=== PATIENT | male | born 1940 | race Caucasian/White ===

== ENCOUNTER 2020-02-05 05:45 | Outpatient (RCR) | payer MEDICARE, SELFPAY ==
--- NOTE | 2020-01-16 11:35 | N.ONRAD NP_ITS ---
Radiation Oncology New Patient Visit Patient: Gama William MR#: [id number] : 1940> Age: 79> Sex: Male> Dictated by: Dr. 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 The 5.5 cm tumor with 1.5 cm depth of invasion and skeletal muscle involvement was resected with a free flap reconstruction on 11/25/[address] Paredes at the [facility]. Pathology revealed widely negative margins, no lymph node involvement, and no bone invasion. Radiotherapy to date: Summary > No prior radiation therapy. Chief Complaint / History of Present Illness: The patient is an 79-year-old male who noted a progressive lesion behind his right ear for a duration of 8 to 9 months. The patient was referred to a instrument sterilizer, but the patient was noncompliant. The patient was ultimately referred to Dr. Leland Aguirre and a physical exam on 11/07/2019 revealed a fungating postauricular mass emanating from the right posterior helical fold involving the posterior boris bowl and postauricular crease. On 11/25/2019 Dr. Paredes at the [facility] performed a trans-parotid approach to the right infratemporal fossa with radical resection of the right ear, soft tissue of face, superficial parotid, 9 x 8 cm cutaneous defect, along with a right neck dissection of levels 2 through 4, and a right myofasciocutaneous anterolateral thigh free flap 10 x 8 cm. Pathology revealed a 5.5 cm mass of moderately differentiated squamous cell carcinoma with focal skeletal muscle involvement invading 1.5 cm. Surgical margins were widely negative, and none of the 34 resected lymph nodes were positive for disease. There was no bony involvement or salivary gland involvement. Preoperative imaging is not currently available for my review. The patient is seen in consultation today and reports no pain within the operative site or wound healing complications. Physical exam is pertinent for a well-healed free flap in the operative site, mild/moderate right facial nerve paralysis, and no palpable neck adenopathy. Current Medications: Allergies: Morphine Sulfate. Medical History: - Chronic kidney disease, - chronic obstructive pulmonary disease, - heart disease, - history of bladder cancer, - hyperlipidemia, - hypertension, - type II diabetes. No history of collagen vascular disease. No previous radiation therapy. Surgical History: Appendectomy, bladder surgery, coronary artery bypass, esophageal surgery, hernia repair and right ear/temporal bone excision. Family History: Father is at age 82 having experienced Colon Cancer. Mother is at age 94. Brother is at age 34 having experienced Colon Cancer. Social History: Last screened on 12/18/2019 - Yes - but has quit. Last screened on 12/18/2019 - Never drank. Current Complaints / Review of Systems: Constitutional - Complains of moderate fatigue. Denies lack of appetite, fever, night sweats and change in weight. Eyes - Complains of blurred vision related to watery eyes. Denies double vision. ENMT - Complains of problems with hearing. Denies dysphagia, ear pain, mouth dryness, stomatitis and altered taste. Neck - Denies neck pain. Integumentary - Denies rash. Cardiovascular - Denies arrhythmias, chest pain and edema. Respiratory - Complains of cough which is productive in the morning. Complains of dyspnea associated with normal activity. Denies wheezing. Gastrointestinal - Complains of abdominal pain that is intermittent located in the upper abdomen. Complains of heartburn / dyspepsia. Denies constipation, diarrhea, melena / GI bleeding, nausea and vomiting. Genitourinary (M) - Complains of hematuria from recent surgery and nocturia gets up 2 to 3 times per night. Denies dysuria. Musculoskeletal - Complains of bone pain occasionally in the right knee. Denies joint pain. Neurologic - Complains of abnormal gait. Denies dizziness and headaches. Endocrine - Complains of Type 2 diabetes. Complains of thyroid disease. Hematologic/Lymphatic - Denies tender or enlarged lymph nodes.. Vital Signs: Performed on 01/15/2020 2:06 PM BMI - 27.608 kg/m2 (high), Height - 72.50 in, Weight - 206.4 lbs, Temperature - 97.4 f, Pulse - 84, Respiration - 20, O2 Sat - 96 %, Pain - 0 and BP - 165/ 75 mm(hg)(high/). Physical Exam: GENERAL:??? The patient is alert, and in no acute distress. HEENT:??? Head is normocephalic. External ocular movements are intact. Sclera and conjunctivae are non erythematous. NECK:??? Trachea is midline.??? Thyroid is not enlarged by palpation.??? LYMPH NODES:???There are no palpable cervical or supraclavicular lymph nodes bilaterally. LUNGS:??? Clear to auscultation bilaterally. Respiratory movement is unlabored. HEART:??? Regular rate and rhythm. EXTREMITIES:??? No deformities. NEUROLOGIC:??? The patient is well coordinated and strength is equal bilaterally. CHEF INSTRUCTOR:???Aside from mild/moderate right facial nerve paralysis, cranial nerves II-XII are grossly.??? Psych: Affect is normal. Skin: Cursory review of the skin reveals no obvious lesions concerning for malignancy. Performance Status: 1 - No physically strenuous activity, but ambulatory and able to carry out light or sedentary work (e.g. office work, light house work). 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 The 5.5 cm tumor with 1.5 cm depth of invasion and skeletal muscle involvement was resected with a free flap reconstruction on 11/25/[address] Paredes at the [facility]. Pathology revealed widely negative margins and no lymph node involvement. We discussed the fact that despite the excellent surgery the patient has received, he still has a high risk for disease recurrence and therefore radiation therapy for local control benefit is reasonable. We discussed treatment goals of radiotherapy, prognosis with and without radiation therapy, radiation treatment logistics, and potential acute and late side effects in detail. Both the patient and his son verbalized understanding of the risks/benefits of radiotherapy and they have agreed that the patient should proceed as recommended. Plan: -) Obtain preoperative imaging from the [facility]. -) Begin radiation therapy planning to provide a total dose of 60 Gy in 30 fractions to the operative bed and right neck draining lymphatics. We will begin radiotherapy planning early next week and fuse preoperative imaging to the CT simulation data set. Signed by: 01/16/2020 11:33:16 AM <<Signature on File>> Time spent with patient: CPT Code: CPT Code:
--- NOTE | 2020-01-20 | CT_ITS ---
Radiation Therapy Planning CT images; total exam DLP: 1366.81 mGy-cm MTDD
--- NOTE | 2020-01-29 18:15 | ONCRAD TMN_ITS ---
Radiation Oncology Weekly Treatment Management Patient: Nataliia Malloy MR#: [id number] : 1940 Age: 79 Sex: Male Dictated by: Dr. 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 The 5.5 cm tumor with 1.5 cm depth of invasion and skeletal muscle involvement was resected with a free flap reconstruction on 11/25/[address] Paredes at the [facility]. Pathology revealed widely negative margins, no lymph node involvement, and no bone invasion. Radiotherapy to date: Course: HN 2019, Treatment Site: HN RT 60Gy, Ref. ID: [id number], Energy: 6X, dose/Fx (cGy): 20, #Fx: 2 / 30, Dose Correction (cGy): 0, Total Dose (cGy): 400, Start Date: 01/27/2020, Elapsed Days: 1 Reason for visit: The patient is being seen today as part of their regularly scheduled weekly on treatment visits to assess for acute toxicities from radiotherapy. Interim History: Patient reports a mild cough productive for clear sputum, hiccups, and occasional odynophagia. Current Medications: Albuterol Sulfate HFA, aspirin 81, atorvastatin Calcium, clopidogrel Bisulfate, colchicine, famotidine, ferrous Sulfate, gemfibrozil, insulin Glargine (2 Unit Dial), levothyroxine Sodium, lisinopril, metoprolol Tartrate, multivitamin, nitroglycerin, pioglitazone HCl. Allergies: Morphine Sulfate. Current Complaints/Review of Systems: Constitutional - Complains of mild fatigue. Denies lack of appetite, fever and night sweats. ENMT - Complains of problems with hearing and mouth dryness. Denies dysphagia but has odynophagia occasionally, ear pain, stomatitis and altered taste. Neck - Denies neck pain. Respiratory - Complains of a mild cough which is productive and the sputum is clear in color. Complains of hiccoughs. Denies hemoptysis and wheezing. Vital Signs: Performed on 01/28/2020 3:51 PM BMI - 27.769 kg/m2 (high), Height - 72.50 in, Weight - 207.6 lbs, Temperature - 97.4 f, Pulse - 51, Respiration - 18, O2 Sat - 98 %, Pain - 0 and BP - 166/ 73 mm(hg)(high/). Physical Exam: Appears stable, no skin erythema or desquamation. Performance Status: 1 - No physically strenuous activity, but ambulatory and able to carry out light or sedentary work (e.g. office work, light house work). (ECOG) Lab: None pending in Radiation Oncology. Imaging: Radiation therapy imaging related to accurate target localization (i.e. KV, MV and CBCT) was reviewed. Appropriate changes, if any, were made to ensure treatment accuracy. Plan: The patient is tolerating therapy reasonably well. Radiotherapy will continue as planned. CPT: 33957 Signed by: Dr. Shreyas Villafuerte 01/29/2020 6:14:20 PM
--- NOTE | 2020-02-06 09:09 | ONCRAD TMN_ITS ---
Radiation Oncology Weekly Treatment Management Patient: Nataliia Malloy MR#: [id number] : 1940 Age: 79 Sex: Male Dictated by: Dr. 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 The 5.5 cm tumor with 1.5 cm depth of invasion and skeletal muscle involvement was resected with a free flap reconstruction on 11/25/[address] Paredes at the [facility]. Pathology revealed widely negative margins, no lymph node involvement, and no bone invasion. Radiotherapy to date: Course: HN 2019, Treatment Site: HN RT 60Gy, Ref. ID: [id number], Energy: 6X, Dose/Fx (cGy): 200, #Fx: , Dose Correction (cGy): 0, Total Dose (cGy): 1,400, Start Date: 01/27/2020, Elapsed Days: 8 Reason for visit: The patient is being seen today as part of their regularly scheduled weekly on treatment visits to assess for acute toxicities from radiotherapy. Interim History: Aside from mild fatigue, the patient has no complaints. Current Medications: Albuterol Sulfate HFA, aspirin 81, atorvastatin Calcium, clopidogrel Bisulfate, colchicine, famotidine, ferrous Sulfate, gemfibrozil, insulin Glargine (2 Unit Dial), levothyroxine Sodium, lisinopril, metoprolol Tartrate, multivitamin, nitroglycerin, pioglitazone HCl. Allergies: Morphine Sulfate. Current Complaints/Review of Systems: Constitutional - Complains of mild fatigue. Denies lack of appetite, fever, night sweats and change in weight. ENMT - Denies dysphagia, ear pain, mouth dryness, stomatitis and altered taste. Neck - Denies neck pain. Integumentary - Has slight pinkness to the neck. Vital Signs: Performed on 02/04/2020 3:39 PM BMI - 27.622 kg/m2 (high), Height - 72.50 in, Weight - 206.5 lbs, Temperature - 96.8 f, Pulse - 86, Respiration - 18, O2 Sat - 98 %, Pain - 0 and BP - 153/ 79 mm(hg)(high/). Physical Exam: Faint erythema within the treatment site is appreciated. There is no desquamation. Performance Status: 1 - No physically strenuous activity, but ambulatory and able to carry out light or sedentary work (e.g. office work, light house work). (ECOG) Lab: None pending in Radiation Oncology. Imaging: Radiation therapy imaging related to accurate target localization (i.e. KV, MV and CBCT) was reviewed. Appropriate changes, if any, were made to ensure treatment accuracy. Plan: The patient is tolerating therapy reasonably well. Radiotherapy will continue as planned. CPT: 05917 Signed by: Dr. Shreyas Villafuerte 02/06/2020 9:08:10 AM
== END 2020-02-05 23:59 | disposition home or self-care (01) ==
LOC: ONCMED 05:45
PROVIDERS: PCP Family Medicine; Visit Provider Radiology Radiation Oncology
DX: Z51.0 Encounter for antineoplastic radiation therapy (principal); C44.222 Squamous cell carcinoma of skin of right ear and external auricular canal; E78.5 Hyperlipidemia, unspecified; E11.22 Type 2 diabetes mellitus with diabetic chronic kidney disease; I13.10 Hypertensive heart and chronic kidney disease without heart failure, with stage 1 through stage 4 chronic kidney disease, or unspecified chronic kidney disease; N18.9 Chronic kidney disease, unspecified; Z87.891 Personal history of nicotine dependence
CPT/HCPCS: 77300; 77301; 77332; 77334; 77338; 77386; 99205

== ENCOUNTER 2020-03-06 05:41 | Outpatient (RCR) | payer MEDICARE, SELFPAY ==
--- NOTE | 2020-02-13 08:35 | ONCRAD TMN_ITS ---
Radiation Oncology Weekly Treatment Management Patient: Gama William MR#: [id number] : 1940 Age: 80 Sex: Male Dictated by: Dr. Shreyas Villafuerte Date of Service: 02/11/2020 Referring Physician(s) : Diagnosis: C44.222 ??? 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 The 5.5 cm tumor with 1.5 cm depth of invasion and skeletal muscle involvement was resected with a free flap reconstruction on 11/25/[address] Paredes at the [facility]. Pathology revealed widely negative margins, no lymph node involvement, and no bone invasion. Radiotherapy to date: Course: HN 2019, Treatment Site: HN RT 60Gy, Ref. ID: [id number], Energy: 6X, Dose/Fx (cGy): 200, #Fx: , Dose Correction (cGy): 0, Total Dose (cGy): 2,400, Start Date: 01/27/2020, Elapsed Days: 15 Reason for visit: The patient is being seen today as part of their regularly scheduled weekly on treatment visits to assess for acute toxicities from radiotherapy. Interim History: The patient reports mild fatigue, no oral cavity pain, or skin irritation. Current Medications: Albuterol Sulfate HFA, aspirin 81, atorvastatin Calcium, clopidogrel Bisulfate, colchicine, famotidine, ferrous Sulfate, gemfibrozil, insulin Glargine (2 Unit Dial), levothyroxine Sodium, lisinopril, metoprolol Tartrate, multivitamin, nitroglycerin, pioglitazone HCl. Allergies: Morphine Sulfate. Current Complaints/Review of Systems: Constitutional - Complains of mild fatigue. Complains of change in weight in which his weight is down 5.1 lbs. since last OTV. Denies lack of appetite and fever. ENMT - Complains of problems with hearing. Denies dysphagia, ear pain, mouth dryness, stomatitis and altered taste. Neck - Denies neck pain. Integumentary - Has no redness to the neck. Respiratory - Complains of hiccoughs. Vital Signs: Performed on 02/11/2020 3:29 PM BMI - 26.939 kg/m2 (high), Height - 72.50 in, Weight - 201.4 lbs, Temperature - 97.8 f, Pulse - 62, Respiration - 20, O2 Sat - 99 %, Pain - 0 and BP - 142/ 54 mm(hg)(high/low). Physical Exam: Appears stable, no skin erythema or desquamation. Performance Status: 1 - No physically strenuous activity, but ambulatory and able to carry out light or sedentary work (e.g. office work, light house work). (ECOG) Lab: None pending in Radiation Oncology. Imaging: Radiation therapy imaging related to accurate target localization (i.e. KV, MV and CBCT) was reviewed. Appropriate changes, if any, were made to ensure treatment accuracy. Plan: The patient is tolerating therapy reasonably well. Radiotherapy will continue as planned. CPT: 63990 Signed by: Dr. Shreyas Villafuerte 02/13/2020 8:33:31 AM
--- NOTE | 2020-02-18 16:27 | ONCRAD TMN_ITS ---
Radiation Oncology Weekly Treatment Management Patient: Nataliia Malloy MR#: [id number] : 1940 Age: 80 Sex: Male Dictated by: Dr. Shreyas Villafuerte Date of Service: 02/18/2020 Referring Physician(s) : Diagnosis: C44.222 ??? 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 The 5.5 cm tumor with 1.5 cm depth of invasion and skeletal muscle involvement was resected with a free flap reconstruction on 11/25/[address] Paredes at the [facility]. Pathology revealed widely negative margins, no lymph node involvement, and no bone invasion. Radiotherapy to date: Course: HN 2019, Treatment Site: HN RT 60Gy, Ref. ID: [id number], Energy: 6X, Dose/Fx (cGy): 200, #Fx: , Dose Correction (cGy): 0, Total Dose (cGy): 3,400, Start Date: 01/27/2020, Elapsed Days: 22 Reason for visit: The patient is being seen today as part of their regularly scheduled weekly on treatment visits to assess for acute toxicities from radiotherapy. Interim History: He reports decreased sense of smell, but this is improving. He first reported a decrease since of smell after his surgery. He reports mild skin irritation in Current Medications: Albuterol Sulfate HFA, aspirin 81, atorvastatin Calcium, clopidogrel Bisulfate, colchicine, famotidine, ferrous Sulfate, gemfibrozil, insulin Glargine (2 Unit Dial), levothyroxine Sodium, lisinopril, metoprolol Tartrate, multivitamin, nitroglycerin, pioglitazone HCl. Allergies: Morphine Sulfate. Current Complaints/Review of Systems: Constitutional - Complains of mild fatigue. Denies lack of appetite, fever and night sweats. ENMT - Denies ear pain, mouth dryness, stomatitis and altered taste. Has decreased sense of smell. Neck - Denies neck pain. Integumentary - Has slight redness to the right side of the neck. Vital Signs: Performed on 02/18/2020 3:31 PM BMI - 26.592 kg/m2 (high), Height - 72.50 in, Weight - 198.8 lbs, Temperature - 96.9 f, Pulse - 59, Respiration - 18, O2 Sat - 96 %, Pain - 0 and BP - 118/ 72 mm(hg). Physical Exam: Mild skin erythema within the treatment site is appreciated. There is no desquamation. Performance Status: 1 - No physically strenuous activity, but ambulatory and able to carry out light or sedentary work (e.g. office work, light house work). (ECOG) Lab: None pending in Radiation Oncology. Imaging: Radiation therapy imaging related to accurate target localization (i.e. KV, MV and CBCT) was reviewed. Appropriate changes, if any, were made to ensure treatment accuracy. Plan: The patient is tolerating therapy reasonably well. Radiotherapy will continue as planned. CPT: 32334 Signed by: Dr. Shreyas Villafuerte 02/18/2020 4:25:25 PM
--- NOTE | 2020-02-25 16:23 | ONCRAD TMN_ITS ---
Radiation Oncology Weekly Treatment Management Patient: Nataliia Malloy MR#: [id number] : 1940 Age: 80 Sex: Male Dictated by: Dr. 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 The 5.5 cm tumor with 1.5 cm depth of invasion and skeletal muscle involvement was resected with a free flap reconstruction on 11/25/[address] Paredes at the [facility]. Pathology revealed widely negative margins, no lymph node involvement, and no bone invasion. Radiotherapy to date: Course: HN 2019, Treatment Site: HN RT 60Gy, Ref. ID: [id number], Energy: 6X, Dose/Fx (cGy): 200, #Fx: , Dose Correction (cGy): 0, Total Dose (cGy): 4,400, Start Date: 01/27/2020, Elapsed Days: 29 Reason for visit: The patient is being seen today as part of their regularly scheduled weekly on treatment visits to assess for acute toxicities from radiotherapy. Interim History: The patient reports mild swelling of his skin graft. He reports no oral pain or skin irritation. Current Medications: Albuterol Sulfate HFA, aspirin 81, atorvastatin Calcium, clopidogrel Bisulfate, colchicine, famotidine, ferrous Sulfate, gemfibrozil, insulin Glargine (2 Unit Dial), levothyroxine Sodium, lisinopril, metoprolol Tartrate, multivitamin, nitroglycerin, pioglitazone HCl. Allergies: Morphine Sulfate. Vital Signs: Performed on 02/25/2020 3:45 PM BMI - 26.378 kg/m2 (high), Height - 72.50 in, Weight - 197.2 lbs, Temperature - 97.4 f, Pulse - 54, Respiration - 20, O2 Sat - 95 % (low), Pain - 0 and BP - 125/ 69 mm(hg). Physical Exam: Erythema within the treatment area, hyperpigmentation, and faint dry desquamation is appreciated. The patient was encouraged to use Aquaphor as previously instructed. Performance Status: 1 - No physically strenuous activity, but ambulatory and able to carry out light or sedentary work (e.g. office work, light house work). (ECOG) Lab: None pending in Radiation Oncology. Imaging: Radiation therapy imaging related to accurate target localization (i.e. KV, MV and CBCT) was reviewed. Appropriate changes, if any, were made to ensure treatment accuracy. Plan: The patient is tolerating therapy reasonably well. Radiotherapy will continue as planned. CPT: 06865 Signed by: Dr. Shreyas Villafuerte 02/25/2020 4:21:35 PM
--- NOTE | 2020-03-04 18:26 | ONCRAD TMN_ITS ---
Radiation Oncology Weekly Treatment Management Patient: Gama William MR#: [id number] : 1940 Age: 80 Sex: Male Dictated by: Dr. 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 ID: [id number], Energy: 6X, Dose/Fx (cGy): 200, #Fx: , Dose Correction (cGy): 0, Total Dose (cGy): 5,200, Start Date: 01/27/2020, Elapsed Days: 37 Reason for visit: The patient is being seen today as part of their regularly scheduled weekly on treatment visits to assess for acute toxicities from radiotherapy. Interim History: The patient reports right neck skin irritation and mild swallowing pain. Current Medications: Albuterol Sulfate HFA, aspirin 81, atorvastatin Calcium, clopidogrel Bisulfate, colchicine, famotidine, ferrous Sulfate, gemfibrozil, insulin Glargine (2 Unit Dial), levothyroxine Sodium, lisinopril, metoprolol Tartrate, multivitamin, nitroglycerin, pioglitazone HCl. Allergies: Morphine Sulfate. Current Complaints/Review of Systems: Constitutional - Complains of lack of appetite. Complains of mild fatigue. Complains of change in weight his weight is down 4.2 lbs. since last OTV. ENMT - Complains of problems with hearing in both ears. Complains of altered taste. Has swelling in around skin flap. Neck - Denies neck pain. Integumentary - Has dry desquamation to the neck. Vital Signs: Performed on 03/04/2020 3:46 PM BMI - 25.816 kg/m2 (high), Height - 72.50 in, Weight - 193.0 lbs, Temperature - 96.8 f, Pulse - 49, Respiration - 20, O2 Sat - 97 %, Pain - 0 and BP - 134/ 72 mm(hg). Physical Exam: Dry desquamation is appreciated in the patient's right neck, along with erythema and hyperpigmentation. Performance Status: 1 - No physically strenuous activity, but ambulatory and able to carry out light or sedentary work (e.g. office work, light house work). (ECOG) Lab: None pending in Radiation Oncology. Imaging: Radiation therapy imaging related to accurate target localization (i.e. KV, MV and CBCT) was reviewed. Appropriate changes, if any, were made to ensure treatment accuracy. Plan: The patient is tolerating therapy reasonably well. Radiotherapy will continue as planned. The patient was instructed to begin using Aquaphor, instructions for [place] soaks were given, and the patient was prescribed miracle mouthwash. CPT: 36439 Signed by: Dr. Shreyas Villafuerte 03/04/2020 6:24:51 PM
== END 2020-03-07 23:59 | disposition home or self-care (01) ==
LOC: ONCMED 05:41
PROVIDERS: PCP Family Medicine; Visit Provider Radiology Radiation Oncology
DX: Z51.0 Encounter for antineoplastic radiation therapy (principal); C44.222 Squamous cell carcinoma of skin of right ear and external auricular canal; L58.0 Acute radiodermatitis; L81.4 Other melanin hyperpigmentation; Y84.2 Radiological procedure and radiotherapy as the cause of abnormal reaction of the patient, or of later complication, without mention of misadventure at the time of the procedure
CPT/HCPCS: 77336; 77386

== ENCOUNTER 2020-03-10 05:28 | Outpatient (RCR) | payer MEDICARE, SELFPAY ==
--- NOTE | 2020-03-10 15:53 | ONCRAD TMN_ITS ---
Radiation Oncology Weekly Treatment Management Patient: Nataliia Malloy MR#: [id number] : 1940 Age: 80 Sex: Male Dictated by: Dr. 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 ID: [id number], Energy: 6X, Dose/Fx (cGy): 200, #Fx: 30 / 30, Dose Correction (cGy): 0, Total Dose (cGy): 6,000, Start Date: 01/27/2020, Elapsed Days: 43 Reason for visit: The patient is being seen today as part of their regularly scheduled weekly on treatment visits to assess for acute toxicities from radiotherapy. Interim History: Patient reports skin irritation. Current Medications: Albuterol Sulfate HFA, aspirin 81, atorvastatin Calcium, clopidogrel Bisulfate, colchicine, famotidine, ferrous Sulfate, gemfibrozil, insulin Glargine (2 Unit Dial), levothyroxine Sodium, lisinopril, metoprolol Tartrate, multivitamin, nitroglycerin, pioglitazone HCl. Allergies: Morphine Sulfate. Current Complaints/Review of Systems: Constitutional - Complains of mild fatigue. Denies lack of appetite, fever and night sweats. ENMT - Complains of problems with hearing. Denies dysphagia and ear pain. Neck - Denies neck pain. Integumentary - Has desqumation to the neck. Vital Signs: Performed on 03/10/2020 3:20 PM BMI - 25.709 kg/m2 (high), Height - 72.50 in, Weight - 192.2 lbs, Temperature - 97.2 f, Pulse - 56, Respiration - 18, O2 Sat - 97 %, Pain - 0 and BP - 127/ 52 mm(hg)(/low). Physical Exam: Moist desquamation is appreciated in the central right neck along with areas of dry desquamation and hyperpigmentation. Performance Status: 2 - Ambulatory/capable of all self-care, unable to perform any work activities. Up and about more than 50% of waking hours. (ECOG) Lab: None pending in Radiation Oncology. Imaging: Radiation therapy imaging related to accurate target localization (i.e. KV, MV and CBCT) was reviewed. Appropriate changes, if any, were made to ensure treatment accuracy. Plan: Today, the patient completes radiotherapy. He tolerated therapy reasonably well and as expected. The patient has moist desquamation this is being managed with Domeboro soaks therapy. Patient was recommended to follow-up with us in 1 month. CPT: 77882 Signed by: Dr. Shreyas Villafuerte 03/10/2020 3:51:33 PM
== END 2020-04-06 23:59 | disposition home or self-care (01) ==
LOC: ONCMED 05:28
PROVIDERS: PCP Family Medicine; Visit Provider Radiology Radiation Oncology
DX: Z51.0 Encounter for antineoplastic radiation therapy (principal); C44.222 Squamous cell carcinoma of skin of right ear and external auricular canal
CPT/HCPCS: 77336; 77386

== ENCOUNTER 2023-09-19 00:36 | Inpatient (IN) | payer MEDICARE, SELFPAY ==
[2023-09-19] VITALS (14 sets, daily range): BP systolic 98–131; BP diastolic 57–83; PULSE 70–98; RESP 16–29; TEMP 35.7–36.8; O2SAT 94–99; BMI 26.2
--- OUTSIDE RECORDS SUMMARY | 2023-09-19 00:41 | XMS_ITS ---
Author Name Wandy Skelton Address [address] [place] [address] Phone [phone] Organization [facility] e, NA DOCUMENT DISCLAIMER Multiple document versions may exist, please be sure you review the latest version. The information in the [facility] Progress Note Document represents a providers documented clinical note containing certain health and medical information. It may not contain the complete medical history for the patient and should be independently verified. The represented time in the document is Eastern Time PROVIDER ROUNDING NOTE COMPREHENSIVE Patient:?Gama?Nataliia,?1940,?83y,?M Dialysis?Location:[place] Attending?Electrical Systems Designer:?Glen Service?Date:?07/11/2023 Service?Provider:?Wandy?Costa,? I?met?face?to?face?with?the?patient?today. 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 He?has?decided?to?not?proceed?with?home?therapies. Medications?and?labs?reviewed. DIALYSIS?PRESCRIPTION ??IHD?3x?Week?Start?date:?06/29/23 ??Dialyzer:?180NRe?Optiflux ??BFR:?450 ??DFR:?Autoflow?2 ??Potassium:?3.0 ??Sodium:?138 ??EDW:?79 ??Duration:?3:00 ??Calcium:?2.5 ??Bicarb:?36 ??Rx?updated?on:?06/29/2023 TREATMENT?ASSESSMENT Comments:?Stable. Blood?pressure?controlled.?No?changes?indicated.? BP?Stand?Pre ??07/08/2023:?129/75 ??07/06/2023:?138/69 ??07/04/2023:?119/57 BP?Sit?Pre ??07/08/2023:?130/73 ??07/06/2023:?134/90 ??07/04/2023:?136/77 BP?Stand?Post ??07/08/2023:?134/71 ??07/06/2023:?129/66 ??07/04/2023:?123/96 BP?Sit?Post ??07/08/2023:?134/62 ??07/06/2023:?111/57 ??07/04/2023:?108/71 Tx?Duration ??07/08/2023:?3:01 ??07/06/2023:?3:04 ??07/04/2023:?3:04 Missed?Treatments 0?-?last?30?days 0?-?last?60?days FLUID?ASSESSMENT Fluid?status?acceptable.?Interdialytic?weight?gain?acceptable.?No ?changes?indicated.? EDW?(kg) ??07/08/2023:?79.0 ??07/06/2023:?79.0 ??07/04/2023:?79.0 Weight?Pre?(kg) ??07/08/2023:?80.5 ??07/06/2023:?79.9 ??07/04/2023:?80.3 Weight?Post?(kg) ??07/08/2023:?78.7 ??07/06/2023:?78.8 ??07/04/2023:?78.9 PWV?(kg) ??07/08/2023:?-0.3 ??07/06/2023:?-0.2 ??07/04/2023:?-0.1 UF?Rate?(mL/kg/hr) ??07/08/2023:?7.6 ??07/06/2023:?4.6 ??07/04/2023:?5.8 ADEQUACY?ASSESSMENT Adequacy?target?met.?Prescription?compliance?acceptable.? spKt/V,?URR ??07/04/2023:?1.25,?67.0 ??06/20/2023:?1.29,?68.0 ??06/15/2023:?1.27,?68.0 ?? Urine?Cr?Clearance ??05/02/2023:?9.1 ACCESS?ASSESSMENT ??Access?Type:?CVCatheter ??Access?SubType:?Tunneled ??Access?Status:?Active?(In?Use)?-?03/08/2023 ??Access?Location:?Chest ??Placed:?03/08/2023 Comments:?To?see?vascular?surgery?in?[place]?08/27/2023 ANEMIA?ASSESSMENT Comments:?On?IV?iron?and?FAUSTINA?protocol. HGB ??07/06/2023:?10.9 ??06/29/2023:?10.9 ??06/22/2023:?11.0 ?? Ferritin ??06/15/2023:?559.0 ??04/13/2023:?483.0 ??03/13/2023:?242.0 Mircera,?IVP?(mcg) ??07/06/2023:?60 ??06/22/2023:?60 ??06/08/2023:?75 Iron?Sucrose?(Venofer)?(mg) ??06/24/2023:?100 ??06/22/2023:?100 ??06/20/2023:?100 BMM?ASSESSMENT Comments:?At?goal. Phosphorus,?Calcium ??06/15/2023:?3.3,?8.4 ??05/11/2023:?3.0,?7.7 ??04/13/2023:?3.0,?8.6 ?? PTH,?Intact ??04/13/2023:?284.0 ??03/13/2023:?373.0 NUTRITION?ASSESSMENT Comments:?Ed?on?protein?in?diet.:?on?protein?supplements. Has?improved.?? Potassium?controlled.?Albumin?below?goal.?Referred?to?dietitian. Albumin,?Potassium ??06/15/2023:?3.4,?5.0 ??05/11/2023:?3.1,?3.9 ??04/13/2023:?3.4,?4.1 ?? eNPCR ??07/04/2023:?0.9 ??06/20/2023:?0.75 ??06/15/2023:?0.72 PHYSICAL?EXAM Exam?Performed.?Vital?Signs?Reviewed.?Lungs?-?Clear.?CV&#160 ;-?Blood?pressure?noted.?CV?-?RRR.?EXT?-?No?edema.?EXT?-?No?ulcers. DIAGNOSIS Chief?Complaint:?N18.6?End?stage?renal?disease Patient?is?stable. Patient?data?updated?07/11/2023?at?1:19?PM Signed?By:?Costa,?Wandy,???on?07/11/2023?1:27:47?PM END OF DOCUMENT
--- OUTSIDE RECORDS SUMMARY | 2023-09-19 00:41 | XMS_ITS ---
Author Name Wandy Skelton Address [address] [place] [address] Phone [phone] Organization [facility] e, NA DOCUMENT DISCLAIMER Multiple document versions may exist, please be sure you review the latest version. The information in the [facility] Progress Note Document represents a providers documented clinical note containing certain health and medical information. It may not contain the complete medical history for the patient and should be independently verified. The represented time in the document is Eastern Time PROVIDER ROUNDING NOTE COMPREHENSIVE Patient:?Gama?William,?1940,?83y,?M Dialysis?Location:?[place] Attending?Health Safety And Environment Manager:?Glen Service?Date:?06/20/2023 Service?Provider:?Wandy?Costa,? I?met?face?to?face?with?the?patient?today. 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 He?has?decided?to?not?proceed?with?home?therapies. DIALYSIS?PRESCRIPTION ??IHD?3x?Week?Start?date:?05/30/23 ??Dialyzer:?180NRe?Optiflux ??BFR:?450 ??DFR:?Autoflow?2 ??Potassium:?3.0 ??Sodium:?138 ??EDW:?80 ??Duration:?3:00 ??Calcium:?2.5 ??Bicarb:?36 ??Rx?updated?on:?05/30/2023 TREATMENT?ASSESSMENT Comments:?Stable. Blood?pressure?controlled.?No?changes?indicated.? BP?Stand?Pre ??06/17/2023:?144/70 ??06/15/2023:?143/70 ??06/13/2023:?125/67 BP?Sit?Pre ??06/17/2023:?132/105 ??06/15/2023:?151/74 ??06/13/2023:?142/79 BP?Stand?Post ??06/17/2023:?128/63 ??06/15/2023:?121/57 ??06/13/2023:?141/72 BP?Sit?Post ??06/17/2023:?109/67 ??06/15/2023:?117/70 ??06/13/2023:?112/79 Tx?Duration ??06/17/2023:?3:01 ??06/15/2023:?3:00 ??06/13/2023:?3:00 Missed?Treatments 0?-?last?30?days 0?-?last?60?days FLUID?ASSESSMENT Fluid?status?acceptable.?Interdialytic?weight?gain?acceptable.?No ?changes?indicated.? EDW?(kg) ??06/17/2023:?80.0 ??06/15/2023:?80.0 ??06/13/2023:?80.0 Weight?Pre?(kg) ??06/17/2023:?81.0 ??06/15/2023:?81.0 ??06/13/2023:?81.4 Weight?Post?(kg) ??06/17/2023:?80.3 ??06/15/2023:?79.3 ??06/13/2023:?79.8 PWV?(kg) ??06/17/2023:?0.3 ??06/15/2023:?-0.7 ??06/13/2023:?-0.2 UF?Rate?(mL/kg/hr) ??06/17/2023:?2.9 ??06/15/2023:?7.1 ??06/13/2023:?6.7 ADEQUACY?ASSESSMENT Adequacy?target?met.?Prescription?compliance?acceptable.? spKt/V,?URR ??06/15/2023:?1.27,?68.0 ??06/06/2023:?1.11,?64.0 ??05/30/2023:?1.06,?62.0 ?? Urine?Cr?Clearance ??05/02/2023:?9.1 ACCESS?ASSESSMENT ??Access?Type:?CVCatheter ??Access?SubType:?Tunneled ??Access?Status:?Active?(In?Use)?-?03/08/2023 ??Access?Location:?Chest ??Placed:?03/08/2023 Comments:?To?see?vascular?surgery?in?[place]. Vascular?access?reviewed.?Referral?made?for?access?revision/ intervention. ANEMIA?ASSESSMENT Comments:?On?IV?iron?and?FAUSTINA?protocol. HGB,?TSAT ??06/15/2023:?11.2,?24.0 ??06/08/2023:?11.0,?- ??06/01/2023:?10.4,?- ?? Ferritin ??06/15/2023:?559.0 ??04/13/2023:?483.0 ??03/13/2023:?242.0 Mircera,?IVP?(mcg) ??06/08/2023:?75 ??05/25/2023:?75 Iron?Sucrose?(Venofer)?(mg) ??06/08/2023:?100 ??06/06/2023:?100 ??06/03/2023:?100 BMM?ASSESSMENT PTH?controlled.?Calcium?controlled.?Phosphorus?controlled.?BMM?me ds?adherence?acceptable.?No?changes?indicated.? Phosphorus,?Calcium ??06/15/2023:?3.3,?8.4 ??05/11/2023:?3.0,?7.7 ??04/13/2023:?3.0,?8.6 ?? PTH,?Intact ??04/13/2023:?284.0 ??03/13/2023:?373.0 NUTRITION?ASSESSMENT Comments:?Ed?on?protein?in?diet.:?on?protein?supplements. Has?imrpoved. Albumin,?Potassium ??06/15/2023:?3.4,?5.0 ??05/11/2023:?3.1,?3.9 ??04/13/2023:?3.4,?4.1 ?? eNPCR ??06/15/2023:?0.72 ??06/06/2023:?0.5 ??05/30/2023:?0.45 PHYSICAL?EXAM Exam?Performed.?Vital?Signs?Reviewed.?Lungs?-?Clear.?CV&#160 ;-?Blood?pressure?noted.?CV?-?RRR.?EXT?-?No?edema.?EXT?-?No?ulcers. DIAGNOSIS Chief?Complaint:?N18.6?End?stage?renal?disease Patient?is?stable. Patient?data?updated?06/20/2023?at?2:40?PM Signed?By:?Costa,?Wandy???on?06/20/2023?2:42:20?PM END OF DOCUMENT
--- OUTSIDE RECORDS SUMMARY | 2023-09-19 00:41 | XMS_ITS ---
Author Name Wandy Skelton Address [address] [place] [address] Phone [phone] Organization [facility] e, NA DOCUMENT DISCLAIMER Multiple document versions may exist, please be sure you review the latest version. The information in the [facility] Progress Note Document represents a providers documented clinical note containing certain health and medical information. It may not contain the complete medical history for the patient and should be independently verified. The represented time in the document is Eastern Time PROVIDER ROUNDING NOTE COMPREHENSIVE Patient:?Gama?Nataliia,?1940,?83y,?M Dialysis?Location:?[place] Attending?Kier Hand:?Glen Service?Date:?09/12/2023 Service?Provider:?Wandy?Costa,? I?met?face?to?face?with?the?patient?today. 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 He?has?decided?to?not?proceed?with?home?therapies. Medications?and?labs?reviewed. DIALYSIS?PRESCRIPTION ??IHD?3x?Week?Start?date:?09/09/23 ??Dialyzer:?180NRe?Optiflux ??BFR:?450 ??DFR:?Autoflow?2 ??Potassium:?3.0 ??Sodium:?138 ??EDW:?82.5 ??Duration:?3:00 ??Calcium:?2.5 ??Bicarb:?36 ??Rx?updated?on:?09/09/2023 TREATMENT?ASSESSMENT Comments:?Stable. BP?Stand?Pre ??09/09/2023:?105/65 ??09/07/2023:?115/72 ??09/05/2023:?132/68 BP?Sit?Pre ??09/09/2023:?114/70 ??09/07/2023:?113/77 ??09/05/2023:?134/76 BP?Stand?Post ??09/09/2023:?110/56 ??09/07/2023:?137/86 ??09/05/2023:?112/66 BP?Sit?Post ??09/09/2023:?140/77 ??09/07/2023:?112/56 ??09/05/2023:?122/60 Tx?Duration ??09/09/2023:?3:01 ??09/07/2023:?3:00 ??09/05/2023:?3:01 Missed?Treatments 0?-?last?30?days 0?-?last?60?days FLUID?ASSESSMENT Comments:?Stable. EDW?(kg) ??09/09/2023:?83.0 ??09/07/2023:?83.0 ??09/05/2023:?83.0 Weight?Pre?(kg) ??09/09/2023:?84.3 ??09/07/2023:?83.9 ??09/05/2023:?84.2 Weight?Post?(kg) ??09/09/2023:?82.1 ??09/07/2023:?82.5 ??09/05/2023:?82.8 PWV?(kg) ??09/09/2023:?-0.9 ??09/07/2023:?-0.5 ??09/05/2023:?-0.2 UF?Rate?(mL/kg/hr) ??09/09/2023:?8.9 ??09/07/2023:?5.7 ??09/05/2023:?5.6 ADEQUACY?ASSESSMENT Comments:?Repeat?kt/v. spKt/V,?URR ??09/07/2023:?1.14,?63.0 ??08/10/2023:?1.73,?79.0 ??07/27/2023:?1.3,?68.0 ?? Urine?Cr?Clearance ??05/02/2023:?9.1 ACCESS?ASSESSMENT ??Access?Type:?CVCatheter ??Access?SubType:?Tunneled ??Access?Status:?Active?(In?Use)?-?07/20/2023 ??Access?Location:?Chest ??Placed:?07/19/2023 Comments:?To?see?vascular?surgery?in?[place]?08/27/2023:?th is?appt?was?for?July,?not?August.?He?went,?but?it is?being?rescheduled. ANEMIA?ASSESSMENT Comments:?On?IV?iron?and?FAUSTINA?protocol. HGB,?TSAT ??09/07/2023:?9.8,?22.0 ??08/31/2023:?9.6,?- ??08/24/2023:?10.0,?- ?? Ferritin ??07/13/2023:?502.0 ??06/15/2023:?559.0 ??04/13/2023:?483.0 Mircera,?IVP?(mcg) ??09/09/2023:?75 ??08/10/2023:?75 ??07/20/2023:?50 Iron?Sucrose?(Venofer)?(mg) ??06/24/2023:?100 ??06/22/2023:?100 ??06/20/2023:?100 BMM?ASSESSMENT PTH?controlled.?Calcium?controlled.?Phosphorus?controlled.?BMM?me ds?adherence?acceptable.?No?changes?indicated.? Phosphorus,?Calcium ??09/07/2023:?3.5,?8.8 ??08/10/2023:?3.4,?8.3 ??07/13/2023:?3.8,?8.3 ?? PTH,?Intact ??07/13/2023:?258.0 ??04/13/2023:?284.0 ??03/13/2023:?373.0 NUTRITION?ASSESSMENT Comments:?Ed?on?protein?in?diet.:?on?protein?supplements. Albumin?has?increased. Potassium?controlled.?Albumin?below?goal.?No?changes?indicated. Albumin,?Potassium ??09/07/2023:?3.6,?5.2 ??08/10/2023:?3.1,?4.4 ??07/13/2023:?3.4,?4.7 ?? eNPCR ??09/07/2023:?0.75 ??08/10/2023:?0.73 ??07/27/2023:?0.88 PHYSICAL?EXAM Exam?Performed.?Vital?Signs?Reviewed.?EXT?-?No?edema.?EXT?-?No?ulcers. DIAGNOSIS Chief?Complaint:?N18.6?End?stage?renal?disease Patient?is?stable. Patient?data?updated?09/12/2023?at?1:55?PM Signed?By:?Costa,?Wandy???on?09/12/2023?1:56:36?PM END OF DOCUMENT
--- OUTSIDE RECORDS SUMMARY | 2023-09-19 00:42 | XMS_ITS ---
Author Name Maureen Murillo Address [address] [place] [address] Phone [phone] Organization [facility] e, NA DOCUMENT DISCLAIMER Multiple document versions may exist, please be sure you review the latest version. The information in the [facility] Progress Note Document represents a providers documented clinical note containing certain health and medical information. It may not contain the complete medical history for the patient and should be independently verified. The represented time in the document is Eastern Time PROVIDER ROUNDING NOTE BASIC Patient:?Gama?William,?1940,?83y,?M Dialysis?Location:[place] Attending?Rn Interventional:?Glen Service?Date:?08/31/2023 Service?Provider:?Maureen?Lidia,?MOTORCOACH DRIVER I?met?face?to?face?with?the?patient?today. 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 He?has?decided?to?not?proceed?with?home?therapies. Medications?and?labs?reviewed. DIALYSIS?PRESCRIPTION ??IHD?3x?Week?Start?date:?08/08/23 ??Dialyzer:?180NRe?Optiflux ??BFR:?450 ??DFR:?Autoflow?2 ??Potassium:?3.0 ??Sodium:?138 ??EDW:?82 ??Duration:?3:00 ??Calcium:?2.5 ??Bicarb:?36 ??Rx?updated?on:?08/08/2023 TREATMENT?ASSESSMENT Comments:?Stable. BP?Stand?Pre ??08/29/2023:?141/73 ??08/26/2023:?119/59 ??08/24/2023:?121/71 BP?Sit?Pre ??08/29/2023:?128/76 ??08/26/2023:?131/72 ??08/24/2023:?149/80 BP?Stand?Post ??08/29/2023:?118/51 ??08/26/2023:?133/60 ??08/24/2023:?133/70 BP?Sit?Post ??08/29/2023:?123/81 ??08/26/2023:?139/66 ??08/24/2023:?122/59 Tx?Duration ??08/29/2023:?3:00 ??08/26/2023:?3:03 ??08/24/2023:?3:00 Missed?Treatments 0?-?last?30?days 0?-?last?60?days FLUID?ASSESSMENT Comments:?Stable. EDW?(kg) ??08/29/2023:?82.0 ??08/26/2023:?82.0 ??08/24/2023:?82.0 Weight?Pre?(kg) ??08/29/2023:?84.8 ??08/26/2023:?84.8 ??08/24/2023:?85.4 Weight?Post?(kg) ??08/29/2023:?82.0 ??08/26/2023:?82.0 ??08/24/2023:?82.6 PWV?(kg) ??08/29/2023:?0.0 ??08/26/2023:?0.0 ??08/24/2023:?0.6 UF?Rate?(mL/kg/hr) ??08/29/2023:?11.4 ??08/26/2023:?11.2 ??08/24/2023:?11.3 ADEQUACY?ASSESSMENT Adequacy?target?met.? spKt/V,?URR ??08/10/2023:?1.73,?79.0 ??07/27/2023:?1.3,?68.0 ??07/22/2023:?1.31,?69.0 ?? Urine?Cr?Clearance ??05/02/2023:?9.1 ACCESS?ASSESSMENT ??Access?Type:?CVCatheter ??Access?SubType:?Tunneled ??Access?Status:?Active?(In?Use)?-?07/20/2023 ??Access?Location:?Chest ??Placed:?07/19/2023 Comments:?To?see?vascular?surgery?in?[place]?08/27/2023:?th is?appt?was?for?July,?not?August.?He?went,?but?it is?being?rescheduled. ANEMIA?ASSESSMENT Comments:?On?IV?iron?and?FAUSTINA?protocol. HGB?at?goal.? HGB,?TSAT ??08/24/2023:?10.0,?- ??08/17/2023:?10.3,?- ??08/10/2023:?10.6,?39.0 ?? Ferritin ??07/13/2023:?502.0 ??06/15/2023:?559.0 ??04/13/2023:?483.0 Mircera,?IVP?(mcg) ??08/10/2023:?75 ??07/20/2023:?50 ??07/06/2023:?60 Iron?Sucrose?(Venofer)?(mg) ??06/24/2023:?100 ??06/22/2023:?100 ??06/20/2023:?100 BMM?ASSESSMENT Comments:?No?new?labs?to?review Phosphorus,?Calcium ??08/10/2023:?3.4,?8.3 ??07/13/2023:?3.8,?8.3 ??06/15/2023:?3.3,?8.4 ?? PTH,?Intact ??07/13/2023:?258.0 ??04/13/2023:?284.0 ??03/13/2023:?373.0 NUTRITION?ASSESSMENT Comments:?Ed?on?protein?in?diet.:?on?protein?supplements. No?new?labs?to?reveiw Albumin,?Potassium ??08/10/2023:?3.1,?4.4 ??07/13/2023:?3.4,?4.7 ??06/15/2023:?3.4,?5.0 ?? eNPCR ??08/10/2023:?0.73 ??07/27/2023:?0.88 ??07/22/2023:?0.94 PHYSICAL?EXAM Exam?Not?Performed. DIAGNOSIS Chief?Complaint:?N18.6?End?stage?renal?disease Patient?data?updated?08/31/2023?at?2:24?PM Signed?By:?Lidia,?Maureen,?MOTORCOACH DRIVER??on?08/31/2023?2:29:00 PM END OF DOCUMENT
--- OUTSIDE RECORDS SUMMARY | 2023-09-19 00:42 | XMS_ITS ---
Author Name Wandy Skelton Address [address] [place] [address] Phone [phone] Organization [facility] e, NA DOCUMENT DISCLAIMER Multiple document versions may exist, please be sure you review the latest version. The information in the [facility] Progress Note Document represents a providers documented clinical note containing certain health and medical information. It may not contain the complete medical history for the patient and should be independently verified. The represented time in the document is Eastern Time PROVIDER ROUNDING NOTE COMPREHENSIVE Patient:?Gama?Nataliia,?1940,?83y,?M Dialysis?Location:[place] Attending?Assistant Produce Manager:?Glen Service?Date:?08/15/2023 Service?Provider:?Wandy?Costa,? I?met?face?to?face?with?the?patient?today. 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 He?has?decided?to?not?proceed?with?home?therapies. Medications?and?labs?reviewed. DIALYSIS?PRESCRIPTION ??IHD?3x?Week?Start?date:?08/08/23 ??Dialyzer:?180NRe?Optiflux ??BFR:?450 ??DFR:?Autoflow?2 ??Potassium:?3.0 ??Sodium:?138 ??EDW:?82 ??Duration:?3:00 ??Calcium:?2.5 ??Bicarb:?36 ??Rx?updated?on:?08/08/2023 TREATMENT?ASSESSMENT Comments:?Stable. BP?Stand?Pre ??08/12/2023:?124/59 ??08/10/2023:?144/71 ??08/08/2023:?120/55 BP?Sit?Pre ??08/12/2023:?132/76 ??08/10/2023:?132/78 ??08/08/2023:?129/65 BP?Stand?Post ??08/12/2023:?143/74 ??08/10/2023:?149/77 ??08/08/2023:?132/53 BP?Sit?Post ??08/12/2023:?121/75 ??08/10/2023:?125/77 ??08/08/2023:?106/61 Tx?Duration ??08/12/2023:?3:00 ??08/10/2023:?3:00 ??08/08/2023:?3:00 Missed?Treatments 0?-?last?30?days 0?-?last?60?days FLUID?ASSESSMENT Comments:?Stable. EDW?(kg) ??08/12/2023:?82.0 ??08/10/2023:?82.0 ??08/08/2023:?80.3 Weight?Pre?(kg) ??08/12/2023:?83.6 ??08/10/2023:?82.8 ??08/08/2023:?82.5 Weight?Post?(kg) ??08/12/2023:?81.8 ??08/10/2023:?81.8 ??08/08/2023:?82.2 PWV?(kg) ??08/12/2023:?-0.2 ??08/10/2023:?-0.2 ??08/08/2023:?1.9 UF?Rate?(mL/kg/hr) ??08/12/2023:?7.3 ??08/10/2023:?4.1 ??08/08/2023:?1.2 ADEQUACY?ASSESSMENT Comments:?Stable?at?goal?range. spKt/V,?URR ??08/10/2023:?1.73,?79.0 ??07/27/2023:?1.3,?68.0 ??07/22/2023:?1.31,?69.0 ?? Urine?Cr?Clearance ??05/02/2023:?9.1 ACCESS?ASSESSMENT ??Access?Type:?CVCatheter ??Access?SubType:?Tunneled ??Access?Status:?Active?(In?Use)?-?07/20/2023 ??Access?Location:?Chest ??Placed:?07/19/2023 Comments:?To?see?vascular?surgery?in?[place]?08/27/2023 ANEMIA?ASSESSMENT Comments:?On?IV?iron?and?FAUSTINA?protocol. HGB,?TSAT ??08/10/2023:?10.6,?39.0 ??08/03/2023:?11.0,?- ??07/27/2023:?11.1,?- ?? Ferritin ??07/13/2023:?502.0 ??06/15/2023:?559.0 ??04/13/2023:?483.0 Mircera,?IVP?(mcg) ??08/10/2023:?75 ??07/20/2023:?50 ??07/06/2023:?60 Iron?Sucrose?(Venofer)?(mg) ??06/24/2023:?100 ??06/22/2023:?100 ??06/20/2023:?100 BMM?ASSESSMENT Comments:?At?goal. Phosphorus,?Calcium ??08/10/2023:?3.4,?8.3 ??07/13/2023:?3.8,?8.3 ??06/15/2023:?3.3,?8.4 ?? PTH,?Intact ??07/13/2023:?258.0 ??04/13/2023:?284.0 ??03/13/2023:?373.0 NUTRITION?ASSESSMENT Comments:?Ed?on?protein?in?diet.:?on?protein?supplements. Has?improved.?? Diet?reviewed?with?patient.?Referred?to?dietitian.? Albumin,?Potassium ??08/10/2023:?3.1,?4.4 ??07/13/2023:?3.4,?4.7 ??06/15/2023:?3.4,?5.0 ?? eNPCR ??08/10/2023:?0.73 ??07/27/2023:?0.88 ??07/22/2023:?0.94 PHYSICAL?EXAM Exam?Performed.?Vital?Signs?Reviewed.?Lungs?-?Clear.?CV&#160 ;-?Blood?pressure?noted.?CV?-?RRR.?EXT?-?No?edema.?EXT?-?No?ulcers. DIAGNOSIS Chief?Complaint:?N18.6?End?stage?renal?disease Patient?is?stable. Patient?data?updated?08/15/2023?at?2:22?PM Signed?By:?Costa,?Wandy,???on?08/15/2023?2:23:02?PM END OF DOCUMENT
--- OUTSIDE RECORDS SUMMARY | 2023-09-19 00:42 | XMS_ITS ---
Author Name Maureen Murillo Address [address] [place] [address] Phone [phone] Organization [facility] e, NA DOCUMENT DISCLAIMER Multiple document versions may exist, please be sure you review the latest version. The information in the [facility] Progress Note Document represents a providers documented clinical note containing certain health and medical information. It may not contain the complete medical history for the patient and should be independently verified. The represented time in the document is Eastern Time PROVIDER ROUNDING NOTE COMPREHENSIVE Patient:?Gama?Nataliia,?1940,?83y,?M Dialysis?Location:?[facility] Attending?Commercial Airline Pilot:?Glen Service?Date:?07/27/2023 Service?Provider:?Maureen?Lidia,?CONCRETE TECHNICIAN I?met?face?to?face?with?the?patient?today. 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 He?has?decided?to?not?proceed?with?home?therapies. Medications?and?labs?reviewed. DIALYSIS?PRESCRIPTION ??IHD?3x?Week?Start?date:?07/25/23 ??Dialyzer:?180NRe?Optiflux ??BFR:?450 ??DFR:?Autoflow?2 ??Potassium:?3.0 ??Sodium:?138 ??EDW:?80 ??Duration:?3:00 ??Calcium:?2.5 ??Bicarb:?36 ??Rx?updated?on:?07/25/2023 TREATMENT?ASSESSMENT Comments:?Stable. BP?Stand?Pre ??07/25/2023:?121/67 ??07/22/2023:?144/68 ??07/20/2023:?130/70 BP?Sit?Pre ??07/25/2023:?140/67 ??07/22/2023:?141/95 ??07/20/2023:?134/62 BP?Stand?Post ??07/25/2023:?116/53 ??07/22/2023:?121/57 ??07/20/2023:?140/72 BP?Sit?Post ??07/25/2023:?103/80 ??07/22/2023:?110/52 ??07/20/2023:?131/67 Tx?Duration ??07/25/2023:?3:02 ??07/22/2023:?3:00 ??07/20/2023:?3:18 Missed?Treatments 0?-?last?30?days 0?-?last?60?days FLUID?ASSESSMENT EDW?(kg) ??07/25/2023:?78.5 ??07/22/2023:?78.5 ??07/20/2023:?78.5 Weight?Pre?(kg) ??07/25/2023:?81.8 ??07/22/2023:?80.1 ??07/20/2023:?79.5 Weight?Post?(kg) ??07/25/2023:?80.0 ??07/22/2023:?78.5 ??07/20/2023:?78.5 PWV?(kg) ??07/25/2023:?1.5 ??07/22/2023:?0.0 ??07/20/2023:?0.0 UF?Rate?(mL/kg/hr) ??07/25/2023:?7.4 ??07/22/2023:?6.8 ??07/20/2023:?3.9 ADEQUACY?ASSESSMENT Comments:?No?new?labs?to?review spKt/V,?URR ??07/22/2023:?1.31,?69.0 ??07/04/2023:?1.25,?67.0 ??06/20/2023:?1.29,?68.0 ?? Urine?Cr?Clearance ??05/02/2023:?9.1 ACCESS?ASSESSMENT ??Access?Type:?CVCatheter ??Access?SubType:?Tunneled ??Access?Status:?Active?(In?Use)?-?07/20/2023 ??Access?Location:?Chest ??Placed:?07/19/2023 Comments:?To?see?vascular?surgery?in?[place]?08/27/2023 ANEMIA?ASSESSMENT Comments:?On?IV?iron?and?FAUSTINA?protocol. HGB,?TSAT ??07/20/2023:?11.2,?- ??07/13/2023:?10.6,?19.0 ??07/06/2023:?10.9,?- ?? Ferritin ??07/13/2023:?502.0 ??06/15/2023:?559.0 ??04/13/2023:?483.0 Mircera,?IVP?(mcg) ??07/20/2023:?50 ??07/06/2023:?60 ??06/22/2023:?60 Iron?Sucrose?(Venofer)?(mg) ??06/24/2023:?100 ??06/22/2023:?100 ??06/20/2023:?100 BMM?ASSESSMENT Comments:?At?goal. Phosphorus,?Calcium ??07/13/2023:?3.8,?8.3 ??06/15/2023:?3.3,?8.4 ??05/11/2023:?3.0,?7.7 ?? PTH,?Intact ??07/13/2023:?258.0 ??04/13/2023:?284.0 ??03/13/2023:?373.0 NUTRITION?ASSESSMENT Comments:?Ed?on?protein?in?diet.:?on?protein?supplements. Has?improved.?? Albumin,?Potassium ??07/13/2023:?3.4,?4.7 ??06/15/2023:?3.4,?5.0 ??05/11/2023:?3.1,?3.9 ?? eNPCR ??07/22/2023:?0.94 ??07/04/2023:?0.9 ??06/20/2023:?0.75 PHYSICAL?EXAM Exam?Not?Performed. DIAGNOSIS Chief?Complaint:?N18.6?End?stage?renal?disease Patient?data?updated?07/27/2023?at?1:04?PM Signed?By:?Lidia,?Maureen,?CONCRETE TECHNICIAN??on?07/27/2023?1:06:03 PM END OF DOCUMENT
--- OUTSIDE RECORDS SUMMARY | 2023-09-19 00:42 | XMS_ITS ---
Author Name Maureen Murillo Address [address] [place] [address] Phone [phone] Organization [facility] e, NA DOCUMENT DISCLAIMER Multiple document versions may exist, please be sure you review the latest version. The information in the [facility] Progress Note Document represents a providers documented clinical note containing certain health and medical information. It may not contain the complete medical history for the patient and should be independently verified. The represented time in the document is Eastern Time PROVIDER ROUNDING NOTE BASIC Patient:?Gama?William,?1940,?83y,?M Dialysis?Location:?[facility] Attending?Cut File Clerk:?Glen Service?Date:?04/25/2023 Service?Provider:?Maureen?Lidia,?HEALTH INSURANCE ASSESSOR I?met?face?to?face?with?the?patient?today. 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 DIALYSIS?PRESCRIPTION ??IHD?3x?Week?Start?date:?04/22/23 ??Dialyzer:?180NRe?Optiflux ??BFR:?350 ??DFR:?Autoflow?1.5 ??Potassium:?3.0 ??Sodium:?138 ??EDW:?79.3 ??Duration:?3:00 ??Calcium:?2.5 ??Bicarb:?36 ??Rx?updated?on:?04/20/2023 TREATMENT?ASSESSMENT BP?Stand?Pre ??04/22/2023:?151/77 ??04/20/2023:?143/74 ??04/18/2023:?145/74 BP?Sit?Pre ??04/22/2023:?159/77 ??04/20/2023:?141/80 ??04/18/2023:?140/69 BP?Stand?Post ??04/22/2023:?148/78 ??04/20/2023:?135/67 ??04/18/2023:?131/56 BP?Sit?Post ??04/22/2023:?105/70 ??04/20/2023:?113/78 ??04/18/2023:?141/64 Tx?Duration ??04/22/2023:?3:07 ??04/20/2023:?3:09 ??04/18/2023:?3:03 Missed?Treatments 0?-?last?30?days 0?-?last?60?days FLUID?ASSESSMENT EDW?(kg) ??04/22/2023:?79.3 ??04/20/2023:?80.0 ??04/18/2023:?80.0 Weight?Pre?(kg) ??04/22/2023:?79.6 ??04/20/2023:?80.8 ??04/18/2023:?80.4 Weight?Post?(kg) ??04/22/2023:?79.1 ??04/20/2023:?79.3 ??04/18/2023:?80.1 PWV?(kg) ??04/22/2023:?-0.2 ??04/20/2023:?-0.7 ??04/18/2023:?0.1 UF?Rate?(mL/kg/hr) ??04/22/2023:?2 ??04/20/2023:?6 ??04/18/2023:?1.2 ADEQUACY?ASSESSMENT Comments:?Recheck?clearance spKt/V,?URR ??04/18/2023:?1.27,?69.0 ??04/13/2023:?1.3,?69.0 ??04/04/2023:?1.22,?67.0 ACCESS?ASSESSMENT ??Access?Type:?CVCatheter ??Access?SubType:?Tunneled ??Access?Status:?Active?(In?Use)?-?03/08/2023 ??Access?Location:?Chest ??Placed:?03/08/2023 Comments:?TOPS?education ANEMIA?ASSESSMENT Comments:?Recent?increase?in?mircera?per?alg HGB,?TSAT ??04/20/2023:?8.9,?- ??04/13/2023:?9.2,?18.0 ??04/06/2023:?8.7,?- ?? Ferritin ??04/13/2023:?483.0 ??03/13/2023:?242.0 Mircera,?IVP?(mcg) ??04/13/2023:?75 ??03/29/2023:?50 ??03/23/2023:?50 Iron?Sucrose?(Venofer)?(mg) ??04/22/2023:?100 ??04/20/2023:?100 ??04/18/2023:?100 BMM?ASSESSMENT Comments:?No?new?labs?to?review Phosphorus,?Calcium ??04/13/2023:?3.0,?8.6 ??03/13/2023:?4.1,?8.3 ?? PTH,?Intact ??04/13/2023:?284.0 ??03/13/2023:?373.0 NUTRITION?ASSESSMENT Comments:?No?new?labs?to?review Albumin,?Potassium ??04/13/2023:?3.4,?4.1 ??03/13/2023:?3.3,?4.6 ?? eNPCR ??04/18/2023:?0.41 ??04/13/2023:?0.47 ??04/04/2023:?0.42 PHYSICAL?EXAM Exam?Not?Performed. DIAGNOSIS Chief?Complaint:?N18.6?End?stage?renal?disease Patient?data?updated?04/25/2023?at?1:37?PM Signed?By:?Lidia,?Maureen,?HEALTH INSURANCE ASSESSOR??on?04/25/2023?1:40:42 PM END OF DOCUMENT
--- OUTSIDE RECORDS SUMMARY | 2023-09-19 00:42 | XMS_ITS ---
Author Name Moriah Aguilar Address [address] [place] [address] Phone [phone] Organization [facility] e, NA DOCUMENT DISCLAIMER Multiple document versions may exist, please be sure you review the latest version. The information in the [facility] Progress Note Document represents a providers documented clinical note containing certain health and medical information. It may not contain the complete medical history for the patient and should be independently verified. The represented time in the document is Eastern Time PROVIDER ROUNDING NOTE COMPREHENSIVE Patient:?Gama?William,?1940,?83y,?M Dialysis?Location:?[facility] Attending?Population Health Manager:?Glen Service?Date:?03/27/2023 Service?Provider:?Moriah?Jeff,? I?met?face?to?face?with?the?patient?today. 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 Medications?and?labs?reviewed. HOME?MEDICATIONS Home?Medications:? ??Drisdol?(ergocalciferol?(vitamin?d2))?1,250?mcg?(50,000&#1 60;unit),?by?mouth,?Take?1?capsule?once?a?week ??Renal?Plex?D?1?tablet,?by?mouth,?Take?1?tablet?every?evening Allergies:? ??MORPHINE DIALYSIS?PRESCRIPTION ??IHD?3x?Week?Start?date:?03/21/23 ??Dialyzer:?180NRe?Optiflux ??BFR:?350 ??DFR:?Autoflow?1.5 ??Potassium:?3.0 ??Sodium:?138 ??EDW:?80.5 ??Duration:?3:00 ??Calcium:?2.5 ??Bicarb:?36 ??Rx?updated?on:?03/21/2023 TREATMENT?ASSESSMENT Blood?pressure?controlled.?No?changes?indicated.? BP?Stand?Pre ??03/25/2023:?125/61 ??03/23/2023:?128/59 ??03/21/2023:?143/58 BP?Sit?Pre ??03/25/2023:?147/69 ??03/23/2023:?124/55 ??03/21/2023:?118/59 BP?Stand?Post ??03/25/2023:?160/83 ??03/23/2023:?137/95 ??03/21/2023:?144/75 BP?Sit?Post ??03/25/2023:?159/80 ??03/23/2023:?125/62 ??03/21/2023:?123/63 Tx?Duration ??03/25/2023:?3:02 ??03/23/2023:?3:00 ??03/21/2023:?3:00 Missed?Treatments 0?-?last?30?days 0?-?last?60?days FLUID?ASSESSMENT Fluid?status?acceptable.?Interdialytic?weight?gain?acceptable.?No ?changes?indicated.? EDW?(kg) ??03/25/2023:?80.5 ??03/23/2023:?80.5 ??03/21/2023:?79.0 Weight?Pre?(kg) ??03/25/2023:?81.0 ??03/23/2023:?80.4 ??03/21/2023:?80.8 Weight?Post?(kg) ??03/25/2023:?81.0 ??03/23/2023:?80.9 ??03/21/2023:?80.4 PWV?(kg) ??03/25/2023:?0.5 ??03/23/2023:?0.4 ??03/21/2023:?1.4 UF?Rate?(mL/kg/hr) ??03/25/2023:?0 ??03/23/2023:?-2.1 ??03/21/2023:?1.7 ADEQUACY?ASSESSMENT Adequacy?target?met.?Prescription?compliance?acceptable.?No?changes?indicated.? spKt/V,?URR ??03/16/2023:?1.34,?70.0 ACCESS?ASSESSMENT ??Access?Type:?CVCatheter ??Access?SubType:?Tunneled ??Access?Status:?Active?(In?Use)?-?03/08/2023 ??Access?Location:?Chest ??Placed:?03/08/2023 Comments:?TOPS?education? Vascular?access?reviewed. ANEMIA?ASSESSMENT HGB?below?goal.?Medications?adjusted.?Treatment?protocol?ordered.? HGB,?TSAT ??03/23/2023:?8.6,?- ??03/16/2023:?8.5,?- ??03/13/2023:?8.5,?15.0 ?? Ferritin ??03/13/2023:?242.0 Mircera,?IVP?(mcg) ??03/23/2023:?50 ??03/21/2023:?50 Iron?Sucrose?(Venofer)?(mg) ??03/25/2023:?100 ??03/23/2023:?100 ??03/21/2023:?100 BMM?ASSESSMENT PTH?controlled.?Calcium?controlled.?Phosphorus?controlled.? Phosphorus,?Calcium ??03/13/2023:?4.1,?8.3 ?? PTH,?Intact ??03/13/2023:?373.0 NUTRITION?ASSESSMENT Potassium?controlled.?Albumin?below?goal.?Diet?reviewed?with&#160 ;patient.?Referred?to?dietitian.? Albumin,?Potassium ??03/13/2023:?3.3,?4.6 PHYSICAL?EXAM Exam?Performed.?Vital?Signs?Reviewed.?Lungs?-?Clear.?CV&#160 ;-?Blood?pressure?noted.?EXT?-?No?edema. DIAGNOSIS Chief?Complaint:?N18.6?End?stage?renal?disease Patient?is?stable.?Patient?discussed?with?nursing. Patient?data?updated?03/27/2023?at?1:51?PM Signed?By:?Jeff,?Moriah,???on?03/27/2023?1:55:16?PM END OF DOCUMENT
--- OUTSIDE RECORDS SUMMARY | 2023-09-19 00:42 | XMS_ITS ---
Author Name Maureen Murillo Address [address] [place] [address] Phone [phone] Organization [facility] [place] [facility] e, NA DOCUMENT DISCLAIMER Multiple [...] Eastern Time PROVIDER ROUNDING NOTE BASIC Patient:?Gama?William,?1940,?83y,?M Dialysis?Location:?[place] Attending?Inside Sales Trainer:?Glen Service?Date:?07/06/2023 Service?Provider:?Maureen?Lidia,?AUTO BODY REPAIRER I?met?face?to?face?with?the?patient?today. 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 He?has?decided?to?not?proceed?with?home?therapies. Medications?and?labs?reviewed. DIALYSIS?PRESCRIPTION ??IHD?3x?Week?Start?date:?06/29/23 ??Dialyzer:?180NRe?Optiflux ??BFR:?450 ??DFR:?Autoflow?2 ??Potassium:?3.0 ??Sodium:?138 ??EDW:?79 ??Duration:?3:00 ??Calcium:?2.5 ??Bicarb:?36 ??Rx?updated?on:?06/29/2023 TREATMENT?ASSESSMENT Comments:?Stable. BP?Stand?Pre ??07/04/2023:?119/57 ??07/01/2023:?130/57 ??06/29/2023:?127/64 BP?Sit?Pre ??07/04/2023:?136/77 ??07/01/2023:?110/90 ??06/29/2023:?134/63 BP?Stand?Post ??07/04/2023:?123/96 ??07/01/2023:?118/80 ??06/29/2023:?115/61 BP?Sit?Post ??07/04/2023:?108/71 ??07/01/2023:?115/69 ??06/29/2023:?132/68 Tx?Duration ??07/04/2023:?3:04 ??07/01/2023:?3:05 ??06/29/2023:?2:52 Missed?Treatments 0?-?last?30?days 0?-?last?60?days FLUID?ASSESSMENT EDW?(kg) ??07/04/2023:?79.0 ??07/01/2023:?79.0 ??06/29/2023:?79.5 Weight?Pre?(kg) ??07/04/2023:?80.3 ??07/01/2023:?80.2 ??06/29/2023:?80.5 Weight?Post?(kg) ??07/04/2023:?78.9 ??07/01/2023:?79.0 ??06/29/2023:?78.7 PWV?(kg) ??07/04/2023:?-0.1 ??07/01/2023:?0.0 ??06/29/2023:?-0.8 UF?Rate?(mL/kg/hr) ??07/04/2023:?5.8 ??07/01/2023:?4.9 ??06/29/2023:?8 ADEQUACY?ASSESSMENT Comments:?No?new?labs?to?review spKt/V,?URR ??07/04/2023:?1.25,?67.0 ??06/20/2023:?1.29,?68.0 ??06/15/2023:?1.27,?68.0 ?? Urine?Cr?Clearance ??05/02/2023:?9.1 ACCESS?ASSESSMENT ??Access?Type:?CVCatheter ??Access?SubType:?Tunneled ??Access?Status:?Active?(In?Use)?-?03/08/2023 ??Access?Location:?Chest ??Placed:?03/08/2023 Comments:?To?see?vascular?surgery?in?[place]. ANEMIA?ASSESSMENT Comments:?On?IV?iron?and?FAUSTINA?protocol. HGB,?TSAT ??06/29/2023:?10.9,?- ??06/22/2023:?11.0,?- ??06/15/2023:?11.2,?24.0 ?? Ferritin ??06/15/2023:?559.0 ??04/13/2023:?483.0 ??03/13/2023:?242.0 Mircera,?IVP?(mcg) ??06/22/2023:?60 ??06/08/2023:?75 ??05/25/2023:?75 Iron?Sucrose?(Venofer)?(mg) ??06/24/2023:?100 ??06/22/2023:?100 ??06/20/2023:?100 BMM?ASSESSMENT Comments:?No?new?lands?to?v?review Phosphorus,?Calcium ??06/15/2023:?3.3,?8.4 ??05/11/2023:?3.0,?7.7 ??04/13/2023:?3.0,?8.6 ?? PTH,?Intact ??04/13/2023:?284.0 ??03/13/2023:?373.0 NUTRITION?ASSESSMENT Comments:?Ed?on?protein?in?diet.:?on?protein?supplements.&#1 60;Has?imrpoved.??Reiterated?education?today Albumin,?Potassium ??06/15/2023:?3.4,?5.0 ??05/11/2023:?3.1,?3.9 ??04/13/2023:?3.4,?4.1 ?? eNPCR ??07/04/2023:?0.9 ??06/20/2023:?0.75 ??06/15/2023:?0.72 PHYSICAL?EXAM Exam?Not?Performed. DIAGNOSIS Chief?Complaint:?N18.6?End?stage?renal?disease Patient?data?updated?07/06/2023?at?12:17?PM Signed?By:?Lidia,?Maureen,?AUTO BODY REPAIRER??on?07/06/2023?12:18:48 PM END OF DOCUMENT
--- OUTSIDE RECORDS SUMMARY | 2023-09-19 00:42 | XMS_ITS ---
Author Name Wandy Skelton Address [address] [place] [address] Phone [phone] Organization [facility] e, NA DOCUMENT DISCLAIMER Multiple document versions may exist, please be sure you review the latest version. The information in the [facility] Progress Note Document represents a providers documented clinical note containing certain health and medical information. It may not contain the complete medical history for the patient and should be independently verified. The represented time in the document is Eastern Time PROVIDER ROUNDING NOTE COMPREHENSIVE Patient:?Gama?Nataliia,?1940,?83y,?M Dialysis?Location:[place] Attending?Aeronautical Test Engineer:?Glen Service?Date:?05/16/2023 Service?Provider:?Wandy?Costa,? I?met?face?to?face?with?the?patient?today. 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 DIALYSIS?PRESCRIPTION ??IHD?3x?Week?Start?date:?05/11/23 ??Dialyzer:?180NRe?Optiflux ??BFR:?350 ??DFR:?Autoflow?1.5 ??Potassium:?3.0 ??Sodium:?138 ??EDW:?79.5 ??Duration:?3:00 ??Calcium:?2.5 ??Bicarb:?36 ??Rx?updated?on:?05/11/2023 TREATMENT?ASSESSMENT Blood?pressure?controlled.?No?changes?indicated.? BP?Stand?Pre ??05/13/2023:?131/70 ??05/11/2023:?129/89 ??05/09/2023:?135/68 BP?Sit?Pre ??05/13/2023:?155/60 ??05/11/2023:?143/63 ??05/09/2023:?136/74 BP?Stand?Post ??05/13/2023:?128/80 ??05/11/2023:?115/78 ??05/09/2023:?131/75 BP?Sit?Post ??05/13/2023:?103/71 ??05/11/2023:?129/75 ??05/09/2023:?124/71 Tx?Duration ??05/13/2023:?3:02 ??05/11/2023:?3:05 ??05/09/2023:?3:03 Missed?Treatments 0?-?last?30?days 0?-?last?60?days FLUID?ASSESSMENT Comments:?leg?edema?today.?Will?challenge?UF. Fluid?status?acceptable.?Interdialytic?weight?gain?acceptable.?No ?changes?indicated.? EDW?(kg) ??05/13/2023:?79.5 ??05/11/2023:?80.0 ??05/09/2023:?80.0 Weight?Pre?(kg) ??05/13/2023:?81.0 ??05/11/2023:?80.2 ??05/09/2023:?80.2 Weight?Post?(kg) ??05/13/2023:?81.4 ??05/11/2023:?79.0 ??05/09/2023:?80.4 PWV?(kg) ??05/13/2023:?1.9 ??05/11/2023:?-1.0 ??05/09/2023:?0.4 UF?Rate?(mL/kg/hr) ??05/13/2023:?-1.6 ??05/11/2023:?4.9 ??05/09/2023:?-0.8 ADEQUACY?ASSESSMENT Adequacy?target?met.?Prescription?compliance?acceptable.?No?changes?indicated.? spKt/V,?URR ??04/27/2023:?1.37,?71.0 ??04/18/2023:?1.27,?69.0 ??04/13/2023:?1.3,?69.0 ?? Urine?Cr?Clearance ??05/02/2023:?9.1 ACCESS?ASSESSMENT ??Access?Type:?CVCatheter ??Access?SubType:?Tunneled ??Access?Status:?Active?(In?Use)?-?03/08/2023 ??Access?Location:?Chest ??Placed:?03/08/2023 Comments:?TOPS?education? He?and?his?daughter?are?interested?in?PD.? His?daughter?will?be?back?from[place]at?the?end?of the?month. Vascular?access?reviewed. ANEMIA?ASSESSMENT Comments:?On?IV?iron?and?FAUSTINA?protocol. HGB?at?goal.?Iron?parameters?acceptable.? HGB,?TSAT ??05/11/2023:?10.2,?27.0 ??05/04/2023:?10.6,?- ??04/27/2023:?10.0,?- ?? Ferritin ??04/13/2023:?483.0 ??03/13/2023:?242.0 Mircera,?IVP ??04/27/2023:?100 ??04/13/2023:?75 Iron?Sucrose?(Venofer) ??05/09/2023:?100 ??05/06/2023:?100 BMM?ASSESSMENT Comments:?Corrected?Ca?8.4 PTH?controlled.?Calcium?controlled.?Phosphorus?controlled.?BMM?me ds?adherence?acceptable.?No?changes?indicated.? Phosphorus,?Calcium ??05/11/2023:?3.0,?7.7 ??04/13/2023:?3.0,?8.6 ??03/13/2023:?4.1,?8.3 ?? PTH,?Intact ??04/13/2023:?284.0 ??03/13/2023:?373.0 NUTRITION?ASSESSMENT Comments:?Ed?on?protein?in?diet. Potassium?controlled.?Albumin?below?goal.?Diet?reviewed?with&#160 ;patient.?Referred?to?dietitian.? Albumin,?Potassium ??05/11/2023:?3.1,?3.9 ??04/13/2023:?3.4,?4.1 ??03/13/2023:?3.3,?4.6 ?? eNPCR ??04/27/2023:?0.5 ??04/18/2023:?0.41 ??04/13/2023:?0.47 PHYSICAL?EXAM Exam?Performed.?Vital?Signs?Reviewed.?Lungs?-?Clear.?CV&#160 ;-?Blood?pressure?noted.?CV?-?RRR.?EXT?-?2+?edema. ?EXT?-?No?ulcers.?AVF/AVG?Positive?thrill/bruit. DIAGNOSIS Chief?Complaint:?N18.6?End?stage?renal?disease Patient?is?stable. Patient?data?updated?05/16/2023?at?2:35?PM Signed?By:?Costa,?Wandy,???on?05/16/2023?2:39:11?PM END OF DOCUMENT
--- OUTSIDE RECORDS SUMMARY | 2023-09-19 00:42 | XMS_ITS ---
Author Name Maureen Murillo Address [address] [place] [address] Phone [phone] Organization [facility], NA DOCUMENT DISCLAIMER Multiple document versions may exist, please be sure you review the latest version. The information in the [facility] Progress Note Document represents a providers documented clinical note containing certain health and medical information. It may not contain the complete medical history for the patient and should be independently verified. The represented time in the document is Eastern Time PROVIDER ROUNDING NOTE BASIC Patient:?Gama?Nataliia,?1940,?83y,?M Dialysis?Location:?[facility] Attending?Supervisor [employer]:?[facility]?Date:?06/01/2023 Service?Provider:?Maureen?Lidia,?FIELD COORDINATOR I?met?face?to?face?with?the?patient?today. 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 Per?RN,?crackles?in?lungs:?challenging?for?fluid?removal&#16 0;during?treatment?today DTR?back?home:?I?discussed?HT?with?patient?today:?his&# 160;firm?he?is?not?interested,?he?wants?to?remain?IHD. ?? Medications?and?labs?reviewed. DIALYSIS?PRESCRIPTION ??IHD?3x?Week?Start?date:?05/30/23 ??Dialyzer:?180NRe?Optiflux ??BFR:?450 ??DFR:?Autoflow?2 ??Potassium:?3.0 ??Sodium:?138 ??EDW:?80 ??Duration:?3:00 ??Calcium:?2.5 ??Bicarb:?36 ??Rx?updated?on:?05/30/2023 TREATMENT?ASSESSMENT BP?Stand?Pre ??05/30/2023:?138/73 ??05/27/2023:?131/84 ??05/25/2023:?140/80 BP?Sit?Pre ??05/30/2023:?144/86 ??05/27/2023:?127/80 ??05/25/2023:?142/75 BP?Stand?Post ??05/30/2023:?159/57 ??05/27/2023:?118/65 ??05/25/2023:?126/55 BP?Sit?Post ??05/30/2023:?129/56 ??05/27/2023:?110/65 ??05/25/2023:?129/64 Tx?Duration ??05/30/2023:?3:00 ??05/27/2023:?3:04 ??05/25/2023:?3:04 Missed?Treatments 0?-?last?30?days 0?-?last?60?days FLUID?ASSESSMENT Comments:?leg?edema?today.?Will?challenge?UF. EDW?(kg) ??05/30/2023:?80.0 ??05/27/2023:?80.0 ??05/25/2023:?80.0 Weight?Pre?(kg) ??05/30/2023:?80.7 ??05/27/2023:?82.1 ??05/25/2023:?81.1 Weight?Post?(kg) ??05/30/2023:?79.8 ??05/27/2023:?80.1 ??05/25/2023:?80.0 PWV?(kg) ??05/30/2023:?-0.2 ??05/27/2023:?0.1 ??05/25/2023:?0.0 UF?Rate?(mL/kg/hr) ??05/30/2023:?3.8 ??05/27/2023:?8.1 ??05/25/2023:?4.5 ADEQUACY?ASSESSMENT Comments:?BFR?increased?to?450 spKt/V,?URR ??05/30/2023:?1.06,?62.0 ??05/23/2023:?1.14,?65.0 ??05/18/2023:?1.1,?61.0 ?? Urine?Cr?Clearance ??05/02/2023:?9.1 ACCESS?ASSESSMENT ??Access?Type:?CVCatheter ??Access?SubType:?Tunneled ??Access?Status:?Active?(In?Use)?-?03/08/2023 ??Access?Location:?Chest ??Placed:?03/08/2023 Comments:?[employer]?education? He?and?his?daughter?are?interested?in?PD.? His?daughter?will?be?back?from[place]?at?the?end?of the?month. ANEMIA?ASSESSMENT Comments:?On?IV?iron?and?FAUSTINA?protocol. HGB,?TSAT ??05/25/2023:?10.3,?- ??05/18/2023:?10.7,?- ??05/11/2023:?10.2,?27.0 ?? Ferritin ??04/13/2023:?483.0 ??03/13/2023:?242.0 Mircera,?IVP?(mcg) ??05/25/2023:?75 ??04/27/2023:?100 Iron?Sucrose?(Venofer)?(mg) ??05/30/2023:?100 ??05/27/2023:?100 ??05/25/2023:?100 BMM?ASSESSMENT Comments:?Corrected?Ca?8.4 Phosphorus,?Calcium ??05/11/2023:?3.0,?7.7 ??04/13/2023:?3.0,?8.6 ??03/13/2023:?4.1,?8.3 ?? PTH,?Intact ??04/13/2023:?284.0 ??03/13/2023:?373.0 NUTRITION?ASSESSMENT Comments:?Ed?on?protein?in?diet.:?on?protein?supplements Albumin,?Potassium ??05/11/2023:?3.1,?3.9 ??04/13/2023:?3.4,?4.1 ??03/13/2023:?3.3,?4.6 ?? eNPCR ??05/30/2023:?0.45 ??05/23/2023:?0.48 ??05/18/2023:?0.46 PHYSICAL?EXAM Exam?Not?Performed. DIAGNOSIS Chief?Complaint:?N18.6?End?stage?renal?disease Patient?data?updated?06/01/2023?at?12:20?PM Signed?By:?Lidia,?Maureen,?FIELD COORDINATOR??on?06/01/2023?12:25:41 PM END OF DOCUMENT
--- OUTSIDE RECORDS SUMMARY | 2023-09-19 00:42 | XMS_ITS ---
Author Name Wandy Skelton Address [address] [place] [address] Phone [phone] Organization [facility] e, NA DOCUMENT DISCLAIMER Multiple document versions may exist, please be sure you review the latest version. The information in the [facility] Progress Note Document represents a providers documented clinical note containing certain health and medical information. It may not contain the complete medical history for the patient and should be independently verified. The represented time in the document is Eastern Time PROVIDER ROUNDING NOTE COMPREHENSIVE Patient:?Gama?William,?1940,?83y,?M Dialysis?Location:?[place] Attending?Pump Rebuilder:?[facility] Service?Date:?04/18/2023 Service?Provider:?Wandy?Costa,? I?met?face?to?face?with?the?patient?today. 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 BP?Stand?Pre ??04/15/2023:?129/81 ??04/13/2023:?118/94 ??04/11/2023:?137/71 BP?Sit?Pre ??04/15/2023:?146/70 ??04/13/2023:?128/99 ??04/11/2023:?163/100 BP?Stand?Post ??04/15/2023:?123/52 ??04/13/2023:?119/52 ??04/11/2023:?167/83 BP?Sit?Post ??04/15/2023:?126/57 ??04/13/2023:?118/48 ??04/11/2023:?124/63 Tx?Duration ??04/15/2023:?3:00 ??04/13/2023:?3:15 ??04/11/2023:?3:02 Missed?Treatments 0?-?last?30?days 0?-?last?60?days FLUID?ASSESSMENT Fluid?status?acceptable.?Interdialytic?weight?gain?acceptable.?No ?changes?indicated.? EDW?(kg) ??04/15/2023:?80.0 ??04/13/2023:?80.5 ??04/11/2023:?81.0 Weight?Pre?(kg) ??04/15/2023:?80.6 ??04/13/2023:?80.2 ??04/11/2023:?81.1 Weight?Post?(kg) ??04/15/2023:?79.2 ??04/13/2023:?79.4 ??04/11/2023:?79.3 PWV?(kg) ??04/15/2023:?-0.8 ??04/13/2023:?-1.1 ??04/11/2023:?-1.7 UF?Rate?(mL/kg/hr) ??04/15/2023:?5.9 ??04/13/2023:?3.1 ??04/11/2023:?7.5 ADEQUACY?ASSESSMENT Adequacy?target?met.?Prescription?compliance?acceptable.?No?changes?indicated.? spKt/V,?URR ??04/13/2023:?1.3,?69.0 ??04/04/2023:?1.22,?67.0 ??03/29/2023:?1.14,?63.0 ACCESS?ASSESSMENT ??Access?Type:?CVCatheter ??Access?SubType:?Tunneled ??Access?Status:?Active?(In?Use)?-?03/08/2023 ??Access?Location:?Chest ??Placed:?03/08/2023 Comments:?TOPS?education? Vascular?access?reviewed.?Current?access?is?temporary?and?re ferral?has?been?made?for?fistula/graft?placement. ANEMIA?ASSESSMENT Comments:?On?IV?iron?and?FAUSTINA?protocol. HGB,?TSAT ??04/13/2023:?9.2,?18.0 ??04/06/2023:?8.7,?- ??03/29/2023:?8.4,?- ?? Ferritin ??04/13/2023:?483.0 ??03/13/2023:?242.0 Mircera,?IVP?(mcg) ??04/13/2023:?75 ??03/29/2023:?50 ??03/23/2023:?50 Iron?Sucrose?(Venofer)?(mg) ??04/13/2023:?100 ??04/08/2023:?0 ??04/06/2023:?100 BMM?ASSESSMENT PTH?controlled.?Calcium?controlled.?Phosphorus?controlled.?BMM?me ds?adherence?acceptable.?No?changes?indicated.? Phosphorus,?Calcium ??04/13/2023:?3.0,?8.6 ??03/13/2023:?4.1,?8.3 ?? PTH,?Intact ??04/13/2023:?284.0 ??03/13/2023:?373.0 NUTRITION?ASSESSMENT Comments:?Albumin?better. Potassium?controlled.?Albumin?controlled.?No?changes?indicated.? Albumin,?Potassium ??04/13/2023:?3.4,?4.1 ??03/13/2023:?3.3,?4.6 ?? eNPCR ??04/13/2023:?0.47 ??04/04/2023:?0.42 ??03/29/2023:?0.35 PHYSICAL?EXAM Exam?Performed.?Vital?Signs?Reviewed.?Lungs?-?Clear.?CV&#160 ;-?RRR.?EXT?-?1+?edema.?EXT?-?No?ulcers. DIAGNOSIS Chief?Complaint:?N18.6?End?stage?renal?disease Patient?is?stable. Patient?data?updated?04/18/2023?at?2:02?PM Signed?By:?Costa,?Wandy???on?04/18/2023?2:03:33?PM END OF DOCUMENT
--- OUTSIDE RECORDS SUMMARY | 2023-09-19 00:42 | XMS_ITS | Continuity of Care Document ---
Author Name Unknown Organization [facility] [place] Address [address] [place] [address] Phone Care Team Providers Care Virtual Customer Assistant Name Role Phone [facility] [place] Unavailable Un available Allergies, Adverse Reactions, Alerts Substance Reaction Status Criticality morphine Hallucinations Active No Informatio n Medications Medication Instructions Dosage Effective Dates (start - stop) Status Comments Prolensa 0.07 % eye drops instill 1 drop by ophthalmic route every day to the operated eye start day prior to surgery, continue day of surgery and for next 2 weeks. 1.00 drop - Active Lotemax SM 0.38 % eye gel drops instill 1 drop by ophthalmic route 3 times every day into affected eye(s) beginning the day after surgery and continuing for 2 weeks post-op 1.00 drop - Active Centrum Silver 0.4 mg-300 mcg-250 mcg tablet - Active aspirin 325 mg tablet take 1 tablet by oral route every day 325 MG - Active metoprolol tartrate 25 mg tablet take 1 tablet by oral route 2 times every day 25 MG - Active clopidogrel 75 mg tablet take 1 tablet by oral route every day 75 MG - Active Dexilant 60 mg capsule, delayed release take 1 capsule by oral route every day for 8 weeks 60 MG - Active atorvastatin 80 mg tablet take 1 tablet by oral route every day 80 MG - Active ferrous sulfate 325 mg (65 mg iron) tablet take 1 tablet by oral route every day 325 MG - Active gemfibrozil 600 mg tablet take 1 tablet by oral route 2 times every day 30 minutes before morning and evening meal 600 MG - Active levothyroxine 50 mcg capsule take 1 capsule by oral route every day 50 MCG - Active Procedures Procedure Date Prepayment For Surgery Extracap Cataract Remov W/iol- Office Laverne Cheatham Pt, Expanded Au Extracap Cataract Remov W/iol- 21 Offic/outpt E&m New Mod-hi 45 Ophthalmic Biometry Change Control Quantity/Unit Change Advance Directives Directive Yes / No Effective Date File Name No Information Encounters Encounter Description Practice Location Reason(s) For Visit Diagnoses Date Provider Providers Copied on Encounter [facility] [place], [address] [facility], [place], [place], [id number], [place] tel:[phone] [facility] No Information [facility] [place]. [address] [facility] [place], [place], [id number], [place]. tel:[phone] Referring Provider: Mrak Burton, [address] [place] [address], [id number]. tel:[phone] [facility], Business [address] [place] [address], [id number], [place] tel:[phone] [facility] No Information [facility] [address] [place] [address], [id number], [place]. tel:[phone] Referring Provider: Mark Burton, [address] [place] [address], [id number]. tel:[phone] [facility], [address] [place] [address], [id number], [place] tel:[phone] [facility] OB No Information Micheal Flores. [address] [place] [address], [id number], [place]. tel:[phone] Referring Provider: Franco Barksdale [place] [facility] [address] [place] [address], [place], [address]. tel:[phone] Office Eval, Established Pt, Expanded [facility], [facility], [address] [place] [address], [id number], [place] tel:[phone] [facility] decreased vision (chief complaint)d ecreased vision (chief complaint) Combined forms of age-related cataract, right eyeCataract extraction status, left eye Micheal Flores. [address] [place] [address], [id number], [place]. tel:[phone] Referring Provider: Leland Mitchell, [place] [facility] [address] [place] [address] [address], [place], [place], [id number]. tel:[phone] [facility] [place], [address] [place] [address], [place], [place], [id number], [place] tel:[phone] [facility] No Information [facility] [place]. [address] [place] [address], [place], [id number], [place]. tel:[phone] Referring Provider: Mrak Burton, [address] [place] [address], [id number]. tel:[phone] [facility], [facility], [address] [place] [address], [id number], [place] tel:[phone] [facility] OB No Information Micheal Flores. [address] [place] [address], [id number], [place]. tel:[phone] Referring Provider: Octavia Feuntes, [place] [facility] [address] [place] [address], [place], [address]. tel:[phone] Offic/outpt E&m New Mod-hi 45 [facility], [facility], [address] [place] [address], [id number], [place] tel:[phone] [facility] OB blurry vision (chief complaint)b lurry vision (chief complaint) Combined forms of age-related cataract, left eyeCombined forms of age-related cataract, right eye Micheal Flores. [address] [facility], [place], [place], [id number], [place]. tel:[phone] Referring Provider: Charley [facility] [address] [facility] [address], [place], [place], [id number]. tel:[phone] Family History Family Member Type Diagnosis Age At Onset Father Problem (finding) Cancer, unknown Mother Problem (finding) Cardiovascular disease Mother Problem (finding) Thyroid disorder Mother Problem (finding) Cataracts Brother Problem (finding) Cancer, unknown Mother Problem (finding) Hypertension Sister Problem (finding) Diabetes mellitus Mother Problem (finding) Arthritis Father Problem (finding) Arthritis Brother Problem (finding) Diabetes mellitus Father Problem (finding) Diabetes mellitus Payers Payer name Insurance type Covered green party ID Authorlinoa yuliana(s) [place] [id number] [place] [id number] Social History Type Description Quantity Date Captured Comments Alcohol Use Details No Caffeine Use Details Unknown Tobacco Use Status No Information Smoking Status Former smoker Sex Female Vital Signs Date / Time: Height Weight BMI Pulse Rate Blood Pressure Temperature Respiratory Rate Body Surface Area Head Circumference BMI percentile Pulse Ox Inhaled Ox 7:45 AM 72.00 in 178.00 lbs 24.1 4 kg/m eter (2) 54 /min 130/67 mm[Hg] 18 /min 95 9:30 AM 44 /min 159/62 mm[Hg] 12 /min 97 9:35 AM 59 /min 165/67 mm[Hg] 12 /min 96 9:40 AM 57 /min 168/66 mm[Hg] 12 /min 97 9:44 AM 51 /min 168/68 mm[Hg] 12 /min 98 9:46 AM 58 /min 155/58 mm[Hg] 97 Chief Complaint And Reason For Visit No Information Plan Of Treatment Date Type Action Status Goal Tobacco cessation counseling completed History Of Present Illness Encounter Date Complaint History Of Prese nt Illness decreased vision The 80 Year old female presents for evaluation of decreased vision in the right eye. year(s) ago. The onset was progressive. It affects both near and far vision. The symptom is constant. It occurs with no pattern. The condition is worsening. The condition is described as blurring. In addition, the condition is associated with daily activity and chores. The patient denies eye pain, flashes, floaters and halos. blurry vision The 80 Year old female presents for evaluation of blurry vision in the right eye and left eye. It affects both near and far vision. The symptom is constant. It occurs all the time. The condition is worsening. The condition is described as seeing floaters. In addition, the condition is associated with daily activity and chores. The patient denies eye pain, flashes and halos. Instructions Date Instruction Additional Infor margaretion Impression/Plan Related to Combi carlita forms of age-related cataract, right eye Impression/Plan Related to Catar act extraction status, left eye Impression/Plan Related to Combi carlita forms of age-related cataract, left eye Impression/Plan Related to Combi carlita forms of age-related cataract, right eye Assessments Type Assessment Date No Information
--- NOTE | 2023-09-19 01:29 | PC.NURSE ---
pt arrived via ambulance from [facility] ER @0030 got patient settle in room, family enter and helped with admission questions due to patient being hard of hearing pt did state that he wants us to call hi son Christiano William at [phone] instead of Adelita William Daughter due to her being on vacation
--- NOTE | 2023-09-19 01:45 | USCV_ITS ---
Gama William Age: 83 Gender: M : 1940 Exam Date: 09/19/2023 03:55 Ordering Phys: Sergio Garcia MD Technologist: IVA Exam Location: [facility] Indication: sob, patient is poor historian, lethargic, unresponsive. There is a thoracotomy scar. BP: 111 / 83 HR: 84 Rhythm: Atrial Fibrillation Technical Quality: Adequate MEASUREMENTS (Male / Female) Normal Values 2D ECHO LV Diastolic Diameter PLAX 4.6 cm 4.2 - 5.9 / 3.9 - 5.3 cm IVS Diastolic Thickness 1.1 cm 0.6 - 1.0 / 0.6 - 0.9 cm IVS Systolic Thickness 1.7 cm LVPW Diastolic Thickness 0.8 cm 0.6 - 1.0 / 0.6 - 0.9 cm LVPW Systolic Thickness 1.1 cm LVOT Diameter 1.9 cm LV Ejection Fraction 2D Teich 9.7 % LV Ejection Fraction MOD 2C 31.8 % LV Ejection Fraction 2C AL 31.5 % LA Diameter 4.7 cm LA Sys Volume AL 133.7 cm cubed LA Sys Volume Index AL 61.7 cm cubed/m squared Aorta at Sinotubular Diameter 3.2 cm IVC Diameter 1.9 cm M-MODE LA Ao Ratio MM 1.0 AV Cusp Separation MM 1.2 cm DOPPLER AV Peak Velocity 161.0 cm/s LVOT Peak Velocity 63.0 cm/s AV Area Cont Eq vti 1.0 cm squared AV Area Cont Eq pk 1.1 cm squared MV Peak Velocity 126.0 cm/s MV Area PHT 4.0 cm squared Mitral E to A Ratio 145.6 TV Peak Velocity 305.0 cm/s TR Peak Velocity 316.0 cm/s TR Peak Gradient 39.9 mmHg TV Peak E Velocity 43.0 cm/s Right Atrial Pressure 10.0 mmHg Pulmonary Artery Systolic Pressu 49.9 mmHg PV Peak Velocity 60.0 cm/s FINDINGS Left Ventricle Left ventricle is normal size. LV systolic function is severely reduced with EF of 15-20%. Severe global hypokinesis. Right Ventricle Severely hypokinetic Right Atrium Dilated Left Atrium Severely dilated Mitral Valve Structurally normal mitral valve. Moderate to severe mitral regurgitation. Aortic Valve Aortic valve is thickened and calcified. Tricuspid Valve Severe tricuspid regurgitation. RVSP is 50 to 55 mmHg. Moderate pulmonary hypertension. Pulmonic Valve Not well visualized Pericardium Normal Aorta Normal in size IVC Dilated CONCLUSIONS LV systolic function is severely reduced with EF of 15 to 20%. Severely hypokinetic right ventricle Severely dilated left atrium Moderate to severe mitral regurgitation Severe tricuspid regurgitation Modreate pulmonary hypertension IVC is dilated Not well visualized. Chris Ordonez MD (Electronically Signed) Final Date: 19 Sep 2023 18:19 S
--- NOTE | 2023-09-19 01:45 | ECG_ITS ---
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 Measurements Intervals [place] Rate: 86 P: 0 NH: 0 QRS: -3 QRSD: 134 T: 183 QT: 384 QTc: 459 Interpretive Statements ATRIAL FIBRILLATION LEFT BUNDLE BRANCH BLOCK [120+ ms QRS DURATION, 80+ ms Q/S IN V1/V2, 85+ ms R IN I/aVL/V5/V6] No previous ECG available for comparison Electronically Signed On 09-19-2023 17:52:01 CDT by Chris Ordonez M.D. [email or web address] [email or web address] Checkcle[id number]
--- NOTE | 2023-09-19 01:53 | XRR_ITS ---
PROCEDURE INFORMATION: Exam: XR Chest Exam date and time: 09/19/2023 2:10 AM Age: 83 years old Clinical indication: Shortness of breath; Prior surgery; Surgery date: 6+ months; Surgery type: Port, cabg; Additional info: SOB TECHNIQUE: Imaging protocol: Radiologic exam of the chest. Views: 1 view. COMPARISON: CT neck w con* [id number] 10/28/2019 10:18 AM FINDINGS: Tubes, catheters and devices: There is a left-sided internal jugular central venous tunneled dialysis catheter noted with the catheter tip projected over the cavoatrial junction. Lungs: There is opacity noted in the periphery of the left lung mainly in the lower half. Right basilar opacity likely representing effusion and/or parenchymal disease. Pleural spaces: No pneumothorax. Heart/Mediastinum: Unremarkable. No cardiomegaly. Bones/joints: Patient is post sternotomy. Surgical clips overlie the right neck. The bones are osteopenic. XR/XR chest 1V portable [id number] IMPRESSION: Findings compatible with CHF and/or pneumonia.
--- NOTE | 2023-09-19 01:55 | P.HP_ITS ---
Providers/Chief Complaint Admitting Physician: Sergio Garcia MD Primary Care Provider: Miguelito Persaud MD Chief Complaint: CHS A Vib History of Present Illness Gama William is a 83 year old male With a past medical history of type 2 diabetes mellitus, hypertension, COPD, CAD, history of atrial fibrillation, history of CHF, hypothyroidism who presents to [facility] due to complaints for shortness of breath, lower extreme edema. Patient was transferred from [facility], physician at [facility] tells me that patient was not adequately dialyzed on Monday, due to concerns for soft blood pressures, patient then developed worsening shortness of breath lower extremity edema, ER physician there was concerned about new onset atrial fibrillation, CHF exacerbation, he was given Lasix, noted to have a potassium of 5.4, sodium 130, troponin was noted to be within normal limits, BNP was over 30,000 he was transferred to [facility] on 2 L, blood pressure 117/70, MAP 86, heart rate 78, during my examination of patient he is very hard of hearing, he has documented history of hearing loss, I am able to get simple answers from him, he is also drowsy, but follows commands, able to smile for me, squeeze my fingers bilaterally wiggle his toes, but he is very hard of hearing so history taking was difficult no family members at bedside, he reports that he has been short of breath, denies any chest pain does report lower extremity edema, denies any headache, blurry vision, no abdominal pain although reports swelling of his arms, and of his abdomen, he does report history of CAD, but cannot provide any more details, Review of Systems Const: Denies: fever(s) or chills Card: Denies: chest pain Resp: Reports: dyspnea GI: Denies: abdominal pain : Denies: flank pain Neuro: Denies: headache(s) Medications/Allergies Home Medications Medication Instructions Recorded Confirmed Last Taken Type albuterol sulfate 90 mcg/actuation 90 puff inhalation DIRECTED PRN 09/19/23 09/19/23 Unknown History aerosol inhaler (Ventolin HFA) Shortness Of Breath Or Wheezing aspirin 81 mg tablet 81 mg PO DAILY 09/19/23 09/19/23 1 Day Ago History ~09/18/23 atorvastatin 80 mg tablet 80 mg PO BEDTIME 09/19/23 09/19/23 2 Days Ago History ~09/17/23 dexlansoprazole 60 mg 60 mg PO DAILY 09/19/23 09/19/23 1 Day Ago History capsule,biphase delayed release ~09/18/23 levothyroxine 50 mcg tablet 50 mcg PO QAM 09/19/23 09/19/23 1 Day Ago History ~09/18/23 lisinopril 5 mg tablet 5 mg PO BEDTIME 09/19/23 09/19/23 2 Days Ago History ~09/17/23 metoprolol succinate 50 mg 50 mg PO BEDTIME 09/19/23 09/19/23 2 Days Ago History tablet,extended release 24 hr ~09/17/23 ulhlczfr-ugxx-nlzxf acid 400 200 tab PO DAILY 09/19/23 09/19/23 1 Day Ago History mcg-lycopene 600 mcg-ginkgo 120 mg ~09/18/23 tablet nitroglycerin 0.4 mg sublingual 0.4 mg sublingual Q5M PRN Chest 09/19/23 09/19/23 Unknown History tablet Pain vit B,C-folic ac 800 mcg-zinc 12.5 800 tab PO DIRECTED 09/19/23 09/19/23 Unknown History mg-selen-D3 2,000 unit-vit E tablet (RenaPlex-D) Allergies Allergy/AdvReac Type Severity Reaction Status Date / Time morphine Allergy Unknown Verified 09/19/23 00:59 PFSH Acute PFSH: Medical History (Updated 09/19/23 @ 02:06 by Sergio Garcia MD) SCC (squamous cell carcinoma), ear Hypothyroid HTN (hypertension) CAD (coronary artery disease) COPD (chronic obstructive pulmonary disease) Hyperlipemia Diabetes mellitus Transitional cell bladder cancer GERD (gastroesophageal reflux disease) Chronic low back pain Iron deficiency anemia Adenocarcinoma of prostate Hearing loss End stage kidney disease A-fib CHF (congestive heart failure) Surgical History (Updated 09/19/23 @ 01:58 by Sergio Garcia MD) Hx of CABG X2 History of angioplasty History of appendectomy Hx laparoscopic cholecystectomy Family History Father Colon cancer Brother Colon cancer Social History (Updated 09/19/23 @ 02:03 by Sergio Garcia MD) Smoking and tobacco/nicotine status: former use of tobacco/nicotine Vitals/I&O/Wt Last Vital Signs O2 Del Method Nasal Cannula 09/19/23 00:42 09/18/23 09/18/23 09/19/23 14:59 22:59 06:59 Intake Total 60 / 60 Balance 60 / 60 Weight last 48 hrs Weight 90.378 kg Physical Exam Const: COMMON NORMALS: no acute distress ORIENTATION/CONSCIOUSNESS: Yes awake and Yes oriented to person; not oriented to place and not oriented to time HENMT: COMMON NORMALS: normocephalic HEAD & SCALP: normocephalic Eye: COMMON NORMALS: Equal, round and reactive pupils present and EOMs intact bilaterally Resp: COMMON NORMALS: normal respiratory effort, No retractions, No use of accessory muscles and clear to auscultation bilaterally AUSCULTATION: crackles and wheezes Cardio: COMMON NORMALS: no JVD, regular rate, regular rhythm, S1 normal heart sound present and S2 normal heart sound present RATE: regular rate RHYTHM: regular rhythm HEART SOUNDS: S1 normal heart sound present and S2 normal heart sound present GI: COMMON NORMALS: Normal to inspection, nondistended, normoactive bowel sounds present, Soft to palpation and non-tender OTHER: Anasarca Extremity: COMMON NORMALS: no calf tenderness NARRATIVE EXTREMITY EXAM: 2+ pitting edema bilateral extremities Neuro: COMMON NORMALS: moves all extremities and no focal motor deficits Psych: COMMON NORMALS: mental status grossly normal A&P Assessment and plan (1) CHF exacerbation: (2) LBBB (left bundle branch block): (3) A-fib: (4) End stage kidney disease: (5) AMS (altered mental status): (6) Acute hypoxic respiratory failure: Plan Acute hypoxic respiratory failure ? Secondary to CHF exacerbation, fluid overload, end-stage renal disease BNP over 30,000 ? Plan ? Consult nephrology, for dialysis in the morning ? According to patient he does urinate, he was given 40 mg IV Lasix at [facility], will recheck a BMP and redose Lasix 40 mg for 6 AM -Serial EKGs, serial troponins, telemetry monitoring, cardiac echo -Monitor respiratory status closely ? Fluid restrictions at 1000 cc ? Monitor creatinine 3.5 monitor potassium 5.4, monitor magnesium ? Full code ? Heparin for DVT prophylaxis Atrial fibrillation ? ER provider at [facility] was worried about new onset atrial fibrillation however it is documented in his past medical history, and here it is documented in our system with past medical history nonetheless his rate is well-controlled ? Metoprolol 25 twice daily ? Will decide on long-term anticoagulation based on clinical progress Left bundle branch block ? I was not told by ER provider at [facility] that patient has left bundle branch block on his EKG -Unsure if this is new versus chronic, patient does not have an EKG in our system ? He denies any chest pain ? Troponin at [facility] was within normal limits ? Will do serial troponins, serial EKGs, telemetry monitoring ? Continue aspirin, statin, beta-alexandra ? Cardiac echo ? Based on clinical progress will speak with cardiology End-stage renal disease on dialysis ? Dialysis days are Tuesdays, , Saturdays ? According to ER provider last Monday due to hypotension patient did not have enough fluid taken off of him Acute encephalopathy ? Patient can follow commands but is quite drowsy, very hard of hearing -Neurochecks, aspiration precautions ? CT of the head ? UA ? Repeat blood work ? ABG Type 2 diabetes mellitus, low-dose sliding scale COPD not in exacerbation Full code Heparin for DVT prophylaxis Attestations Medical Necessity Statement*: Patient requires hospitalization inpatient, greater than 2 midnights, for CHF exacerbation, fluid overload, acute respiratory failure, left bundle branch block, encephalopathy Diagnoses CHF exacerbation I50.9 LBBB (left bundle branch block) I44.7 A-fib I48.91 End stage kidney disease N18.6 AMS (altered mental status) R41.82 Acute hypoxic respiratory failure J96.01
--- NOTE | 2023-09-19 02:10 | CTR_ITS ---
PROCEDURE INFORMATION: Exam: CT Head Without Contrast Exam date and time: 09/19/2023 2:28 AM Age: 83 years old Clinical indication: Altered mental status/memory loss; Additional info: AMS TECHNIQUE: Imaging protocol: Computed tomography of the head without contrast. Radiation optimization: All CT scans at this facility use at least one of these dose optimization techniques: automated exposure control; mA and/or kV adjustment per patient size (includes targeted exams where dose is matched to clinical indication); or iterative reconstruction. COMPARISON: CT neck w con* [id number] 10/28/2019 10:18 AM RADIATION DOSE METRICS: Total DLP (mGy-cm): 1083.3 FINDINGS: Brain: There is no mass effect, midline shift, acute hemorrhage, extra-axial fluid collection or acute lobar infarct. Mild patchy hemispheric white matter hypodensity likely represents chronic microvascular ischemic change. Cerebral ventricles: No ventriculomegaly. Paranasal sinuses: Visualized sinuses are unremarkable. No fluid levels. Mastoid air cells: See below. Orbital cavities: Patient is post bilateral cataract surgery. Bones: Patient is post partial right mastoidectomy including resection of the posterior wall of the right temporomandibular joint Soft tissues: Unremarkable. CT/CT head wo con* [id number] IMPRESSION: No acute intracranial process.
[2023-09-19 02:23] LABS: ABG PH Result 7.43 (7.35-7.45); Arterial Blood Gas Hematocrit 31.2 % (42-52); Base Excess ABG 3.8 mmol/L (-2.0-2.0); Blood Gas Sample Site Brachial, left; Blood Gas Sample Type Arterial; HCO3 ABG 28.5 mmol/L (22-26); Oxygen Device NC
[2023-09-19] MEDS: pantoprazole 40 mg SDV IVP (02:46)
[2023-09-19] MEDS: heparin 5,000 unit/mL INJ 1 mL 5000 UNIT SUBCUT (02:46)
[2023-09-19 03:13] LABS: Basophils % 0.6 %; Eosinophils # 0.1 10^3/uL (0.0-0.8); Eosinophils % 1.5 %; Hematocrit 33.5 % (37-53); Lymphocytes # 0.2 10^3/uL (0.8-4.8); Lymphocytes % 3.9 %; Mean Corpuscular HGB Conc 31.3 g/dL (30-55); Mean Corpuscular Hemoglobin 31.4 pg (27-33); Mean Corpuscular Volume 100.3 fl (82-101); Mean Platelet Volume 10.6 fL (7.4-10.4); Monocytes # 0.4 10^3/uL (0.2-0.9); Monocytes % 6.4 %; Neutrophils # 4.75 10^3/uL (1.8-7.7); Nucleated Red Blood Cells % 0 %; Platelet Count 102 10^3/cmm (157-399); Red Blood Count 3.34 10^6/uL (3.85-5.65); Red Cell Distribution Width 18.8 % (12.1-15.1); White Blood Count 5.45 10^3/uL (3.29-11.43)
[2023-09-19 03:28] LABS: Estmated Average Glucose 111; Hemoglobin A1C 5.5 % (4.0-6.0)
[2023-09-19 03:29] LABS: INR 1.14 (0.8-1.2)
[2023-09-19 03:33] LABS: Ammonia 21 umol/L (16-60)
[2023-09-19 03:35] LABS: Lactic Sepsis W/Reflex 1.1 mmol/L (0.5-2.2)
[2023-09-19 03:42] LABS: Alanine Aminotransferase 18 U/L (0-41); Albumin Level 3.4 g/dL (3.5-5.2); Alkaline Phosphatase 126 U/L (40-130); Anion Gap 15.2 (5-19); Aspartate Amino Transferase 20 U/L (0-40); Blood Urea Nitrogen 36 mg/dL (8-23); Calcium 8.4 mg/dL (8.5-10.5); Carbon Dioxide 28 mmol/L (22-29); Chloride 91 mmol/L (98-107); Cholesterol 97 mg/dL (0-200); Creatinine Clr Calc Pharmacy 17.8434; Globulin 2.8 g/dL (1.3-4.6); Glucose 122 mg/dL (65-115); HDL Cholesterol 57 mg/dL (60-100); LDL Cholesterol Calculated 26 mg/dL (50-129); LDL HDL Ratio 0.46 RATIO (0.00-3.22); Osmolality Calculated 278 mOsm/kg (285-295); Potassium 5.2 mmol/L (3.5-5.1); Sodium 129 mmol/L (136-145); Total Bilirubin 0.5 mg/dL (0.15-1.2); Total Protein 6.2 g/dL (6.6-8.7); Triglycerides 69 mg/dL (0-150)
[2023-09-19 03:43] LABS: Troponin(5th) Baseline 156 ng/L (0-15)
--- NOTE | 2023-09-19 03:49 | ECG_ITS ---
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 Measurements Intervals [place] Rate: 90 P: 0 OR: 0 QRS: -7 QRSD: 141 T: 179 QT: 388 QTc: 477 Interpretive Statements ATRIAL FIBRILLATION LEFT BUNDLE BRANCH BLOCK [120+ ms QRS DURATION, 80+ ms Q/S IN V1/V2, 85+ ms R IN I/aVL/V5/V6] Compared to ECG 09/19/2023 02:08:55 No significant changes Electronically Signed On 09-19-2023 17:51:56 CDT by Chris Ordonez M.D. [id number]
[2023-09-19 04:08] LABS: NT Pro B Type Natriuretic Pept > 70000 pg/mL (0-450)
[2023-09-19] MEDS: heparin drip 25,000 UNIT/500 ML PREMIX 25 UNIT IV (04:35)
--- NOTE | 2023-09-19 04:44 | PC.NURSE ---
per skip loading dose of heparin drip protocol due to pt receiving a subcutaneous dose of a 5000 units at 0245 this morning
[2023-09-19] MEDS: FUROsemide 10 mg/mL SDV 4mL 40 MG IVP (05:52)
[2023-09-19] MEDS: levothyroxine 50 mcg Tablet PO (05:54)
[2023-09-19 06:24] LABS: Troponin 5 2HR 146.2 ng/L (0-15); Troponin 5 2HR Delta -9.8 ABS# (0-10)
[2023-09-19 06:25] LABS: Glucose Point of Care 118 mg/dL (70-110)
--- NOTE | 2023-09-19 07:43 | ECG_ITS ---
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 Measurements Intervals [place] Rate: 94 P: 0 ND: 0 QRS: -26 QRSD: 141 T: 174 QT: 387 QTc: 486 Interpretive Statements ATRIAL FIBRILLATION INTRAVENTRICULAR CONDUCTION DELAY [130+ ms QRS DURATION] Compared to ECG 09/19/2023 03:49:14 Intraventricular conduction delay now present Left bundle-branch block no longer present Electronically Signed On 09-19-2023 17:51:41 CDT by Chris Ordonez M.D. [id number]
[2023-09-19] MEDS: aspirin 81 mg EC Tablet PO (09:43)
[2023-09-19] MEDS: metoprolol tartrate 25 mg Tablet PO ×2 (09:43→20:53)
[2023-09-19 10:10] LABS: Hepatitis B Surface AB < 3.5 (11.5-1000)
[2023-09-19 10:23] LABS: Troponin 5 6HR 154.7 ng/L (0-15); Troponin 5 6HR Delta -1.3 ng/L (0-12)
[2023-09-19 10:52] LABS: Hepatitis B Surface Antigen Non-Reactive (Nonreactive)
--- NOTE | 2023-09-19 11:03 | P.CONIM_ITS ---
Providers/Reason For Consult 2 Consulting Physician/Specialty*: kommana/Nephrology Reason for Consult*: ESRD Attending Physician: Rola Cristobal MD Primary Care Provider: Miguelito Persaud MD History of Present Illness History of Present Illness Gama William is a 83 year old male with past medical history of diabetes hypertension COPD coronary artery disease history of A-fib CHF hypothyroidism presented to the hospital due to shortness of breath and lower extremity edema. Patient is on TTS schedule usually. Patient was also thought to be in CHF exacerbation and new onset A-fib. Has elevated BNP. Vital signs stable currently. Review of Systems 2 Narrative: negative Medications/Allergies Home Medications Medication Instructions Recorded Confirmed Last Taken Type albuterol sulfate 90 mcg/actuation 90 puff inhalation DIRECTED PRN 09/19/23 09/19/23 Unknown History aerosol inhaler (Ventolin HFA) Shortness Of Breath Or Wheezing aspirin 81 mg tablet 81 mg PO DAILY 09/19/23 09/19/23 1 Day Ago History ~09/18/23 atorvastatin 80 mg tablet 80 mg PO BEDTIME 09/19/23 09/19/23 2 Days Ago History ~09/17/23 dexlansoprazole 60 mg 60 mg PO DAILY 09/19/23 09/19/23 1 Day Ago History capsule,biphase delayed release ~09/18/23 levothyroxine 50 mcg tablet 50 mcg PO QAM 09/19/23 09/19/23 1 Day Ago History ~09/18/23 lisinopril 5 mg tablet 5 mg PO BEDTIME 09/19/23 09/19/23 2 Days Ago History ~09/17/23 metoprolol succinate 50 mg 50 mg PO BEDTIME 09/19/23 09/19/23 2 Days Ago History tablet,extended release 24 hr ~09/17/23 wzwyeigc-mqxt-krcaw acid 400 200 tab PO DAILY 09/19/23 09/19/23 1 Day Ago History mcg-lycopene 600 mcg-ginkgo 120 mg ~09/18/23 tablet nitroglycerin 0.4 mg sublingual 0.4 mg sublingual Q5M PRN Chest 09/19/23 09/19/23 Unknown History tablet Pain vit B,C-folic ac 800 mcg-zinc 12.5 800 tab PO DIRECTED 09/19/23 09/19/23 Unknown History mg-selen-D3 2,000 unit-vit E tablet (RenaPlex-D) Allergies Allergy/AdvReac Type Severity Reaction Status Date / Time morphine Allergy ADR-Halluci Verified 09/19/23 10:54 nating Current Medications Generic Name Dose Route Start Last Admin Trade Name Treasure PRN Reason Stop Dose Admin Aspirin 81 mg 09/19/23 09:00 09/19/23 09:43 Aspirin 81 Mg Ec Tablet PO 81 mg DAILY KALYN Administration Heparin Sodium/Sodium Chloride 25,000 unit in 500 mls @ 0 mls/hr 09/19/23 04:15 09/19/23 04:35 Heparin Drip IV 13.83 unit/kg/hr .Q0M KALYN 25 mls/hr Administration Protocol Per Protocol Insulin Human Lispro 0 unit 09/19/23 08:00 09/19/23 06:49 Insulin Lispro 100 Unit/1 Ml SUBCUT Not Given TIDWM KALYN Protocol Levothyroxine Sodium 50 mcg 09/19/23 06:00 09/19/23 05:54 Levothyroxine 50 Mcg Tablet PO 50 mcg QAM KALYN Administration Metoprolol Tartrate 25 mg 09/19/23 09:00 09/19/23 09:43 Metoprolol Tartrate 25 Mg Tablet PO 25 mg BID@0900,2100 KALYN Administration Pantoprazole Sodium 40 mg 09/19/23 01:45 09/19/23 02:46 Pantoprazole 40 Mg Sdv IVP 40 mg Q24H KALYN Administration PFSH Acute 2 PFSH: Medical History (Updated 09/19/23 @ 02:06 by Sergio Garcia MD) SCC (squamous cell carcinoma), ear Hypothyroid HTN (hypertension) CAD (coronary artery disease) COPD (chronic obstructive pulmonary disease) Hyperlipemia Diabetes mellitus Transitional cell bladder cancer GERD (gastroesophageal reflux disease) Chronic low back pain Iron deficiency anemia Adenocarcinoma of prostate Hearing loss End stage kidney disease A-fib CHF (congestive heart failure) Surgical History (Updated 09/19/23 @ 01:58 by Sergio Garcia MD) Hx of CABG X2 History of angioplasty History of appendectomy Hx laparoscopic cholecystectomy Family History Father Colon cancer Brother Colon cancer Social History (Updated 09/19/23 @ 02:03 by Sergio Garcia MD) Smoking and tobacco/nicotine status: former use of tobacco/nicotine Vitals/I&O/Wt Last Vital Signs Temp 98.0 F 09/19/23 07:48 Pulse 93 09/19/23 07:50 Resp 16 09/19/23 07:50 BP 110/65 09/19/23 07:48 Pulse Ox 99 09/19/23 07:50 O2 Del Method Nasal Cannula 09/19/23 07:50 O2 Flow Rate 1 09/19/23 07:50 09/18/23 09/19/23 09/19/23 22:59 06:59 14:59 Intake Total 60 / 60 360 / 360 Balance 60 / 60 360 / 360 Weight last 48 hrs Weight 90.435 kg Weight 90.378 kg Physical Exam 2 Narrative: awake ,a lert no distress Data 09/19/23 02:54 09/19/23 02:54 A&P Assessment and plan (1) End stage kidney disease: Plan 1. ESRD: On TTS schedule as outpatient, HD today and ultrafiltration as tolerated 2. Acute on chronic respiratory failure, multifactorial, HD as above 3. New onset A-fib 4. Hyperkalemia: Low K diet and HD as above, 5. Hyponatremia: Mild, likely hypervolemic, and should improve after HD Patient evaluated using audiovisual cart. Time spent 40 minutes Consult Attestations 2 Medical Necessity Statement: per medicne Coding Level of Care Code Acute Code for Chg Fwd Diagnoses End stage kidney disease N18.6
[2023-09-19 12:07] LABS: Glucose Point of Care 150 mg/dL (70-110)
[2023-09-19] MEDS: insulin lispro 100 unit/1 mL SUBCUT (12:38)
[2023-09-19 12:42] LABS: Partial Thromboplastin Time > 250.0 SECONDS (23.9-36.7)
--- NOTE | 2023-09-19 12:48 | PM.MISC ---
Miscellaneous Note Note: continue mgmt at per a/p on hnp pt seen no acute events since admitted.
--- NOTE | 2023-09-19 13:16 | PC.NURSE ---
to dialysis via bed at 1250
[2023-09-19 13:55] LABS: Partial Thromboplastin Time > 250.0 SECONDS (23.9-36.7)
--- NOTE | 2023-09-19 14:07 | PC.HD ---
Heparin 1000 units loading dose administered prior to HD initiation at 1256 via HD catheter per auto seat cover installer's orders.
[2023-09-19 17:02] LABS: Glucose Point of Care 93 mg/dL (70-110)
--- NOTE | 2023-09-19 19:14 | PC.NURSE ---
Addendum entered by Sandra Rodriguez RN 09/19/23 19:16: drip resumed at 21 mls/hr at 1700. Original Note: pt's ptt was very elevated today.dr joe rudolph.stated to restart heparin at 4 mls less than original dose (which was 25 mls/hr).so heparin drip resumed at 21 mls/hr at 210
[2023-09-19 20:50] LABS: Glucose Point of Care 139 mg/dL (70-110)
[2023-09-19] MEDS: atorvastatin 40 mg Tablet 80 MG PO (20:53)
[2023-09-20] VITALS (8 sets, daily range): BP systolic 102–114; BP diastolic 70–87; PULSE 75–92; RESP 16–28; TEMP 36.2–36.7; O2SAT 94–99
[2023-09-20 00:25] LABS: Partial Thromboplastin Time > 250.0 SECONDS (23.9-36.7)
[2023-09-20] MEDS: pantoprazole 40 mg SDV IVP (01:12)
--- NOTE | 2023-09-20 02:42 | PC.NURSE ---
At 0225 this am the patient had a 16 beat run of vtach, contacted the MD no new orders at this time, patient was slept through episode, after waking the patient up he stated that he did not feel anything when it happened and still is non symptomatic cardiac strip of event is posted in paper chart
[2023-09-20 04:43] LABS: Basophils % 0.9 %; Eosinophils # 0.1 10^3/uL (0.0-0.8); Eosinophils % 2.9 %; Hematocrit 31.9 % (37-53); Lymphocytes # 0.3 10^3/uL (0.8-4.8); Lymphocytes % 7.1 %; Mean Corpuscular HGB Conc 31.3 g/dL (30-55); Mean Corpuscular Hemoglobin 31.7 pg (27-33); Mean Corpuscular Volume 101.3 fl (82-101); Mean Platelet Volume 10.5 fL (7.4-10.4); Monocytes # 0.3 10^3/uL (0.2-0.9); Monocytes % 7.5 %; Neutrophils # 3.68 10^3/uL (1.8-7.7); Neutrophils % 81.2 %; Nucleated Red Blood Cells % 0 %; Platelet Count 95 10^3/cmm (157-399); Red Blood Count 3.15 10^6/uL (3.85-5.65); Red Cell Distribution Width 18.8 % (12.1-15.1); White Blood Count 4.53 10^3/uL (3.29-11.43)
[2023-09-20 04:56] LABS: Partial Thromboplastin Time 49.5 SECONDS (23.9-36.7)
[2023-09-20 05:05] LABS: Anion Gap 13.6 (5-19); Blood Urea Nitrogen 29 mg/dL (8-23); Calcium 8.5 mg/dL (8.5-10.5); Carbon Dioxide 28 mmol/L (22-29); Chloride 96 mmol/L (98-107); Glucose 87 mg/dL (65-115); Osmolality Calculated 281 mOsm/kg (285-295); Potassium 4.6 mmol/L (3.5-5.1); Sodium 133 mmol/L (136-145)
[2023-09-20] MEDS: levothyroxine 50 mcg Tablet PO (05:38)
--- NOTE | 2023-09-20 05:46 | PC.NURSE ---
ptt came back at 49.5 after heparin was paused for 4hours and rechecked per , gave orders to start heparin back at prior rate of 21 ml/hr on heparin and recheck ptt in hours
[2023-09-20 06:29] LABS: Glucose Point of Care 107 mg/dL (70-110)
[2023-09-20] MEDS: metoprolol tartrate 25 mg Tablet PO ×2 (08:44→20:04)
[2023-09-20] MEDS: aspirin 81 mg EC Tablet PO (08:44)
--- NOTE | 2023-09-20 08:44 | P.PN_ITS ---
Subjective 2 Subjective: no new c/o Medications: Reviewed: Yes Vitals/I&O/Wt Last Vital Signs Temp 97.9 F 09/20/23 07:52 Pulse 92 09/20/23 07:52 Resp 25 H 09/20/23 07:52 BP 108/77 09/20/23 07:52 Pulse Ox 94 09/20/23 07:52 O2 Del Method Nasal Cannula 09/20/23 07:52 O2 Flow Rate 1 09/20/23 07:31 09/19/23 09/20/23 09/20/23 22:59 06:59 14:59 Intake Total 540 / 1344.583 272.25 / 1616.833 Output Total 2800 / 2800 Balance -2260 / -1455.417 272.25 / -1183.167 Weight last 48 hrs Weight 88.054 kg Weight 88 kg Weight 90.435 kg Weight 90.378 kg Physical Exam 2 Narrative: awake ,a lert no distress Data 09/20/23 04:36 09/20/23 04:36 A&P Assessment and plan (1) End stage kidney disease: Plan 1. ESRD: On TTS schedule as outpatient, HD tomorrow and ultrafiltration as tolerated 2. Acute on chronic respiratory failure, multifactorial, HD as above 3. New onset A-fib 4. Hyperkalemia: Low K diet , improved 5. Hyponatremia: Mild, Patient evaluated using audiovisual cart. Time spent 40 minutes Attestations 2 Medical Necessity Statement*: per fred Coding Level of Care Code Acute Code for Chg Fwd Diagnoses End stage kidney disease N18.6
[2023-09-20 09:53] LABS: Partial Thromboplastin Time 178.3 SECONDS (23.9-36.7)
[2023-09-20 12:03] LABS: Glucose Point of Care 166 mg/dL (70-110)
[2023-09-20] MEDS: insulin lispro 100 unit/1 mL SUBCUT (12:22)
--- NOTE | 2023-09-20 12:48 | P.PN_ITS ---
Subjective 2 Subjective: Seen this morning. Patient notes he is in the hospital because my kidney is not working and I am short of breath . He knows his name he knows his date of . Regarding president he says he does not keep up with that stuff. However knows he is in the [facility]. Patient states that he would like to have CPR and mechanical ventilation if needed. I discussed with him that his EF is 10 to 15% and if he is at risk of arrhythmias and may even . Discussed CODE STATUS. Patient would like to remain a full code. Patient states he knows he has heart failure but does not know what his last EF was. Unable to tell me the name of his vocational evaluator. Unable to tell me many other details. Family at bedside. Family tells me that patient has a history of bladder cancer however do not know the status of it. Has a history of CHF, CO 5 years ago, CABG, diabetes mellitus. Was on insulin in the past however now has been taken off of it. Dr. Hung Farley is his primary care doctor. He follows in [place]. I did try to call his PCP Dr. Hung Rosado however he was unreachable via phone. Echo shows EF 10 to 15%. Does have a left bundle branch on EKG. Has a known history of A-fib. We do not have other EKGs in our records. Vitals/I&O/Wt Last Vital Signs Temp 97.7 F 09/20/23 12:00 Pulse 88 09/20/23 12:00 Resp 20 H 09/20/23 12:00 BP 108/74 09/20/23 12:00 Pulse Ox 96 09/20/23 12:00 O2 Del Method Nasal Cannula 09/20/23 12:00 O2 Flow Rate 1 09/20/23 07:31 09/19/23 09/20/23 09/20/23 22:59 06:59 14:59 Intake Total 540 / 1344.583 272.25 / 1616.833 451.7 / 451.7 Output Total 2800 / 2800 Balance -2260 / -1455.417 272.25 / -1183.167 451.7 / 451.7 Weight last 48 hrs Weight 88.054 kg Weight 88 kg Weight 90.435 kg Weight 90.378 kg Physical Exam 2 Narrative: General: Alert oriented x3, patient seen laying in bed appearing comfortable at this time however is mildly short of breath. No apparent conversational dyspnea. No acute distress. HEENT: Normocephalic, atraumatic, EOMI, breathing 2 L nasal cannula at this time. Cardio: Regular rate, normal S1-S2, Respiratory: Mild crackles bilateral lung bases GI: Abdomen soft, nontender, nondistended, bowel sounds + Extremities: 2+ edema, b/l Data 09/20/23 04:36 09/20/23 04:36 A&P Assessment and plan (1) CHF exacerbation: (2) LBBB (left bundle branch block): (3) A-fib: (4) End stage kidney disease: (5) AMS (altered mental status): (6) Acute hypoxic respiratory failure: Plan Acute hypoxic respiratory failure Acute on chronic congestive heart failure, EF 10 to 15% Atrial fibrillation Left bundle branch block, unclear old or new Altered mental status/resolved End-stage renal disease Monday CAD, history of CABG History of CO 5 years ago Diabetes mellitus, [id number] ? Patient presented to us from [facility] with new onset atrial fibrillation however it has been documented in his past history. Patient confirms that he has this from before. He was also found to have a left bundle branch block however we do not have any previous EKGs. We are not sure if this is new versus old. We do not have records for the patient. Have requested records from [place]. Patient's vocational evaluator is over there. During this hospitalization he has been found to have an EF of 10 to 15% on echo. Unsure if this is new or old. Patient is quite fluid overloaded, short of breath, hypoxic requiring oxygen. Nephrology has been consulted for dialysis. Patient was also placed on a heparin drip by admitting physician secondary to his left bundle branch block and treating for possible NSTEMI?. aPTT's have been high currently heparin is on hold. Cardiology has been consulted. Upon discussion with the patient-family would like to pursue further management. Patient would like CPR and would like to be intubated if needed. He is somewhat of a poor historian and unable to provide more information that was listed above. ? Continue on aspirin, Lipitor, -I would stop metoprolol tartrate secondary to active heart failure and EF of 10%. ? If needed may use amiodarone for A-fib with RVR ? He did receive Lasix 40 IV x 1 at [facility]. He got another dose in our hospital however then it was stopped. ? BNP 30,000 on admission. Do not have previous values, may be exacerbated high secondary to renal disease ? Continue levothyroxine 50 daily ? Nephrology consulted. Continue to dialyze as per the recommendations. ? Fluid restriction 1200 cc daily. -Serial EKGs, serial troponins, telemetry monitoring, cardiac echo. Cardiac echo has resulted with EF of 10 to 15%. -Continue heparin drip for now secondary to history of A-fib. Will need to decide on long-term anticoagulation based on clinical progress. ? Consult cardiology Acute encephalopathy?on admission?resolved ? Patient can follow commands but is quite drowsy, very hard of hearing -Neurochecks, aspiration precautions ? CT of the head?negative ? UA?negative Type 2 diabetes mellitus, low-dose sliding scale COPD not in exacerbation Full code Heparin for DVT prophylaxis Discussed with patient and family that patient is at high risk for arrhythmias possibly leading to . Patient would like to remain full code at this time. Attestations 2 Medical Necessity Statement*: Patient requires hospitalization inpatient, greater than 2 midnights, for CHF exacerbation, fluid overload, acute respiratory failure, left bundle branch block, encephalopathy Diagnoses CHF exacerbation I50.9 LBBB (left bundle branch block) I44.7 A-fib I48.91 End stage kidney disease N18.6 AMS (altered mental status) R41.82 Acute hypoxic respiratory failure J96.01
--- NOTE | 2023-09-20 13:29 | P.CONIM_ITS ---
Providers/Reason For Consult 2 Consulting Physician/Specialty*: JESI Tavares MD/cardiology Reason for Consult*: Patient with elevated troponin T/history of atherosclerotic heart disease/severe LV dysfunction by echocardiogram/congestive heart failure Requesting Physician: Dr. Cristobal Attending Physician: Rola Cristobal MD Primary Care Provider: Miguelito Persaud MD History of Present Illness History of Present Illness Gama William is a 83 year old male with a history of atherosclerotic heart disease, open heart surgery, end-stage renal disease, on hemodialysis, is admitted to hospital with progressive shortness of breath and leg swelling. He is on hemodialysis. Apparently the last dialysis was suboptimal. Could not take out as much fluid as recommended. Patient was found to have severe LV systolic dysfunction with ejection fraction 15 to 20%.. Cardiology consult was requested for further cardiac evaluation recommendations. This patient is a very poor historian. Information's are from the family, medical records and medical staff. This patient had open heart surgery 6 or 7 years ago at the [facility] in [place]. 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 Has a history of congestive heart failure and also LV ejection fraction around 30% by echocardiogram, based on the family member. Patient is admitted to hospital with complaints of increasing shortness of breath and leg swelling. Apparently the dialysis clinic could not take out as much recommended. He was found to have features of congestive heart failure and elevated troponin T. However there is no significant delta to the troponin. Patient denies any chest pain or palpitations. He does not recall of having any stress test or angiogram in the recent past. No fever or chills. No cough. Patient has been on hemodialysis since March of last year. The exact reasons are not known. He gets dialysis 3 times a week. Review of Systems 2 Narrative: CONSTITUTIONAL: No fever or chills. Shortness of breath and bilateral lower extremity swelling EYES: No blurring of vision or other visual disturbances lately. ENT: No hoarseness of voice, auditory disturbances or sore throat. CARDIOVASCULAR: As mentioned above. RESPIRATORY: No significant cough. GASTROINTESTINAL: No hematemesis or melena. GENITOURINARY: No dysuria or hematuria. INTEGUMENTARY: No skin rashes or history of skin cancer. NEURO: No transient ischemic attacks or amaurosis. PSYCHIATRIC: No history of psychosis or major depression. HEMATOLOGIC: Patient had a cancer on the right side of the face and underwent radical surgery. ENDOCRINE: No history of polyuria or polydipsia. MUSCULOSKELETAL: No recent joint pain or swelling. ALLERGY/IMMUNOLOGY: As mentioned above. Medications/Allergies Home Medications Medication Instructions Recorded Confirmed Last Taken Type albuterol sulfate 90 mcg/actuation 90 puff inhalation DIRECTED PRN 09/19/23 09/19/23 Unknown History aerosol inhaler (Ventolin HFA) Shortness Of Breath Or Wheezing aspirin 81 mg tablet 81 mg PO DAILY 09/19/23 09/19/23 1 Day Ago History ~09/18/23 atorvastatin 80 mg tablet 80 mg PO BEDTIME 09/19/23 09/19/23 2 Days Ago History ~09/17/23 dexlansoprazole 60 mg 60 mg PO DAILY 09/19/23 09/19/23 1 Day Ago History capsule,biphase delayed release ~09/18/23 levothyroxine 50 mcg tablet 50 mcg PO QAM 09/19/23 09/19/23 1 Day Ago History ~09/18/23 lisinopril 5 mg tablet 5 mg PO BEDTIME 09/19/23 09/19/23 2 Days Ago History ~09/17/23 metoprolol succinate 50 mg 50 mg PO BEDTIME 09/19/23 09/19/23 2 Days Ago History tablet,extended release 24 hr ~09/17/23 fhadjugw-tncj-tqpza acid 400 200 tab PO DAILY 09/19/23 09/19/23 1 Day Ago History mcg-lycopene 600 mcg-ginkgo 120 mg ~09/18/23 tablet nitroglycerin 0.4 mg sublingual 0.4 mg sublingual Q5M PRN Chest 09/19/23 09/19/23 Unknown History tablet Pain vit B,C-folic ac 800 mcg-zinc 12.5 800 tab PO DIRECTED 09/19/23 09/19/23 Unknown History mg-selen-D3 2,000 unit-vit E tablet (RenaPlex-D) Allergies Allergy/AdvReac Type Severity Reaction Status Date / Time morphine Allergy ADR-Halluci Verified 09/19/23 10:54 nating Current Medications Generic Name Dose Route Start Last Admin Trade Name Freq PRN Reason Stop Dose Admin Aspirin 81 mg 09/19/23 09:00 09/20/23 08:44 Aspirin 81 Mg Ec Tablet PO 81 mg DAILY KALYN Administration Atorvastatin Calcium 80 mg 09/19/23 21:00 09/19/23 20:53 Atorvastatin 40 Mg Tablet PO 80 mg BEDTIME KALYN Administration Heparin Sodium/Sodium Chloride 25,000 unit in 500 mls @ 0 mls/hr 09/19/23 04:15 09/20/23 10:05 Heparin Drip IV 0 unit/kg/hr .Q0M KALYN 0 mls/hr Titration Protocol Per Protocol Insulin Human Lispro 0 unit 09/19/23 08:00 09/20/23 12:22 Insulin Lispro 100 Unit/1 Ml SUBCUT 2 unit TIDWM KALYN Administration Protocol Levothyroxine Sodium 50 mcg 09/19/23 06:00 09/20/23 05:38 Levothyroxine 50 Mcg Tablet PO 50 mcg QAM KALYN Administration Metoprolol Tartrate 25 mg 09/19/23 09:00 09/20/23 08:44 Metoprolol Tartrate 25 Mg Tablet PO 25 mg BID@0900,2100 KALYN Administration Pantoprazole Sodium 40 mg 09/19/23 01:45 09/20/23 01:12 Pantoprazole 40 Mg Sdv IVP 40 mg Q24H KALYN Administration PFSH Acute 2 PFSH: Medical History SCC (squamous cell carcinoma), ear Hypothyroid HTN (hypertension) CAD (coronary artery disease) COPD (chronic obstructive pulmonary disease) Hyperlipemia Diabetes mellitus Transitional cell bladder cancer GERD (gastroesophageal reflux disease) Chronic low back pain Iron deficiency anemia Adenocarcinoma of prostate Hearing loss End stage kidney disease A-fib CHF (congestive heart failure) Surgical History Hx of CABG X2 History of angioplasty History of appendectomy Hx laparoscopic cholecystectomy Family History Father Colon cancer Brother Colon cancer Social History Smoking and tobacco/nicotine status: former use of tobacco/nicotine Vitals/I&O/Wt Last Vital Signs Temp 97.7 F 09/20/23 12:00 Pulse 88 09/20/23 12:00 Resp 20 H 09/20/23 12:00 BP 108/74 09/20/23 12:00 Pulse Ox 96 09/20/23 12:00 O2 Del Method Nasal Cannula 09/20/23 12:00 O2 Flow Rate 1 09/20/23 07:31 09/19/23 09/20/23 09/20/23 22:59 06:59 14:59 Intake Total 540 / 1344.583 272.25 / 1616.833 811.7 / 811.7 Output Total 2800 / 2800 Balance -2260 / -1455.417 272.25 / -1183.167 811.7 / 811.7 Weight last 48 hrs Weight 194 lb 2 oz Weight 194 lb 0.108 oz Weight 199 lb 6 oz Weight 199 lb 4 oz Physical Exam 2 Narrative: GENERAL: The patient is alert and oriented times three. Not in any acute distress. Chronically ill looking. HEENT: Moderate pallor. No icterus or lymphadenopathy.Oral cavity: There are no mucous membrane lesions. NECK: Trachea appears to be central. No masses noted. No JVD or thyromegaly appreciated. RESPIRATORY: Chest is symmetrical. No intercostals muscle retraction or any accessory muscle activation. There is no chest wall tenderness. Breath sounds are heard bilaterally. No rales or rhonchi heard. No evidence of any consolidation. BREASTS: Deferred. HEART: The heart sounds are normal. No S3 or S4. Short systolic murmur at the lower sternal border. No diastolic murmurs. ABDOMEN: No vessel pulsations or distention. No tenderness. No organomegaly appreciated. Bowel sounds are normally heard. : Deferred. RECTAL: Deferred. LYMPHATIC: 2-3+ edema both lower extremities. No cyanosis. EXTREMITIES: No edema or cyanosis. No clubbing. MUSCULOSKELETAL: No acute joint deformities or swelling SKIN: There are no significant rashes or ecchymosis NEUROPSYCHIATRIC: The patient is alert and oriented x3. Appears to be in a good mood. No tremors or rigidity noted. Data 09/20/23 04:36 09/20/23 04:36 Other Labs: Laboratory Last Values WBC 4.53 10^3/uL (3.29-11.43) 09/20/23 04:36 RBC 3.15 10^6/uL (3.85-5.65) L 09/20/23 04:36 Hgb 10.00 g/dL (11.27-16.99) L 09/20/23 04:36 Hct 31.9 % (37-53) L 09/20/23 04:36 MCV 101.3 fl (82-101) H 09/20/23 04:36 MCH 31.7 pg (27-33) 09/20/23 04:36 MCHC 31.3 g/dL (30-55) 09/20/23 04:36 RDW 18.8 % (12.1-15.1) H 09/20/23 04:36 Plt Count 95 10^3/cmm (157-399) L 09/20/23 04:36 MPV 10.5 fL (7.4-10.4) H 09/20/23 04:36 Neut % (Auto) 81.2 % 09/20/23 04:36 Lymph % (Auto) 7.1 % 09/20/23 04:36 Crisp % (Auto) 7.5 % 09/20/23 04:36 Eos % (Auto) 2.9 % 09/20/23 04:36 Baso % (Auto) 0.9 % 09/20/23 04:36 Neut # (Auto) 3.68 10^3/uL (1.8-7.7) 09/20/23 04:36 Lymph # (Auto) 0.3 10^3/uL (0.8-4.8) L 09/20/23 04:36 Crisp # (Auto) 0.3 10^3/uL (0.2-0.9) 09/20/23 04:36 Eos # (Auto) 0.1 10^3/uL (0.0-0.8) 09/20/23 04:36 Baso # (Auto) 0.0 10^3/uL (0.0-0.1) 09/20/23 04:36 Nucleated RBC % (auto) 0 % 09/20/23 04:36 Nucleated RBCs # 0.0 /100WBC 09/20/23 04:36 PT 15.00 SECONDS (12.1-14.9) H 09/19/23 02:54 INR 1.14 (0.8-1.2) 09/19/23 02:54 APTT 178.3 SECONDS (23.9-36.7) H* D 05/15/24 08:51 Specimen Type Arterial 09/19/23 02:12 Sample Site Brachial, left 09/19/23 02:12 ABG pH 7.43 (7.35-7.45) 09/19/23 02:12 ABG pCO2 43.0 mmHg (35-45) 09/19/23 02:12 ABG pO2 103.0 mmHg (80.0-100.0) H 09/19/23 02:12 ABG HCO3 28.5 mmol/L (22-26) H 09/19/23 02:12 ABG Base Excess 3.8 mmol/L (-2.0-2.0) H 09/19/23 02:12 Cl Test N/a 09/19/23 02:12 Hematocrit 31.2 % (42-52) L 09/19/23 02:12 O2 Delivery Device Nc 09/19/23 02:12 O2 Liters/Min 2.0 % 09/19/23 02:12 Ball Ender ID [id number] 09/19/23 02:12 Sodium 133 mmol/L (136-145) L 09/20/23 04:36 Potassium 4.6 mmol/L (3.5-5.1) 09/20/23 04:36 Chloride 96 mmol/L (98-107) L 09/20/23 04:36 Carbon Dioxide 28 mmol/L (22-29) 09/20/23 04:36 Anion Gap 13.6 (5-19) 09/20/23 04:36 BUN 29 mg/dL (8-23) H 09/20/23 04:36 Creatinine 2.8 mg/dL (0.7-1.2) H 09/20/23 04:36 GFR Calculation Not Reportable 09/20/23 04:36 Glucose 87 mg/dL (65-115) 09/20/23 04:36 POC Glucose 166 mg/dL (70-110) H 09/20/23 11:59 Estimat Average Glucose 111 09/19/23 02:54 Hemoglobin A1c 5.5 % (4.0-6.0) 09/19/23 02:54 Calculated Osmolality 281 mOsm/kg (285-295) L 09/20/23 04:36 Lactic Acid 1.1 mmol/L (0.5-2.2) 09/19/23 02:54 Calcium 8.5 mg/dL (8.5-10.5) 09/20/23 04:36 Phosphorus 5.0 mg/dL (2.5-4.5) H 09/19/23 02:54 Magnesium 2.0 mg/dL (1.7-2.3) 09/20/23 04:36 Total Bilirubin 0.5 mg/dL (0.15-1.2) 09/19/23 02:54 AST 20 U/L (0-40) 09/19/23 02:54 ALT 18 U/L (0-41) 09/19/23 02:54 Alkaline Phosphatase 126 U/L (40-130) 09/19/23 02:54 Ammonia 21 umol/L (16-60) 09/19/23 02:54 Troponin T Baseline 156 ng/L (0-15) H* 09/19/23 02:54 Troponin T 120 Minute 146.2 ng/L (0-15) H 09/19/23 05:15 Delta Troponin T -9.8 ABS# (0-10) L 09/19/23 05:15 Troponin T Hi Sens 6Hr 154.7 ng/L (0-15) H 09/19/23 09:06 Troponin T Hi Sens 6Hr Delta -1.3 ng/L (0-12) L 09/19/23 09:06 C-Reactive Protein 26.0 mg/L (0.0-4.9) H 09/19/23 02:54 NT-Pro-B Natriuret Pep > 23914 pg/mL (0-450) H 09/19/23 02:54 Total Protein 6.2 g/dL (6.6-8.7) L 09/19/23 02:54 Albumin 3.4 g/dL (3.5-5.2) L 09/19/23 02:54 Globulin 2.8 g/dL (1.3-4.6) 09/19/23 02:54 Triglycerides 69 mg/dL (0-150) 09/19/23 02:54 Cholesterol 97 mg/dL (0-200) 09/19/23 02:54 LDL Cholesterol, Calc 26 mg/dL (50-129) L 09/19/23 02:54 HDL Cholesterol 57 mg/dL (60-100) L 09/19/23 02:54 LDL/HDL Ratio 0.46 RATIO (0.00-3.22) 09/19/23 02:54 Cholesterol/HDL Ratio 1.70 mg/dL (1.0-5.00) 09/19/23 02:54 TSH 3.80 uIU/mL (0.27-4.20) 09/19/23 02:54 Hep Bs Antigen Non-reactive (Nonreactive) 09/19/23 09:06 Hep Bs Antibody < 3.5 (11.5-1000) L 09/19/23 09:06 A&P Assessment and plan (1) Acute on chronic systolic heart failure: Patient has significant improvement of symptoms, since the hospital admission. We may continue on the IV diuresis/hemodialysis. Patient is scheduled for a another hemodialysis in the morning. Try to get the medical records from the [facility]. (2) Atherosclerosis of coronary artery of red devil heart without angina pectoris: Since the patient has no specific symptoms of coronary insufficiency, is advised to continue on the current medications. We will continue on the risk modifying measures. Advised to contact our office, if the patient develop any significant chest pain or other ischemic symptoms Qualifiers: Coronary Disease-Associated Artery/Lesion type: red devil artery Qualified Code(s): I25.10 - Atherosclerotic heart disease of red devil coronary artery without angina pectoris (3) Chronic atrial fibrillation: This patient currently has no specific symptoms of atrial fibrillation/flutter. Advised to continue on the current treatment. In the event of developing any unusual palpitation, dizziness or syncopal episodes-advised to contact our office. (4) LBBB (left bundle branch block): Patient has no evidence of any high degree AV block. At this point, he may continue on the current management. (5) Elevated troponin: This could be a type II ND. Cannot exclude the possibility of type I. (6) End stage renal disease on dialysis: Continue on the current treatment measures. Plan After the tomorrow dialysis, if the patient is able to lie flat in the bed, we may go ahead and schedule for a Lexiscan/sestamibi/sestamibi stress test. Apparently this patient is wanting to have everything done, even though the family has some reservations on this. After the tomorrow dialysis, if he is able to lie flat in the bed, we may schedule him for a Lexiscan/sestamibi/sestamibi stress test. If there is no significant reversible perfusion defect based on the stress test, patient may require any further cardiac workup. Will make the final decision after tomorrow's dialysis. In the meanwhile, he may continue on the current management Coding Level of Care Code 91479 Diagnoses Acute on chronic systolic heart failure I50.23 Atherosclerosis of red devil coronary artery of red devil heart without angina pectoris I25.10 Coronary Disease-Associated Artery/Lesion type: red devil artery Chronic atrial fibrillation I48.20 LBBB (left bundle branch block) I44.7 Elevated troponin R79.89 End stage renal disease on dialysis N18.6; Z99.2
[2023-09-20 14:18] LABS: Partial Thromboplastin Time 43.4 SECONDS (23.9-36.7)
[2023-09-20] MEDS: heparin drip 25,000 UNIT/500 ML PREMIX 25 UNIT IV (15:14)
[2023-09-20 17:32] LABS: Glucose Point of Care 111 mg/dL (70-110)
[2023-09-20] MEDS: atorvastatin 40 mg Tablet 80 MG PO (20:04)
[2023-09-20 20:10] LABS: Glucose Point of Care 278 mg/dL (70-110)
[2023-09-20 23:02] LABS: Partial Thromboplastin Time > 250.0 SECONDS (23.9-36.7)
[2023-09-21] VITALS (103 sets, daily range): BP systolic 98–130; BP diastolic 63–80; PULSE 69–107; RESP 12–40; TEMP 36–36.9; O2SAT 71–100
[2023-09-21] MEDS: pantoprazole 40 mg SDV IVP (01:23)
[2023-09-21 02:52] LABS: Basophils % 0.6 %; Eosinophils # 0.1 10^3/uL (0.0-0.8); Eosinophils % 2.8 %; Hematocrit 30.6 % (37-53); Lymphocytes # 0.4 10^3/uL (0.8-4.8); Mean Corpuscular HGB Conc 31.4 g/dL (30-55); Mean Corpuscular Hemoglobin 31.7 pg (27-33); Mean Platelet Volume 10.3 fL (7.4-10.4); Monocytes # 0.4 10^3/uL (0.2-0.9); Monocytes % 8.2 %; Neutrophils # 4.06 10^3/uL (1.8-7.7); Nucleated Red Blood Cells % 0 %; Platelet Count 88 10^3/cmm (157-399); Red Blood Count 3.03 10^6/uL (3.85-5.65); Red Cell Distribution Width 18.2 % (12.1-15.1); White Blood Count 5.01 10^3/uL (3.29-11.43)
[2023-09-21 03:11] LABS: Alanine Aminotransferase 16 U/L (0-41); Albumin Level 3.2 g/dL (3.5-5.2); Alkaline Phosphatase 120 U/L (40-130); Anion Gap 12.5 (5-19); Aspartate Amino Transferase 18 U/L (0-40); Blood Urea Nitrogen 33 mg/dL (8-23); Calcium 8.4 mg/dL (8.5-10.5); Carbon Dioxide 28 mmol/L (22-29); Chloride 94 mmol/L (98-107); Globulin 2.7 g/dL (1.3-4.6); Glucose 136 mg/dL (65-115); Magnesium 1.9 mg/dL (1.7-2.3); Osmolality Calculated 279 mOsm/kg (285-295); Potassium 4.5 mmol/L (3.5-5.1); Sodium 130 mmol/L (136-145); Total Bilirubin 0.5 mg/dL (0.15-1.2); Total Protein 5.9 g/dL (6.6-8.7)
[2023-09-21 03:13] LABS: Partial Thromboplastin Time 61.2 SECONDS (23.9-36.7)
[2023-09-21 03:26] LABS: Creatinine Clr Calc Pharmacy 19.2504
--- NOTE | 2023-09-21 03:39 | PC.NURSE ---
ptt came back at 61.2 after heparin drip was off for 4 hours due to previous ptt being critical. Per MD's orders turn the drip back on at prior rate.
[2023-09-21] MEDS: levothyroxine 50 mcg Tablet PO (05:03)
[2023-09-21 06:22] LABS: Glucose Point of Care 203 mg/dL (70-110)
--- NOTE | 2023-09-21 08:01 | PM.PN ---
Subjective Subjective: Patient continues to feel better. Still has dyspnea on exertion. Peripheral edema is improving. Vitals are stable. Afebrile. No chest pain or chest tightness. Has a feeling of generalized weakness. Medications: Medication Review Details: Current Medications Acetaminophen (Acetaminophen 325 Mg Tablet) 650 mg PO Q6H PRN PRN Reason: Mild/Mod Pain Or Temp >/= 101 Albuterol Sulfate (Albuterol 2.5 Mg/3 Ml Neb) 2.5 mg INHALATION Q6H.RESP PRN PRN Reason: SHORTNESS OF BREATH Aspirin (Aspirin 81 Mg Ec Tablet) 81 mg PO DAILY [facility] Last Admin: 09/20/23 08:44 Dose: 81 mg Atorvastatin Calcium (Atorvastatin 40 Mg Tablet) 80 mg PO BEDTIME KALYN Last Admin: 09/20/23 20:04 Dose: 80 mg Heparin Sodium (Porcine) (Heparin 5,000 Unit/Ml Inj 1 Ml) 0 unit IV PRN PRN; Protocol PRN Reason: Heparin weight-base protocol Dextrose (D5w) 500 mls @ 0 mls/hr IV ONCE PRN; Protocol PRN Reason: Adult Acute Hypoglycemia Prot Dextrose (D10w) 125 mls @ 750 mls/hr IV PRN PRN; Protocol PRN Reason: Adult Acute Hypoglycemia Nursing Protocol Dextrose (D10w) 250 mls @ 1,000 mls/hr IV PRN PRN; Protocol PRN Reason: Adult Acute Hypoglycemia Nursing Protocol Heparin Sodium/Sodium Chloride (Heparin Drip) 25,000 unit in 500 mls @ 0 mls/hr IV .Q0M KALYN; Protocol Last Titration: 09/21/23 03:35 Dose: 13.83 unit/kg/hr, 25 mls/hr Sodium Chloride (Sodium Chloride 0.9%) 1,000 mls @ 0 mls/hr IV .Q0M PRN PRN Reason: hypotension or symptomatic Albumin Human (Albumin) 12.5 gm in 50 mls @ 60 mls/hr IV PRN PRN PRN Reason: Hypotension and/or symptomatic Sodium Chloride (Sodium Chloride 0.9%) 1,000 mls @ 0 mls/hr IV .Q0M PRN PRN Reason: hypotension or symptomatic Albumin Human (Albumin) 12.5 gm in 50 mls @ 60 mls/hr IV PRN PRN PRN Reason: Hypotension and/or symptomatic Insulin Human Lispro (Insulin Lispro 100 Unit/1 Ml) 0 unit SUBCUT TIDWM [facility]; Protocol Last Admin: 09/20/23 17:48 Dose: Not Given Levothyroxine Sodium (Levothyroxine 50 Mcg Tablet) 50 mcg PO QAM [facility] Last Admin: 09/21/23 05:03 Dose: 50 mcg Metoprolol Tartrate (Metoprolol Tartrate 25 Mg Tablet) 25 mg PO BID@0900,2100 [facility] Last Admin: 09/20/23 20:04 Dose: 25 mg Naloxone HCl (Naloxone 0.4 Mg/Ml Sdv) 0.1 mg IVP Q2M PRN PRN Reason: OPIATERV Ondansetron HCl (Ondansetron 2 Mg/Ml Sdv 2 Ml) 4 mg IVP Q8H PRN PRN Reason: vomiting, or N/V if npo Pantoprazole Sodium (Pantoprazole 40 Mg Sdv) 40 mg IVP Q24H [facility] Last Admin: 09/21/23 01:23 Dose: 40 mg Vitals/I&O/Wt Last Vital Signs Temp 98.1 F 09/20/23 19:44 Pulse 86 09/21/23 04:46 Resp 18 09/21/23 03:50 BP 108/80 09/21/23 03:50 Pulse Ox 96 09/21/23 03:50 O2 Del Method Nasal Cannula 09/21/23 03:50 O2 Flow Rate 1 09/21/23 03:50 09/20/23 09/21/23 09/21/23 22:59 06:59 14:59 Intake Total 3.75 / 815.45 196.667 / 1012.117 Balance 3.75 / 815.45 196.667 / 1012.117 Weight last 48 hrs Weight 194 lb 7 oz Weight 194 lb 2 oz Weight 194 lb 0.108 oz Physical Exam Narrative: GENERAL: The patient is alert and oriented times three. Not in any acute distress. Chronically ill looking. HEENT: Moderate pallor. No icterus or lymphadenopathy.Oral cavity: There are no mucous membrane lesions. NECK: Trachea appears to be central. No masses noted. No JVD or thyromegaly appreciated. RESPIRATORY: Chest is symmetrical. No intercostals muscle retraction or any accessory muscle activation. There is no chest wall tenderness. Breath sounds are heard bilaterally. No rales or rhonchi heard. No evidence of any consolidation. BREASTS: Deferred. HEART: The heart sounds are normal. No S3 or S4. Short systolic murmur at the lower sternal border. No diastolic murmurs. ABDOMEN: No vessel pulsations or distention. No tenderness. No organomegaly appreciated. Bowel sounds are normally heard. : Deferred. RECTAL: Deferred. LYMPHATIC: 2-3+ edema both lower extremities. No cyanosis. EXTREMITIES: No edema or cyanosis. No clubbing. MUSCULOSKELETAL: No acute joint deformities or swelling SKIN: There are no significant rashes or ecchymosis NEUROPSYCHIATRIC: The patient is alert and oriented x3. Appears to be in a good mood. No tremors or rigidity noted. Data 09/21/23 02:43 09/21/23 02:43 Other Labs: Laboratory Last Values WBC 5.01 10^3/uL (3.29-11.43) 09/21/23 02:43 RBC 3.03 10^6/uL (3.85-5.65) L 09/21/23 02:43 Hgb 9.60 g/dL (11.27-16.99) L 09/21/23 02:43 Hct 30.6 % (37-53) L 09/21/23 02:43 MCV 101.0 fl (82-101) 09/21/23 02:43 MCH 31.7 pg (27-33) 09/21/23 02:43 MCHC 31.4 g/dL (30-55) 09/21/23 02:43 RDW 18.2 % (12.1-15.1) H 09/21/23 02:43 Plt Count 88 10^3/cmm (157-399) L 09/21/23 02:43 MPV 10.3 fL (7.4-10.4) 09/21/23 02:43 Neut % (Auto) 81.0 % 09/21/23 02:43 Lymph % (Auto) 7.0 % 09/21/23 02:43 Harrison % (Auto) 8.2 % 09/21/23 02:43 Eos % (Auto) 2.8 % 09/21/23 02:43 Baso % (Auto) 0.6 % 09/21/23 02:43 Neut # (Auto) 4.06 10^3/uL (1.8-7.7) 09/21/23 02:43 Lymph # (Auto) 0.4 10^3/uL (0.8-4.8) L 09/21/23 02:43 Harrison # (Auto) 0.4 10^3/uL (0.2-0.9) 09/21/23 02:43 Eos # (Auto) 0.1 10^3/uL (0.0-0.8) 09/21/23 02:43 Baso # (Auto) 0.0 10^3/uL (0.0-0.1) 09/21/23 02:43 Nucleated RBC % (auto) 0 % 09/21/23 02:43 Nucleated RBCs # 0.0 /100WBC 09/21/23 02:43 PT 15.00 SECONDS (12.1-14.9) H 09/19/23 02:54 INR 1.14 (0.8-1.2) 09/19/23 02:54 APTT 61.2 SECONDS (23.9-36.7) H D 09/21/23 02:43 Specimen Type Arterial 09/19/23 02:12 Sample Site Brachial, left 09/19/23 02:12 ABG pH 7.43 (7.35-7.45) 09/19/23 02:12 ABG pCO2 43.0 mmHg (35-45) 09/19/23 02:12 ABG pO2 103.0 mmHg (80.0-100.0) H 09/19/23 02:12 ABG HCO3 28.5 mmol/L (22-26) H 09/19/23 02:12 ABG Base Excess 3.8 mmol/L (-2.0-2.0) H 09/19/23 02:12 Cl Test N/a 09/19/23 02:12 Hematocrit 31.2 % (42-52) L 09/19/23 02:12 O2 Delivery Device Nc 09/19/23 02:12 O2 Liters/Min 2.0 % 09/19/23 02:12 Level Vial Inspector ID [email or web address] 09/19/23 02:12 Sodium 130 mmol/L (136-145) L 09/21/23 02:43 Potassium 4.5 mmol/L (3.5-5.1) 09/21/23 02:43 Chloride 94 mmol/L (98-107) L 09/21/23 02:43 Carbon Dioxide 28 mmol/L (22-29) 09/21/23 02:43 Anion Gap 12.5 (5-19) 09/21/23 02:43 BUN 33 mg/dL (8-23) H 09/21/23 02:43 Creatinine 3.3 mg/dL (0.7-1.2) H 09/21/23 02:43 GFR Calculation Not Reportable 09/21/23 02:43 Glucose 136 mg/dL (65-115) H 09/21/23 02:43 POC Glucose 203 mg/dL (70-110) H 09/21/23 06:13 Estimat Average Glucose 111 09/19/23 02:54 Hemoglobin A1c 5.5 % (4.0-6.0) 09/19/23 02:54 Calculated Osmolality 279 mOsm/kg (285-295) L 09/21/23 02:43 Lactic Acid 1.1 mmol/L (0.5-2.2) 09/19/23 02:54 Calcium 8.4 mg/dL (8.5-10.5) L 09/21/23 02:43 Phosphorus 5.0 mg/dL (2.5-4.5) H 09/19/23 02:54 Magnesium 1.9 mg/dL (1.7-2.3) 09/21/23 02:43 Total Bilirubin 0.5 mg/dL (0.15-1.2) 09/21/23 02:43 AST 18 U/L (0-40) 09/21/23 02:43 ALT 16 U/L (0-41) 09/21/23 02:43 Alkaline Phosphatase 120 U/L (40-130) 09/21/23 02:43 Ammonia 21 umol/L (16-60) 09/19/23 02:54 Troponin T Baseline 156 ng/L (0-15) H* 09/19/23 02:54 Troponin T 120 Minute 146.2 ng/L (0-15) H 09/19/23 05:15 Delta Troponin T -9.8 ABS# (0-10) L 09/19/23 05:15 Troponin T Hi Sens 6Hr 154.7 ng/L (0-15) H 09/19/23 09:06 Troponin T Hi Sens 6Hr Delta -1.3 ng/L (0-12) L 09/19/23 09:06 C-Reactive Protein 26.0 mg/L (0.0-4.9) H 09/19/23 02:54 NT-Pro-B Natriuret Pep > 51740 pg/mL (0-450) H 09/19/23 02:54 Total Protein 5.9 g/dL (6.6-8.7) L 09/21/23 02:43 Albumin 3.2 g/dL (3.5-5.2) L 09/21/23 02:43 Globulin 2.7 g/dL (1.3-4.6) 09/21/23 02:43 Triglycerides 69 mg/dL (0-150) 09/19/23 02:54 Cholesterol 97 mg/dL (0-200) 09/19/23 02:54 LDL Cholesterol, Calc 26 mg/dL (50-129) L 09/19/23 02:54 HDL Cholesterol 57 mg/dL (60-100) L 09/19/23 02:54 LDL/HDL Ratio 0.46 RATIO (0.00-3.22) 09/19/23 02:54 Cholesterol/HDL Ratio 1.70 mg/dL (1.0-5.00) 09/19/23 02:54 TSH 3.80 uIU/mL (0.27-4.20) 09/19/23 02:54 Hep Bs Antigen Non-reactive (Nonreactive) 09/19/23 09:06 Hep Bs Antibody < 3.5 (11.5-1000) L 09/19/23 09:06 A&P Assessment and plan (1) Acute on chronic systolic heart failure: The heart failure seems to be fairly compensated at this time. I had a long discussion with the patient and the family. Discussed about further cardiac workup. Patient would like to undergo invasive procedures, if it is going to help him. We may go ahead and schedule for a Lexiscan/sestamibi/sestamibi stress test to evaluate for any underlying coronary ischemia. Based on the results, further management decisions will be made. (2) Atherosclerosis of coronary artery of kashia heart without angina pectoris: As mentioned above. Patient Perfusion scan findings, the need for a cardiac catheterization will be decided Qualifiers: Coronary Disease-Associated Artery/Lesion type: kashia artery Qualified Code(s): I25.10 - Atherosclerotic heart disease of kashia coronary artery without angina pectoris (3) Chronic atrial fibrillation: I may discontinue the heparin and start him on Plavix 300 mg p.o. now followed by 75 mg p.o. daily. Because of the anemia , chronic renal failure and advanced age, patient carries a high bleeding risk. So I may hold off on any oral anticoagulation at this time (4) LBBB (left bundle branch block): Patient has no evidence of any high degree AV block. At this point, he may continue on the current management. (5) Elevated troponin: This could be a type II DC. Cannot exclude the possibility of type I. (6) End stage renal disease on dialysis: Continue on the current treatment measures. Plan We may go ahead and do schedule the patient for a Lexiscan/sestamibi/sestamibi stress test tomorrow. Based on the results, further recommendations will be made Attestations Medical Necessity Statement*: Patient requires continued hospital stay for close monitoring and further management Coding Level of Care Code 95356 Diagnoses Acute on chronic systolic heart failure I50.23 Atherosclerosis of kashia coronary artery of kashia heart without angina pectoris I25.10 Coronary Disease-Associated Artery/Lesion type: kashia artery Chronic atrial fibrillation I48.20 LBBB (left bundle branch block) I44.7 Elevated troponin R79.89 End stage renal disease on dialysis N18.6; Z99.2
[2023-09-21 08:08] LABS: Partial Thromboplastin Time > 250.0 SECONDS (23.9-36.7)
--- NOTE | 2023-09-21 08:45 | P.PN_ITS ---
Subjective 2 Subjective: no new co Medications: Reviewed: Yes Vitals/I&O/Wt Last Vital Signs Temp 98.0 F 09/21/23 08:00 Pulse 82 09/21/23 08:22 Resp 18 09/21/23 08:22 BP 111/77 09/21/23 08:00 Pulse Ox 95 09/21/23 08:22 O2 Del Method Nasal Cannula 09/21/23 08:22 O2 Flow Rate 1 09/21/23 08:22 09/20/23 09/21/23 09/21/23 22:59 06:59 14:59 Intake Total 3.75 / 815.45 196.667 / 1012.117 319.167 / 319.167 Balance 3.75 / 815.45 196.667 / 1012.117 319.167 / 319.167 Weight last 48 hrs Weight 88.195 kg Weight 88.054 kg Weight 88 kg Physical Exam 2 Narrative: awake ,a lert no distress Data 09/21/23 02:43 09/21/23 02:43 A&P Assessment and plan (1) End stage kidney disease: Plan 1. ESRD: On TTS schedule as outpatient, HD today and ultrafiltration as tolerated 2. Acute on chronic respiratory failure, multifactorial, HD as above 3. New onset A-fib 4. Hyperkalemia: Low K diet , improved 5. Hyponatremia: Mild, Patient evaluated using audiovisual cart. Time spent 20 minutes Attestations 2 Medical Necessity Statement*: per fred Coding Level of Care Code Acute Code for Chg Fwd Diagnoses End stage kidney disease N18.6
[2023-09-21] MEDS: aspirin 81 mg EC Tablet PO (09:19)
[2023-09-21] MEDS: insulin lispro 100 unit/1 mL SUBCUT (09:20)
--- NOTE | 2023-09-21 12:22 | PM.PN ---
Subjective Subjective: Seen this morning. no acute events overnight Vitals/I&O/Wt Last Vital Signs Temp 98.0 F 09/21/23 08:00 Pulse 82 09/21/23 08:22 Resp 18 09/21/23 08:22 BP 111/77 09/21/23 08:00 Pulse Ox 95 09/21/23 08:22 O2 Del Method Nasal Cannula 09/21/23 08:22 O2 Flow Rate 1 09/21/23 08:22 09/20/23 09/21/23 09/21/23 22:59 06:59 14:59 Intake Total 3.75 / 815.45 196.667 / 1012.117 319.167 / 319.167 Balance 3.75 / 815.45 196.667 / 1012.117 319.167 / 319.167 Weight last 48 hrs Weight 88.195 kg Weight 88.054 kg Weight 88 kg Physical Exam Narrative: General: Alert oriented x3, patient seen laying in bed appearing comfortable at this time No apparent conversational dyspnea. No acute distress. HEENT: Normocephalic, atraumatic, EOMI, breathing 1 L nasal cannula at this time. Cardio: Regular rate, normal S1-S2, Respiratory: clear to ausculation b/l GI: Abdomen soft, nontender, nondistended, bowel sounds + Extremities: 1-2+ edema, b/l Data 09/21/23 02:43 09/21/23 02:43 A&P Assessment and plan (1) CHF exacerbation: (2) LBBB (left bundle branch block): (3) A-fib: (4) End stage kidney disease: (5) AMS (altered mental status): (6) Acute hypoxic respiratory failure: Plan Acute hypoxic respiratory failure Acute on chronic congestive heart failure, EF 15-20% Atrial fibrillation Left bundle branch block, unclear old or new Altered mental status/resolved End-stage renal disease Monday CAD, history of CABG History of MA 5 years ago Diabetes mellitus, [id number] ? Patient presented to us from [facility] with new onset atrial fibrillation however it has been documented in his past history. Patient confirms that he has this from before. He was also found to have a left bundle branch block however we do not have any previous EKGs. We are not sure if this is new versus old. We do not have records for the patient. Have requested records from [facility]. Patient's screw machine hand is over there. During this hospitalization he has been found to have an EF of 15-20% on echo. Unsure if this is new or old. Patient is quite fluid overloaded, short of breath, hypoxic requiring oxygen. Nephrology has been consulted for dialysis. Patient was also placed on a heparin drip by admitting physician secondary to his left bundle branch block and treating for possible NSTEMI?. aPTT's have been high currently heparin is on hold. Cardiology has been consulted. Upon discussion with the patient-family would like to pursue further management. Patient would like CPR and would like to be intubated if needed. He is somewhat of a poor historian and unable to provide more information that was listed above. ? Continue on aspirin, Lipitor, -I would stop metoprolol tartrate secondary to active heart failure and EF of 10%. ? If needed may use amiodarone for A-fib with RVR ? He did receive Lasix 40 IV x 1 at [facility]. He got another dose in our hospital however then it was stopped. ? BNP 30,000 on admission. Do not have previous values, may be exacerbated high secondary to renal disease ? Continue levothyroxine 50 daily ? Nephrology consulted. Continue to dialyze as per the recommendations. ? Fluid restriction 1200 cc daily. -Serial EKGs, serial troponins, telemetry monitoring, cardiac echo. Cardiac echo has resulted with EF of 10 to 15%. -Continue heparin drip for now secondary to history of A-fib. Will need to decide on long-term anticoagulation based on clinical progress. ? Consult cardiology Acute encephalopathy?on admission?resolved ? Patient can follow commands but is quite drowsy, very hard of hearing -Neurochecks, aspiration precautions ? CT of the head?negative ? UA?negative Type 2 diabetes mellitus, low-dose sliding scale COPD not in exacerbation Full code Heparin for DVT prophylaxis Discussed with patient and family that patient is at high risk for arrhythmias possibly leading to . Patient would like to remain full code at this time. Todays plan: 09/21/2023 - records arrived from [facility]. Only an echo was sent. EF 55-60%. See report in chart. Dr. Tavares updated. - Stop heparin drip at this time - load with plavix [address] on plavix 75 daily - continue aspirin plavix atorvastatin - plan for stress test in Am. - Continue to dialyze as per nephro recs - pt updated. Attestations Medical Necessity Statement*: Patient requires hospitalization inpatient, greater than 2 midnights, for CHF exacerbation, fluid overload, acute respiratory failure, left bundle branch block, encephalopathy Diagnoses CHF exacerbation I50.9 LBBB (left bundle branch block) I44.7 A-fib I48.91 End stage kidney disease N18.6 AMS (altered mental status) R41.82 Acute hypoxic respiratory failure J96.01
[2023-09-21 13:11] LABS: Glucose Point of Care 61 mg/dL (70-110)
[2023-09-21] MEDS: clopidogrel 300 mg Tablet PO (13:27)
[2023-09-21] MEDS: metoprolol tartrate 25 mg Tablet PO ×2 (13:27→20:54)
[2023-09-21] MEDS: heparin, porcine 1,000 unit/mL INJ 10 mL 10000 UNIT INTRACATH (13:59)
[2023-09-21] MEDS: heparin 5,000 unit/mL INJ 1 mL 1000 UNIT IVP (14:00)
[2023-09-21 17:54] LABS: Glucose Point of Care 136 mg/dL (70-110)
--- NOTE | 2023-09-21 18:29 | ECG_ITS ---
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 Interpretive Statements NAME OF STUDY: LEXISCAN SESTAMIBI STRESS TEST INDICATION: CHF; CARDIOMYOPATHYRESULTS TO Waqar ROY PROCEDURE: At the baseline, the EKG revealed atrial fibrillation with a ventricular rate of 88 bpm. Nonspecific IVCD.. The baseline heart was 88 bpm with a blood pressue of 91/66 mm of Hg Lexiscan was infused over a period of 20 seconds. A total of 0.4 milligrams of Lexiscan was infused. The stress phase was continued for a total of 5 minutes. Heart rate at the end of the stress phase was 93 bpm with a blood pressure 98/60 mm of Hg. The EKG at the peak infusion revealed no significant changes. Sestamibi was injected 20 seconds after the Lexiscan infusion. Heart rate at the end of the recovery phase was 99 bpm with a blood pressure of 101/61 mm of Hg. CONCLUSION: 1. No significant EKG changes with the LexiScan infusion 2. No LexiScan induced chest pain or cardiac arrhythmia 3. Normal blood pressure and heart rate response 4. Sestamibi/sestamibi perfusion scan pending; see separate report. Electronically Signed On 09-23-2023 13:33:40 CDT by Kendra Tavares M.D. [email or web address]
[2023-09-21 20:11] LABS: Glucose Point of Care 231 mg/dL (70-110)
[2023-09-21] MEDS: atorvastatin 40 mg Tablet 80 MG PO (20:54)
[2023-09-21] MEDS: enoxaparin 30 mg/0.3 mL Syringe SUBCUT (22:38)
[2023-09-22] VITALS (12 sets, daily range): BP systolic 103–126; BP diastolic 50–74; PULSE 72–96; RESP 17–33; TEMP 36.3–36.9; O2SAT 91–100
[2023-09-22] MEDS: pantoprazole 40 mg SDV IVP (01:23)
[2023-09-22 05:19] LABS: Basophils % 0.6 %; Eosinophils # 0.1 10^3/uL (0.0-0.8); Eosinophils % 2.7 %; Hematocrit 32.5 % (37-53); Lymphocytes # 0.3 10^3/uL (0.8-4.8); Lymphocytes % 6.3 %; Mean Corpuscular HGB Conc 30.8 g/dL (30-55); Mean Corpuscular Hemoglobin 31.2 pg (27-33); Mean Corpuscular Volume 101.2 fl (82-101); Mean Platelet Volume 11.1 fL (7.4-10.4); Monocytes # 0.4 10^3/uL (0.2-0.9); Monocytes % 8.6 %; Neutrophils # 3.85 10^3/uL (1.8-7.7); Neutrophils % 81.2 %; Nucleated Red Blood Cells % 0 %; Platelet Count 91 10^3/cmm (157-399); Red Blood Count 3.21 10^6/uL (3.85-5.65); Red Cell Distribution Width 18.4 % (12.1-15.1); White Blood Count 4.75 10^3/uL (3.29-11.43)
[2023-09-22] MEDS: levothyroxine 50 mcg Tablet PO (05:27)
[2023-09-22 05:45] LABS: Blood Urea Nitrogen 24 mg/dL (8-23); Calcium 8.8 mg/dL (8.5-10.5); Carbon Dioxide 29 mmol/L (22-29); Chloride 95 mmol/L (98-107); Glucose 115 mg/dL (65-115); Magnesium 1.9 mg/dL (1.7-2.3); Osmolality Calculated 285 mOsm/kg (285-295); Phosphorus 4.4 mg/dL (2.5-4.5); Sodium 135 mmol/L (136-145)
[2023-09-22 05:48] LABS: Anion Gap 15.5 (5-19); Creatinine Clr Calc Pharmacy 21.6845; Potassium 4.5 mmol/L (3.5-5.1)
[2023-09-22 06:37] LABS: Glucose Point of Care 137 mg/dL (70-110)
[2023-09-22] MEDS: regadenoson 0.4 Mg/5 ml Syringe 0.400000000000000022 MG IVP (07:43)
--- NOTE | 2023-09-22 08:00 | NMCV_ITS ---
NM bennett perf SPECT r/s* [id number] Gama William Age: 83 Gender: M : 1940 Exam Date: 09/22/2023 08:00 Ordering Phys: Kendra Tavares MD ([email or web address]) Technologist: KATIE Francois Exam Location: [facility] Indications: CHEST PAIN STRESS TEST [facility] IMAGE PROTOCOL Rest/Stress 1 Lexiscan Day Radiopharmaceutical Dose (mCi) Administration Site Administered by Rest: Tc-99m 10.7 IV KATIE Espitia Sestamibi Stress:Tc-99m 32.6 IV KATIE Espitia Sestamibi Rest: 22-Sep-2023 60 Discovery 630 Stress: 22-Sep-2023 30 Discovery 630 0.4mg Lexiscan. Supine position only as patient was unable to lay prone. SPECT RESULTS Technical Quality: Excellent Raw Data Analysis: Normal Image Corrections: No attenuation or motion correction applied Summed Stress Score: 16 Summed Rest Score: 13 Summed Difference Score: 4 PERFUSION FINDINGS Moderate to large area of moderate to severely decreased tracer uptake, involving the inferior, inferolateral basal mid and apical inferior, basal and mid inferolateral, apical lateral, basal anterolateral, mid inferoseptal and LV apex. Some reversibility was noted in the basal anterolateral, basal inferolateral and mid inferoseptal regions. FUNCTIONAL RESULTS (calculated via Gated SPECT) Stress Image LV EF (%): 38 Stress EDV (mL):219 TID: 1.03 Stress ESV (mL):135 FUNCTIONAL FINDINGS: Segmental wall motion analysis revealing diffuse hypokinesis of the left ventricle. IMPRESSIONS 1. Myocardial perfusion imaging revealing moderate to large area of moderate to severely decreased tracer uptake involving the inferior and inferolateral regions. Small area of slightly decreased tracer uptake in the basal anterolateral, mid inferoseptal and apical lateral regions with some reversibility in the basal anterolateral, basal inferolateral and mid inferoseptal regions suggesting extensive myocardial scarring in the distribution of the right coronary artery and the circumflex artery with small areas of ischemia 2. Diminished LV ejection fraction of 38%. 3. LV wall motion analysis revealing diffuse hypokinesia of the left ventricle 4. Moderately dilated LV cavity with end-systolic volume of 135 mL No similar previous studies are available for comparison Dr Kendra Tavares MD FAC (Electronically Signed) Final Date: 22 Sep 2023 11:49 S
[2023-09-22] MEDS: aspirin 81 mg EC Tablet PO (09:17)
[2023-09-22] MEDS: metoprolol tartrate 25 mg Tablet PO ×2 (09:17→21:12)
[2023-09-22] MEDS: clopidogrel 75 mg Tablet PO (09:17)
--- NOTE | 2023-09-22 10:40 | USCV_ITS ---
Gama William Age: 83 Gender: M : 1940 Exam Date: 09/22/2023 15:39 Ordering Phys: Rola Cristobal MD Technologist: CT Exam Location: [facility] [place] Indication: LVEF BP: / HR: Rhythm: Sinus Technical Quality: Adequate MEASUREMENTS (Male / Female) Normal Values 2D ECHO LVOT Diameter 2.0 cm LV Ejection Fraction MOD 2C 26.5 % LV Ejection Fraction 2C AL 24.3 % LA Diameter 5.1 cm RA Systolic Volume 4C AL 95.8 ml RA Systolic Volume 4C MOD 93.7 ml LA Sys Volume AL 87.6 cm cubed Aorta at Sinotubular Diameter 2.8 cm FINDINGS Left Ventricle Dilated left ventricle. Severely reduced left ventricle systolic function. Global hypokinesis. Estimated LVEF 25%. Right Ventricle Dilated right ventricle with reduced RV systolic function. Right Atrium Dilated right atrium Left Atrium Dilated left atrium Mitral Valve Not assessed Aortic Valve Not assessed Tricuspid Valve Not assessed Pulmonic Valve Not assessed Pericardium No pericardial effusion. Aorta Normal size aortic root and proximal ascending aorta. IVC Mildly dilated IVC. CONCLUSIONS Limited echo to assess LV systolic function. Severely reduced LV systolic function, LVEF 25%. Biatrial enlargement Dilated RV with reduced RV systolic function. Valvular functional status not assessed. Severino Smith MD (Electronically Signed) Final Date: 22 Sep 2023 18:07 S
--- NOTE | 2023-09-22 10:41 | PC.SOCIAL ---
IMM Update Pg. 2 of IMM Updated and reviewed with patient, who verbalized understanding. Copy provided.
[2023-09-22 10:48] LABS: Glucose Point of Care 162 mg/dL (70-110)
--- NOTE | 2023-09-22 10:54 | PM.PN ---
Subjective Subjective: seen today no acute events overnight pt says he feels better went for stress test today Vitals/I&O/Wt Last Vital Signs Temp 97.5 F L 09/22/23 08:00 Pulse 72 09/22/23 09:26 Resp 18 09/22/23 09:26 BP 105/67 09/22/23 08:14 Pulse Ox 100 09/22/23 09:26 O2 Del Method Nasal Cannula 09/22/23 09:26 O2 Flow Rate 3 09/22/23 09:26 09/21/23 09/22/23 09/22/23 22:59 06:59 14:59 Intake Total 200 / 1219.167 480 / 1699.167 240 / 240 Output Total 2600 / 5596 Balance -2400 / -4376.833 480 / -3896.833 240 / 240 Weight last 48 hrs Weight 85.956 kg Weight 87.6 kg Weight 88.195 kg Physical Exam Narrative: General: Alert oriented x3, patient seen laying in bed appearing comfortable at this time No apparent conversational dyspnea. No acute distress. HEENT: Normocephalic, atraumatic, EOMI, breathing 1 L nasal cannula at this time. Cardio: Regular rate, normal S1-S2, Respiratory: clear to ausculation b/l GI: Abdomen soft, nontender, nondistended, bowel sounds + Extremities: 1+ edema, b/l Data 09/22/23 04:28 09/22/23 04:28 A&P Assessment and plan (1) CHF exacerbation: (2) LBBB (left bundle branch block): (3) A-fib: (4) End stage kidney disease: (5) AMS (altered mental status): (6) Acute hypoxic respiratory failure: Plan Acute hypoxic respiratory failure Acute on chronic congestive heart failure, EF 15-20% Atrial fibrillation Left bundle branch block, unclear old or new Altered mental status/resolved End-stage renal disease Monday CAD, history of CABG History of [place] 5 years ago Diabetes mellitus, [id number] ? Patient presented to us from [facility] with new onset atrial fibrillation however it has been documented in his past history. Patient confirms that he has this from before. He was also found to have a left bundle branch block however we do not have any previous EKGs. We are not sure if this is new versus old. We do not have records for the patient. Have requested records from [facility]. Patient's investment advisor is over there. During this hospitalization he has been found to have an EF of 15-20% on echo. Unsure if this is new or old. Patient is quite fluid overloaded, short of breath, hypoxic requiring oxygen. Nephrology has been consulted for dialysis. Patient was also placed on a heparin drip by admitting physician secondary to his left bundle branch block and treating for possible NSTEMI?. aPTT's have been high currently heparin is on hold. Cardiology has been consulted. Upon discussion with the patient-family would like to pursue further management. Patient would like CPR and would like to be intubated if needed. He is somewhat of a poor historian and unable to provide more information that was listed above. ? Continue on aspirin, Lipitor, -I would stop metoprolol tartrate secondary to active heart failure and EF of 10%. ? If needed may use amiodarone for A-fib with RVR ? He did receive Lasix 40 IV x 1 at [facility]. He got another dose in our hospital however then it was stopped. ? BNP 30,000 on admission. Do not have previous values, may be exacerbated high secondary to renal disease ? Continue levothyroxine 50 daily ? Nephrology consulted. Continue to dialyze as per the recommendations. ? Fluid restriction 1200 cc daily. -Serial EKGs, serial troponins, telemetry monitoring, cardiac echo. Cardiac echo has resulted with EF of 10 to 15%. -Continue heparin drip for now secondary to history of A-fib. Will need to decide on long-term anticoagulation based on clinical progress. ? Consult cardiology Acute encephalopathy?on admission?resolved ? Patient can follow commands but is quite drowsy, very hard of hearing -Neurochecks, aspiration precautions ? CT of the head?negative ? UA?negative Type 2 diabetes mellitus, low-dose sliding scale COPD not in exacerbation Full code Heparin for DVT prophylaxis Discussed with patient and family that patient is at high risk for arrhythmias possibly leading to . Patient would like to remain full code at this time. Todays plan: 09/21/2023 - records arrived from [facility]. Only an echo was sent. EF 55-60%. See report in chart. Dr. Tavares updated. - continue aspirin plavix atorvastatin - stress test today - Continue to dialyze as per nephro recs - pt updated. - check limited echo today - further mgmt to be decided after echo is read. Attestations Medical Necessity Statement*: Patient requires hospitalization inpatient, greater than 2 midnights, for CHF exacerbation, fluid overload, acute respiratory failure, left bundle branch block, encephalopathy Diagnoses CHF exacerbation I50.9 LBBB (left bundle branch block) I44.7 A-fib I48.91 End stage kidney disease N18.6 AMS (altered mental status) R41.82 Acute hypoxic respiratory failure J96.01
--- NOTE | 2023-09-22 11:22 | P.PN_ITS ---
Subjective 2 Subjective: Patient had the Myocardial perfusion imaging today. He was found to have moderate to large area of moderate to severely decreased aseptic involving the inferior, inferolateral and anterolateral regions. Small areas of slight reversibility was noted noted. Patient is remaining pain chest pain-free. No new symptoms. Medications: Medication Review Details: Current Medications Acetaminophen (Acetaminophen 325 Mg Tablet) 650 mg PO Q6H PRN PRN Reason: Mild/Mod Pain Or Temp >/= 101 Albuterol Sulfate (Albuterol 2.5 Mg/3 Ml Neb) 2.5 mg INHALATION Q6H.RESP PRN PRN Reason: SHORTNESS OF BREATH Aminophylline (Aminophylline 25 Mg/Ml Sdv 10 Ml) 25 mg IVP Q2M PRN PRN Reason: see dose instructions Stop: 09/23/23 06:35 Aspirin (Aspirin 81 Mg Ec Tablet) 81 mg PO DAILY KALYN Last Admin: 09/22/23 09:17 Dose: 81 mg Atorvastatin Calcium (Atorvastatin 40 Mg Tablet) 80 mg PO BEDTIME KALYN Last Admin: 09/21/23 20:54 Dose: 80 mg Clopidogrel Bisulfate (Clopidogrel 75 Mg Tablet) 75 mg PO DAILY KALYN Last Admin: 09/22/23 09:17 Dose: 75 mg Enoxaparin Sodium (Enoxaparin 30 Mg/0.3 Ml Syringe) 30 mg SUBCUT Q24H KALYN Last Admin: 09/21/23 22:38 Dose: 30 mg Dextrose (D5w) 500 mls @ 0 mls/hr IV ONCE PRN; Protocol PRN Reason: Adult Acute Hypoglycemia Prot Dextrose (D10w) 125 mls @ 750 mls/hr IV PRN PRN; Protocol PRN Reason: Adult Acute Hypoglycemia Nursing Protocol Dextrose (D10w) 250 mls @ 1,000 mls/hr IV PRN PRN; Protocol PRN Reason: Adult Acute Hypoglycemia Nursing Protocol Sodium Chloride (Sodium Chloride 0.9%) 1,000 mls @ 0 mls/hr IV .Q0M PRN PRN Reason: hypotension or symptomatic Albumin Human (Albumin) 12.5 gm in 50 mls @ 60 mls/hr IV PRN PRN PRN Reason: Hypotension and/or symptomatic Insulin Human Lispro (Insulin Lispro 100 Unit/1 Ml) 0 unit SUBCUT TIDWM KALYN; Protocol Last Admin: 09/22/23 07:26 Dose: Not Given Levothyroxine Sodium (Levothyroxine 50 Mcg Tablet) 50 mcg PO QAM [facility] Last Admin: 09/22/23 05:27 Dose: 50 mcg Metoprolol Tartrate (Metoprolol Tartrate 25 Mg Tablet) 25 mg PO BID@0900,2100 [facility] Last Admin: 09/22/23 09:17 Dose: 25 mg Naloxone HCl (Naloxone 0.4 Mg/Ml Sdv) 0.1 mg IVP Q2M PRN PRN Reason: OPIATERV Nitroglycerin (Nitroglycerin 0.4 Mg Sublingual Tablet) 0.4 mg SUBLINGUAL Q5M PRN PRN Reason: CHEST PAIN Stop: 09/23/23 06:35 Ondansetron HCl (Ondansetron 2 Mg/Ml Sdv 2 Ml) 4 mg IVP Q8H PRN PRN Reason: vomiting, or N/V if npo Pantoprazole Sodium (Pantoprazole 40 Mg Sdv) 40 mg IVP Q24H [facility] Last Admin: 09/22/23 01:23 Dose: 40 mg Vitals/I&O/Wt Last Vital Signs Temp 97.5 F L 09/22/23 08:00 Pulse 72 09/22/23 09:26 Resp 18 09/22/23 09:26 BP 105/67 09/22/23 08:14 Pulse Ox 100 09/22/23 09:26 O2 Del Method Nasal Cannula 09/22/23 09:26 O2 Flow Rate 3 09/22/23 09:26 09/21/23 09/22/23 09/22/23 22:59 06:59 14:59 Intake Total 200 / 1219.167 480 / 1699.167 240 / 240 Output Total 2600 / 5596 Balance -2400 / -4376.833 480 / -3896.833 240 / 240 Weight last 48 hrs Weight 189 lb 8 oz Weight 193 lb 1.999 oz Weight 194 lb 7 oz Physical Exam 2 Narrative: GENERAL: The patient is alert and oriented times three. Not in any acute distress. Chronically ill looking. HEENT: Moderate pallor. No icterus or lymphadenopathy.Oral cavity: There are no mucous membrane lesions. NECK: Trachea appears to be central. No masses noted. No JVD or thyromegaly appreciated. RESPIRATORY: Chest is symmetrical. No intercostals muscle retraction or any accessory muscle activation. There is no chest wall tenderness. Breath sounds are heard bilaterally. No rales or rhonchi heard. No evidence of any consolidation. BREASTS: Deferred. HEART: The heart sounds are normal. No S3 or S4. Short systolic murmur at the lower sternal border. No diastolic murmurs. ABDOMEN: No vessel pulsations or distention. No tenderness. No organomegaly appreciated. Bowel sounds are normally heard. : Deferred. RECTAL: Deferred. LYMPHATIC: 1-2+ edema both lower extremities. No cyanosis. EXTREMITIES: No edema or cyanosis. No clubbing. MUSCULOSKELETAL: No acute joint deformities or swelling SKIN: There are no significant rashes or ecchymosis NEUROPSYCHIATRIC: The patient is alert and oriented x3. Appears to be in a good mood. No tremors or rigidity noted. Data 09/22/23 04:28 09/22/23 04:28 Other Labs: Laboratory Last Values WBC 4.75 10^3/uL (3.29-11.43) 09/22/23 04:28 RBC 3.21 10^6/uL (3.85-5.65) L 09/22/23 04:28 Hgb 10.00 g/dL (11.27-16.99) L 09/22/23 04:28 Hct 32.5 % (37-53) L 09/22/23 04:28 MCV 101.2 fl (82-101) H 09/22/23 04:28 MCH 31.2 pg (27-33) 09/22/23 04:28 MCHC 30.8 g/dL (30-55) 09/22/23 04:28 RDW 18.4 % (12.1-15.1) H 09/22/23 04:28 Plt Count 91 10^3/cmm (157-399) L 09/22/23 04:28 MPV 11.1 fL (7.4-10.4) H 09/22/23 04:28 Neut % (Auto) 81.2 % 09/22/23 04:28 Lymph % (Auto) 6.3 % 09/22/23 04:28 Turner % (Auto) 8.6 % 09/22/23 04:28 Eos % (Auto) 2.7 % 09/22/23 04:28 Baso % (Auto) 0.6 % 09/22/23 04:28 Neut # (Auto) 3.85 10^3/uL (1.8-7.7) 09/22/23 04:28 Lymph # (Auto) 0.3 10^3/uL (0.8-4.8) L 09/22/23 04:28 Turner # (Auto) 0.4 10^3/uL (0.2-0.9) 09/22/23 04:28 Eos # (Auto) 0.1 10^3/uL (0.0-0.8) 09/22/23 04:28 Baso # (Auto) 0.0 10^3/uL (0.0-0.1) 09/22/23 04:28 Nucleated RBC % (auto) 0 % 09/22/23 04: Nucleated RBCs # 0.0 /100WBC 09/22/23 04:28 PT 15.00 SECONDS (12.1-14.9) H 09/19/23 02:54 INR 1.14 (0.8-1.2) 09/19/23 02:54 APTT > 250.0 SECONDS (23.9-36.7) H* D 09/21/23 07:09 Specimen Type Arterial 09/19/23 02:12 Sample Site Brachial, left 09/19/23 02:12 ABG pH 7.43 (7.35-7.45) 09/19/23 02:12 ABG pCO2 43.0 mmHg (35-45) 09/19/23 02:12 ABG pO2 103.0 mmHg (80.0-100.0) H 09/19/23 02:12 ABG HCO3 28.5 mmol/L (22-26) H 09/19/23 02:12 ABG Base Excess 3.8 mmol/L (-2.0-2.0) H 09/19/23 02:12 Cl Test N/a 09/19/23 02:12 Hematocrit 31.2 % (42-52) L 09/19/23 02:12 O2 Delivery Device Nc 09/19/23 02:12 O2 Liters/Min 2.0 % 09/19/23 02:12 Rn Transplant ID [id number] 09/19/23 02:12 Sodium 135 mmol/L (136-145) L 09/22/23 04:28 Potassium 4.5 mmol/L (3.5-5.1) 09/22/23 04:28 Chloride 95 mmol/L (98-107) L 09/22/23 04:28 Carbon Dioxide 29 mmol/L (22-29) 09/22/23 04:28 Anion Gap 15.5 (5-19) 09/22/23 04:28 BUN 24 mg/dL (8-23) H 09/22/23 04:28 Creatinine 2.9 mg/dL (0.7-1.2) H 09/22/23 04:28 GFR Calculation Not Reportable 09/22/23 04:28 Glucose 115 mg/dL (65-115) 09/22/23 04:28 POC Glucose 162 mg/dL (70-110) H 09/22/23 10:44 Estimat Average Glucose 111 09/19/23 02:54 Hemoglobin A1c 5.5 % (4.0-6.0) 09/19/23 02:54 Calculated Osmolality 285 mOsm/kg (285-295) 09/22/23 04:28 Lactic Acid 1.1 mmol/L (0.5-2.2) 09/19/23 02:54 Calcium 8.8 mg/dL (8.5-10.5) 09/22/23 04:28 Phosphorus 4.4 mg/dL (2.5-4.5) 09/22/23 04:28 Magnesium 1.9 mg/dL (1.7-2.3) 09/22/23 04:28 Total Bilirubin 0.5 mg/dL (0.15-1.2) 09/21/23 02:43 AST 18 U/L (0-40) 09/21/23 02:43 ALT 16 U/L (0-41) 09/21/23 02:43 Alkaline Phosphatase 120 U/L (40-130) 09/21/23 02:43 Ammonia 21 umol/L (16-60) 09/19/23 02:54 Troponin T Baseline 156 ng/L (0-15) H* 09/19/23 02:54 Troponin T 120 Minute 146.2 ng/L (0-15) H 09/19/23 05:15 Delta Troponin T -9.8 ABS# (0-10) L 09/19/23 05:15 Troponin T Hi Sens 6Hr 154.7 ng/L (0-15) H 09/19/23 09:06 Troponin T Hi Sens 6Hr Delta -1.3 ng/L (0-12) L 09/19/23 09:06 C-Reactive Protein 26.0 mg/L (0.0-4.9) H 09/19/23 02:54 NT-Pro-B Natriuret Pep > 78372 pg/mL (0-450) H 09/19/23 02:54 Total Protein 5.9 g/dL (6.6-8.7) L 09/21/23 02:43 Albumin 3.2 g/dL (3.5-5.2) L 09/21/23 02:43 Globulin 2.7 g/dL (1.3-4.6) 09/21/23 02:43 Triglycerides 69 mg/dL (0-150) 09/19/23 02:54 Cholesterol 97 mg/dL (0-200) 09/19/23 02:54 LDL Cholesterol, Calc 26 mg/dL (50-129) L 09/19/23 02:54 HDL Cholesterol 57 mg/dL (60-100) L 09/19/23 02:54 LDL/HDL Ratio 0.46 RATIO (0.00-3.22) 09/19/23 02:54 Cholesterol/HDL Ratio 1.70 mg/dL (1.0-5.00) 09/19/23 02:54 TSH 3.80 uIU/mL (0.27-4.20) 09/19/23 02:54 Hep Bs Antigen Non-reactive (Nonreactive) 09/19/23 09:06 Hep Bs Antibody < 3.5 (11.5-1000) L 09/19/23 09:06 A&P Assessment and plan (1) Acute on chronic systolic heart failure: I discussed with the patient and his family-son and [id number] regarding the Myocardial perfusion imaging findings and further treatment options. Since the area of ischemia is small and also since the patient has no specific symptoms pertaining to coronary ischemia, it would be appropriate to continue on the medical treatment. May consider cardiac catheterization, if you develop chest pain or recurrent heart failure suggesting ischemic. (2) Atherosclerosis of coronary artery of [place] heart without angina pectoris: As mentioned above. Qualifiers: Coronary Disease-Associated Artery/Lesion type: [place] artery Qualified Code(s): I25.10 - Atherosclerotic heart disease of [place] coronary artery without angina pectoris (3) Ischemic cardiomyopathy: Patient is LV ejection fraction was around 38% by the nuclear scan. By echocardiogram it was 15 to 20%. A repeat limited 2D echocardiogram may be performed. Consider LifeVest afterwards (4) Chronic atrial fibrillation: Continue the Plavix and aspirin. Patient HAS BLED score is 4 (5) LBBB (left bundle branch block): Patient has no evidence of any high degree AV block. At this point, he may continue on the current management. (6) End stage renal disease on dialysis: Continue on the current treatment measures. Plan Continue on the current medications. Attestations 2 Medical Necessity Statement*: Disposition as per the primary Coding Level of Care Code 75856 Diagnoses Acute on chronic systolic heart failure I50.23 Atherosclerosis of [place] coronary artery of [place] heart without angina pectoris I25.10 Coronary Disease-Associated Artery/Lesion type: [place] artery Ischemic cardiomyopathy I25.5 Chronic atrial fibrillation I48.20 LBBB (left bundle branch block) I44.7 End stage renal disease on dialysis N18.6; Z99.2
[2023-09-22 16:38] LABS: Glucose Point of Care 160 mg/dL (70-110)
[2023-09-22] MEDS: insulin lispro 100 unit/1 mL SUBCUT (18:05)
[2023-09-22 20:27] LABS: Glucose Point of Care 288 mg/dL (70-110)
[2023-09-22] MEDS: enoxaparin 30 mg/0.3 mL Syringe SUBCUT (21:12)
[2023-09-22] MEDS: atorvastatin 40 mg Tablet 80 MG PO (21:12)
--- NOTE | 2023-09-22 22:15 | P.PN_ITS ---
Subjective 2 Subjective: no new c/o Medications: Reviewed: Yes Vitals/I&O/Wt Last Vital Signs Temp 98.2 F 09/22/23 20:00 Pulse 89 09/22/23 20:00 Resp 33 H 09/22/23 20:00 BP 104/71 09/22/23 20:00 Pulse Ox 94 09/22/23 20:00 O2 Del Method Room Air 09/22/23 20:00 O2 Flow Rate 3 09/22/23 09:26 09/22/23 09/22/23 09/22/23 06:59 14:59 22:59 Intake Total 480 / 1699.167 480 / 480 Balance 480 / -3896.833 480 / 480 Weight last 48 hrs Weight 85.956 kg Weight 87.6 kg Weight 88.195 kg Physical Exam 2 Narrative: awake ,a lert no distress Data 09/23/23 05:53 09/23/23 05:53 A&P Assessment and plan (1) End stage kidney disease: Plan 1. ESRD: On TTS schedule as outpatient, HD tomorrow and ultrafiltration as tolerated 2. Acute on chronic respiratory failure, multifactorial, HD as above 3. New onset A-fib 4. Hyperkalemia: Low K diet , improved 5. Hyponatremia: Mild, Patient evaluated using audiovisual cart. Time spent 20 minutes Attestations 2 Medical Necessity Statement*: per fred Coding Level of Care Code Acute Code for Chg Fwd Diagnoses End stage kidney disease N18.6
[2023-09-23] VITALS (14 sets, daily range): BP systolic 95–172; BP diastolic 55–76; PULSE 77–119; RESP 18–28; TEMP 36–37.2; O2SAT 87–97
[2023-09-23] MEDS: pantoprazole 40 mg SDV IVP (01:25)
[2023-09-23] MEDS: levothyroxine 50 mcg Tablet PO (05:32)
[2023-09-23 06:16] LABS: Basophils % 0.7 %; Eosinophils # 0.2 10^3/uL (0.0-0.8); Eosinophils % 3.8 %; Hematocrit 31.6 % (37-53); Lymphocytes # 0.3 10^3/uL (0.8-4.8); Lymphocytes % 7.8 %; Mean Corpuscular Hemoglobin 31.7 pg (27-33); Mean Corpuscular Volume 102.3 fl (82-101); Mean Platelet Volume 11.2 fL (7.4-10.4); Monocytes # 0.3 10^3/uL (0.2-0.9); Monocytes % 7.8 %; Neutrophils # 3.38 10^3/uL (1.8-7.7); Neutrophils % 79.4 %; Nucleated Red Blood Cells % 0 %; Platelet Count 90 10^3/cmm (157-399); Red Blood Count 3.09 10^6/uL (3.85-5.65); Red Cell Distribution Width 18.5 % (12.1-15.1); White Blood Count 4.25 10^3/uL (3.29-11.43)
[2023-09-23 06:39] LABS: Anion Gap 15.2 (5-19); Blood Urea Nitrogen 29 mg/dL (8-23); Calcium 8.2 mg/dL (8.5-10.5); Carbon Dioxide 25 mmol/L (22-29); Chloride 97 mmol/L (98-107); Glucose 103 mg/dL (65-115); Magnesium 1.9 mg/dL (1.7-2.3); Osmolality Calculated 282 mOsm/kg (285-295); Potassium 4.2 mmol/L (3.5-5.1); Sodium 133 mmol/L (136-145)
[2023-09-23 06:47] LABS: Creatinine Clr Calc Pharmacy 19.2871
[2023-09-23] MEDS: clopidogrel 75 mg Tablet PO (08:53)
[2023-09-23] MEDS: aspirin 81 mg EC Tablet PO (08:54)
[2023-09-23] MEDS: metoprolol tartrate 25 mg Tablet PO ×2 (08:54→20:26)
--- NOTE | 2023-09-23 10:54 | P.PN_ITS ---
Subjective 2 Subjective: I saw Mr. William this morning, reviewed his meds, vitals and lab data. Overnight he is doing quite well. Mild shortness of air. No chest pain. He is going to have a dialysis session today. Still having mild lower extremity edema. No other active complaints. Noted his echo showed severe cardiomyopathy with EF of 25%. The nuclear stress test revealed fixed and mild possible ischemia. Currently no active anginal symptoms. Medications: Medication Review Details: Detail medications reviewed. Vitals/I&O/Wt Last Vital Signs Temp 98.9 F 09/23/23 05:00 Pulse 91 09/23/23 08:00 Resp 21 H 09/23/23 05:00 BP 111/66 09/23/23 08:00 Pulse Ox 96 09/23/23 07:37 O2 Del Method Nasal Cannula 09/23/23 07:37 O2 Flow Rate 3 09/22/23 09:26 09/22/23 09/23/23 09/23/23 22:59 06:59 14:59 Intake Total 500 / 980 240 / 240 Balance 500 / 980 240 / 240 Weight last 48 hrs Weight 195 lb Weight 189 lb 8 oz Weight 193 lb 1.999 oz Physical Exam 2 Narrative: Patient is comfortable laying in his bed. No respiratory distress. Vitals shows blood pressure 108/66, pulse 78/min atrial fibrillation. 1+ bilateral lower extremity pitting jo ma. HEENT examination unremarkable There is no JVD. Cardiac emanation revealed normal first and second heart sound. There is a mild systolic murmur. Chest auscultation revealed minimum rales at the bases bilaterally. Abdomen soft nontender. Bowel sounds audible. Extremities 1+ edema of the lower extremities at ankles. Neuro exam grossly intact. Skin warm and dry. Data 09/23/23 05:53 09/23/23 05:53 A&P Assessment and plan (1) Ischemic cardiomyopathy: (2) End stage renal disease on dialysis: Elderly 83-year-old gentleman with a history of ischemic cardiomyopathy now with a moderate exacerbation of congestive heart failure and atrial fibrillation. He is on chronic hemodialysis. Clinically no active cardiac anginal symptoms. The CHF/volume status is being managed with hemodialysis/ultrafiltration. He is going to have a session of hemodialysis today. Atrial fibrillation remains rate controlled. Considering his high has bled score is not a good candidate for long-term anticoagulation. Currently he is on dual antiplatelets. Continue his current medication without any change today. (3) Chronic atrial fibrillation: Attestations 2 Medical Necessity Statement*: 1. Management of heart failure 2. management of new onset of atrial fib rillation 3. Assessment of possible cardiac ische aida 4. Ongoing hemodialysis Coding Level of Care Code 97454 Diagnoses Ischemic cardiomyopathy I25.5 End stage renal disease on dialysis N18.6; Z99.2 Chronic atrial fibrillation I48.20 Time Spent (min) 30
[2023-09-23 11:37] LABS: Glucose Point of Care 214 mg/dL (70-110)
[2023-09-23] MEDS: insulin lispro 100 unit/1 mL SUBCUT (12:40)
--- NOTE | 2023-09-23 16:24 | P.PN_ITS ---
Subjective 2 Subjective: Rested comfortably dialysis planned for today Vitals/I&O/Wt Last Vital Signs Temp 97.7 F 09/23/23 12:00 Pulse 80 09/23/23 14:00 Resp 18 09/23/23 12:00 BP 97/55 09/23/23 12:00 Pulse Ox 97 09/23/23 11:31 O2 Del Method Nasal Cannula 09/23/23 11:31 O2 Flow Rate 2 09/23/23 10:00 09/23/23 09/23/23 09/23/23 06:59 14:59 22:59 Intake Total 240 / 240 Balance 240 / 240 Weight last 48 hrs Weight 195 lb Weight 189 lb 8 oz Physical Exam 2 Narrative: General: Alert oriented x3, patient seen laying in bed appearing comfortable at this time No apparent conversational dyspnea. No acute distress. HEENT: Normocephalic, atraumatic, EOMI, breathing 1 L nasal cannula at this time. Cardio: Regular rate, normal S1-S2, Respiratory: clear to ausculation b/l GI: Abdomen soft, nontender, nondistended, bowel sounds + Extremities: 1+ edema, b/l Data 09/23/23 05:53 09/23/23 05:53 A&P Assessment and plan (1) CHF exacerbation: (2) LBBB (left bundle branch block): (3) A-fib: (4) End stage kidney disease: (5) AMS (altered mental status): (6) Acute hypoxic respiratory failure: Plan Acute hypoxic respiratory failure Acute on chronic congestive heart failure, EF 15-20% Atrial fibrillation Left bundle branch block, unclear old or new Altered mental status/resolved End-stage renal disease Monday CAD, history of CABG History of [place] 5 years ago -Plan for dialysis today - continue aspirin plavix atorvastatin, metoprolol - stress test ordered - Continue to dialyze as per nephro recs - fsbs ssi DVT Lovenox Attestations 2 Medical Necessity Statement*: HD, medication management Coding Level of Care Code Acute Code for Chg Fwd Diagnoses CHF exacerbation I50.9 LBBB (left bundle branch block) I44.7 A-fib I48.91 End stage kidney disease N18.6 AMS (altered mental status) R41.82 Acute hypoxic respiratory failure J96.01
[2023-09-23 18:38] LABS: Glucose Point of Care 90 mg/dL (70-110)
[2023-09-23] MEDS: atorvastatin 40 mg Tablet 80 MG PO (20:25)
[2023-09-23] MEDS: enoxaparin 30 mg/0.3 mL Syringe SUBCUT (20:25)
[2023-09-23 20:30] LABS: Glucose Point of Care 157 mg/dL (70-110)
--- NOTE | 2023-09-23 22:12 | P.PN_ITS ---
Subjective 2 Subjective: getting HD Medications: Reviewed: Yes Vitals/I&O/Wt Last Vital Signs Temp 97.0 F L 09/23/23 21:50 Pulse 89 09/23/23 21:50 Resp 20 H 09/23/23 21:50 BP 113/76 09/23/23 21:50 Pulse Ox 94 09/23/23 20:00 O2 Del Method Room Air 09/23/23 20:00 O2 Flow Rate 2 09/23/23 10:00 09/23/23 09/23/23 09/23/23 06:59 14:59 22:59 Intake Total 240 / 240 900 / 1140 Output Total 3017 / 3017 Balance 240 / 240 -2117 / -1877 Weight last 48 hrs Weight 85.548 kg Weight 88.451 kg Weight 85.956 kg Physical Exam 2 Narrative: awake ,a lert no distress Data 09/23/23 05:53 09/23/23 05:53 A&P Assessment and plan (1) End stage kidney disease: Plan 1. ESRD: On TTS schedule as outpatient, HD today and ultrafiltration as tolerated 2. Acute on chronic respiratory failure, multifactorial, HD as above 3. New onset A-fib 4. Hyperkalemia: Low K diet , improved 5. Hyponatremia: Mild, Patient evaluated using audiovisual cart. Time spent 20 minutes Attestations 2 Medical Necessity Statement*: per medicine Coding Level of Care Code Acute Code for Chg Fwd Diagnoses End stage kidney disease N18.6
[2023-09-24] VITALS (10 sets, daily range): BP systolic 90–118; BP diastolic 58–74; PULSE 80–95; RESP 16–32; TEMP 36.3–36.9; O2SAT 83–99
[2023-09-24] MEDS: pantoprazole 40 mg SDV IVP (01:10)
[2023-09-24] MEDS: levothyroxine 50 mcg Tablet PO (04:59)
[2023-09-24 06:35] LABS: Glucose Point of Care 199 mg/dL (70-110)
[2023-09-24] MEDS: metoprolol tartrate 25 mg Tablet PO ×2 (09:03→20:51)
[2023-09-24] MEDS: clopidogrel 75 mg Tablet PO (09:03)
[2023-09-24] MEDS: aspirin 81 mg EC Tablet PO (09:03)
[2023-09-24] MEDS: insulin lispro 100 unit/1 mL SUBCUT ×3 (09:03→17:27)
[2023-09-24 11:45] LABS: Glucose Point of Care 151 mg/dL (70-110)
--- NOTE | 2023-09-24 15:04 | P.PN_ITS ---
Subjective 2 Subjective: no acute events overnight breathing ok Vitals/I&O/Wt Last Vital Signs Temp 98.4 F 09/24/23 12:52 Pulse 83 09/24/23 12:52 Resp 27 H 09/24/23 12:52 BP 103/66 09/24/23 12:52 Pulse Ox 83 L 09/24/23 12:52 O2 Del Method Nasal Cannula 09/24/23 09:16 O2 Flow Rate 1 09/24/23 09:16 09/24/23 09/24/23 09/24/23 06:59 14:59 22:59 Intake Total 400 / 1540 240 / 240 Balance 400 / -1477 240 / 240 Weight last 48 hrs Weight 184 lb Weight 188 lb 9.6 oz Weight 195 lb Physical Exam 2 Narrative: General: Alert oriented x3, patient seen laying in bed appearing comfortable at this time No apparent conversational dyspnea. No acute distress. HEENT: Normocephalic, atraumatic, EOMI, breathing 1 L nasal cannula at this time. Cardio: Regular rate, normal S1-S2, Respiratory: clear to ausculation b/l GI: Abdomen soft, nontender, nondistended, bowel sounds + Extremities: 1+ edema, b/l Data 09/23/23 05:53 09/23/23 05:53 A&P Assessment and plan (1) CHF exacerbation: (2) LBBB (left bundle branch block): (3) A-fib: (4) End stage kidney disease: (5) AMS (altered mental status): (6) Acute hypoxic respiratory failure: Plan Acute hypoxic respiratory failure Acute on chronic congestive heart failure, EF 15-20% Atrial fibrillation Left bundle branch block, unclear old or new Altered mental status/resolved End-stage renal disease Monday CAD, history of CABG History of [place] 5 years ago - continue aspirin plavix atorvastatin, metoprolol - stress test ordered - Continue to dialyze as per nephro recs T R S - fsbs ssi - life vest ordered DVT Lovenox Attestations 2 Medical Necessity Statement*: Gama William requires ongoing inpatient care for Coding Level of Care Code 78632 Diagnoses CHF exacerbation I50.9 LBBB (left bundle branch block) I44.7 A-fib I48.91 End stage kidney disease N18.6 AMS (altered mental status) R41.82 Acute hypoxic respiratory failure J96.01
[2023-09-24 17:28] LABS: Glucose Point of Care 151 mg/dL (70-110)
[2023-09-24 20:36] LABS: Glucose Point of Care 118 mg/dL (70-110)
--- NOTE | 2023-09-24 20:48 | P.PN_ITS ---
Subjective 2 Subjective: no new c/o Medications: Reviewed: Yes Vitals/I&O/Wt Last Vital Signs Temp 97.8 F 09/24/23 20:00 Pulse 90 09/24/23 20:00 Resp 23 H 09/24/23 20:00 BP 112/74 09/24/23 20:00 Pulse Ox 99 09/24/23 20:00 O2 Del Method Nasal Cannula 09/24/23 20:00 O2 Flow Rate 1 09/24/23 09:16 09/24/23 09/24/23 09/24/23 06:59 14:59 22:59 Intake Total 400 / 1540 460 / 460 Balance 400 / -1477 460 / 460 Weight last 48 hrs Weight 83.461 kg Weight 85.548 kg Weight 88.451 kg Physical Exam 2 Narrative: awake ,a lert no distress Data 09/23/23 05:53 09/23/23 05:53 A&P Assessment and plan (1) End stage kidney disease: Plan 1. ESRD: On TTS schedule, Next HD tomorrow 2. Acute on chronic respiratory failure, multifactorial, HD as above 3. New onset A-fib 4. Hyperkalemia: Low K diet , improved 5. Hyponatremia: Mild, Patient evaluated using audiovisual cart. Time spent 20 minutes Attestations 2 Medical Necessity Statement*: per fred Coding Level of Care Code Acute Code for Chg Fwd Diagnoses End stage kidney disease N18.6
[2023-09-24] MEDS: atorvastatin 40 mg Tablet 80 MG PO (20:51)
[2023-09-24] MEDS: enoxaparin 30 mg/0.3 mL Syringe SUBCUT (20:51)
[2023-09-25] VITALS (8 sets, daily range): BP systolic 105–121; BP diastolic 73; PULSE 81–95; RESP 16–21; TEMP 36.5–36.6; O2SAT 88–100
[2023-09-25] MEDS: levothyroxine 50 mcg Tablet PO (05:40)
[2023-09-25] MEDS: pantoprazole 40 mg SDV IVP (05:40)
[2023-09-25 06:29] LABS: Glucose Point of Care 119 mg/dL (70-110)
[2023-09-25] MEDS: clopidogrel 75 mg Tablet PO (08:21)
[2023-09-25] MEDS: metoprolol tartrate 25 mg Tablet PO (08:21)
[2023-09-25] MEDS: aspirin 81 mg EC Tablet PO (08:21)
[2023-09-25 11:44] LABS: Glucose Point of Care 164 mg/dL (70-110)
[2023-09-25] MEDS: insulin lispro 100 unit/1 mL SUBCUT (12:46)
--- NOTE | 2023-09-25 13:37 | PC.SOCIAL ---
IMM Updated Updated pt on IMM. No questions voiced. Provided pt a copy. Initialed, dated, & timed copy in chart.
--- NOTE | 2023-09-25 15:13 | PM.DCS ---
Discharge Providers Date of Admission: 09/19/23 00:36 Date of Discharge: September 25, 2023 Attending Provider at Admission: Sergio Garcia MD Attending Provider at Discharge: Dalia Wray MD Primary Care Provider: Miguelito Persaud MD Diagnoses at Discharge Discharge Diagnosis (1) End stage kidney disease: Status: Acute Reason for Visit Reason for Visit: [facility] Hospital Course Hospital Course H&P Gama William is a 83 year old male With a past medical history of type 2 diabetes mellitus, hypertension, COPD, CAD, history of atrial fibrillation, history of CHF, hypothyroidism who presents to [facility] due to complaints for shortness of breath, lower extreme edema. Patient was transferred from [facility], physician at [facility] tells me that patient was not adequately dialyzed on Monday, due to concerns for soft blood pressures, patient then developed worsening shortness of breath lower extremity edema, ER physician there was concerned about new onset atrial fibrillation, CHF exacerbation, he was given Lasix, noted to have a potassium of 5.4, sodium 130, troponin was noted to be within normal limits, BNP was over 30,000 he was transferred to [facility] on 2 L, blood pressure 117/70, MAP 86, heart rate 78, during my examination of patient he is very hard of hearing, he has documented history of hearing loss, I am able to get simple answers from him, he is also drowsy, but follows commands, able to smile for me, squeeze my fingers bilaterally wiggle his toes, but he is very hard of hearing so history taking was difficult no family members at bedside, he reports that he has been short of breath, denies any chest pain does report lower extremity edema, denies any headache, blurry vision, no abdominal pain although reports swelling of his arms, and of his abdomen, he does report history of CAD, but cannot provide any more details, course: Consultations with nephrology and cardiology were done. Patient noted to be in acute heart failure exacerbation. Dialysis was also initiated. Stress test was done. The patient was diagnosed with ischemic cardiomyopathy. Volume status was managed with diuresis as well as ultrafiltration. Patient was noted to be in A-fib. Was on dual antiplatelets. At time of discharge patient was fitted with a LifeVest. Home oxygen was also prescribed. He was discharged in stable condition. Physical Exam Narrative: General: Alert oriented x3, patient seen laying in bed appearing comfortable at this time No apparent conversational dyspnea. No acute distress. HEENT: Normocephalic, atraumatic, EOMI, breathing 1 L nasal cannula at this time. Cardio: Regular rate, normal S1-S2, Respiratory: clear to ausculation b/l GI: Abdomen soft, nontender, nondistended, bowel sounds + Extremities: 1+ edema, b/l Discharge Data Studies Completed and Pending Completed Studies During Hospitalization Category Date Time Status CT head wo con* [id number] Routine Cat Scan 09/19/23 02:10 Completed Sestamibi Stress Test Request Routine Exams 09/21/23 18:29 Completed XR chest 1V portable [id number] Routine Exams 09/19/23 01:53 Completed NM bennett perf SPECT r/s* [id number] Routine Nuc Med 09/22/23 08:00 Completed CV. echo complete* [id number] Routine Ultrasound 09/19/23 01:45 Completed CV. echo limited [id number] Routine Ultrasound 09/22/23 10:40 Completed Pending at discharge Category Date Time Status Cardiac Stress Test MIBI [Sestamibi Stress Test Request Exams 09/21/23 21:17 Ordered ] Routine Urinalysis Routine Lab 09/19/23 02:10 Uncollected Radiology Impressions Chest X-Ray 09/19/23 01:53 IMPRESSION: Findings compatible with CHF and/or pneumonia. Head CT 09/19/23 02:10 IMPRESSION: No acute intracranial process. Laboratory Results WBC 4.25 10^3/uL (3.29-11.43) 09/23/23 05:53 RBC 3.09 10^6/uL (3.85-5.65) L 09/23/23 05:53 Hgb 9.80 g/dL (11.27-16.99) L 09/23/23 05:53 Hct 31.6 % (37-53) L 09/23/23 05:53 MCV 102.3 fl (82-101) H 09/23/23 05:53 MCH 31.7 pg (27-33) 09/23/23 05:53 MCHC 31.0 g/dL (30-55) 09/23/23 05:53 RDW 18.5 % (12.1-15.1) H 09/23/23 05:53 Plt Count 90 10^3/cmm (157-399) L 09/23/23 05:53 MPV 11.2 fL (7.4-10.4) H 09/23/23 05:53 Neut % (Auto) 79.4 % 09/23/23 05:53 Lymph % (Auto) 7.8 % 09/23/23 05:53 [place] % (Auto) 7.8 % 09/23/23 05:53 Eos % (Auto) 3.8 % 09/23/23 05:53 Baso % (Auto) 0.7 % 09/23/23 05:53 Neut # (Auto) 3.38 10^3/uL (1.8-7.7) 09/23/23 05:53 Lymph # (Auto) 0.3 10^3/uL (0.8-4.8) L 09/23/23 05:53 [place] # (Auto) 0.3 10^3/uL (0.2-0.9) 09/23/23 05:53 Eos # (Auto) 0.2 10^3/uL (0.0-0.8) 09/23/23 05:53 Baso # (Auto) 0.0 10^3/uL (0.0-0.1) 09/23/23 05:53 Nucleated RBC % (auto) 0 % 09/23/23 05:53 Nucleated RBCs # 0.0 /100WBC 09/23/23 05:53 PT 15.00 SECONDS (12.1-14.9) H 09/19/23 02:54 INR 1.14 (0.8-1.2) 09/19/23 02:54 APTT > 250.0 SECONDS (23.9-36.7) H* D 09/21/23 07:09 Specimen Type Arterial 09/19/23 02:12 Sample Site Brachial, left 09/19/23 02:12 ABG pH 7.43 (7.35-7.45) 09/19/23 02:12 ABG pCO2 43.0 mmHg (35-45) 09/19/23 02:12 ABG pO2 103.0 mmHg (80.0-100.0) H 09/19/23 02:12 ABG HCO3 28.5 mmol/L (22-26) H 09/19/23 02:12 ABG Base Excess 3.8 mmol/L (-2.0-2.0) H 09/19/23 02:12 Cl Test N/a 09/19/23 02:12 Hematocrit 31.2 % (42-52) L 09/19/23 02:12 O2 Delivery Device Nc 09/19/23 02:12 O2 Liters/Min 2.0 % 09/19/23 02:12 Electric Installer ID [email or web address] 09/19/23 02:12 Sodium 133 mmol/L (136-145) L 09/23/23 05:53 Potassium 4.2 mmol/L (3.5-5.1) 09/23/23 05:53 Chloride 97 mmol/L (98-107) L 09/23/23 05:53 Carbon Dioxide 25 mmol/L (22-29) 09/23/23 05:53 Anion Gap 15.2 (5-19) 09/23/23 05:53 BUN 29 mg/dL (8-23) H 09/23/23 05:53 Creatinine 3.3 mg/dL (0.7-1.2) H 09/23/23 05:53 GFR Calculation Not Reportable 09/23/23 05:53 Glucose 103 mg/dL (65-115) 09/23/23 05:53 POC Glucose 164 mg/dL (70-110) H 09/25/23 10:59 Estimat Average Glucose 111 09/19/23 02:54 Hemoglobin A1c 5.5 % (4.0-6.0) 09/19/23 02:54 Calculated Osmolality 282 mOsm/kg (285-295) L 09/23/23 05:53 Lactic Acid 1.1 mmol/L (0.5-2.2) 09/19/23 02:54 Calcium 8.2 mg/dL (8.5-10.5) L 09/23/23 05:53 Phosphorus 4.4 mg/dL (2.5-4.5) 09/22/23 04:28 Magnesium 1.9 mg/dL (1.7-2.3) 09/23/23 05:53 Total Bilirubin 0.5 mg/dL (0.15-1.2) 09/21/23 02:43 AST 18 U/L (0-40) 09/21/23 02:43 ALT 16 U/L (0-41) 09/21/23 02:43 Alkaline Phosphatase 120 U/L (40-130) 09/21/23 02:43 Ammonia 21 umol/L (16-60) 09/19/23 02:54 Troponin T Baseline 156 ng/L (0-15) H* 09/19/23 02:54 Troponin T 120 Minute 146.2 ng/L (0-15) H 09/19/23 05:15 Delta Troponin T -9.8 ABS# (0-10) L 09/19/23 05:15 Troponin T Hi Sens 6Hr 154.7 ng/L (0-15) H 09/19/23 09:06 Troponin T Hi Sens 6Hr Delta -1.3 ng/L (0-12) L 09/19/23 09:06 C-Reactive Protein 26.0 mg/L (0.0-4.9) H 09/19/23 02:54 NT-Pro-B Natriuret Pep > 15465 pg/mL (0-450) H 09/19/23 02:54 Total Protein 5.9 g/dL (6.6-8.7) L 09/21/23 02:43 Albumin 3.2 g/dL (3.5-5.2) L 09/21/23 02:43 Globulin 2.7 g/dL (1.3-4.6) 09/21/23 02:43 Triglycerides 69 mg/dL (0-150) 09/19/23 02:54 Cholesterol 97 mg/dL (0-200) 09/19/23 02:54 LDL Cholesterol, Calc 26 mg/dL (50-129) L 09/19/23 02:54 HDL Cholesterol 57 mg/dL (60-100) L 09/19/23 02:54 LDL/HDL Ratio 0.46 RATIO (0.00-3.22) 09/19/23 02:54 Cholesterol/HDL Ratio 1.70 mg/dL (1.0-5.00) 09/19/23 02:54 TSH 3.80 uIU/mL (0.27-4.20) 09/19/23 02:54 Hep Bs Antigen Non-reactive (Nonreactive) 09/19/23 09:06 Hep Bs Antibody < 3.5 (11.5-1000) L 09/19/23 09:06 Vitals Last Vital Signs Temp 97.7 F 09/25/23 07:37 Pulse 81 09/25/23 11:00 Resp 21 H 09/25/23 11:00 BP 105/73 09/25/23 11:00 Pulse Ox 98 09/25/23 14:02 O2 Del Method Nasal Cannula 09/25/23 11:00 O2 Flow Rate 2 09/25/23 14:02 Discharge Plan Discharge Patient Disposition: Home Condition: Stable Prescriptions: New clopidogrel 75 mg Tablet 75 mg PO DAILY Qty: 30 0RF Continued atorvastatin 80 mg tablet 80 mg PO BEDTIME metoprolol succinate 50 mg tablet extended release 24 hr 50 mg PO BEDTIME levothyroxine 50 mcg tablet 50 mcg PO QAM nitroglycerin 0.4 mg Tablet, Sublingual 0.4 mg SUBLINGUAL Q5M PRN (Reason: Chest Pain) Rx Instructions: do not exceed 3 doses per episode aspirin 81 mg Tablet 81 mg PO DAILY lisinopril 5 mg tablet 5 mg PO BEDTIME Ventolin HFA 90 mcg/actuation HFA aerosol inhaler 90 puff INHALATION DIRECTED PRN (Reason: Shortness Of Breath Or Wheezing) dexlansoprazole 60 mg capsule,biphase delayed releas 60 mg PO DAILY lj-qgyt-cqtyq-lycopene-ginkgo 400-600-120 mcg-mcg-mg Tablet 200 tab PO DAILY RenaPlex-D 800 mcg-12.5 mg -2,000 unit Tablet 800 tab PO DIRECTED Discharge Orders: Discharge Order (Routine); Ordered 09/25/23 Ordered By: Dalia Wray Referrals: Miguelito Persaud MD [Primary Care Provider] - 10/04/23 10:30 am (Dr. Persaud's new phone # is: [phone] Please bring all d/c meds to appointment. Thank you. ) Discharge Diet: Cardiac Discharge Activity: Resume usual activity Patient Instructions: Clopidogrel (By mouth) (Plavix), Heart Failure (DC), A-fib (Atrial Fibrillation) (DC), End Stage Kidney Disease (DC), CHF Stoplight, Opioid Safety Discharge Attestations Time Spent in Discharge Care*: less than 30 min Quality Metrics Clinical Quality Measures [ No reported AMI, CVA or VTE this stay] Coding Level of Care Code Acute Code for Chg Fwd Diagnoses End stage kidney disease N18.6
--- NOTE | 2023-09-25 17:25 | PC.NURSE ---
Patient is discharged to home with son and gaaknbkx-fe-uhp via a wheelchair and private car. Patient is sent home on room air and [facility] will meet at home and set up the home O2. Patient and family did not want to wait any longer for portable O2. His O2 stats at rest when time of discharge on room air was 95%. This was discussed at length with several family members.
== END 2023-09-25 17:33 | disposition home or self-care (01) | DRG 291 ==
PROVIDERS: Hospitalist; Internal Medicine; Admitting Provider Family Medicine; PCP Family Medicine; Visit Provider Internal Medicine
DX: I13.2 Hypertensive heart and chronic kidney disease with heart failure and with stage 5 chronic kidney disease, or end stage renal disease (principal); I50.23 Acute on chronic systolic (congestive) heart failure; N18.6 End stage renal disease; J96.21 Acute and chronic respiratory failure with hypoxia; G93.40 Encephalopathy, unspecified; E87.1 Hypo-osmolality and hyponatremia; I48.20 Chronic atrial fibrillation, unspecified; E11.22 Type 2 diabetes mellitus with diabetic chronic kidney disease; Z99.2 Dependence on renal dialysis; E87.5 Hyperkalemia; Z87.891 Personal history of nicotine dependence; M54.50 Low back pain, unspecified; G89.29 Other chronic pain; K21.9 Gastro-esophageal reflux disease without esophagitis; E78.5 Hyperlipidemia, unspecified; H91.90 Unspecified hearing loss, unspecified ear; E03.9 Hypothyroidism, unspecified; J44.9 Chronic obstructive pulmonary disease, unspecified; I25.10 Atherosclerotic heart disease of native coronary artery without angina pectoris; Z95.1 Presence of aortocoronary bypass graft; I44.7 Left bundle-branch block, unspecified
CPT/HCPCS: 36415; 36416; 36600; 70450; 71045; 78452; 80048; 80053; 80061; 82140; 82803; 82962; 83036; 83605; 83735; 83880; 84100; 84443; 84484; 85025; 85610; 85730; 86140; 86706; 87340; 90935; 93005; 93017; 93306; 93308; 94664; 94760; 96372; 96375; 96376; A9500; C9113; J1644; J1650; J1815; J1940; J2785; Q3014

== ENCOUNTER 2023-10-28 11:07 | Emergency (ER) | payer MEDICARE, SELFPAY ==
[2023-10-28] VITALS (10 sets, daily range): BP systolic 96–117; BP diastolic 64–82; PULSE 86–99; RESP 18–34; TEMP 36.6; O2SAT 94–100
--- NOTE | 2023-10-28 11:19 | ECG_ITS ---
[facility] Test Date: 2023-10-28 Pat Name: Gama William Department: Room: Gender: Male Senior Service Technician: : 1940 Requested By: Nahum Ledezma Order Number: [id number] Gordy MD: Tamir Lees M.D. Measurements Intervals [place] Rate: 92 P: 0 FL: 0 QRS: -12 QRSD: 132 T: 165 QT: 385 QTc: 477 Interpretive Statements ATRIAL FIBRILLATION INTRAVENTRICULAR CONDUCTION DELAY [130+ ms QRS DURATION] Compared to ECG 09/19/2023 07:43:47 No significant changes Electronically Signed On 10-29-2023 9:51:59 CDT by Tamir Lees M.D. [email or web address]
--- NOTE | 2023-10-28 11:21 | XRR_ITS ---
PROCEDURE INFORMATION: Exam: XR Left Ribs with PA Chest Exam date and time: 10/28/2023 11:27 AM Age: 83 years old Clinical indication: Injury or trauma; Fall; Rib area, left side; Blunt trauma; Additional info: Fall, pain in L chest wall. SOB TECHNIQUE: Imaging protocol: Radiologic exam of the left ribs with PA chest. Views: 3 views COMPARISON: CR (CHEST, ) 09/19/2023 2:10 AM FINDINGS: Tubes, catheters and devices: Left jugular dialysis catheter seen, unchanged. Lungs: Airspace opacities in bilateral lower lungs, left more than right. Atelectatic changes in lung bases. Pleural spaces: Pleural-based density in left lateral chest, loculated pleural effusion suspected. This measures proximally 4 cm in thickness. There is progression compared to previous study. Small right pleural effusion suspected, unchanged. No pneumothorax. Heart/Mediastinum: Stable. Bones/joints: No acute left rib fracture identified. XR/XR ribs LT mn 3V w CXR1V [id number] IMPRESSION: 1. Loculated fluid along the left lateral pleura suspected. CT scan will be helpful. 2. Atelectasis/airspace opacities in lower lungs. Small right pleural effusion.
--- NOTE | 2023-10-28 11:28 | ED_ITS ---
HPI - SOB/Dyspnea 2 General: Chief Complaint: Shortness of Breath/Dyspnea Stated Complaint: sob, left side pain Time Seen by Provider: 10/28/23 11:16 Source: patient and family Mode of arrival: wheelchair Limitations: no limitations History of Present Illness: HPI Narrative: Patient arrives to ED with complaint of shortness of breath as well as left- sided chest pain. He reportedly fell Monday morning and has not complained of any pain until today. Thinks he may have slept on it wrong last night. Family echoes that he has been complaining of any side pain. It is currently a Monday. So 4 and half to 5 days of time since the fall. He is currently resting in bed appears somewhat comfortable. Is mildly tachypneic. Heart rate is 92 and A-fib. Review of Systems 2 General: Reports: 10 or more systems reviewed and unremarkable except in HPI and below PFSH ED 2 PFSH: Medical History SCC (squamous cell carcinoma), ear Hypothyroid HTN (hypertension) CAD (coronary artery disease) COPD (chronic obstructive pulmonary disease) Hyperlipemia Diabetes mellitus Transitional cell bladder cancer GERD (gastroesophageal reflux disease) Chronic low back pain Iron deficiency anemia Adenocarcinoma of prostate Hearing loss End stage kidney disease A-fib CHF (congestive heart failure) Surgical History Hx of CABG X2 History of angioplasty History of appendectomy Hx laparoscopic cholecystectomy Family History Father Colon cancer Brother Colon cancer Social History Smoking and tobacco/nicotine status: former use of tobacco/nicotine Physical Exam 2 Const: COMMON NORMALS: no acute distress, average body habitus, patient oriented x3, healthy appearing, alert and well nourished GENERAL APPEARANCE: well kempt and well developed HENMT: COMMON NORMALS: atraumatic, external ears normal (Left external ear normal, right external ear absent, previous head trauma) and moist oral mucous membranes HEAD & SCALP: atraumatic EXTERNAL EAR: Yes external ears normal (Left external ear normal, right external ear absent, previous head trauma) and Yes other (Hearing aid present left ear) Eye: COMMON NORMALS: Equal, round and reactive pupils present, EOMs intact bilaterally and conjunctivae normal CONJUNCTIVA: Yes conjunctivae normal P UPIL: Yes Equal, round and reactive pupils present Neck/C-Spine: COMMON NORMALS: full ROM, no lymphadenopathy and supple Chest: CHEST: Yes Symmetrical chest wall rise and No Surgical scars present (Chest) Chest images (male): 1. Tender over the left chest wall, even with pressure to the sternum. Resp: COMMON NORMALS: No use of accessory muscles and clear to auscultation bilaterally EFFORT & INSPECTION: Yes other (Tachypnea with increased effort mild attractions) AUSCULTATION: clear to auscultation bilaterally Cardio: COMMON NORMALS: regular rate, regular rhythm, S1 normal heart sound present, S2 normal heart sound present, No gallops present (Cardio), No clicks present (Cardio), No murmurs present (Cardio) and No rub (Cardio) RATE: r egular rate RHYTHM: regular rhythm HEART SOUNDS: S1 normal heart sound present, S2 normal heart sound present and no murmurs PERIPHERAL PULSES: o ther (Radial pulses 2+ and symmetric) GI: COMMON NORMALS: Soft to palpation, non-tender and no masses INSPECTION: No abdominal distension PALPATION: Yes Soft to palpation, No Guarding due to palpation present (GI) and No Rebound tenderness present : COMMON NORMALS: Yes no CVA tenderness BLADDER/KIDNEY EXAM: Yes no CVA tenderness Back/Pelvis: COMMON NORMALS: no CVA tenderness Extremity: COMMON NORMALS: normal to inspection, full ROM, capillary refill normal and no clubbing, cyanosis or edema Neuro: COMMON NORMALS: patient oriented x3 SENSORIUM/ORIENTATION: Yes alert Psych: APPEARANCE: Yes well kempt Skin: COMMON NORMALS: no rashes or lesions noted, no wounds, turgor normal and no jaundice GENERAL SKIN EXAM: no rashes or lesions noted and turgor normal Course 2 Consultations: Consultation #1: Nephrology paged for dialysis. Time: 15:30 Vital Signs: Vital signs: Vital Signs Temperature 97.8 F 10/28/23 11:15 Pulse Rate 91 10/28/23 15:00 Respiratory Rate 26 H 10/28/23 15:00 Blood Pressure 112/79 10/28/23 15:00 Pulse Oximetry 98 10/28/23 15:00 Oxygen Delivery Me thod Nasal Cannula 10/28/23 15:00 Oxygen Flow Rate 3 10/28/23 15:00 MDM - SOB/Dyspnea Medical Decision Making Patient has thankfully no broken ribs when I reviewed the x-ray. Radiology reviews it and agrees. Does have a likely loculated left pleural effusion. He also has a pulmonary edema and could use dialysis. Patient was dialyzed upstairs as by the time his x-ray was reviewed he cannot get to his dialysis center about 2 PM. Patient will be discharged home to follow-up with his primary care and continue his normal dialysis. On evaluation once he got back from dialysis he is resting, his breathing is normal not tachypneic. Patient's ready for discharge. Medical Records I reviewed the patient's medical records. Lab Data I reviewed the patient's lab results. 10/28/23 11:34 10/28/23 11:34 Labs/Radiology: Radiology Impressions Ribs X-Ray 10/28/23 11:21 IMPRESSION: 1. Loculated fluid along the left lateral pleura suspected. CT scan will be helpful. 2. Atelectasis/airspace opacities in lower lungs. Small right pleural effusion. Laboratory Results WBC 4.95 10^3/uL (3.29-11.43) 10/28/23 11:34 RBC 2.97 10^6/uL (3.85-5.65) L 10/28/23 11:34 Hgb 9.80 g/dL (11.27-16.99) L 10/28/23 11:34 Hct 31.8 % (37-53) L 10/28/23 11:34 MCV 107.1 fl (82-101) H 10/28/23 11:34 MCH 33.0 pg (27-33) 10/28/23 11:34 MCHC 30.8 g/dL (30-55) 10/28/23 11:34 RDW 18.6 % (12.1-15.1) H 10/28/23 11:34 Plt Count 86 10^3/cmm (157-399) L 10/28/23 11:34 MPV 10.4 fL (7.4-10.4) 10/28/23 11:34 Neut % (Auto) 82.4 % 10/28/23 11:34 Lymph % (Auto) 6.3 % 10/28/23 11:34 [place] % (Auto) 7.5 % 10/28/23 11:34 Eos % (Auto) 2.2 % 10/28/23 11:34 Baso % (Auto) 0.8 % 10/28/23 11:34 Neut # (Auto) 4.08 10^3/uL (1.8-7.7) 10/28/23 11:34 Lymph # (Auto) 0.3 10^3/uL (0.8-4.8) L 10/28/23 11:34 [place] # (Auto) 0.4 10^3/uL (0.2-0.9) 10/28/23 11:34 Eos # (Auto) 0.1 10^3/uL (0.0-0.8) 10/28/23 11:34 Baso # (Auto) 0.0 10^3/uL (0.0-0.1) 10/28/23 11:34 Nucleated RBC % (auto) 0 % 10/28/23 11:34 Nucleated RBCs # 0.0 /100WBC 10/28/23 11:34 Sodium 135 mmol/L (136-145) L 10/28/23 11:34 Potassium 4.0 mmol/L (3.5-5.1) 10/28/23 11:34 Chloride 92 mmol/L (98-107) L 10/28/23 11:34 Carbon Dioxide 32 mmol/L (22-29) H 10/28/23 11:34 Anion Gap 15.0 (5-19) 10/28/23 11:34 BUN 38 mg/dL (8-23) H 10/28/23 11:34 Creatinine 3.6 mg/dL (0.7-1.2) H 10/28/23 11:34 GFR Calculation Not Reportable 10/28/23 11:34 Glucose 166 mg/dL (65-115) H 10/28/23 11:34 Calculated Osmolality 293 mOsm/kg (285-295) 10/28/23 11:34 Calcium 8.7 mg/dL (8.5-10.5) 10/28/23 11:34 NT-Pro-B Natriuret Pep > 58275 pg/mL (0-450) H 10/28/23 11:34 Hep Bs Antigen Non-reactive (Nonreactive) 10/28/23 14:24 Hep Bs Antibody < 3.5 (11.5-1000) L 10/28/23 14:24 All radiology interpretation(s) finalized by discharge Discharge Plan Discharge Patient Disposition: Home Clinical Impression: Acute dyspnea, ESRD (end stage renal disease) on dialysis, Contusion of rib on left side Condition: Stable Prescriptions: No Action atorvastatin 80 mg tablet 80 mg PO BEDTIME metoprolol succinate 50 mg tablet extended release 24 hr 50 mg PO BEDTIME levothyroxine 50 mcg tablet 50 mcg PO QAM nitroglycerin 0.4 mg Tablet, Sublingual 0.4 mg SUBLINGUAL Q5M PRN (Reason: Chest Pain) Rx Instructions: do not exceed 3 doses per episode aspirin 81 mg Tablet 81 mg PO DAILY lisinopril 5 mg tablet 5 mg PO BEDTIME Ventolin HFA 90 mcg/actuation HFA aerosol inhaler 90 puff INHALATION DIRECTED PRN (Reason: Shortness Of Breath Or Wheezing) dexlansoprazole 60 mg capsule,biphase delayed releas 60 mg PO DAILY bz-ujyj-xbiyv-lycopene-ginkgo 400-600-120 mcg-mcg-mg Tablet 200 tab PO DAILY RenaPlex-D 800 mcg-12.5 mg -2,000 unit Tablet 800 tab PO DIRECTED clopidogrel 75 mg Tablet 75 mg PO DAILY Qty: 30 0RF Discharge Orders: Discharge ED (Routine); Ordered 10/28/23 Ordered By: Nahum Ledezma Referrals: Miguelito Persaud MD [Primary Care Provider] - Discharge Diet: Usual diet Discharge Activity: Resume usual activity Patient Instructions: Rib Contusion (ED) Activity Restrictions/Additional Instructions: Appears to have some bruised ribs on the left. Can be helpful to hold a pillow against that side similar to how he used the pillow when he had the surgery on his chest. Coding Level of Care Code ED Digital Press Operator for Kika Swift
[2023-10-28 11:38] LABS: Basophils % 0.8 %; Eosinophils # 0.1 10^3/uL (0.0-0.8); Eosinophils % 2.2 %; Hematocrit 31.8 % (37-53); Lymphocytes # 0.3 10^3/uL (0.8-4.8); Lymphocytes % 6.3 %; Mean Corpuscular HGB Conc 30.8 g/dL (30-55); Mean Corpuscular Volume 107.1 fl (82-101); Mean Platelet Volume 10.4 fL (7.4-10.4); Monocytes # 0.4 10^3/uL (0.2-0.9); Monocytes % 7.5 %; Neutrophils # 4.08 10^3/uL (1.8-7.7); Neutrophils % 82.4 %; Nucleated Red Blood Cells % 0 %; Platelet Count 86 10^3/cmm (157-399); Red Blood Count 2.97 10^6/uL (3.85-5.65); Red Cell Distribution Width 18.6 % (12.1-15.1); White Blood Count 4.95 10^3/uL (3.29-11.43)
[2023-10-28 12:07] LABS: Blood Urea Nitrogen 38 mg/dL (8-23); Calcium 8.7 mg/dL (8.5-10.5); Carbon Dioxide 32 mmol/L (22-29); Chloride 92 mmol/L (98-107); Glucose 166 mg/dL (65-115); Osmolality Calculated 293 mOsm/kg (285-295); Sodium 135 mmol/L (136-145)
[2023-10-28 12:11] LABS: Creatinine Clr Calc Pharmacy 17.6799
[2023-10-28 13:21] LABS: NT Pro B Type Natriuretic Pept > 70000 pg/mL (0-450)
--- NOTE | 2023-10-28 14:16 | PM.CONSULT ---
Providers/Reason For Consult Primary Care Provider: Miguelito Persaud MD History of Present Illness History of Present Illness Gama William is a 83 year old male Medications/Allergies Home Medications Medication Instructions Recorded Confirmed Last Taken Type albuterol sulfate 90 mcg/actuation 90 puff inhalation DIRECTED PRN 09/19/23 09/19/23 Unknown History aerosol inhaler (Ventolin HFA) Shortness Of Breath Or Wheezing aspirin 81 mg tablet 81 mg PO DAILY 09/19/23 09/19/23 1 Day Ago History ~09/18/23 atorvastatin 80 mg tablet 80 mg PO BEDTIME 09/19/23 09/19/23 2 Days Ago History ~09/17/23 dexlansoprazole 60 mg 60 mg PO DAILY 09/19/23 09/19/23 1 Day Ago History capsule,biphase delayed release ~09/18/23 levothyroxine 50 mcg tablet 50 mcg PO QAM 09/19/23 09/19/23 1 Day Ago History ~09/18/23 lisinopril 5 mg tablet 5 mg PO BEDTIME 09/19/23 09/19/23 2 Days Ago History ~09/17/23 metoprolol succinate 50 mg 50 mg PO BEDTIME 09/19/23 09/19/23 2 Days Ago History tablet,extended release 24 hr ~09/17/23 daoqrjcw-xcei-xyfuy acid 400 200 tab PO DAILY 09/19/23 09/19/23 1 Day Ago History mcg-lycopene 600 mcg-ginkgo 120 mg ~09/18/23 tablet nitroglycerin 0.4 mg sublingual 0.4 mg sublingual Q5M PRN Chest 09/19/23 09/19/23 Unknown History tablet Pain vit B,C-folic ac 800 mcg-zinc 12.5 800 tab PO DIRECTED 09/19/23 09/19/23 Unknown History mg-selen-D3 2,000 unit-vit E tablet (RenaPlex-D) clopidogrel 75 mg tablet 75 mg PO DAILY #30 tabs 09/25/23 Unknown Rx Allergies Allergy/AdvReac Type Severity Reaction Status Date / Time morphine Allergy A[facility]uci Verified [facility]28/23 11:[facility] Acute PFSH: Medical History SCC (squamous cell carcinoma), ear Hypothyroid HTN (hypertension) CAD (coronary artery disease) COPD (chronic obstructive pulmonary disease) Hyperlipemia Diabetes mellitus Transitional cell bladder cancer GERD (gastroesophageal reflux disease) Chronic low back pain Iron deficiency anemia Adenocarcinoma of prostate Hearing loss End stage kidney disease A-fib CHF (congestive heart failure) Surgical History Hx of CABG X2 History of angioplasty History of appendectomy Hx laparoscopic cholecystectomy Family History Father Colon cancer Brother Colon cancer Social History Smoking and tobacco/nicotine status: former use of tobacco/nicotine Vitals/I&O/Wt Last Vital Signs Temp 97.8 F 10/28/23 11:15 Pulse 90 10/28/23 14:00 Resp 28 H 10/28/23 14:00 BP 100/67 10/28/23 14:00 Pulse Ox 100 10/28/23 14:00 O2 Del Method Nasal Cannula 10/28/23 14:00 O2 Flow Rate 3 10/28/23 14:00 Weight last 48 hrs Weight 88.451 kg Data 10/28/23 11:34 10/28/23 11:34 Coding Level of Care Code Acute Code for Chg Fwd
[2023-10-28 15:00] LABS: Hepatitis B Surface AB < 3.5 (11.5-1000); Hepatitis B Surface Antigen Non-Reactive (Nonreactive)
== END 2023-10-28 19:20 | disposition home or self-care (01) ==
PROVIDERS: Hospitalist; Emergency Provider Emergency Medicine; PCP Family Medicine
DX: R06.00 Dyspnea, unspecified (principal); S20.212A Contusion of left front wall of thorax, initial encounter; I13.2 Hypertensive heart and chronic kidney disease with heart failure and with stage 5 chronic kidney disease, or end stage renal disease; E11.22 Type 2 diabetes mellitus with diabetic chronic kidney disease; N18.6 End stage renal disease; I50.9 Heart failure, unspecified; Z99.2 Dependence on renal dialysis; I25.10 Atherosclerotic heart disease of native coronary artery without angina pectoris; J44.9 Chronic obstructive pulmonary disease, unspecified; E78.5 Hyperlipidemia, unspecified; Z85.51 Personal history of malignant neoplasm of bladder; Z85.46 Personal history of malignant neoplasm of prostate; Z95.1 Presence of aortocoronary bypass graft; Z87.891 Personal history of nicotine dependence; Z79.02 Long term (current) use of antithrombotics/antiplatelets; Z79.82 Long term (current) use of aspirin
CPT/HCPCS: 36415; 71101; 80048; 83880; 85025; 86706; 87340; 93005; 99285; 99291

== ENCOUNTER 2023-11-18 22:03 | Inpatient (IN) | payer MEDICARE, SELFPAY ==
[2023-11-18] VITALS (10 sets, daily range): BP systolic 86–102; BP diastolic 50–62; PULSE 80–86; RESP 19–32; TEMP 36.4; O2SAT 95–98
--- OUTSIDE RECORDS SUMMARY | 2023-11-18 22:07 | XMS_ITS ---
Author Name Wandy Skelton Address [address] [place] [address] Phone [phone] Organization [facility] e, NA DOCUMENT DISCLAIMER Multiple document versions may exist, please be sure you review the latest version. The information in the [facility] Progress Note Document represents a providers documented clinical note containing certain health and medical information. It may not contain the complete medical history for the patient and should be independently verified. The represented time in the document is Eastern Time PROVIDER ROUNDING NOTE COMPREHENSIVE Patient:?Gama?William,?1940,?83y,?M Dialysis?Location:?[facility] Attending?Lithographer Apprentice:?Glen Service?Date:?10/17/2023 Service?Provider:?Wandy?Costa,? I?met?face?to?face?with?the?patient?today. 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 He?has?an?evaluation?tomorrow?for?AVF. Medications?and?labs?reviewed. 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 still?urinates?quite?a?bit DIALYSIS?PRESCRIPTION ??IHD?3x?Week?Start?date:?10/17/23 ??Dialyzer:?180NRe?Optiflux ??BFR:?350 ??DFR:?Manual?800 ??Potassium:?3.0 ??Sodium:?138 ??EDW:?83.5 ??Duration:?3:15 ??Calcium:?2.5 ??Bicarb:?36 ??Rx?updated?on:?10/15/2023 TREATMENT?ASSESSMENT Comments:?BP?soft?throughout?treatment:?into?the?90?systolic ?range?mid?dialysis.??D/C?lisinopril.? BP?Stand?Pre ??10/14/2023:?91/57 ??10/12/2023:?93/55 ??10/10/2023:?100/65 BP?Sit?Pre ??10/14/2023:?92/65 ??10/12/2023:?110/95 ??10/10/2023:?114/74 BP?Stand?Post ??10/14/2023:?102/59 ??10/12/2023:?143/98 ??10/10/2023:?134/93 BP?Sit?Post ??10/14/2023:?111/68 ??10/12/2023:?120/88 ??10/10/2023:?104/68 Tx?Duration ??10/14/2023:?3:06 ??10/12/2023:?3:03 ??10/10/2023:?3:00 Missed?Treatments 0?-?last?30?days 0?-?last?60?days FLUID?ASSESSMENT Comments:?Stable. EDW?(kg) ??10/14/2023:?82.5 ??10/12/2023:?82.5 ??10/10/2023:?82.5 Weight?Pre?(kg) ??10/14/2023:?84.7 ??10/12/2023:?84.7 ??10/10/2023:?86.4 Weight?Post?(kg) ??10/14/2023:?83.4 ??10/12/2023:?83.3 ??10/10/2023:?83.6 PWV?(kg) ??10/14/2023:?0.9 ??10/12/2023:?0.8 ??10/10/2023:?1.1 UF?Rate?(mL/kg/hr) ??10/14/2023:?5 ??10/12/2023:?5.5 ??10/10/2023:?11.2 ADEQUACY?ASSESSMENT Comments:?Repeat?kt/v. spKt/V,?URR ??10/12/2023:?1.17,?65.0 ??10/03/2023:?1.14,?63.0 ??09/07/2023:?1.14,?63.0 ?? Urine?Cr?Clearance ??05/02/2023:?9.1 ACCESS?ASSESSMENT ??Access?Type:?CVCatheter ??Access?SubType:?Tunneled ??Access?Status:?Active?(In?Use)?-?07/20/2023 ??Access?Location:?Chest ??Placed:?07/19/2023 Comments:?To?see?vascular?in?[place]?tomorrow.? Vascular?access?reviewed.?Current?access?is?permanent?and?functioning?well. ANEMIA?ASSESSMENT Comments:?On?IV?iron?and?FAUSTINA?protocol. HGB,?TSAT ??10/12/2023:?9.9,?27.0 ??10/05/2023:?9.5,?- ??09/28/2023:?9.5,?- ?? Ferritin ??10/12/2023:?565.0 ??07/13/2023:?502.0 ??06/15/2023:?559.0 Mircera,?IVP?(mcg) ??09/26/2023:?50 ??09/09/2023:?75 ??08/10/2023:?75 Iron?Sucrose?(Venofer)?(mg) ??10/12/2023:?50 ??10/05/2023:?50 BMM?ASSESSMENT Comments:?Add? PTH,?Intact ??10/12/2023:?455.0 ??07/13/2023:?258.0 ??04/13/2023:?284.0 ?? Calcium,?Phosphorus ??10/12/2023:?8.6,?4.5 ??09/07/2023:?8.8,?3.5 ??08/10/2023:?8.3,?3.4 Active?Orders:?Vitamin?D?(Calcitriol)?Oral?0.25?mcg?Every Treatment. NUTRITION?ASSESSMENT Comments:?Ed?on?protein?in?diet.:?on?protein?supplements. Potassium,?Albumin ??10/12/2023:?4.3,?3.5 ??09/07/2023:?5.2,?3.6 ??08/10/2023:?4.4,?3.1 ?? eNPCR ??10/12/2023:?0.64 ??10/03/2023:?0.6 ??09/07/2023:?0.75 PHYSICAL?EXAM Comments:?CHronic?leg?edema. Exam?Performed.?Vital?Signs?Reviewed.?EXT?-?2+?edema.?EXT?-?No?ulcers. DIAGNOSIS Chief?Complaint:?N18.6?End?stage?renal?disease Patient?is?stable. Patient?data?updated?10/17/2023?at?1:26?PM Signed?By:?Costa,?Wandy???on?10/17/2023?1:29:20?PM END OF DOCUMENT
--- OUTSIDE RECORDS SUMMARY | 2023-11-18 22:07 | XMS_ITS ---
Author Name Maureen Murillo Address [address] [place] [address] Phone [phone] Organization [facility] e, NA DOCUMENT DISCLAIMER Multiple document versions may exist, please be sure you review the latest version. The information in the [facility] Progress Note Document represents a providers documented clinical note containing certain health and medical information. It may not contain the complete medical history for the patient and should be independently verified. The represented time in the document is Eastern Time PROVIDER ROUNDING NOTE BASIC Revised?By:?Maureen?Lidia,?CRISIS WORKER Revised?Date:?09/26/2023?7:54:41?PM Revised?Reason:?Additional?orders Patient:?Gama?Nataliia,?1940,?83y,?M Dialysis?[facility] Attending?Disc Ruler Operator:?Wandy?Costa Service?Date:?09/26/2023 Service?Provider:?Maureen?Lidia,?CRISIS WORKER I?met?face?to?face?with?the?patient?today. 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 He?has?decided?to?not?proceed?with?home?therapies. Medications?and?labs?reviewed. 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 still?urinates?quite?a?bit DIALYSIS?PRESCRIPTION ??IHD?3x?Week?Start?date:?09/28/23 ??Dialyzer:?180NRe?Optiflux ??BFR:?350 ??DFR:?Autoflow?2 ??Potassium:?3.0 ??Sodium:?138 ??EDW:?82.5 ??Duration:?3:00 ??Calcium:?2.5 ??Bicarb:?36 ??Rx?updated?on:?09/26/2023 TREATMENT?ASSESSMENT Comments:?BP?soft?throughout?treatment:?into?the?90?systolic ?range?mid?dialysis.??D/C?lisinopril.? BP?Stand?Pre ??09/26/2023:?232/192 ??09/16/2023:?98/58 BP?Sit?Pre ??09/26/2023:?116/65 ??09/16/2023:?91/63 ??09/14/2023:?145/106 BP?Stand?Post ??09/26/2023:?114/75 ??09/16/2023:?123/67 ??09/14/2023:?105/55 BP?Sit?Post ??09/26/2023:?122/62 ??09/16/2023:?104/70 ??09/14/2023:?113/101 Tx?Duration ??09/26/2023:?3:06 ??09/16/2023:?3:00 ??09/14/2023:?3:00 Missed?Treatments 0?-?last?30?days 0?-?last?60?days FLUID?ASSESSMENT Comments:?Stable. EDW?(kg) ??09/26/2023:?82.5 ??09/16/2023:?82.5 ??09/14/2023:?82.5 Weight?Pre?(kg) ??09/26/2023:?90.0 ??09/16/2023:?86.4 ??09/14/2023:?86.1 Weight?Post?(kg) ??09/26/2023:?87.9 ??09/16/2023:?86.3 ??09/14/2023:?83.9 PWV?(kg) ??09/26/2023:?5.4 ??09/16/2023:?3.8 ??09/14/2023:?1.4 UF?Rate?(mL/kg/hr) ??09/26/2023:?7.7 ??09/16/2023:?0.4 ??09/14/2023:?8.7 ADEQUACY?ASSESSMENT Comments:?Repeat?kt/v. spKt/V,?URR ??09/07/2023:?1.14,?63.0 ??08/10/2023:?1.73,?79.0 ??07/27/2023:?1.3,?68.0 ?? Urine?Cr?Clearance ??05/02/2023:?9.1 ACCESS?ASSESSMENT ??Access?Type:?CVCatheter ??Access?SubType:?Tunneled ??Access?Status:?Active?(In?Use)?-?07/20/2023 ??Access?Location:?Chest ??Placed:?07/19/2023 Comments:?To?see?vascular?surgery?in?[place]?08/27/2023:?th is?appt?was?for?July,?not?August.?He?went,?but?it is?being?rescheduled. ANEMIA?ASSESSMENT Comments:?On?IV?iron?and?FAUSTINA?protocol. HGB,?TSAT ??09/14/2023:?9.8,?- ??09/07/2023:?9.8,?22.0 ??08/31/2023:?9.6,?- ?? Ferritin ??07/13/2023:?502.0 ??06/15/2023:?559.0 ??04/13/2023:?483.0 Mircera,?IVP?(mcg) ??09/26/2023:?50 ??09/09/2023:?75 ??08/10/2023:?75 BMM?ASSESSMENT Comments:?No?new?labs?to?review PTH,?Intact ??07/13/2023:?258.0 ??04/13/2023:?284.0 ??03/13/2023:?373.0 ?? Calcium,?Phosphorus ??09/07/2023:?8.8,?3.5 ??08/10/2023:?8.3,?3.4 ??07/13/2023:?8.3,?3.8 NUTRITION?ASSESSMENT Comments:?Ed?on?protein?in?diet.:?on?protein?supplements. Albumin?has?increased. No?new?labs?to?review Potassium,?Albumin ??09/07/2023:?5.2,?3.6 ??08/10/2023:?4.4,?3.1 ??07/13/2023:?4.7,?3.4 ?? eNPCR ??09/07/2023:?0.75 ??08/10/2023:?0.73 ??07/27/2023:?0.88 PHYSICAL?EXAM Exam?Not?Performed. DIAGNOSIS Chief?Complaint:?N18.6?End?stage?renal?disease Patient?data?updated?09/26/2023?at?7:51?PM Signed?By:?Lidia,?Maureen,?CRISIS WORKER??on?09/26/2023?7:54:41 PM END OF DOCUMENT
--- OUTSIDE RECORDS SUMMARY | 2023-11-18 22:07 | XMS_ITS ---
Author Name Maureen Murillo Address [address] [place] [address] Phone [phone] Organization [facility] e, NA DOCUMENT DISCLAIMER Multiple document versions may exist, please be sure you review the latest version. The information in the [facility] Progress Note Document represents a providers documented clinical note containing certain health and medical information. It may not contain the complete medical history for the patient and should be independently verified. The represented time in the document is Eastern Time PROVIDER ROUNDING NOTE COMPREHENSIVE Patient:?Gama?Nataliia,?1940,?83y,?M Dialysis?Location:?[place] Attending?Cutter Finisher:?Wandy?Costa Service?Date:?11/14/2023 Service?Provider:?Maureen?Lidia,?VAULT CASHIER I?met?face?to?face?with?the?patient?today. 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 Medications?and?labs?reviewed. 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 still?urinates?quite?a?bit DIALYSIS?PRESCRIPTION ??IHD?3x?Week?Start?date:?11/02/23 ??Dialyzer:?180NRe?Optiflux ??BFR:?350 ??DFR:?Manual?800 ??Potassium:?3.0 ??Sodium:?138 ??EDW:?82.5 ??Duration:?3:45 ??Calcium:?2.5 ??Bicarb:?36 ??Rx?updated?on:?11/02/2023 TREATMENT?ASSESSMENT BP?Stand?Pre ??11/11/2023:?155/120 ??11/09/2023:?93/63 ??11/07/2023:?117/95 BP?Sit?Pre ??11/11/2023:?96/67 ??11/09/2023:?94/56 ??11/07/2023:?105/66 BP?Stand?Post ??11/11/2023:?89/58 ??11/09/2023:?106/71 ??11/07/2023:?162/62 BP?Sit?Post ??11/11/2023:?90/61 ??11/09/2023:?123/96 ??11/07/2023:?139/81 Tx?Duration ??11/11/2023:?3:49 ??11/09/2023:?3:49 ??11/07/2023:?3:47 Missed?Treatments 0?-?last?30?days 0?-?last?60?days FLUID?ASSESSMENT Comments:?Stable. EDW?(kg) ??11/11/2023:?82.5 ??11/09/2023:?82.5 ??11/07/2023:?82.5 Weight?Pre?(kg) ??11/11/2023:?84.6 ??11/09/2023:?86.1 ??11/07/2023:?85.8 Weight?Post?(kg) ??11/11/2023:?83.5 ??11/09/2023:?82.6 ??11/07/2023:?83.6 PWV?(kg) ??11/11/2023:?1.0 ??11/09/2023:?0.1 ??11/07/2023:?1.1 UF?Rate?(mL/kg/hr) ??11/11/2023:?3.5 ??11/09/2023:?11.1 ??11/07/2023:?7 ADEQUACY?ASSESSMENT Adequacy?target?met.?Prescription?compliance?acceptable.?No?changes?indicated.? spKt/V,?URR ??11/09/2023:?1.48,?71.0 ??10/17/2023:?1.22,?66.0 ??10/12/2023:?1.17,?65.0 ACCESS?ASSESSMENT ??Access?Type:?CVCatheter ??Access?SubType:?Tunneled ??Access?Status:?Active?(In?Use)?-?07/20/2023 ??Access?Location:?Chest ??Placed:?07/19/2023 Vascular?access?reviewed.?Current?access?is?permanent?and?functioning?well. ANEMIA?ASSESSMENT Comments:?On?IV?iron?and?FAUSTINA?protocol. Mircera?increased HGB,?TSAT ??11/09/2023:?9.9,?33.0 ??11/02/2023:?9.9,?- ??10/26/2023:?10.1,?- ?? Ferritin ??10/12/2023:?565.0 ??07/13/2023:?502.0 ??06/15/2023:?559.0 Mircera,?IVP?(mcg) ??10/31/2023:?60 ??10/17/2023:?60 ??09/26/2023:?50 Iron?Sucrose?(Venofer)?(mg) ??11/09/2023:?50 ??11/07/2023:?100 ??11/04/2023:?100 BMM?ASSESSMENT PTH?controlled.?Calcium?controlled.?Phosphorus?controlled.?No?celsa nges?indicated.? PTH,?Intact ??11/09/2023:?287.0 ??10/12/2023:?455.0 ??07/13/2023:?258.0 ?? Calcium,?Phosphorus ??11/09/2023:?8.6,?4.7 ??10/12/2023:?8.6,?4.5 ??09/07/2023:?8.8,?3.5 Vitamin?D?(Calcitriol)?Oral?(mcg) ??11/11/2023:?0.25 ??11/09/2023:?0.25 ??11/07/2023:?0.25 NUTRITION?ASSESSMENT Potassium?controlled.?Albumin?controlled.?No?changes?indicated.? Potassium,?Albumin ??11/09/2023:?4.9,?3.4 ??10/12/2023:?4.3,?3.5 ??09/07/2023:?5.2,?3.6 ?? eNPCR ??11/09/2023:?0.69 ??10/17/2023:?0.59 ??10/12/2023:?0.64 PHYSICAL?EXAM Comments:?CHronic?leg?edema. Exam?Not?Performed. DIAGNOSIS Chief?Complaint:?N18.6?End?stage?renal?disease Patient?data?updated?11/14/2023?at?12:59?PM Signed?By:?Lidia,?Maureen,?VAULT CASHIER??on?11/14/2023?1:02:17 PM END OF DOCUMENT
--- OUTSIDE RECORDS SUMMARY | 2023-11-18 22:07 | XMS_ITS ---
Author Name Maureen Murillo Address [address] [place] [address] Phone [phone] Organization [facility] e, NA DOCUMENT DISCLAIMER Multiple document versions may exist, please be sure you review the latest version. The information in the [facility] Progress Note Document represents a providers documented clinical note containing certain health and medical information. It may not contain the complete medical history for the patient and should be independently verified. The represented time in the document is Eastern Time PROVIDER ROUNDING NOTE BASIC Patient:?Gama?William,?1940,?83y,?M Dialysis?Location:?[place] Attending?Industrial [employer] Production Operator:?Glen Service?Date:?10/31/2023 Service?Provider:?Maureen?Lidia,?RAIL CAR REPAIRMAN I?met?face?to?face?with?the?patient?today. 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 Medications?and?labs?reviewed. 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 still?urinates?quite?a?bit DIALYSIS?PRESCRIPTION ??IHD?3x?Week?Start?date:?10/26/23 ??Dialyzer:?180NRe?Optiflux ??BFR:?350 ??DFR:?Manual?800 ??Potassium:?3.0 ??Sodium:?138 ??EDW:?83.5 ??Duration:?3:45 ??Calcium:?2.5 ??Bicarb:?36 ??Rx?updated?on:?10/24/2023 TREATMENT?ASSESSMENT BP?Stand?Pre ??10/31/2023:?98/55 ??10/26/2023:?112/60 ??10/24/2023:?80/35 BP?Sit?Pre ??10/31/2023:?109/82 ??10/26/2023:?105/74 ??10/24/2023:?109/70 BP?Stand?Post ??10/31/2023:?109/67 ??10/26/2023:?102/59 ??10/24/2023:?101/68 BP?Sit?Post ??10/31/2023:?121/65 ??10/26/2023:?136/67 ??10/24/2023:?110/78 Tx?Duration ??10/31/2023:?3:51 ??10/26/2023:?3:48 ??10/24/2023:?3:16 Missed?Treatments 0?-?last?30?days 0?-?last?60?days FLUID?ASSESSMENT Comments:?Stable. EDW?(kg) ??10/31/2023:?83.5 ??10/26/2023:?83.5 ??10/24/2023:?83.5 Weight?Pre?(kg) ??10/31/2023:?85.7 ??10/26/2023:?86.5 ??10/24/2023:?86.7 Weight?Post?(kg) ??10/31/2023:?84.0 ??10/26/2023:?86.0 ??10/24/2023:?84.7 PWV?(kg) ??10/31/2023:?0.5 ??10/26/2023:?2.5 ??10/24/2023:?1.2 UF?Rate?(mL/kg/hr) ??10/31/2023:?5.3 ??10/26/2023:?1.5 ??10/24/2023:?7.2 ADEQUACY?ASSESSMENT Comments:??treatment?time?has?been?increased?but?no?red rawn?clearance?has?been?completed?as?of?yet.??Redrawn assess?for?adequacy spKt/V,?URR ??10/17/2023:?1.22,?66.0 ??10/12/2023:?1.17,?65.0 ??10/03/2023:?1.14,?63.0 ?? Urine?Cr?Clearance ??05/02/2023:?9.1 ACCESS?ASSESSMENT ??Access?Type:?CVCatheter ??Access?SubType:?Tunneled ??Access?Status:?Active?(In?Use)?-?07/20/2023 ??Access?Location:?Chest ??Placed:?07/19/2023 ANEMIA?ASSESSMENT Comments:?On?IV?iron?and?FAUSTINA?protocol. HGB?at?goal.? HGB,?TSAT ??10/26/2023:?10.1,?- ??10/19/2023:?9.7,?- ??10/12/2023:?9.9,?27.0 ?? Ferritin ??10/12/2023:?565.0 ??07/13/2023:?502.0 ??06/15/2023:?559.0 Mircera,?IVP?(mcg) ??10/31/2023:?60 ??10/17/2023:?60 ??09/26/2023:?50 Iron?Sucrose?(Venofer)?(mg) ??10/31/2023:?100 ??10/26/2023:?100 ??10/24/2023:?100 BMM?ASSESSMENT Comments:??no?new?labs?to?review PTH,?Intact ??10/12/2023:?455.0 ??07/13/2023:?258.0 ??04/13/2023:?284.0 ?? Calcium,?Phosphorus ??10/12/2023:?8.6,?4.5 ??09/07/2023:?8.8,?3.5 ??08/10/2023:?8.3,?3.4 Vitamin?D?(Calcitriol)?Oral?(mcg) ??10/31/2023:?0.25 ??10/26/2023:?0.25 ??10/24/2023:?0.25 NUTRITION?ASSESSMENT Comments:??no?new?labs?to?review Potassium,?Albumin ??10/12/2023:?4.3,?3.5 ??09/07/2023:?5.2,?3.6 ??08/10/2023:?4.4,?3.1 ?? eNPCR ??10/17/2023:?0.59 ??10/12/2023:?0.64 ??10/03/2023:?0.6 PHYSICAL?EXAM Comments:?CHronic?leg?edema. DIAGNOSIS Chief?Complaint:?N18.6?End?stage?renal?disease Patient?data?updated?10/31/2023?at?7:14?PM Signed?By:?Lidia,?Maureen,?RAIL CAR REPAIRMAN??on?10/31/2023?7:16:08 PM END OF DOCUMENT
--- OUTSIDE RECORDS SUMMARY | 2023-11-18 22:07 | XMS_ITS | Patient Health Record ---
Author Name Unknown Organization [facility] Address [address] [place] [address] Care Team Providers Care Senior Data Analyst Name Role Phone Miguelito Persaud Primary Care Provider Casey Lebron Unavailable Unavailable Joe Guerrero Unavailable [phone] Libby Domingo Unavailable [phone] Allergies Allergen (clinical drug ingredient) Drug/Non Drug Allergy documented on EMR Reaction Allergy Type Onset Date Status morphine Morphine Sulfate Unknown Drug Allergy Active Results Component Value Reference Range Notes Hemoglobin A1c 68595 Reviewed date:11/13/2023 06:16:58 AM Interpretation: Performing Lab: Notes/Report: 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 >7.0 % diabetics. EAG 134 Estimated [place] ge Glucose(EAG). Thyroid Stimulating Hormone (TSH) 79088 Reviewed date:11/13/2023 06:16:58 AM Interpretation: Performing Lab: Notes/Report: Diagnosis Description: Hypothyroidism, unspecified Diagnosis Description: Other alf (current) drug therapy TSH 3.385 .358-3.740 MlU/ML CBC w\ Auto Diff [id number] Reviewed date:11/13/2023 06:16:58 AM Interpretation: Performing Lab: Notes/Report: Diagnosis Description: Essential (primary) hypertension Diagnosis Description: Iron deficiency anemia, unspecified Diagnosis Description: Other megaloblastic anemias, not elsewhere classified Diagnosis Description: Other rat exterminator (current) drug therapy WBC 5.4 4.5-11.0 X10'3 RBC 2.97 4.50-5.90 X10'6 Hgb 10.0 13.5-17.5 G/DL Hct 33.0 41.0-53.0 % MCV 111.1 80.0-100.0 FL MCH 33.7 27.0-31.0 PG MCHC 30.3 31.0-37.0 G/DL Platelet 105 150-400 X10'3 RDW-SD 81.6 35.0-49.0 FL RDW-CV 20.0 12.2-15.6 % MPV 11.4 9.2-12.0 FL Neutro Auto% 82.0 40.0-70.0 % Lymph Auto% 7.6 22.0-44.0 % Whiteside Auto% 7.5 3.0-7.0 % Eos Auto% 1.5 2.0-4.0 % Baso Auto% 0.7 0.0-1.0 % Imm Gran% .7 .0-.4 % Neutro Abs 4.39 .80-7.70 Absolute Neutrophil Count 4390 Lymph Abs .41 .10-4.10 Whiteside Abs .40 .20-1.00 Eos Abs .08 .00-.40 Baso Abs .04 .00-.20 Imm Gran Abs .04 .00-.10 NRBC# .00 .00-.20 NRBC% .00 .00-.20 /100 int act WBC's Iron Level [id number] Reviewed date:11/13/2023 06:16:58 AM Interpretation: Performing Lab: Notes/Report: Diagnosis Description: Iron deficiency anemia, unspecified Diagnosis Description: Other megaloblastic anemias, not elsewhere classified Diagnosis Description: Other rat exterminator (current) drug therapy Iron 54 65-175 MCG/DL Per Iron assay instruction for Use(IFU), patients treated with metal-binding drugs (e.g.deferoxamine) may have depressed iron values as chelated iron may not properly react in the iron assay. Testing was performed with this assay method. Comprehensive Metabolic Pane l [id number] Reviewed date:11/13/2023 06:16:58 AM Interpretation: Performing Lab: Notes/Report: Diagnosis Description: Essential (primary) hypertension Diagnosis Description: Iron deficiency anemia, unspecified Diagnosis Description: Other megaloblastic anemias, not elsewhere classified Diagnosis Description: Other rat exterminator (current) drug therapy Glucose Serum 129 71-110 MG/DL Testing perfor med at [facility], [address] [place] [address] [place] [address]. CLIA ID#: [id number] BUN 26 7-21 MG/DL Creat 3.18 .57-1.17 MG/DL C-zdnphr-t-benzoquinone imine (NAPQI) is a metabolite of acetaminophen, NAPQI concentrations of apparoximately 10 mg/L correlation to toxic levels of acetaminophen demonstrates a greater than or equil to 10% change in results. NAPQI concentrations greater than this may lead to falsely depressed results for patient samples. Use of this assay is not recommended for patients undergoing treatment with phenindione, due to the potential for falsely depressed results. GFR 18.3 Calculation per formed from GFR calculator provided by the [employer]. Glomerular Filtration rate(GRF) is the best overall index of kidney function. Normal GFR varies according to age,sex, body size, and declines with age. The National Kidney Foundation recommends using the CKD-EPI Creatinine Equation(2020) to estimate GFR. BUN/Creat Ratio 8.2 12.0-20.0 % Total Protein 6.1 5.8-8.0 G/DL Albumin 3.7 3.2-4.8 G/DL Globulin 2.4 2.3-3.5 G/DL Alb/Glob 1.5 0.8-2.2 Calcium 9.0 8.7-10.4 MG/DL Sodium 142 136-145 MMOL/L Potassium 4.3 3.5-5.1 MMOL/L Chloride 99 98-107 MMOL/L CO2 34.9 20.0-31.0 MMOL/L Anion Gap 12 5-15 Alk Phos 146 46-116 Bili Total .7 .3-1.2 MG/DL Use of this ass ay is not recommended for patients undergoing treatment with eltrombopag due to the potential for falsely elevated results. 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 >7.0 % diabetics. EAG 105 Estimated [place] ge Glucose(EAG). CBC w\ Auto Diff [id number] Reviewed date:04/06/2023 06:22:28 AM Interpretation: Performing Lab: Notes/Report: Diagnosis Description: Essential (primary) hypertension Diagnosis Description: Mixed hyperlipidemia Diagnosis Description: Iron deficiency anemia, unspecified Diagnosis Description: Other rat exterminator (current) drug therapy WBC 4.4 4.5-11.0 X10'3 RBC 2.78 4.50-5.90 X10'6 Hgb 8.8 13.5-17.5 G/DL Hct 29.4 41.0-53.0 % MCV 105.8 80.0-100.0 FL MCH 31.7 27.0-31.0 PG MCHC 29.9 31.0-37.0 G/DL Platelet 164 150-400 X10'3 RDW-SD 67.5 35.0-49.0 FL RDW-CV 17.5 12.2-15.6 % MPV 10.8 9.2-12.0 FL Neutro Auto% 73.9 42.0-75.0 % Lymph Auto% 13.3 21.0-51.0 % Whiteside Auto% 7.0 1.7-9.3 % Eos Auto% 3.8 .0-6.0 Baso Auto% 1.1 0.0-1.0 Imm Gran% .9 .0-.4 % Neutro Abs 3.27 .80-7.70 Absolute Neutrophil Count 3270 Lymph Abs .59 .10-4.10 Whiteside Abs .31 .20-1.00 Eos Abs .17 .00-.40 Baso Abs .05 .00-.10 Imm Gran Abs .04 .00-.10 NRBC# .00 .00-.20 NRBC% .00 .00-.20 /100 int act WBC's Iron Level 69012 Reviewed date:04/06/2023 06:22:28 AM Interpretation: Performing Lab: Notes/Report: Diagnosis Description: Essential (primary) hypertension Diagnosis Description: Mixed hyperlipidemia Diagnosis Description: Iron deficiency anemia, unspecified Diagnosis Description: Other alf (current) drug therapy Iron 45 65-175 MCG/DL Per Iron assay instruction for Use(IFU), patients treated with metal-binding drugs (e.g.deferoxamine) may have depressed iron values as chelated iron may not properly react in the iron assay. Testing was performed with this assay method. Comprehensive Metabolic [place] l [id number] Reviewed date:04/06/2023 06:22:28 AM Interpretation: Performing Lab: Notes/Report: Diagnosis Description: Essential (primary) hypertension Diagnosis Description: Mixed hyperlipidemia Diagnosis Description: Iron deficiency anemia, unspecified Diagnosis Description: Other rat exterminator (current) drug therapy Glucose Serum 131 71-110 MG/DL Testing perfor med at [facility], [address] [place] [address] [place] [address]. CLIA ID#: [id number] BUN 19 7-21 MG/DL Creat 2.67 .57-1.17 MG/DL B-jmzask-b-benzoquinone imine (NAPQI) is a metabolite of acetaminophen, NAPQI concentrations of apparoximately 10 mg/L correlation to toxic levels of acetaminophen demonstrates a greater than or equil to 10% change in results. NAPQI concentrations greater than this may lead to falsely depressed results for patient samples. Use of this assay is not recommended for patients undergoing treatment with phenindione, due to the potential for falsely depressed results. GFR 22.7 Calculation per formed from GFR calculator provided by the National Kid[employer]. Glomerular Filtration rate(GRF) is the best overall index of kidney function. Normal GFR varies according to age,sex, body size, and declines with age. The National Kidney Foundation recommends using the CKD-EPI Creatinine Equation(2009) to estimate GFR. BUN/Creat Ratio 7.1 12.0-20.0 % Total Protein 6.0 5.8-8.0 G/DL Albumin 3.7 3.2-4.8 G/DL Globulin 2.3 2.3-3.5 G/DL Alb/Glob 1.6 0.8-2.2 Calcium 8.9 8.7-10.4 MG/DL Sodium 139 136-145 MMOL/L Potassium 4.2 3.5-5.1 MMOL/L Chloride 101 98-107 MMOL/L CO2 30.6 20.0-31.0 MMOL/L Anion Gap 12 5-15 Alk Phos 94 46-116 Bili Total .5 .3-1.2 MG/DL Use of this ass ay is not recommended for patients undergoing treatment with eltrombopag due to the potential for falsely elevated results. 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 >7.0 % diabetics. EAG 126 Estimated [place] Glucose(EAG). Microalbumin (U) Random 8204 3 Reviewed date:01/05/2023 06:24:31 AM Interpretation: Performing Lab: Notes/Report: Diagnosis Description: Encounter for general adult medical examination without abnormal findings Ur Microalbumin >380.0 .0-30.0 MG/L Ur Creat 43.5 40.0-278.0 MG/DL Mal/Crea/Ratio >873.6 .0-30.0 mg Alb/g Cr Urinalysis--31643 Reviewed date:01/05/2023 06:24:31 AM Interpretation: Performing Lab: Notes/Report: Diagnosis Description: Encounter for general adult medical examination without abnormal findings Color UA Yellow Clarity UA Clear Specific gravity UA 1.009 1.005-1.030 Urine pH 6.0 5.0-8.0 Urine Glucose Negative Urine Bilirubin Negative Urine Ketone Negative Urine Blood Negative Urine Protein 2+ Negative Urobilinogen 0.2 0.1-1.0 Urine Nitrite Negative Urine Leukocyte Negative Normal UA Yes Lipid Panel Reflex DLDL 8006 1, 72130 Reviewed date:01/05/2023 06:24:31 AM Interpretation: Performing Lab: Notes/Report: Diagnosis Description: Mixed hyperlipidemia Diagnosis Description: Hypertensive chronic kidney disease with stage 1 through stage 4 chronic kidney disease, or unspecified chronic kidney disease Diagnosis Description: Encounter for general adult medical examination without abnormal findings Diagnosis Description: Other rat exterminator (current) drug therapy Trig 135 Classification Guidelines:Triglycerides Adults: >20yrs Desirable <150 Borderline High 150-199 High 200-499 Very high >=500 Children: Male 0-4 yr 22-99 5-9 yr 30-101 10-14 yr 32-125 15-19 yr 37-148 Children: Female 0-4 yr 34-112 5-9 yr 32-105 10-14 yr 37-131 15-19 yr 39-132 Chol 170 <=200 MG/DL HDL 44 30-72 MG/DL Reference Ranges:HDL Male: 5-9y 38-75 10-14y 37-74 15-19y 30-63 >=20y 40-59 Female: 5-9y 36-73 10-14y 37-70 15-19y 35-74 >=20y 40-59 CH/HDL 3.8 0.0-4.9 RATIO LDL 98 0-130 MG/DL LDL result is i naccurate , if Trig is >400 mg/dl. See DLDL result. CBC w\ Auto Diff [id number] Reviewed date:01/05/2023 06:24:31 AM Interpretation: Performing Lab: Notes/Report: Diagnosis Description: Mixed hyperlipidemia Diagnosis Description: Hypertensive chronic kidney disease with stage 1 through stage 4 chronic kidney disease, or unspecified chronic kidney disease Diagnosis Description: Encounter for general adult medical examination without abnormal findings Diagnosis Description: Other alf (current) drug therapy WBC 4.3 4.5-11.0 X10'3 RBC 3.01 4.50-5.90 X10'6 Hgb 9.8 13.5-17.5 G/DL Hct 32.1 41.0-53.0 % MCV 106.6 80.0-100.0 FL MCH 32.6 27.0-31.0 PG MCHC 30.5 31.0-37.0 G/DL Platelet 166 150-400 X10'3 RDW-SD 53.9 35.0-49.0 FL RDW-CV 13.7 12.2-15.6 % MPV 11.2 9.2-12.0 FL Neutro Auto% 73.1 42.0-75.0 % Lymph Auto% 12.9 21.0-51.0 % Whiteside Auto% 7.5 1.7-9.3 % Eos Auto% 4.9 .0-6.0 Baso Auto% 0.9 0.0-1.0 Imm Gran% .7 .0-.4 % Neutro Abs 3.13 .80-7.70 Absolute Neutrophil Count 3130 Lymph Abs .55 .10-4.10 Whiteside Abs .32 .20-1.00 Eos Abs .21 .00-.40 Baso Abs .04 .00-.10 Imm Gran Abs .03 .00-.10 NRBC# .00 .00-.20 NRBC% .00 .00-.20 /100 int act WBC's Iron Level [id number] Reviewed date:01/05/2023 06:24:31 AM Interpretation: Performing Lab: Notes/Report: Diagnosis Description: Iron deficiency anemia, unspecified Diagnosis Description: Encounter for general adult medical examination without abnormal findings Diagnosis Description: Other rat exterminator (current) drug therapy Iron 49 65-175 MCG/DL Per Iron assay instruction for Use(IFU), patients treated with metal-binding drugs (e.g.deferoxamine) may have depressed iron values as chelated iron may not properly react in the iron assay. Testing was performed with this assay method. Comprehensive Metabolic Pane l 55561 Reviewed date:01/05/2023 06:24:31 AM Interpretation: Performing Lab: Notes/Report: Diagnosis Description: Mixed hyperlipidemia Diagnosis Description: Hypertensive chronic kidney disease with stage 1 through stage 4 chronic kidney disease, or unspecified chronic kidney disease Diagnosis Description: Encounter for general adult medical examination without abnormal findings Diagnosis Description: Other alf (current) drug therapy Glucose Serum 115 71-110 MG/DL Testing perfor med at [address] [address]. CLIA ID#: [id number] BUN 39 7-21 MG/DL Creat 2.84 .57-1.17 MG/DL G-omjtzs-t-benzoquinone imine (NAPQI) is a metabolite of acetaminophen, NAPQI concentrations of apparoximately 10 mg/L correlation to toxic levels of acetaminophen demonstrates a greater than or equil to 10% change in results. NAPQI concentrations greater than this may lead to falsely depressed results for patient samples. Use of this assay is not recommended for patients undergoing treatment with phenindione, due to the potential for falsely depressed results. GFR 21.1 Calculation per formed from GFR calculator provided by the National Kidney Foundation. Glomerular Filtration rate(GRF) is the best overall index of kidney function. Normal GFR varies according to age,sex, body size, and declines with age. The National Kidney Foundation recommends using the CKD-EPI Creatinine Equation(2009) to estimate GFR. BUN/Creat Ratio 13.7 12.0-20.0 % Total Protein 6.5 5.8-8.0 G/DL Albumin 4.2 3.2-4.8 G/DL Globulin 2.3 2.3-3.5 G/DL Alb/Glob 1.8 0.8-2.2 Calcium 9.2 8.7-10.4 MG/DL Sodium 140 136-145 MMOL/L Potassium 5.1 3.5-5.1 MMOL/L Chloride 110 98-107 MMOL/L CO2 22.0 20.0-31.0 MMOL/L Anion Gap 13 5-15 Alk Phos 82 46-116 Bili Total .4 .3-1.2 MG/DL Use of this ass ay is not recommended for patients undergoing treatment with eltrombopag due to the potential for falsely elevated results. AST/SGOT 18 15-37 UNIT/L ALT/SGPT 13 12-78 UNIT/L Osmo Serum,Calculated 300 280-300 MOSM/KG PSA Medicare Screening--G010 3 Reviewed date:01/05/2023 06:24:37 AM Interpretation: Performing Lab: Notes/Report: Diagnosis Description: Personal history of malignant neoplasm of prostate Diagnosis Description: Encounter for general adult medical examination without abnormal findings Diagnosis Description: Other rat exterminator (current) drug therapy PSA 8.57 .00-4.00 NG/ML PSA concentra tions, regardless of the value, should not be interpreted as definitive evidence for the presence or absence of prostate cancer. Comprehensive Metabolic Pane l 95765 Reviewed date:08/10/2023 06:18:59 AM Interpretation: Performing Lab: Notes/Report: Diagnosis Description: Essential (primary) hypertension Diagnosis Description: Iron deficiency anemia, unspecified Diagnosis Description: Other rat exterminator (current) drug therapy Glucose Serum 107 71-110 MG/DL Testing perfor med at [address] [place], [place] [address]. CLIA ID#: [id number] BUN 20 7-21 MG/DL Creat 2.50 .57-1.17 MG/DL Z-mgigfw-j-benzoquinone imine (NAPQI) is a metabolite of acetaminophen, NAPQI concentrations of apparoximately 10 mg/L correlation to toxic levels of acetaminophen demonstrates a greater than or equil to 10% change in results. NAPQI concentrations greater than this may lead to falsely depressed results for patient samples. Use of this assay is not recommended for patients undergoing treatment with phenindione, due to the potential for falsely depressed results. GFR 24.5 Calculation per formed from GFR calculator provided by the National Kidney Foundation. Glomerular Filtration rate(GRF) is the best overall index of kidney function. Normal GFR varies according to age,sex, body size, and declines with age. The National Kidney Foundation recommends using the CKD-EPI Creatinine Equation(2020) to estimate GFR. BUN/Creat Ratio 8.0 12.0-20.0 % Total Protein 6.2 5.8-8.0 G/DL Albumin 3.9 3.2-4.8 G/DL Globulin 2.2 2.3-3.5 G/DL Alb/Glob 1.8 0.8-2.2 Calcium 9.2 8.7-10.4 MG/DL Sodium 135 136-145 MMOL/L Potassium 4.6 3.5-5.1 MMOL/L Chloride 101 98-107 MMOL/L CO2 31.8 20.0-31.0 MMOL/L Anion Gap 7 5-15 Alk Phos 108 46-116 Bili Total .6 .3-1.2 MG/DL Use of this ass ay is not recommended for patients undergoing treatment with eltrombopag due to the potential for falsely elevated results. AST/SGOT 21 15-37 UNIT/L ALT/SGPT 17 12-78 UNIT/L Osmo Serum,Calculated 283 280-300 MOSM/KG Iron Level [id number] Reviewed date:08/10/2023 06:18:59 AM Interpretation: Performing Lab: Notes/Report: Diagnosis Description: Essential (primary) hypertension Diagnosis Description: Iron deficiency anemia, unspecified Diagnosis Description: Other alf (current) drug therapy Iron 39 65-175 MCG/DL Per Iron assay instruction for Use(IFU), patients treated with metal-binding drugs (e.g.deferoxamine) may have depressed iron values as chelated iron may not properly react in the iron assay. Testing was performed with this assay method. CBC w\ Auto Diff [id number] Reviewed date:08/10/2023 06:18:59 AM Interpretation: Performing Lab: Notes/Report: Diagnosis Description: Essential (primary) hypertension Diagnosis Description: Iron deficiency anemia, unspecified Diagnosis Description: Other rat exterminator (current) drug therapy WBC 5.1 4.5-11.0 X10'3 RBC 3.59 4.50-5.90 X10'6 Hgb 11.1 13.5-17.5 G/DL Hct 36.1 41.0-53.0 % MCV 100.6 80.0-100.0 FL MCH 30.9 27.0-31.0 PG MCHC 30.7 31.0-37.0 G/DL Platelet 126 150-400 X10'3 RDW-SD 64.1 35.0-49.0 FL RDW-CV 17.0 12.2-15.6 % MPV 11.8 9.2-12.0 FL Neutro Auto% 81.8 42.0-75.0 % Lymph Auto% 7.1 21.0-51.0 % Whiteside Auto% 7.3 1.7-9.3 % Eos Auto% 2.4 .0-6.0 Baso Auto% 1.0 0.0-1.0 Imm Gran% .4 .0-.4 % Neutro Abs 4.14 .80-7.70 Absolute Neutrophil Count 4140 Lymph Abs .36 .10-4.10 Whiteside Abs .37 .20-1.00 Eos Abs .12 .00-.40 Baso Abs .05 .00-.10 Imm Gran Abs .02 .00-.10 NRBC# .00 .00-.20 NRBC% .00 .00-.20 /100 int act WBC's Hemoglobin A1c 23360 Reviewed date:08/10/2023 06:18:59 AM Interpretation: Performing Lab: Notes/Report: 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 >7.0 % diabetics. EAG 111 Estimated [place] ge Glucose(EAG). 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) Referral Organization [facility] [place] Referring Provider First Name Miguelito Referring Provider Last Name Hung Referring Provider Speciality [facility] rah Referred Provider [facility] Admissions Scheduling, [place] Referred Provider Specialty Multispecial ty Clinic or Group Practice Clinical Notes Sonja Beatty 11/05 09:54:48 AM >faxed ref Referral Priority Routine Medications Medication SIG (Take, Route, Frequency, Duration) Notes Start Date End Date Status Multivitamin - 1 tablet Orally Once a day Active Metoprolol Succinate ER 50 MG 1 tablet Orally Once a day for 90 days Active RenaPlex-D - as directed Orally for 30 days Active Nitroglycerin 0.4 MG 1 tablet Sublingual as directed for 30 days Active Clopidogrel Bisulfate 75 mg 1 tablet Orally Once a day for 90 days Active Bumetanide 1 MG 0.5 tablet Orally Once a day Active Levothyroxine Sodium 75 MCG 1 tablet in the morning on an empty stomach Orally Once a day for 90 days 11/15/2023 Active Dexlansoprazole 60 mg 1 capsule Orally Once a day for 90 days Active Ventolin HFA 108 (90 Base) MCG/ACT 1 puff as needed Inhalation every 4 hrs Active Atorvastatin Calcium 80 MG 1 tablet Orally Once a day for 30 days Active Aspirin 81 MG 1 tablet Orally Once a day Active Vitamin D2 1.25 mg one cap wkly for 8 wks Active Immunizations Vaccine Route Administration Date Status Comme nts COVID-19 Vaccine (Moderna) Booster IM Intramuscular 10/07/2021 Administered COVID-19 Vaccine (Moderna) Dose #1 Unknown 09/10/2020 Administered COVID-19 Vaccine (Moderna) Dose #2 Unknown 10/08/2020 Administered COVID-19 Vaccine (Moderna) Dose #3 IM Intramuscular 04/07/2021 Administered Flucelvax Quadrivalent Pres Free IM Intramuscular 03/12/2020 Administered Flucelvax Quadrivalent Pres Free IM Intramuscular 04/07/2021 Administered Flucelvax Quadrivalent Pres Free IM Intramuscular 04/06/2022 Administered Flucelvax Quadrivalent Pres Free IM Intramuscular 04/12/2023 Administered Influenza (whole), CPT 54420 Inactive Unknown 02/16/2018 Administered Pneumococcal conjugate PCV 13 Unknown 06/29/2015 Administered Pneumococcal polysaccharide PPV23 Unknown 12/16/2002 Administered Pneumococcal polysaccharide PPV23 Unknown 06/26/2012 Administered Prevnar 20 Unknown 02/28/2023 Administered Social History Tobacco Use: Social History Observation Description Date Details (start date - stop date) Former Smoker NA - NA Alcohol Screen (Audit-C) Question Answer Notes Did you have a drink contain ing alcohol in the past year? Yes How often did you have a dri nk containing alcohol in the past year? Monthly or less (1 point) How many drinks did you have on a typical day when you were drinking in the past year? 1 or 2 drinks (0 point) How often did you have 6 or more drinks on one occasion in the past year? Never (0 point) Points 1 Interpretation Negative PHQ-9 Question Answer Notes Little interest or pleasure in doing things Not at all Feeling down, depressed, or hopeless Not at all Trouble falling or staying asleep, or sleeping t oo much Several days Feeling tired or having little energy More than half the days Poor appetite or overeating Several days Feeling bad about yourself, or that you are a failure, or have let yourself or your family down Not at all Trouble concentrating on thi ngs, such as reading the newspaper or watching television Not at all Moving or speaking so slowly that other people could have noticed. Or the opposite ? being so fidgety or restless that you have been moving around a lot more than usual Not at all Thoughts that you would be b rajesh off , or of hurting yourself in some way Not at all Total Score 4 Interpretation Minimal Depression Tobacco Control (Standard) Question Answer Notes Tobacco use: Former smoker How long has it been since you last smoked? Grea ter than 10 years Problems Problem Type SNOMED Code ICD Code Onset Dates Problem Status W/U Status Risk Notes Problem 64804216 Type 2 diabetes mellitus with diabetic chronic kidney disease (E11.22) Active confirmed Problem 81294444 Type 2 diabetes mellitus with diabetic polyneuropathy (E11.42) Active confirmed Problem 404645258 Type 2 diabetes mellitus with other skin ulcer (E11.622) Active confirmed Problem 08091849 Hyperkalemia (E87.5) Active confirmed Problem 41690003 Other chronic pain (G89.29) Active confirmed Problem Right carotid artery stenosis ([id number]) Occlusion and stenosis of right carotid artery (I65.21) Active confirmed without evidence of TIA or stroke. 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) Active confirmed Problem 869897253 Difficulty in walking, not elsewhere classified (R26.2) Active confirmed Problem 936636694617 Dependence on supplemental oxygen (Z99.81) Active confirmed Problem 250581137 Mixed hyperlipidemia (E78.2) Active confirmed Problem 52563325 Essential (primary) hypertension (I10) Active confirmed Problem 66568987 Chronic obstructive pulmonary disease, unspecified COPD type (J44.9) Active confirmed Problem 69480172 Iron deficiency anemia, unspecified iron deficiency anemia type (D50.9) Active confirmed Problem 91163618 Hypothyroidism, unspecified type (E03.9) Active confirmed Problem 13953163 Hearing loss, unspecified hearing loss type, unspecified laterality (H91.90) Active confirmed Problem 71667920 Macrocytic anemia (D53.9) Active confirmed Problem Pulmonary fibrosis (88933920) Pulmonary fibrosis (J84.10) Active confirmed Problem 022142871 Adenocarcinoma of prostate (C61) Active confirmed Problem 859418076 Malignant neoplasm of urinary bladder, unspecified site (C67.9) Active confirmed Problem 856552024 Frequent falls (R29.6) Active confirmed Problem Congestive heart failure (51177809) CHF (congestive heart failure) (I50.9) Active confirmed Problem 500259108 Chronic kidney disease, unspecified CKD stage (N18.9) Active confirmed Problem Atrial fibrillation (40577317) Atrial fibrillation, unspecified type (I48.91) Active confirmed Problem 18015460 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) Active confirmed Problem End stage kidney disease (43916148) End stage kidney disease (N18.6) Active confirmed Problem 252794207 Frailty syndrome in geriatric patient (R54) Active confirmed Problem 062487583 Low back pain, unspecified (M54.50) Active confirmed Problem Cardiorenal syndrome with renal failure, 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, 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) Active confirmed Vital Signs Heart Rate 76 /min 11/15/2023 Temperature 97.6 degrees Fahrenheit 11/15/2023 Respiratory Rate 22 /min 11/15/2023 Height-cm 185.42 cm 11/15/2023 Oximetry 95 % 11/15/2023 Blood pressure diastolic 62 mm Hg 11/15/2023 Weight-kg 83.46 kg 11/15/2023 Height 73 in 11/15/2023 Blood pressure systolic 106 mm Hg 11/15/2023 Weight 184 lbs 11/15/2023 BMI 24.27 kg/m2 11/15/2023 Encounters Encounter Location Date Provider Diagnosis [facility] [place] [address] [place] [address] 11/15/2023 Miguelito Persaud Type 2 diabetes mellitus with diabetic chronic kidney disease E11.22 ; Hypertension with renal disease I12.9 ; End stage kidney disease N18.6 ; Hypothyroidism, unspecified type E03.9 ; Iron deficiency anemia, unspecified iron deficiency anemia type D50.9 ; Macrocytic anemia D53.9 ; Hyperkalemia E87.5 ; Type 2 diabetes mellitus with other skin ulcer E11.622 ; Non-pressure chronic ulcer of unspecified part of right lower leg with unspecified severity L97.919 ; Frequent falls R29.6 ; Difficulty in walking, not elsewhere classified R26.2 and Frailty syndrome in geriatric patient R54 [place] [address] [place] [address] 01/04/2023 Miguelito Persaud Type 2 diabetes mellitus with diabetic chronic kidney disease E11.22 ; Mixed hyperlipidemia E78.2 ; Hypothyroidism, unspecified type E03.9 ; Hypertension with renal disease I12.9 ; Iron deficiency anemia, unspecified iron deficiency anemia type D50.9 ; Personal history of prostate cancer Z85.46 ; Encounter for general adult medical examination without abnormal findings Z00.00 and Other alf (current) drug therapy Z79.[address] [address] 01/11/2023 Miguelito Persaud Encounter for genera l adult medical examination with abnormal findings Z00.01 ; Type 2 diabetes mellitus with diabetic chronic kidney disease E11.22 ; half-way (current) use of insulin Z79.4 ; Type 2 diabetes mellitus with diabetic polyneuropathy E11.42 ; Hypertension with renal disease I12.9 ; Mixed hyperlipidemia E78.2 ; Hypothyroidism, unspecified type E03.9 ; Chronic kidney disease, unspecified CKD stage N18.9 ; Hyperkalemia E87.5 ; Iron deficiency anemia, unspecified iron deficiency anemia type D50.9 ; 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 ; Atherosclerosis of [place] coronary artery of [place] heart without angina pectoris I25.10 ; Occlusion and stenosis of right carotid artery I65.21 ; Pulmonary fibrosis J84.10 ; Chronic obstructive pulmonary disease, unspecified COPD type J44.9 ; Gastro-esophageal reflux disease without esophagitis K21.9 ; Low back pain, unspecified M54.50 ; Traumatic arthropathy, 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 ; Traumatic arthropathy, 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 ; Other chronic pain G89.29 ; Adenocarcinoma of prostate C61 ; Malignant neoplasm of urinary bladder, unspecified site C67.9 ; Corns and callosities L84 ; Hearing loss, unspecified hearing loss type, unspecified laterality H91.90 ; Advanced care planning/counseling discussion Z71.89 ; Encounter for tobacco use screening Z01.89 and Essential (primary) hypertension I10 [address] [address] 03/07/2023 Libby Domingo Cardiorenal syndrome with renal failure, 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, with heart failure I13.2 ; Anemia of chronic disease D63.8 ; Type 2 diabetes mellitus with diabetic chronic kidney disease E11.22 ; Chronic kidney disease, unspecified N18.9 ; Hypothyroidism, unspecified type E03.9 ; Encounter for follow-up examination after completed treatment for conditions other than malignant neoplasm Z09 and Essential (primary) hypertension I10 [address] [address] 03/16/2023 Miguelito Persaud Encounter for follow-up examination after completed treatment for conditions other than malignant neoplasm Z09 ; Cardiorenal syndrome with renal failure, 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, with heart failure I13.2 ; End stage kidney disease N18.6 and CHF (congestive heart failure) I50.9 [facility] [address] [address] 03/28/2023 Joe Guerrero Cardiorenal syndrome with renal failure, 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, with heart failure I13.2 ; Systolic and diastolic CHF, acute on chronic I50.43 ; ESRD (end stage renal disease) N18.6 ; Atherosclerosis of [place] coronary artery of [place] heart without angina pectoris I25.10 ; Type 2 diabetes mellitus with diabetic polyneuropathy E11.42 ; Occlusion and stenosis of right carotid artery I65.21 ; half-way (current) use of oral hypoglycemic drugs Z79.84 and Long-term use of high-risk medication Z79.[address] [address] 04/05/2023 Miguelito Persaud Type 2 diabetes mellitus with diabetic chronic kidney disease E11.22 ; Essential (primary) hypertension I10 ; Mixed hyperlipidemia E78.2 ; Iron deficiency anemia, unspecified iron deficiency anemia type D50.9 and Long-term use of high-risk medication Z79.[address] [address] 04/12/2023 Miguelito Persaud Type 2 diabetes mellitus with diabetic chronic kidney disease E11.22 ; Cardiorenal syndrome with renal failure, 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, with heart failure I13.2 ; End stage kidney disease N18.6 ; CHF (congestive heart failure) I50.9 ; Hyperkalemia E87.5 ; Iron deficiency anemia, unspecified iron deficiency anemia type D50.9 ; Encounter for immunization Z23 ; Essential (primary) hypertension I10 and Depression screening Z13.[address] [address] 08/09/2023 Miguelito Persaud Type 2 diabetes mellitus with diabetic chronic kidney disease E11.22 ; Essential (primary) hypertension I10 ; Iron deficiency anemia, unspecified iron deficiency anemia type D50.9 and Long-term use of high-risk medication Z79.[address] [place] [address] 08/16/2023 Miguelito Persaud Type 2 diabetes mellitus with diabetic chronic kidney disease E11.22 ; long term acute care registered nurse (current) use of insulin Z79.4 ; Essential (primary) hypertension I10 ; End stage kidney disease N18.6 ; Hyperkalemia E87.5 ; Hypothyroidism, unspecified type E03.9 ; Encounter for tobacco use screening Z01.89 ; Iron deficiency anemia, unspecified iron deficiency anemia type D50.9 and Hypertension with renal disease I12.[address] [address] 10/04/2023 Miguelito Persaud Encounter for follow-up examination after completed treatment for conditions other than malignant neoplasm Z09 ; Acute systolic congestive heart failure I50.21 ; Atrial fibrillation, unspecified type I48.91 ; Cardiorenal syndrome with renal failure, 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, with heart failure I13.2 and Dependence on supplemental oxygen Z99.[address] [address] 11/03/2023 Joe Guerrero Encounter for follow-up examination after completed treatment for conditions other than malignant neoplasm Z09 ; Acute systolic congestive heart failure I50.21 ; Atrial fibrillation, unspecified type I48.91 ; Cardiorenal syndrome with renal failure, 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, with heart failure I13.2 and Dependence on supplemental oxygen Z99.81 [facility] [address] [address] 11/10/2023 Miguelito Persaud Type 2 diabetes mellitus with diabetic chronic kidney disease E11.22 ; Essential (primary) hypertension I10 ; Iron deficiency anemia, unspecified iron deficiency anemia type D50.9 ; Hypothyroidism, unspecified type E03.9 ; 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 and Long-term use of high-risk medication Z79.[address] [address] 03/02/2023 Libby Domingo [facility] [address] [place] [address] 03/03/2023 Miguelito Persaud [address] [address] 03/06/2023 Joe Guerrero [facility] [place] [address] [place] [address] 03/10/2023 Miguelito Persaud [facility] [place] [address] [place] [address] 06/29/2023 Miguelito Persaud [facility] [place] [address] [place] [address] 07/12/2023 Miguelito Persaud [facility] [place] [address] [place] [address] 09/19/2023 Miguelito Persaud [facility] [place] [address] [place] [address] 09/25/2023 Miguelito Persaud [facility] [address] [place] [address] 09/27/2023 Joe [facility] [place] [address] [place] [address] 10/31/2023 Miguelito Persaud Assessments Encounter Date Diagnosis (ICD Code) Assessment Notes Treatment Notes Treatment Clinical Notes 01/11/2023 Type 2 diabetes mellitus with diabetic chronic kidney disease (ICD-10 - E11.22) 01/11/2023 Encounter for general adult medical examination with abnormal findings (ICD-10 - Z00.01) 01/04/2023 Type 2 diabetes mellitus with diabetic chronic kidney disease (ICD-10 - E11.22) 01/04/2023 Mixed hyperlipidemia (ICD-10 - E78.2) 04/12/2023 Type 2 diabetes mellitus with diabetic chronic kidney disease (ICD-10 - E11.22) 04/12/2023 Cardiorenal syndrome with renal failure, 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 Follow up with grocery team member Dr. Guerrero as discussed. 03/28/2023 Systolic and diastolic CHF, acute on chronic (ICD-10 - I50.43) Metoprolol tartrate has no benefit for CHF; switch patient to metoprolol succinate 50 mg/day. 03/28/2023 Cardiorenal syndrome with renal failure, 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, with heart failure (ICD-10 - I13.2) 03/16/2023 Encounter for follow-up examination after completed treatment for conditions other than malignant neoplasm (ICD-10 - Z09) 03/16/2023 Cardiorenal syndrome with renal failure, 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, with heart failure (ICD-10 - I13.2) 08/16/2023 Type 2 diabetes mellitus with diabetic chronic kidney disease (ICD-10 - E11.22) 08/16/2023 long term acute care registered nurse (current) use of insulin (ICD-10 - Z79.4) 08/09/2023 Type 2 diabetes mellitus with diabetic chronic kidney disease (ICD-10 - E11.22) 08/09/2023 Essential (primary) hypertension (ICD-10 - I10) 11/15/2023 Type 2 diabetes mellitus with diabetic chronic kidney disease (ICD-10 - E11.22) 11/10/2023 Type 2 diabetes mellitus with diabetic chronic kidney disease (ICD-10 - E11.22) 11/10/2023 Essential (primary) hypertension (ICD-10 - I10) 11/15/2023 Hypertension with renal disease (ICD-10 - I12.9) 10/04/2023 Encounter for follow-up examination after completed treatment for conditions other than malignant neoplasm (ICD-10 - Z09) 10/04/2023 Acute systolic congestive heart failure (ICD-10 - I50.21) 11/03/2023 Encounter for follow-up examination after completed treatment for conditions other than malignant neoplasm (ICD-10 - Z09) 11/03/2023 Acute systolic congestive heart failure (ICD-10 - I50.21) 10/04/2023 Atrial fibrillation, unspecified type (ICD-10 - I48.91) 11/15/2023 End stage kidney disease (ICD-10 - N18.6) 11/10/2023 Iron deficiency anemia, unspecified iron deficiency anemia type (ICD-10 - D50.9) 08/09/2023 Iron deficiency anemia, unspecified iron deficiency anemia type (ICD-10 - D50.9) 08/16/2023 Essential (primary) hypertension (ICD-10 - I10) 03/28/2023 ESRD (end stage renal disease) (ICD-10 - N18.6) 03/16/2023 End stage kidney disease (ICD-10 - N18.6) 04/12/2023 End stage kidney disease (ICD-10 - N18.6) 03/07/2023 Type 2 diabetes mellitus with diabetic chronic kidney disease (ICD-10 - E11.22) 04/05/2023 Mixed hyperlipidemia (ICD-10 - E78.2) 01/04/2023 Hypothyroidism, unspecified type (ICD-10 - E03.9) 01/11/2023 half-way (current) use of insulin (ICD-10 - Z79.4) 01/11/2023 Type 2 diabetes mellitus with diabetic polyneuropathy (ICD-10 - E11.42) 04/05/2023 Iron deficiency anemia, unspecified iron deficiency anemia type (ICD-10 - D50.9) 01/04/2023 Hypertension with renal disease (ICD-10 - I12.9) 04/12/2023 CHF (congestive heart failure) (ICD-10 - I50.9) 03/07/2023 Chronic kidney disease, unspecified (ICD-10 - N18.9) 03/28/2023 Atherosclerosis of [place] coronary artery of [place] heart without angina pectoris (ICD-10 - I25.10) Discontinue gemfibrozil. Continue current dose of atorvastatin. 03/16/2023 CHF (congestive heart failure) (ICD-10 - I50.9) 08/09/2023 Long-term use of high-risk medication (ICD-10 - Z79.899) 11/10/2023 Hypothyroidism, unspecified type (ICD-10 - E03.9) 08/16/2023 End stage kidney disease (ICD-10 - N18.6) 11/15/2023 Hypothyroidism, unspecified type (ICD-10 - E03.9) 10/04/2023 Cardiorenal syndrome with renal failure, 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, with heart failure (ICD-10 - I13.2) 11/03/2023 Atrial fibrillation, unspecified type (ICD-10 - I48.91) 11/03/2023 Cardiorenal syndrome with renal failure, 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, with heart failure (ICD-10 - I13.2) 11/10/2023 Megaloblastic anemia (ICD-10 - D53.1) 10/04/2023 Dependence on supplemental oxygen (ICD-10 - Z99.81) 11/15/2023 Iron deficiency anemia, unspecified iron deficiency anemia type (ICD-10 - D50.9) 08/16/2023 Hyperkalemia (ICD-10 - E87.5) 03/07/2023 Hypothyroidism, unspecified type (ICD-10 - E03.9) 03/28/2023 Type 2 diabetes mellitus with diabetic polyneuropathy (ICD-10 - E11.42) 04/05/2023 Long-term use of high-risk medication (ICD-10 - Z79.899) 01/04/2023 Iron deficiency anemia, unspecified iron deficiency anemia type (ICD-10 - D50.9) 04/12/2023 Hyperkalemia (ICD-10 - E87.5) 01/11/2023 Hypertension with renal disease (ICD-10 - I12.9) 01/11/2023 Mixed hyperlipidemia (ICD-10 - E78.2) 01/04/2023 Personal history of prostate cancer (ICD-10 - Z85.46) 04/12/2023 Iron deficiency anemia, unspecified iron deficiency anemia type (ICD-10 - D50.9) 03/28/2023 Occlusion and stenosis of right carotid artery (ICD-10 - I65.21) 03/07/2023 Encounter for follow-up examination after completed treatment for conditions other than malignant neoplasm (ICD-10 - Z09) 08/16/2023 Hypothyroidism, unspecified type (ICD-10 - E03.9) 11/15/2023 Macrocytic anemia (ICD-10 - D53.9) 11/10/2023 Long-term use of high-risk medication (ICD-10 - Z79.899) 11/03/2023 Dependence on supplemental oxygen (ICD-10 - Z99.81) 08/16/2023 Encounter for tobacco use screening (ICD-10 - Z01.89) Tobacco screening performed with negative results. Tobacco use prevention provided to the pateint verbally. 11/15/2023 Hyperkalemia (ICD-10 - E87.5) 03/07/2023 Essential (primary) hypertension (ICD-10 - I10) 03/28/2023 half-way (current) use of oral hypoglycemic drugs (ICD-10 - Z79.84) 04/12/2023 Encounter for immunization (ICD-10 - Z23) 01/11/2023 Hypothyroidism, unspecified type (ICD-10 - E03.9) 01/04/2023 Encounter for general adult medical examination without abnormal findings (ICD-10 - Z00.00) 01/04/2023 Other rat exterminator (current) drug therapy (ICD-10 - Z79.899) 01/11/2023 Chronic kidney disease, unspecified CKD stage (ICD-10 - N18.9) 04/12/2023 Essential (primary) hypertension (ICD-10 - I10) 03/28/2023 Long-term use of high-risk medication (ICD-10 - Z79.899) 11/15/2023 Type 2 diabetes mellitus with other skin ulcer (ICD-10 - E11.622) 08/16/2023 Iron deficiency anemia, unspecified iron deficiency anemia type (ICD-10 - D50.9) 08/16/2023 Hypertension with renal disease (ICD-10 - I12.9) 11/15/2023 Non-pressure chronic ulcer of unspecified part of right lower leg with unspecified severity (ICD-10 - L97.919) 04/12/2023 Depression screening (ICD-10 - Z13.31) 01/11/2023 Hyperkalemia (ICD-10 - E87.5) 01/11/2023 Iron deficiency anemia, unspecified iron deficiency anemia type (ICD-10 - D50.9) 11/15/2023 Frequent falls (ICD-10 - R29.6) 11/15/2023 Difficulty in walking, not elsewhere classified (ICD-10 - R26.2) 01/11/2023 Megaloblastic anemia (ICD-10 - D53.1) 01/11/2023 Atherosclerosis of [place] coronary artery of [place] heart without angina pectoris (ICD-10 - I25.10) 11/15/2023 Frailty syndrome in geriatric patient (ICD-10 - R54) 01/11/2023 Occlusion and stenosis of right carotid artery (ICD-10 - I65.21) without evidence of TIA or stroke. 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 He declines to make any changes. Document copied to patient x3. 01/11/2023 Encounter for tobacco use screening (ICD-10 - Z01.89) Tobacco screening performed with negative results. Tobacco use prevention provided to the pateint verbally. 01/11/2023 Essential (primary) hypertension (ICD-10 - I10) 11/15/2023 Other Laboratory results reviewed and discussed with patient. Risks and benefits of prescribed regimen, including medications, was reviewed today. Benefits of current regimen, including changes or lack thereof, outweigh risks and treatment plan will be implemented accordingly. Continuing and long-term focal point services are provided for the patient for all healthcare in the form of evaluation and management. Increase levothyroxine to 75mcg to target TSH below 2.000. Discussed HH referral for PT/OT/wound mgmt. They prefer an appointemnt at the wound clinic in [place]. Rx for an electric floor chair lift. 01/11/2023 Other Laboratory results reviewed and discussed with patient. Risks and benefits of prescribed regimen, including medications, was reviewed today. Benefits of current regimen, including changes or lack thereof, outweigh risks and treatment plan will be implemented accordingly. Obtain dilated eye exam from Dr. Leland Barba in [place], [place]. Patient declines screening colonoscopy, not a candidate for ColoGuard due to chronic GI bleed. 03/07/2023 Other Patient's admitting and discharge diagnoses, and hospital tests/procedures are reviewed, as well as pre- and post-admission medications. Patient's current medications are updated and reconciled in the eHR. Patient provided with education regarding medication changes, including risks/benefits. Problem list reconciled by servicing provider. 03/16/2023 Other Patient's admitting and discharge diagnoses, and hospital tests/procedures are reviewed, as well as pre- and post-admission medications. Patient's current medications are updated and reconciled in the eHR. Patient provided with education regarding medication changes, including risks/benefits. Problem list reconciled by servicing provider. Complexity of data to be reviewed: High Complexity (extensive number of possible diagnoses and/or management options addressed; extensive amount and/or complexity of data reviewed presents high risk of significant complications, morbidity, and/or mortality (must be within 7 days of discharge) Continue dialysis. Follow up with grocery team member Dr. Guerrero as discussed. Recommended flu vaccine, patient wants to wait until follow up as he is in a hurry to get to dialysis this am. 03/28/2023 Other Follow up in 4 months. Patient is on dialysis, so we do not need to worry too much about the potential renal effects of medications. Thus, I am putting the patient on lisinopril 5 mg/day. Charmaine Venegas, am scribing for Joe Guerrero MD.Joe Venegas MD, personally performed the services prescribed in this documentation, as scribed by Charmaine Schreiber, and it is both accurate and complete. 04/12/2023 Other Patient's admitting and discharge diagnoses, and hospital tests/procedures are reviewed, as well as pre- and post-admission medications. Patient's current medications are updated and reconciled in the eHR. Patient provided with education regarding medication changes, including risks/benefits. Problem list reconciled by servicing provider. Complexity of data to be reviewed: High Complexity (extensive number of possible diagnoses and/or management options addressed; extensive amount and/or complexity of data reviewed presents high risk of significant complications, morbidity, and/or mortality (must be within 7 days of discharge) No changes. Recommended flu vaccine, amenable. Give Flu vaccine as directed per provider. Instructed patient that soreness, redness and swelling where the shot is given, fever, muscle aches, and headache can happen after influenza vaccination. An allergic reaction could occur after the vaccinated person leaves the clinic. If you see signs of a severe allergic reaction (hives, swelling of the face and throat, difficulty breathing, a fast heartbeat, dizziness, or weakness), call 9-1-1 and get to the nearest hospital. 08/16/2023 Other Laboratory results reviewed and discussed with patient. Risks and benefits of prescribed regimen, including medications, was reviewed today. Benefits of current regimen, including changes or lack thereof, outweigh risks and treatment plan will be implemented accordingly. Copy labs to patient for kit planner review. No changes, refill needed meds. 10/04/2023 Other WPatient's admitting and discharge diagnoses, and hospital tests/procedures are reviewed, as well as pre- and post-admission medications. Patient's current medications are updated and reconciled in the eHR. Patient provided with education regarding medication changes, including risks/benefits. Problem list reconciled by servicing provider. Complexity of data to be reviewed: Moderate Complexity (minimal or limited diagnoses and/or management options addressed; minimal to moderate amount and/or complexity of data reviewed presents moderate risk of significant complications, morbidity, and/or mortality [typically within 14 days of discharge]) Will send prescripion for home portable oxygen with concentrator at 2LPM NM to [facility]. No changes. Follow up with Dr. Guerrero as scheduled. Plan Of Treatment Pending Test Test Name Order Date PETCT 11/13/2019 CBC w\ Auto Diff [id number] 06/30/2021 Comprehensive Metabolic Panel 37001 06/09 Hemoglobin A1c 41459 06/30/2021 Iron Level 05201 06/30/2021 Electrocardiogram (EKG) 11/13/2019 Electrocardiogram (EKG) - 02443 06/02/19 22 CBC (59771) 02/02/2018 Occult Blood, Stool, Guaiac (68342) 12/07 Venipuncture 02/02/2018 Venipuncture 09/27/2017 Venipuncture 12/28/2017 CT CHEST W/O (18234) 07/12/2018 Chest X-ray PA and lateral (22489) 07/12 Chest X-ray PA and lateral (24507) 04/05 Chest X-ray PA and lateral (06765) 07/05 Future Test Test Name Order Date MANNY Occult Screening--[id number] 12/09/2019 MANNY Occult Screening--36581 12/24/2020 MANNY Occult Screening--[id number] 12/16/2021 Next Appt Details Provider Name:Miguelito Persaud, 1 08:15:00 AM, [address] [place] [address], [phone], Provider Name:Miguelito Persaud, 1 10:45:00 AM, [address] [place] [address], [phone], Provider Name:Joe Guerrero , 04/24/2024 11:15:00 AM, [address] [place] [address], [phone], Insurance Providers Payer Name Payer Address Payer Phone Subscriber Number Group Number Insured Name Patient Relationship to Insured Coverage Start Date Coverage End Date [place] Medicare [address] [place] [phone] [id number] Gama William Self - patient is the insured 0 Medical (General) History Medical History History ICD Code Type 2 DM Hypertension Hyperlipidemia Hypothyroidism End-Stage Renal Disease (TThSat Dialysis at [place]) Coronary Artery Disease COPD Chronic Low Back Pain OA Knees 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 Lomas Hospitalization History Reason Date(Month/Year)
--- NOTE | 2023-11-18 23:17 | ECG_ITS ---
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 Measurements Intervals [place] Rate: 82 P: 0 NC: 0 QRS: -2 QRSD: 134 T: 171 QT: 413 QTc: 484 Interpretive Statements ATRIAL FIBRILLATION WITH ABERRANT CONDUCTION OR VENTRICULAR PREMATURE COMPLEXES LEFT BUNDLE BRANCH BLOCK [120+ ms QRS DURATION, 80+ ms Q/S IN V1/V2, 85+ ms R IN I/aVL/V5/V6] Compared to ECG 10/28/2023 11:19:41 Ventricular premature complex(es) now present Aberrant conduction of supraventricular beat(s) now present Left bundle-branch block now present Electronically Signed On 11-19-2023 13:25:08 CDT by Severino Smith M.D. [id number]
--- NOTE | 2023-11-18 23:28 | PM.HP ---
Providers/Chief Complaint Admitting Physician: Rola Cristobal MD Primary Care Provider: Miguelito Persaud MD Chief Complaint: heart failure History of Present Illness Gama William is a 83 year old male history of A-fib not a good candidate for anticoagulation secondary to high blood score,end-stage renal disease Monday, cardiomyopathy EF 25%, was discharged on LifeVest, presented from [facility] for evaluation and management of hypotension. Patient was at dialysis today when he became hypotensive despite midodrine his blood pressure remained low and he was transferred to [facility] ER. Patient did not endorse chest pain however endorsing shortness of orthopnea and PND, 2600 mL was removed during dialysis today, patient not complaining active chest pain during my evaluation no active fever, blood pressure 96/62 on admission at the time of evaluation 107/62 mmHg, patient is very hard of hearing, has lower extremity edema. He takes Bumex, metoprolol and lisinopril. Lives with his son and [id number] Records reviewed, patient EKG is consistent with chronic left bundle branch block has A-fib with rate controlled Review of Systems Const: Denies: fever(s) Eyes: Denies: change in vision ENMT: Denies: throat pain Card: Reports: swelling of feet/ankles; Denies: chest pain Resp: Reports: dyspnea Medications/Allergies Home Medications Medication Instructions Recorded Confirmed Last Taken Type albuterol sulfate 90 mcg/actuation 90 puff inhalation DIRECTED PRN 09/19/23 09/19/23 Unknown History aerosol inhaler (Ventolin HFA) Shortness Of Breath Or Wheezing aspirin 81 mg tablet 81 mg PO DAILY 09/19/23 09/19/23 1 Day Ago History ~09/18/23 atorvastatin 80 mg tablet 80 mg PO BEDTIME 09/19/23 09/19/23 2 Days Ago History ~09/17/23 dexlansoprazole 60 mg 60 mg PO DAILY 09/19/23 09/19/23 1 Day Ago History capsule,biphase delayed release ~09/18/23 levothyroxine 50 mcg tablet 50 mcg PO QAM 09/19/23 09/19/23 1 Day Ago History ~09/18/23 lisinopril 5 mg tablet 5 mg PO BEDTIME 09/19/23 09/19/23 2 Days Ago History ~09/17/23 metoprolol succinate 50 mg 50 mg PO BEDTIME 09/19/23 09/19/23 2 Days Ago History tablet,extended release 24 hr ~09/17/23 tyngfemm-rasq-dohjs acid 400 200 tab PO DAILY 09/19/23 09/19/23 1 Day Ago History mcg-lycopene 600 mcg-ginkgo 120 mg ~09/18/23 tablet nitroglycerin 0.4 mg sublingual 0.4 mg sublingual Q5M PRN Chest 09/19/23 09/19/23 Unknown History tablet Pain vit B,C-folic ac 800 mcg-zinc 12.5 800 tab PO DIRECTED 09/19/23 09/19/23 Unknown History mg-selen-D3 2,000 unit-vit E tablet (RenaPlex-D) clopidogrel 75 mg tablet 75 mg PO DAILY #30 tabs 09/25/23 Unknown Rx Allergies Allergy/AdvReac Type Severity Reaction Status Date / Time morphine Allergy ADR-Halluci Verified 10/28/23 11:24 nating PFS Acute PFSH: Medical History (Updated 11/19/23 @ 00:02 by Dayday Soares MD) End stage kidney disease A-fib SCC (squamous cell carcinoma), ear Hypothyroid HTN (hypertension) CAD (coronary artery disease) COPD (chronic obstructive pulmonary disease) Hyperlipemia Diabetes mellitus Transitional cell bladder cancer GERD (gastroesophageal reflux disease) Chronic low back pain Iron deficiency anemia Adenocarcinoma of prostate Hearing loss CHF (congestive heart failure) Surgical History Hx of CABG X2 History of angioplasty History of appendectomy Hx laparoscopic cholecystectomy Family History Father Colon cancer Brother Colon cancer Social History Smoking and tobacco/nicotine status: former use of tobacco/nicotine Vitals/I&O/Wt Last Vital Signs Pulse 80 11/18/23 22:45 Resp 19 H 11/18/23 22:45 BP 96/62 11/18/23 22:45 Pulse Ox 95 11/18/23 22:45 Weight last 48 hrs Weight 81.329 kg Physical Exam Narrative: Anasarca Edema Currently on 2 L A-fib slow ventricular sponsor Normotensive GCS 15 Nonfocal neuroexam Very hard of hearing A&P Assessment and plan (1) CHF (congestive heart failure): (2) Hearing loss: (3) End stage kidney disease: (4) COPD (chronic obstructive pulmonary disease): (5) A-fib: Plan Anasarca Acute CHF exacerbation, systolic Hypotension Ischemic cardiomyopathy A-fib I do believe his hypotension is related to poor EF related to cardiomyopathy, no active chest pain, patient was discharged with a LifeVest on previous admission On top of that patient is on lisinopril and metoprolol Hold medications Midodrine should be used judiciously in low EF CHF patient's Currently patient is showing slow ventricular response with A-fib not on anticoagulating agent takes aspirin and Plavix, I do believe patient should only take 1 antiplatelet for A-fib instead of 2 Full code Lives with his son and ycnqgbym-km-wuk Physically deconditioned Guarded prognosis Please rediscuss goals of care with the patient once family is around in the morning I do anticipate patient going back to the hospital with hypotension Intrarenal disease continue vel, Monday, nephro consulted Renal diet Attestations Medical Necessity Statement*: Anticipate > 2 midnights for management of hypertension, CHF exacerbation Diagnoses CHF (congestive heart failure) I50.9 Hearing loss H91.90 End stage kidney disease N18.6 COPD (chronic obstructive pulmonary disease) J44.9 A-fib I48.91
[2023-11-19] VITALS (59 sets, daily range): BP systolic 93–124; BP diastolic 60–87; PULSE 65–116; RESP 6–38; TEMP 35.9–36.6; O2SAT 89–100
[2023-11-19] MEDS: heparin 5,000 unit/mL INJ 1 mL 5000 UNIT SUBCUT ×3 (00:08→22:50)
[2023-11-19 00:47] LABS: D Dimer 2.68 ug/mLFEU (0-0.59)
[2023-11-19 01:00] LABS: Troponin(5th) Baseline 152 ng/L (0-15)
--- NOTE | 2023-11-19 01:47 | ECG_ITS ---
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 Measurements Intervals [place] Rate: 103 P: 0 MA: 0 QRS: -8 QRSD: 136 T: 177 QT: 387 QTc: 508 Interpretive Statements ATRIAL FIBRILLATION WITH RAPID VENTRICULAR RESPONSE Intraventricular conduction delay Compared to ECG 11/18/2023 23:17:07 No significant change Electronically Signed On 11-19-2023 16:10:45 CDT by Severino Smith M.D. [id number]
[2023-11-19 02:54] LABS: Basophils % 0.7 %; Eosinophils # 0.1 10^3/uL (0.0-0.8); Eosinophils % 1.3 %; Hematocrit 29.7 % (37-53); Lymphocytes # 0.3 10^3/uL (0.8-4.8); Lymphocytes % 5.6 %; Mean Corpuscular HGB Conc 31.6 g/dL (30-55); Mean Corpuscular Hemoglobin 34.1 pg (27-33); Mean Corpuscular Volume 107.6 fl (82-101); Mean Platelet Volume 12.2 fL (7.4-10.4); Monocytes # 0.3 10^3/uL (0.2-0.9); Monocytes % 6.9 %; Neutrophils % 84.8 %; Nucleated Red Blood Cells % 0 %; Platelet Count 93 10^3/cmm (157-399); Red Blood Count 2.76 10^6/uL (3.85-5.65); Red Cell Distribution Width 18.3 % (12.1-15.1); White Blood Count 4.48 10^3/uL (3.29-11.43)
[2023-11-19 03:09] LABS: Blood Urea Nitrogen 26 mg/dL (8-23); Carbon Dioxide 26 mmol/L (22-29); Chloride 96 mmol/L (98-107); Creatinine Clr Calc Pharmacy 21.9541; Glucose 140 mg/dL (65-115); Osmolality Calculated 287 mOsm/kg (285-295); Sodium 135 mmol/L (136-145)
[2023-11-19 03:10] LABS: Anion Gap 17.3 (5-19); Potassium 4.3 mmol/L (3.5-5.1)
[2023-11-19 03:11] LABS: Troponin 5 2HR Delta -0.9 ABS# (0-10)
[2023-11-19 03:13] LABS: Troponin 5 2HR 151.9 ng/L (0-15)
--- NOTE | 2023-11-19 05:00 | ECG_ITS ---
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 Measurements Intervals [place] Rate: 103 P: 0 WV: 0 QRS: 13 QRSD: 141 T: 186 QT: 366 QTc: 481 Interpretive Statements ATRIAL FIBRILLATION WITH RAPID VENTRICULAR RESPONSE INTRAVENTRICULAR CONDUCTION DELAY [130+ ms QRS DURATION] Compared to ECG 11/19/2023 01:47:11 Intraventricular conduction delay now present Electronically Signed On 11-19-2023 16:10:02 CDT by Severino Smith M.D. [id number]
--- NOTE | 2023-11-19 06:45 | PC.NURSE ---
Patient started having shortness of breath at [address] Soares notified and ordered bipap.
[2023-11-19 07:29] LABS: Troponin 5 6HR Delta -5.5 ng/L (0-12)
[2023-11-19 07:35] LABS: Troponin 5 6HR 146.5 ng/L (0-15)
--- NOTE | 2023-11-19 07:48 | P.CONIM_ITS ---
Providers/Reason For Consult 2 Consulting Physician/Specialty*: girma ng md/ telenephrology Reason for Consult*: ESRD care Requesting Physician: Dr Johnathan Soares Attending Physician: Dayday Soares MD Primary Care Provider: Miguelito Persaud MD History of Present Illness History of Present Illness Gama William is a 83 year old male history of A-fib not a good candidate for anticoagulation secondary to high blood score,end-stage renal disease Monday, cardiomyopathy EF 15- 20%, was discharged on LifeVest, presented from [facility] for evaluation and management of hypotension. Patient was at dialysis yesterday when he became hypotensive despite midodrine his blood pressure remained low and he was transferred to [facility] ER. Patient was asmitted to ICU. he is on bipap and renal is called to see pt. Review of Systems 2 Narrative: Severely short of breath confused in bed on BiPAP. He understands he is a dialysis patient. He is unable to give any further history. Medications/Allergies Home Medications Medication Instructions Recorded Confirmed Last Taken Type albuterol sulfate 90 mcg/actuation 90 puff inhalation DIRECTED PRN 09/19/23 11/19/23 Unknown History aerosol inhaler (Ventolin HFA) Shortness Of Breath Or Wheezing aspirin 81 mg tablet 81 mg PO DAILY 09/19/23 11/19/23 1 Day Ago History ~09/18/23 atorvastatin 80 mg tablet 80 mg PO BEDTIME 09/19/23 11/19/23 2 Days Ago History ~09/17/23 dexlansoprazole 60 mg 60 mg PO DAILY 09/19/23 11/19/23 1 Day Ago History capsule,biphase delayed release ~09/18/23 levothyroxine 50 mcg tablet 50 mcg PO QAM 09/19/23 11/19/23 1 Day Ago History ~09/18/23 lisinopril 5 mg tablet 5 mg PO BEDTIME 09/19/23 11/19/23 2 Days Ago History ~09/17/23 metoprolol succinate 50 mg 50 mg PO BEDTIME 09/19/23 11/19/23 2 Days Ago History tablet,extended release 24 hr ~09/17/23 mhoizsnt-unhw-ndgic acid 400 200 tab PO DAILY 09/19/23 11/19/23 1 Day Ago History mcg-lycopene 600 mcg-ginkgo 120 mg ~09/18/23 tablet nitroglycerin 0.4 mg sublingual 0.4 mg sublingual Q5M PRN Chest 09/19/23 11/19/23 Unknown History tablet Pain vit B,C-folic ac 800 mcg-zinc 12.5 800 tab PO DIRECTED 09/19/23 11/19/23 Unknown History mg-selen-D3 2,000 unit-vit E tablet (RenaPlex-D) clopidogrel 75 mg tablet 75 mg PO DAILY #30 tabs 09/25/23 11/19/23 Unknown Rx bumetanide 1 mg tablet 0.5 mg 11/19/23 Unknown History Allergies Allergy/AdvReac Type Severity Reaction Status Date / Time morphine Allergy ADR-Halluci Verified 10/28/23 11:24 nating Current Medications Generic Name Dose Route Start Last Admin Trade Name Freq PRN Reason Stop Dose Admin Heparin Sodium (Porcine) 5,000 unit 11/18/23 23:00 11/19/23 00:08 Heparin 5,000 Unit/Ml Inj 1 Ml SUBCUT 5,000 unit Q12H KALYN Administration PFSH Acute 2 PFSH: Medical History (Updated 11/19/23 @ 00:02 by Dayday Soares MD) End stage kidney disease A-fib SCC (squamous cell carcinoma), ear Hypothyroid HTN (hypertension) CAD (coronary artery disease) COPD (chronic obstructive pulmonary disease) Hyperlipemia Diabetes mellitus Transitional cell bladder cancer GERD (gastroesophageal reflux disease) Chronic low back pain Iron deficiency anemia Adenocarcinoma of prostate Hearing loss CHF (congestive heart failure) Surgical History Hx of CABG X2 History of angioplasty History of appendectomy Hx laparoscopic cholecystectomy Family History Father Colon cancer Brother Colon cancer Social History Smoking and tobacco/nicotine status: former use of tobacco/nicotine Vitals/I&O/Wt Last Vital Signs Temp 97.9 F 11/19/23 04:51 Pulse 102 H 11/19/23 06:30 Resp 15 11/19/23 06:30 BP 111/81 11/19/23 06:30 Pulse Ox 89 L 11/19/23 06:00 O2 Del Method Nasal Cannula 11/19/23 00:48 FiO2 40 11/19/23 05:44 11/18/23 11/19/23 11/19/23 22:59 06:59 14:59 Output Total 75 / 75 Balance -75 / -75 Weight last 48 hrs Weight 81.329 kg Weight 81.329 kg Weight 81.329 kg Physical Exam 2 Narrative: Elderly male, ill-appearing on BiPAP in bed. Vital signs noted. HEENT normocephalic/atraumatic. Neck is supple JVP. Lungs crackles bilaterally with dull bases. Heart irregular regular with controlled rate. Positive systolic murmur. Abdomen is soft positive bowel sounds extremities bilateral edema. Dialysis access is a left anterior chest wall permacath. Neuro confused knows his name knows he is in the hospital and knows he is on dialysis however he is lethargic and not able to answer other questions appropriately. Patient was seen using A/V equipment as a telehealth visit. Urinary Catheter Management: Figueroa: Cath Placed During This Visit: yes Reason for Continuing Indwelling Catheter: Accurate Measurement of Urinary Output in Critically Ill Patients Urinary Catheter Date of Insertion: 11/19/23 Urinary Catheter Time of Insertion: 23:00 Data 11/19/23 02:12 11/19/23 02:12 A&P Assessment and plan (1) End stage kidney disease: The patient is an 83-year-old gentleman with severe heart failure reduced EF of 15 to 20% and valvular heart disease patient also has anemia and end-stage renal disease. Patient is persistently hypotensive. Patient was at dialysis and was unable to have dialysis due to hypotension. Patient's blood pressure is improving. However patient is severely short of breath even on BiPAP. While the patient is confused he understands he is a dialysis patient and except for dialysis today in the hospital. We will provide emergent dialysis just for fluid removal and monitor the patient. Please have cardiology see the patient to see if he would be an appropriate candidate for an LVAD or pacemaker or other device to help with his cardiac status if not the question will be whether palliative care would be more appropriate in this patient. Anemia can use Epogen. Chart reviewed in detail. The patient was seen and examined using A/V equipment this was a telehealth visit. Plan See above. Consult Attestations 2 Medical Necessity Statement: Severe shortness of breath, heart failure reduced EF with mitral regurgitation, ESRD, anemia. Patient currently on BiPAP. Time Spent in Patient Care: Greater than 35 minutes (>than 50% of time spent in counselling and/or direct pt care on unit) . Coding Level of Care Code Acute Code for Chg Fwd Diagnoses End stage kidney disease N18.6
--- NOTE | 2023-11-19 08:17 | USCV_ITS ---
Gama William Age: 83 Gender: M : 1940 Exam Date: 11/19/2023 17:08 Ordering Phys: Sergio Garcia MD Technologist: Jorge L Lim Exam Location: [facility] [place] Indication: chf BP: 115 / 70 HR: 88 Rhythm: Sinus Technical Quality: Adequate MEASUREMENTS (Male / Female) Normal Values 2D ECHO LV Diastolic Diameter PLAX 4.2 cm 4.2 - 5.9 / 3.9 - 5.3 cm IVS Diastolic Thickness 1.1 cm 0.6 - 1.0 / 0.6 - 0.9 cm IVS Systolic Thickness 1.2 cm LVPW Diastolic Thickness 1.7 cm 0.6 - 1.0 / 0.6 - 0.9 cm LVPW Systolic Thickness 1.8 cm LVOT Diameter 2.0 cm LV Ejection Fraction 2D Teich 16.9 % LV Ejection Fraction MOD 4C 19.1 % LV Ejection Fraction MOD 2C 24.3 % LV Ejection Fraction 2C AL 28.1 % LA Diameter 5.2 cm RA Systolic Volume 4C AL 89.3 ml RA Systolic Volume 4C MOD 89.8 ml LA Sys Volume AL 80.1 cm cubed LA Sys Volume Index AL 38.7 cm cubed/m squared Aorta at Sinotubular Diameter 2.5 cm IVC Diameter 2.5 cm M-MODE LA Ao Ratio MM 1.1 AV Cusp Separation MM 0.9 cm DOPPLER AV Peak Velocity 147.8 cm/s AV Area Cont Eq vti 1.2 cm squared AV Area Cont Eq pk 1.4 cm squared MV Peak Velocity 119.0 cm/s MV Area PHT 6.2 cm squared Mitral E to A Ratio 3.1 TV Peak Velocity 227.0 cm/s TR Peak Velocity 255.0 cm/s TR Peak Gradient 26.0 mmHg TR Mean Velocity 192.0 cm/s TR Mean Gradient 16.2 mmHg TR Velocity Time Integral 67.5 cm RV Ejection Time 0.2 s FINDINGS Left Ventricle Mildly dilated left ventricle cavity. Severely reduced LV systolic function. Estimated LVEF of 20 to 25%. Severe global hypokinesis except inferolateral wall which is less hypokinetic. Right Ventricle Dilated right ventricle. Impaired RV systolic function. Right Atrium Dilated right atrium Left Atrium Dilated left atrium Mitral Valve Thickened mitral valve. Moderate mitral regurgitation. Aortic Valve Thickened aortic valve. Trace aortic regurgitation Tricuspid Valve Structurally normal tricuspid valve. Moderate tricuspid regurgitation. Pulmonary artery systolic pressure 35 to 40 mmHg. Pulmonic Valve Pulmonic valve not well visualized. Mild regurgitation Pericardium No pericardial effusion. Aorta Normal size aortic root and proximal ascending aorta. IVC Dilated IVC. CONCLUSIONS Severely reduced LV systolic function. LVEF estimated at 20 - 25%. Dilated cardiomyopathy. Moderate mitral and tricuspid regurgitation. Moderately elevated right heart and pulmonary pressures. Dilated IVC. Severino Smith MD (Electronically Signed) Final Date: 19 November 2023 19:40 S
[2023-11-19] MEDS: clopidogrel 75 mg Tablet PO (08:37)
[2023-11-19] MEDS: pantoprazole 40 mg SDV IVP (08:38)
[2023-11-19] MEDS: aspirin 81 mg EC Tablet PO (08:38)
[2023-11-19] MEDS: midodrine 5 mg TABLET 10 MG PO ×3 (08:38→20:39)
[2023-11-19 09:27] LABS: Hepatitis B Surface AB < 3.5 (11.5-1000); Hepatitis B Surface Antigen Non-Reactive (Nonreactive); Hepatitis C Virus Antibody Non-Reactive (Nonreactive)
--- NOTE | 2023-11-19 09:27 | XRR_ITS ---
PROCEDURE INFORMATION: Exam: XR Chest Exam date and time: 11/19/2023 1:32 PM Age: 83 years old Clinical indication: Shortness of breath; Patient HX: SOB; Respiratory distress TECHNIQUE: Imaging protocol: Radiologic exam of the chest. Views: 1 view. COMPARISON: CR (CHEST, ) 10/28/2023 11:27 AM FINDINGS: Tubes, catheters and devices: A dialysis catheter is present with the tip projecting in the SVC. Lungs: There is pulmonary vascular congestion with bilateral infiltrates especially in the lung bases. Pleural spaces: There are bilateral pleural effusions with loculation along the left lateral chest wall. Heart/Mediastinum: The cardiac silhouette is enlarged. Bones/joints: Median sternotomy. XR/XR chest 1V portable [id number] IMPRESSION: Congestive heart failure with pulmonary edema and pleural effusions.
[2023-11-19] MEDS: cefTRIAXone 1,000 mg SDV 1000 MG IVP (09:43)
[2023-11-19] MEDS: bumetanide 0.25 mg/mL SDV 4 mL 1 MG IVP (09:43)
[2023-11-19] MEDS: water for injection-sterile 10 ML (09:46)
[2023-11-19 09:55] LABS: ABG PCO2 45.4 mmHg (35-45); Arterial Blood Gas Hematocrit 29.3 % (42-52); Base Excess ABG 3.1 mmol/L (-2.0-2.0); Blood Gas Allen Test Pos; Blood Gas Operator Identificat CAK; Blood Gas Sample Site Brachial, left; Blood Gas Sample Type Arterial; HCO3 ABG 28.3 mmol/L (22-26); Oxygen Device BIPAP; PO2 FiO2 Ratio Arterial Blood 350
[2023-11-19 10:13] LABS: Procalcitonin 0.27 ng/mL (0-0.5)
[2023-11-19] MEDS: heparin, porcine 1,000 unit/mL INJ 10 mL 1000 UNIT IV (10:22)
[2023-11-19 10:25] LABS: C Reactive Protein 35.7 mg/L (0.0-4.9)
[2023-11-19] MEDS: albumin 12.5 GM/50 ML VIAL IV (10:38)
--- NOTE | 2023-11-19 10:42 | PC.HD ---
Electronic consent for dialysis signed by patient. Albumin 25% initiated at treatment start due to soft BPs.
[2023-11-19 12:06] LABS: NT Pro B Type Natriuretic Pept > 70000 pg/mL (0-450)
--- NOTE | 2023-11-19 18:21 | P.PN_ITS ---
Subjective 2 Subjective: Patient was seen this morning, currently on BiPAP, due to complaints of shortness of breath, no fevers, no chills, no cough, there was concerns for aspiration with his breakfast this morning, will keep him n.p.o., family members report that he has had esophageal issues that have required dilatation of his esophagus ? Reexamined, currently off BiPAP resting more comfortably, he is received dialysis, will place him on a dysphagia level 4 diet, with aspiration precautions, speech therapy eval Vitals/I&O/Wt Last Vital Signs Temp 97.5 F L 11/19/23 13:42 Pulse 93 11/19/23 18:17 Resp 34 H 11/19/23 18:00 BP 120/74 11/19/23 18:00 Pulse Ox 100 11/19/23 18:00 O2 Del Method Nasal Cannula 11/19/23 18:00 O2 Flow Rate 4 11/19/23 18:00 FiO2 40 11/19/23 11:38 11/19/23 11/19/23 11/19/23 06:59 14:59 22:59 Intake Total 810 / 810 Output Total 75 / 75 2049 Balance -75 / -75 -1240 / -1240 Weight last 48 hrs Weight 83.4 kg Weight 81.329 kg Weight 81.329 kg Weight 81.329 kg Physical Exam 2 Const: COMMON NORMALS: no acute distress and patient oriented x3 Resp: COMMON NORMALS: normal respiratory effort, No retractions and No use of accessory muscles AUSCULTATION: crackles and wheezes Cardio: COMMON NORMALS: regular rate, regular rhythm, S1 normal heart sound present and S2 normal heart sound present RATE: regular rate RHYTHM: r egular rhythm HEART SOUNDS: S1 normal heart sound present and S2 normal heart sound present GI: COMMON NORMALS: Normal to inspection, nondistended, normoactive bowel sounds present and non-tender Extremity: COMMON NORMALS: no pedal edema Neuro: COMMON NORMALS: patient oriented x3 Psych: COMMON NORMALS: mental status grossly normal Urinary Catheter Management: Figueroa: Cath Placed During This Visit: yes Reason for Continuing Indwelling Catheter: Accurate Measurement of Urinary Output in Critically Ill Patients Urinary Catheter Date of Insertion: 11/19/23 Urinary Catheter Time of Insertion: 23:00 Data 11/19/23 02:12 11/19/23 02:12 Micro: Microbiology 11/19/23 02:34 Gram Stain - Final Sputum - Expectorated Sputum A&P Assessment and plan (1) CHF (congestive heart failure): (2) Hearing loss: (3) End stage kidney disease: (4) COPD (chronic obstructive pulmonary disease): (5) A-fib: (6) Acute hypoxic respiratory failure: (7) NSTEMI (non-ST elevated myocardial infarction): Plan Anasarca Acute CHF exacerbation, systolic, BNP over 70,000 Hypotension Ischemic cardiomyopathy ? Acute hypoxic respiratory failure ? NSTEMI A-fib ? History of esophageal issues, requiring esophageal dilatation I do believe his hypotension is related to poor EF related to cardiomyopathy, no active chest pain, patient was discharged with a LifeVest on previous admission On top of that patient is on lisinopril and metoprolol Hold medications Midodrine should be used judiciously in low EF CHF patient's Currently patient is showing slow ventricular response with A-fib not on anticoagulating agent takes aspirin and Plavix, Has received inpatient dialysis for fluid overload ? Continue BiPAP as needed for shortness of breath ? Continue aspiration precautions, dysphagia level 4 diet, speech therapy eval ? Acute on chronic anemia, monitor Acute on chronic thrombocytopenia monitor Full code Lives with his son and [id number] Physically deconditioned Guarded prognosis Please rediscuss goals of care with the patient once family is around in the morning I do anticipate patient going back to the hospital with hypotension Intrarenal disease continue Renvela, Monday, nephro consulted Renal diet Plan for today, receiving dialysis, as needed BiPAP, scheduled during the night for shortness of breath, aspiration precaution, dysphagia level diet, speech therapy eval, chest x-ray, BMP, with acute hypoxic respiratory failure Attestations 2 Medical Necessity Statement*: Patient requires hospitalization for acute CHF exacerbation with acute renal failure with ischemic cardiomyopathy, Diagnoses CHF (congestive heart failure) I50.9 Hearing loss H91.90 End stage kidney disease N18.6 COPD (chronic obstructive pulmonary disease) J44.9 A-fib I48.91 Acute hypoxic respiratory failure J96.01 NSTEMI (non-ST elevated myocardial infarction) I21.4
[2023-11-19] MEDS: atorvastatin 40 mg Tablet 80 MG PO (20:39)
[2023-11-20] VITALS (55 sets, daily range): BP systolic 96–124; BP diastolic 60–87; PULSE 68–101; RESP 6–36; TEMP 36.1–36.9; O2SAT 85–100; BMI 23.5
--- NOTE | 2023-11-20 07:13 | PM.PN ---
Subjective Subjective: awakens, uses bipap at night. weak. feels better then yesterday. had dialysis yesterday w/ 1.5 l removed yesterday Medications: Reviewed: Yes Medication Review Details: Current Medications Acetaminophen (Acetaminophen 325 Mg Tablet) 650 mg PO Q6H PRN PRN Reason: MILD PAIN Aspirin (Aspirin 81 Mg Ec Tablet) 81 mg PO DAILY [facility] Last Admin: 11/19/23 08:38 Dose: 81 mg Atorvastatin Calcium (Atorvastatin 40 Mg Tablet) 80 mg PO BEDTIME [facility] Last Admin: 11/19/23 20:39 Dose: 80 mg Ceftriaxone Sodium (Ceftriaxone 1,000 Mg Sdv) 1,000 mg IVP Q24H [facility]; Protocol Last Admin: 11/19/23 09:43 Dose: 1,000 mg Clopidogrel Bisulfate (Clopidogrel 75 Mg Tablet) 75 mg PO DAILY [facility] Last Admin: 11/19/23 08:37 Dose: 75 mg Heparin Sodium (Porcine) (Heparin 5,000 Unit/Ml Inj 1 Ml) 5,000 unit SUBCUT Q12H [facility] Last Admin: 11/19/23 22:50 Dose: 5,000 unit Norepinephrine Bitartrate (Levophed) 4 mg in 250 mls @ 0 mls/hr IV .Q0M [facility]; Protocol Albumin Human (Albumin) 12.5 gm in 50 mls @ 60 mls/hr IV PRN PRN PRN Reason: Hypotension and/or symptomatic Last Infusion: 11/19/23 13:56 Dose: Infused Midodrine (Midodrine 5 Mg Tablet) 10 mg PO TID [facility] Last Admin: 11/19/23 20:39 Dose: 10 mg Ondansetron HCl (Ondansetron 2 Mg/Ml Sdv 2 Ml) 4 mg IVP Q6H PRN PRN Reason: NAUSEA AND VOMITING Pantoprazole Sodium (Pantoprazole 40 Mg Sdv) 40 mg IVP DAILY [facility] Last Admin: 11/19/23 08:38 Dose: 40 mg Vitals/I&O/Wt Last Vital Signs Temp 97.6 F 11/20/23 04:00 Pulse 91 11/20/23 06:30 Resp 14 11/20/23 06:30 BP 112/67 11/20/23 06:30 Pulse Ox 97 11/20/23 06:30 O2 Del Method BiPAP 11/20/23 06:00 O2 Flow Rate 40 11/19/23 22:00 FiO2 40 11/20/23 06:00 11/19/23 11/20/23 11/20/23 22:59 06:59 14:59 Intake Total 220 / 1030 Output Total 50 / 2100 100 / 2200 Balance 170 / -1070 -100 / -1170 Weight last 48 hrs Weight 80.83 kg Weight 80.83 kg Weight 83.4 kg Weight 81.329 kg Weight 81.329 kg Weight 81.329 kg Physical Exam Narrative: Elderly male, ill-appearing on BiPAP in bed. Vital signs noted. HEENT normocephalic/atraumatic. Neck is supple JVP. Lungs decreased crackles bilaterally with dull bases. Heart irregular regular with controlled rate. Positive systolic murmur. Abdomen is soft positive bowel sounds extremities bilateral edema. Dialysis access is a left anterior chest wall permacath. Neuro - lethargic, more awake and interactive. moves, follows simple commands. Patient was seen using A/V equipment as a telehealth visit. Urinary Catheter Management: Figueroa: Cath Placed During This Visit: yes Reason for Continuing Indwelling Catheter: Accurate Measurement of Urinary Output in Critically Ill Patients Urinary Catheter Date of Insertion: 11/19/23 Urinary Catheter Time of Insertion: 23:00 Data 11/19/23 02:12 11/19/23 02:12 Micro: Microbiology 11/19/23 02:34 Gram Stain - Final Sputum - Expectorated Sputum A&P Assessment and plan (1) End stage kidney disease: The patient is an 83-year-old gentleman with severe heart failure reduced EF of 15 to 20% and valvular heart disease patient also has anemia and end-stage renal disease. Patient is persistently hypotensive. Patient was at dialysis and was unable to have dialysis due to hypotension. 1. s/p HD yesterday 2. blood pressure is okay 3. HF REF- pleasee have cardiology see the patient to see if he would be an appropriate candidate for an LVAD or pacemaker or other device to help with his cardiac status - echo- Severely reduced LV systolic function. LVEF estimated at 20 - 25%. Dilated cardiomyopathy. Moderate mitral and tricuspid regurgitation. Moderately elevated right heart and pulmonary pressures. Dilated IVC. Anemia can use Epogen. The patient was seen and examined using A/V equipment this was a telehealth visit. Plan See above. Attestations Medical Necessity Statement*: hfref, esrd, sob, hypotension Time Spent in Patient Care: 16 - 35 minutes (>than 50% of time spent in counselling and/or direct pt care on unit). Coding Level of Care Code Acute Code for Chg Fwd Diagnoses End stage kidney disease N18.6
[2023-11-20 07:31] LABS: Basophils % 0.9 %; Eosinophils # 0.1 10^3/uL (0.0-0.8); Eosinophils % 1.9 %; Hematocrit 30.6 % (37-53); Lymphocytes # 0.4 10^3/uL (0.8-4.8); Lymphocytes % 7.8 %; Mean Corpuscular HGB Conc 31.4 g/dL (30-55); Mean Corpuscular Hemoglobin 33.9 pg (27-33); Mean Corpuscular Volume 108.1 fl (82-101); Monocytes # 0.4 10^3/uL (0.2-0.9); Monocytes % 7.6 %; Neutrophils # 3.75 10^3/uL (1.8-7.7); Neutrophils % 80.9 %; Nucleated Red Blood Cells % 0 %; Platelet Count 110 10^3/cmm (157-399); Red Blood Count 2.83 10^6/uL (3.85-5.65); White Blood Count 4.63 10^3/uL (3.29-11.43)
[2023-11-20 07:55] LABS: Alanine Aminotransferase 13 U/L (0-41); Albumin Level 3.2 g/dL (3.5-5.2); Alkaline Phosphatase 112 U/L (40-130); Anion Gap 15.1 (5-19); Aspartate Amino Transferase 16 U/L (0-40); Blood Urea Nitrogen 37 mg/dL (8-23); Calcium 8.4 mg/dL (8.5-10.5); Carbon Dioxide 27 mmol/L (22-29); Chloride 95 mmol/L (98-107); Creatinine Clr Calc Pharmacy 16.5727; Globulin 2.7 g/dL (1.3-4.6); Glucose 79 mg/dL (65-115); Osmolality Calculated 284 mOsm/kg (285-295); Phosphorus 4.5 mg/dL (2.5-4.5); Potassium 4.1 mmol/L (3.5-5.1); Sodium 133 mmol/L (136-145); Total Bilirubin 0.5 mg/dL (0.15-1.2); Total Protein 5.9 g/dL (6.6-8.7)
[2023-11-20 07:56] LABS: Calcium 8.3 mg/dL (8.5-10.5)
[2023-11-20 08:02] LABS: Parathyroid Hormone 85.6 pg/mL (15-65)
[2023-11-20 08:09] LABS: Ferritin 1121 ng/mL (30-400)
[2023-11-20 08:10] LABS: 25 Hydroxy Vitamin D 41 ng/mL (30-100)
[2023-11-20] MEDS: aspirin 81 mg EC Tablet PO (08:16)
[2023-11-20] MEDS: pantoprazole 40 mg SDV IVP (08:16)
[2023-11-20] MEDS: clopidogrel 75 mg Tablet PO (08:16)
--- NOTE | 2023-11-20 09:16 | FL_ITS ---
WS: [id number] MODIFIED BARIUM SWALLOW HISTORY: Oral dysphagia FLUOROSCOPY TIME: 3min [id number] # of spot films: 5100 Modified barium swallow was performed by the speech pathologist. Fluoroscopy was provided with the pa tient in a lateral projection. Multiple food consistencies were provided. Patient swallowed all food consistencies without difficulty. Moderate laryngeal penetration was noted with the thinner liquids. Honey consistency improved the laryngeal penetration. No aspiration. Incom plete clearing to the level of the vallecula. Patient swallowed the barium tablet without difficulty. Chin tuck maneuver during thin liquids did not improve penetration. FL/FL barium swallow modifd 77000 IMPRESSION: 1. No aspiration. 2. Moderate laryngeal penetration with the thinner liquids. Chin tuck did not improve aspiration. Please see speech therapist report also for recommendations.
[2023-11-20] MEDS: cefTRIAXone 1,000 mg SDV 1000 MG IVP (09:31)
[2023-11-20] MEDS: midodrine 5 mg TABLET 10 MG PO ×3 (09:31→22:05)
[2023-11-20] MEDS: water for injection-sterile 10 ML (09:47)
--- NOTE | 2023-11-20 10:18 | PC.SOCIAL ---
IMM Update pg 2 of IMM updated and reviewed w/ patient. Copy provided and copy dated, initialed and placed in chart.
[2023-11-20 11:23] LABS: LAB Peripheral Smear Sent for Review
[2023-11-20 11:36] LABS: Iron 56 ug/dL (59-158)
[2023-11-20 11:51] LABS: Vitamin B12 940 pg/mL (232-1245)
[2023-11-20 11:52] LABS: Folate Level 17.2 ng/mL (4.5-32.2)
[2023-11-20] MEDS: heparin 5,000 unit/mL INJ 1 mL 5000 UNIT SUBCUT ×2 (12:00→22:05)
[2023-11-20] MEDS: dexmedeTOMIDine 0.9 % NaCL 400 MCG/100 ML PREMIX IV (14:25)
--- NOTE | 2023-11-20 16:32 | P.PN_ITS ---
Subjective 2 Subjective: Patient was seen this morning, denies any fevers, no chills, no lightheadedness, no dizziness, denies a cough, does report persistent shortness of breath, requiring BiPAP, he tells me that he has had issues with dysphagia in the past, he is required esophageal dilatation in the past Vitals/I&O/Wt Last Vital Signs Temp 97.5 F L 11/20/23 07:35 Pulse 90 11/20/23 15:43 Resp 14 11/20/23 14:00 BP 124/75 11/20/23 14:00 Pulse Ox 100 11/20/23 14:00 O2 Del Method BiPAP 11/20/23 14:00 O2 Flow Rate 4 11/20/23 12:30 FiO2 40 11/20/23 13:54 11/20/23 11/20/23 11/20/23 06:59 14:59 22:59 Intake Total 160 / 160 Output Total 100 / 2200 Balance -100 / -1170 160 / 160 Weight last 48 hrs Weight 80.83 kg Weight 80.83 kg Weight 83.4 kg Weight 81.329 kg Weight 81.329 kg Weight 81.329 kg Physical Exam 2 Const: COMMON NORMALS: no acute distress and patient oriented x3 Resp: COMMON NORMALS: normal respiratory effort, No retractions and No use of accessory muscles AUSCULTATION: crackles and wheezes Cardio: COMMON NORMALS: regular rate, regular rhythm, S1 normal heart sound present and S2 normal heart sound present RATE: regular rate RHYTHM: r egular rhythm HEART SOUNDS: S1 normal heart sound present and S2 normal heart sound present GI: COMMON NORMALS: Normal to inspection, nondistended, normoactive bowel sounds present and non-tender Extremity: COMMON NORMALS: no pedal edema Neuro: COMMON NORMALS: patient oriented x3 Urinary Catheter Management: Figueroa: Cath Placed During This Visit: yes Reason for Continuing Indwelling Catheter: Accurate Measurement of Urinary Output in Critically Ill Patients Urinary Catheter Date of Insertion: 11/19/23 Urinary Catheter Time of Insertion: 23:00 Data 11/20/23 07:18 11/20/23 07:18 Micro: Microbiology 11/19/23 02:34 Gram Stain - Final Sputum - Expectorated Sputum Sputum Culture - Preliminary A&P Assessment and plan (1) CHF (congestive heart failure): (2) Hearing loss: (3) End stage kidney disease: (4) COPD (chronic obstructive pulmonary disease): (5) A-fib: (6) Acute hypoxic respiratory failure: (7) NSTEMI (non-ST elevated myocardial infarction): Plan Anasarca Acute CHF exacerbation, systolic, BNP over 70,000 Hypotension Ischemic cardiomyopathy ? Acute hypoxic respiratory failure ? NSTEMI A-fib ? History of esophageal issues, requiring esophageal dilatation I do believe his hypotension is related to poor EF related to cardiomyopathy, no active chest pain, patient was discharged with a LifeVest on previous admission On top of that patient is on lisinopril and metoprolol Hold medications Midodrine should be used judiciously in low EF CHF patient's Currently patient is showing slow ventricular response with A-fib not on anticoagulating agent takes aspirin and Plavix, Has received inpatient dialysis for fluid overload ? Cardiac echo -CONCLUSIONS Severely reduced LV systolic function. LVEF estimated at 20 - 25%. Dilated cardiomyopathy. Moderate mitral and tricuspid regurgitation. Moderately elevated right heart and pulmonary pressures. Dilated IVC. ? Continue BiPAP as needed for shortness of breath ? Continue aspiration precautions, dysphagia level 4 diet, speech therapy eval, order modified barium swallow ? Acute on chronic anemia, monitor Acute on chronic thrombocytopenia monitor Full code Lives with his son and [id number] Physically deconditioned Guarded prognosis Please rediscuss goals of care with the patient once family is around in the morning I do anticipate patient going back to the hospital with hypotension Intrarenal disease continue Renvela, Monday, nephro consulted Renal diet Plan for today, for today dialysis, continue BiPAP, concerns for aspiration, modified barium swallow, speech therapy eval, aspiration precautions Attestations 2 Medical Necessity Statement*: Patient requires hospitalization for fluid overload, anasarca, CHF, required BiPAP, ICU monitoring, due to persistent shortness of breath, inpatient dialysis Diagnoses CHF (congestive heart failure) I50.9 Hearing loss H91.90 End stage kidney disease N18.6 COPD (chronic obstructive pulmonary disease) J44.9 A-fib I48.91 Acute hypoxic respiratory failure J96.01 NSTEMI (non-ST elevated myocardial infarction) I21.4
[2023-11-20] MEDS: atorvastatin 40 mg Tablet 80 MG PO (22:04)
[2023-11-21] VITALS (53 sets, daily range): BP systolic 85–114; BP diastolic 51–73; PULSE 65–98; RESP 10–41; TEMP 35.6–36.9; O2SAT 86–100; BMI 23.8
--- NOTE | 2023-11-21 03:45 | PC.NURSE ---
0200 Rectal temp 96.1, bear mickey placed on pt per Dr. Cristobal's orders.
[2023-11-21 03:57] LABS: Basophils % 0.7 %; Eosinophils # 0.1 10^3/uL (0.0-0.8); Eosinophils % 2.7 %; Hematocrit 30.5 % (37-53); Lymphocytes # 0.3 10^3/uL (0.8-4.8); Mean Corpuscular HGB Conc 30.8 g/dL (30-55); Mean Corpuscular Hemoglobin 33.8 pg (27-33); Mean Corpuscular Volume 109.7 fl (82-101); Mean Platelet Volume 11.4 fL (7.4-10.4); Monocytes # 0.4 10^3/uL (0.2-0.9); Monocytes % 8.5 %; Neutrophils % 79.9 %; Nucleated Red Blood Cells % 0 %; Platelet Count 102 10^3/cmm (157-399); Red Blood Count 2.78 10^6/uL (3.85-5.65); Red Cell Distribution Width 17.8 % (12.1-15.1); White Blood Count 4.13 10^3/uL (3.29-11.43)
[2023-11-21 04:17] LABS: Alanine Aminotransferase 13 U/L (0-41); Albumin Level 3.1 g/dL (3.5-5.2); Alkaline Phosphatase 114 U/L (40-130); Anion Gap 14.2 (5-19); Aspartate Amino Transferase 15 U/L (0-40); Blood Urea Nitrogen 43 mg/dL (8-23); Calcium 8.5 mg/dL (8.5-10.5); Carbon Dioxide 27 mmol/L (22-29); Chloride 96 mmol/L (98-107); Creatinine Clr Calc Pharmacy 14.5997; Globulin 2.5 g/dL (1.3-4.6); Glucose 124 mg/dL (65-115); Magnesium 2.1 mg/dL (1.7-2.3); Osmolality Calculated 288 mOsm/kg (285-295); Phosphorus 4.8 mg/dL (2.5-4.5); Potassium 4.2 mmol/L (3.5-5.1); Sodium 133 mmol/L (136-145); Total Bilirubin 0.4 mg/dL (0.15-1.2); Total Protein 5.6 g/dL (6.6-8.7)
--- NOTE | 2023-11-21 08:16 | P.PN_ITS ---
Subjective 2 Subjective: seen on precedex and bipap- short of breathj. not able to get a ROS Medications: Reviewed: Yes Medication Review Details: Current Medications Acetaminophen (Acetaminophen 325 Mg Tablet) 650 mg PO Q6H PRN PRN Reason: MILD PAIN Aspirin (Aspirin 81 Mg Ec Tablet) 81 mg PO DAILY [facility] Last Admin: 11/20/23 08:16 Dose: 81 mg Atorvastatin Calcium (Atorvastatin 40 Mg Tablet) 80 mg PO BEDTIME [facility] Last Admin: 11/20/23 22:04 Dose: 80 mg Ceftriaxone Sodium (Ceftriaxone 1,000 Mg Sdv) 1,000 mg IVP Q24H [facility]; Protocol Last Admin: 11/20/23 09:31 Dose: 1,000 mg Clopidogrel Bisulfate (Clopidogrel 75 Mg Tablet) 75 mg PO DAILY [facility] Last Admin: 11/20/23 08:16 Dose: 75 mg Heparin Sodium (Porcine) (Heparin 5,000 Unit/Ml Inj 1 Ml) 5,000 unit SUBCUT Q12H [facility] Last Admin: 11/20/23 22:05 Dose: 5,000 unit Norepinephrine Bitartrate (Levophed) 4 mg in 250 mls @ 0 mls/hr IV .Q0M [facility]; Protocol Albumin Human (Albumin) 12.5 gm in 50 mls @ 60 mls/hr IV PRN PRN PRN Reason: Hypotension and/or symptomatic Last Infusion: 11/19/23 13:56 Dose: Infused Dexmedetomidine/Sodium Chloride (Precedex) 400 mcg in 100 mls @ 0 mls/hr IV .Q0M [facility]; Protocol Last Titration: 11/21/23 05:09 Dose: 0.1 mcg/kg/hr, 2.02 mls/hr Midodrine (Midodrine 5 Mg Tablet) 10 mg PO TID [facility] Last Admin: 11/20/23 22:05 Dose: 10 mg Ondansetron HCl (Ondansetron 2 Mg/Ml Sdv 2 Ml) 4 mg IVP Q6H PRN PRN Reason: NAUSEA AND VOMITING Pantoprazole Sodium (Pantoprazole 40 Mg Sdv) 40 mg IVP DAILY [facility] Last Admin: 11/20/23 08:16 Dose: 40 mg Vitals/I&O/Wt Last Vital Signs Temp 96.9 F L 11/21/23 04:00 Pulse 74 11/21/23 06:00 Resp 19 H 11/21/23 06:00 BP 94/58 11/21/23 06:00 Pulse Ox 100 11/21/23 06:00 O2 Del Method BiPAP 11/21/23 06:00 O2 Flow Rate 4 11/20/23 18:00 FiO2 40 11/21/23 06:00 11/20/23 11/21/23 11/21/23 22:59 06:59 14:59 Intake Total 240 / 400 29.761 / 429.761 Output Total 100 / 100 150 / 250 Balance 140 / 300 -120.239 / 179.761 Weight last 48 hrs Weight 81.828 kg Weight 81.828 kg Weight 80.83 kg Weight 80.83 kg Weight 83.4 kg Physical Exam 2 Narrative: Elderly male, ill-appearing on BiPAP in bed. Vital signs noted. on precedex HEENT normocephalic/atraumatic. Neck is supple JVP. Lungs decreased crackles bilaterally with dull bases. Heart irregular regular with controlled rate. Positive systolic murmur. Abdomen is soft positive bowel sounds extremities bilateral edema. Dialysis access is a left anterior chest wall permacath. Neuro - lethargic, responds to painful stimuli Patient was seen using A/V equipment as a telehealth visit. Urinary Catheter Management: Figueroa: Cath Placed During This Visit: yes Reason for Continuing Indwelling Catheter: Accurate Measurement of Urinary Output in Critically Ill Patients Urinary Catheter Date of Insertion: 11/19/23 Urinary Catheter Time of Insertion: 23:00 Data 11/21/23 03:07 11/21/23 03:07 Micro: Microbiology 11/19/23 02:34 Gram Stain - Final Sputum - Expectorated Sputum Sputum Culture - Preliminary A&P Assessment and plan (1) End stage kidney disease: The patient is an 83-year-old gentleman with severe heart failure reduced EF of 15 to 20% and valvular heart disease patient also has anemia and end-stage renal disease. Patient is persistently hypotensive. Patient was at dialysis and was unable to have dialysis due to hypotension. 1. esrd- s/p HD monday. repeat hd today 2. blood pressure is low 3. HF REF- pleasee have cardiology see the patient to see if he would be an appropriate candidate for an LVAD or pacemaker or other device to help with his cardiac status - echo- Severely reduced LV systolic function. LVEF estimated at 20 - 25%. Dilated cardiomyopathy. Moderate mitral and tricuspid regurgitation. Moderately elevated right heart and pulmonary pressures. Dilated IVC. 4. Q PNA on ceftriaxone 5.Anemia- Epogen. prognosis is poor, agree with goals of care conversation and consider comfort care The patient was seen and examined using A/V equipment this was a telehealth visit. Plan See above. Attestations 2 Medical Necessity Statement*: hypotensive, esrd, bipap dependent, poor ms Time Spent in Patient Care: 16 - 35 minutes (>than 50% of time sp ent in counselling and/or direct pt care on unit) . Coding Level of Care Code Acute Code for Chg Fwd Diagnoses End stage kidney disease N18.6
[2023-11-21] MEDS: pantoprazole 40 mg SDV IVP (09:31)
[2023-11-21] MEDS: cefTRIAXone 1,000 mg SDV 1000 MG IVP (09:32)
[2023-11-21] MEDS: midodrine 5 mg TABLET 10 MG PO ×3 (09:32→22:08)
[2023-11-21] MEDS: epoetin alfa 10,000 unit/mL INJ 10000 UNIT SUBCUT (09:32)
[2023-11-21] MEDS: clopidogrel 75 mg Tablet PO (09:32)
[2023-11-21] MEDS: aspirin 81 mg EC Tablet PO (09:32)
[2023-11-21] MEDS: sodium chloride 0.9% (100 ml) 100 ML 250 ML (10:25)
[2023-11-21] MEDS: heparin 5,000 unit/mL INJ 1 mL 5000 UNIT SUBCUT ×2 (10:25→22:08)
--- NOTE | 2023-11-21 19:16 | P.PN_ITS ---
Subjective 2 Subjective: Patient was seen this morning, continues to complain of shortness of breath dependent on BiPAP, he feels better with the BiPAP on, he feels short of breath without it he tells me, denies any fevers, no chills Vitals/I&O/Wt Last Vital Signs Temp 98.5 F 11/21/23 16:00 Pulse 83 11/21/23 18:00 Resp 31 H 11/21/23 18:00 BP 102/61 11/21/23 18:00 Pulse Ox 96 11/21/23 18:00 O2 Del Method BiPAP 11/21/23 06:00 O2 Flow Rate 4 11/20/23 18:00 FiO2 40 11/21/23 13:24 11/21/23 11/21/23 11/21/23 06:59 14:59 22:59 Intake Total 29.761 / 429.761 130 / 130 27.607 / 157.607 Output Total 150 / 250 125 / 125 Balance -120.239 / 179.761 130 / 130 -97.393 / 32.607 Weight last 48 hrs Weight 81.828 kg Weight 81.828 kg Weight 80.83 kg Weight 80.83 kg Physical Exam 2 Const: COMMON NORMALS: no acute distress and patient oriented x3 Resp: COMMON NORMALS: normal respiratory effort, No retractions and No use of accessory muscles AUSCULTATION: crackles and wheezes Cardio: COMMON NORMALS: regular rate, regular rhythm, S1 normal heart sound present and S2 normal heart sound present RATE: regular rate RHYTHM: r egular rhythm HEART SOUNDS: S1 normal heart sound present and S2 normal heart sound present GI: COMMON NORMALS: Normal to inspection, nondistended, normoactive bowel sounds present and non-tender Extremity: COMMON NORMALS: no pedal edema Neuro: COMMON NORMALS: patient oriented x3 Psych: COMMON NORMALS: mental status grossly normal Urinary Catheter Management: Figueroa: Cath Placed During This Visit: yes Reason for Continuing Indwelling Catheter: Accurate Measurement of Urinary Output in Critically Ill Patients Urinary Catheter Date of Insertion: 11/19/23 Urinary Catheter Time of Insertion: 23:00 Data 11/21/23 03:07 11/21/23 03:07 Micro: Microbiology 11/19/23 02:34 Gram Stain - Final Sputum - Expectorated Sputum Sputum Culture - Final A&P Assessment and plan (1) CHF (congestive heart failure): (2) Hearing loss: (3) End stage kidney disease: (4) COPD (chronic obstructive pulmonary disease): (5) A-fib: (6) Acute hypoxic respiratory failure: (7) NSTEMI (non-ST elevated myocardial infarction): Plan Anasarca Acute CHF exacerbation, systolic, BNP over 70,000 Hypotension Ischemic cardiomyopathy ? Acute hypoxic respiratory failure ? NSTEMI A-fib ? History of esophageal issues, requiring esophageal dilatation I do believe his hypotension is related to poor EF related to cardiomyopathy, no active chest pain, patient was discharged with a LifeVest on previous admission On top of that patient is on lisinopril and metoprolol Hold medications Midodrine should be used judiciously in low EF CHF patient's Currently patient is showing slow ventricular response with A-fib not on anticoagulating agent takes aspirin and Plavix, Has received inpatient dialysis for fluid overload ? Cardiac echo -CONCLUSIONS Severely reduced LV systolic function. LVEF estimated at 20 - 25%. Dilated cardiomyopathy. Moderate mitral and tricuspid regurgitation. Moderately elevated right heart and pulmonary pressures. Dilated IVC. ? Continue BiPAP as needed for shortness of breath -On Precedex for agitation, anxiety ? Continue aspiration precautions, dysphagia level 4 diet, speech therapy eval, order modified barium swallow ? Acute on chronic anemia, monitor Acute on chronic thrombocytopenia monitor Full code Lives with his son and [id number] Physically deconditioned Guarded prognosis Please rediscuss goals of care with the patient once family is around in the morning I do anticipate patient going back to the hospital with hypotension Intrarenal disease continue Renvela, Monday, nephro consulted Renal diet Plan for today, remains BiPAP dependent, continue BiPAP, continue to monitor his feeds closely monitor for aspiration plans on dialysis today, continue Precedex drip Attestations 2 Medical Necessity Statement*: Patient requires hospitalization for acute hypoxic respiratory failure secondary to CHF, fluid overload requiring dialysis and requiring BiPAP, currently on Precedex drip Diagnoses CHF (congestive heart failure) I50.9 Hearing loss H91.90 End stage kidney disease N18.6 COPD (chronic obstructive pulmonary disease) J44.9 A-fib I48.91 Acute hypoxic respiratory failure J96.01 NSTEMI (non-ST elevated myocardial infarction) I21.4
[2023-11-21] MEDS: atorvastatin 40 mg Tablet 80 MG PO (22:07)
[2023-11-21] MEDS: albumin 12.5 GM/50 ML VIAL IV (22:19)
[2023-11-21] MEDS: heparin, porcine 1,000 unit/mL INJ 10 mL 10000 UNIT INTRACATH (23:25)
[2023-11-22] VITALS (43 sets, daily range): BP systolic 84–115; BP diastolic 43–84; PULSE 71–107; RESP 11–31; TEMP 35.9–36.7; O2SAT 87–100; BMI 23.5
[2023-11-22 04:15] LABS: Eosinophils # 0.1 10^3/uL (0.0-0.8); Eosinophils % 1.7 %; Hematocrit 29.5 % (37-53); Lymphocytes # 0.3 10^3/uL (0.8-4.8); Lymphocytes % 7.1 %; Mean Corpuscular HGB Conc 31.2 g/dL (30-55); Mean Corpuscular Hemoglobin 33.5 pg (27-33); Mean Corpuscular Volume 107.3 fl (82-101); Mean Platelet Volume 10.8 fL (7.4-10.4); Monocytes # 0.3 10^3/uL (0.2-0.9); Monocytes % 7.6 %; Neutrophils # 3.31 10^3/uL (1.8-7.7); Neutrophils % 81.1 %; Nucleated Red Blood Cells % 0.5 %; Platelet Count 114 10^3/cmm (157-399); Red Blood Count 2.75 10^6/uL (3.85-5.65); Red Cell Distribution Width 18.2 % (12.1-15.1); White Blood Count 4.08 10^3/uL (3.29-11.43)
[2023-11-22 04:33] LABS: Alanine Aminotransferase 12 U/L (0-41); Albumin Level 3.2 g/dL (3.5-5.2); Alkaline Phosphatase 128 U/L (40-130); Anion Gap 16.2 (5-19); Aspartate Amino Transferase 17 U/L (0-40); Blood Urea Nitrogen 27 mg/dL (8-23); Calcium 8.3 mg/dL (8.5-10.5); Carbon Dioxide 27 mmol/L (22-29); Chloride 97 mmol/L (98-107); Creatinine Clr Calc Pharmacy 21.2496; Globulin 2.5 g/dL (1.3-4.6); Glucose 106 mg/dL (65-115); Osmolality Calculated 288 mOsm/kg (285-295); Phosphorus 3.1 mg/dL (2.5-4.5); Potassium 4.2 mmol/L (3.5-5.1); Sodium 136 mmol/L (136-145); Total Bilirubin 0.4 mg/dL (0.15-1.2); Total Protein 5.7 g/dL (6.6-8.7)
[2023-11-22] MEDS: clopidogrel 75 mg Tablet PO (09:57)
[2023-11-22] MEDS: aspirin 81 mg EC Tablet PO (09:57)
[2023-11-22] MEDS: pantoprazole 40 mg SDV IVP (09:58)
[2023-11-22] MEDS: midodrine 5 mg TABLET 10 MG PO ×3 (09:58→20:38)
[2023-11-22] MEDS: cefTRIAXone 1,000 mg SDV 1000 MG IVP (09:58)
[2023-11-22] MEDS: heparin 5,000 unit/mL INJ 1 mL 5000 UNIT SUBCUT ×2 (12:12→22:25)
--- NOTE | 2023-11-22 12:57 | P.PN_ITS ---
Subjective 2 Subjective: s/p HD yesterday Medications: Reviewed: Yes Vitals/I&O/Wt Last Vital Signs Temp 98.0 F 11/22/23 04:00 Pulse 90 11/22/23 10:00 Resp 16 11/22/23 10:00 BP 99/66 11/22/23 10:00 Pulse Ox 100 11/22/23 10:00 O2 Del Method Nasal Cannula 11/22/23 06:00 O2 Flow Rate 4 11/22/23 06:00 FiO2 40 11/22/23 04:00 11/21/23 11/22/23 11/22/23 22:59 06:59 14:59 Intake Total 87.607 / 217.607 308.146 / 525.753 Output Total 125 / 125 100 / 225 Balance -37.393 / 92.607 208.146 / 300.753 Weight last 48 hrs Weight 80.83 kg Weight 80.83 kg Weight 81.828 kg Weight 81.828 kg Physical Exam 2 Narrative: Elderly male, ill-appearing on BiPAP in bed. Vital signs noted. on precedex HEENT normocephalic/atraumatic. Neck is supple JVP. Lungs decreased crackles bilaterally with dull bases. Heart irregular regular with controlled rate. Positive systolic murmur. Abdomen is soft positive bowel sounds extremities bilateral edema. Dialysis access is a left anterior chest wall permacath. Neuro - lethargic, responds to painful stimuli Patient was seen using A/V equipment as a telehealth visit. Urinary Catheter Management: Figueroa: Cath Placed During This Visit: yes Reason for Continuing Indwelling Catheter: Accurate Measurement of Urinary Output in Critically Ill Patients Urinary Catheter Date of Insertion: 11/19/23 Urinary Catheter Time of Insertion: 23:00 Data 11/22/23 03:27 11/22/23 03:27 Micro: Microbiology 11/19/23 02:34 Gram Stain - Final Sputum - Expectorated Sputum Sputum Culture - Final A&P Assessment and plan (1) End stage kidney disease: The patient is an 83-year-old gentleman with severe heart failure reduced EF of 15 to 20% and valvular heart disease patient also has anemia and end-stage renal disease. Patient is persistently hypotensive. Patient was at dialysis and was unable to have dialysis due to hypotension. 1. ESRD - s/p HD monday , next hD tomorrow 3. HF REF- - echo- Severely reduced LV systolic function. LVEF estimated at 20 - 25%.Dilated cardiomyopathy.Moderate mitral and tricuspid regurgitation.Moderately elevated right heart and pulmonary pressures. Dilated IVC. 4. Q PNA on ceftriaxone 5.Anemia- Epogen. prognosis is poor, agree with goals of care conversation and consider comfort care The patient was seen and examined using A/V equipment this was a telehealth visit. Plan See above. Attestations 2 Medical Necessity Statement*: per fred Coding Level of Care Code Acute Code for Chg Fwd Diagnoses End stage kidney disease N18.6
--- NOTE | 2023-11-22 13:33 | PC.SOCIAL ---
IMM Update pg 2 of IMM updated and reviewed w/ patient. Copy provided and copy dated, initialed and placed in chart.
--- NOTE | 2023-11-22 14:17 | P.PN_ITS ---
Subjective 2 Subjective: Patient was seen this morning, he tells me he is breathing much more easily today, denies any episodes of shortness of breath, he has tolerated dialysis, blood pressures are reasonable, he is off Precedex, does report feeling weak and fatigued Vitals/I&O/Wt Last Vital Signs Temp 98.0 F 11/22/23 04:00 Pulse 91 11/22/23 14:00 Resp 26 H 11/22/23 12:00 BP 114/73 11/22/23 14:00 Pulse Ox 92 11/22/23 14:00 O2 Del Method Nasal Cannula 11/22/23 06:00 O2 Flow Rate 4 11/22/23 06:00 FiO2 40 11/22/23 04:00 11/21/23 11/22/23 11/22/23 22:59 06:59 14:59 Intake Total 87.607 / 217.607 308.146 / 525.753 240 / 240 Output Total 125 / 125 100 / 225 Balance -37.393 / 92.607 208.146 / 300.753 240 / 240 Weight last 48 hrs Weight 80.83 kg Weight 80.83 kg Weight 81.828 kg Weight 81.828 kg Physical Exam 2 Const: COMMON NORMALS: no acute distress and patient oriented x3 Neck/C-Spine: COMMON NORMALS: no JVD Resp: COMMON NORMALS: normal respiratory effort, No retractions, No use of accessory muscles and clear to auscultation bilaterally AUSCULTATION: clear to auscultation bilaterally Cardio: COMMON NORMALS: no JVD, regular rate, regular rhythm, S1 normal heart sound present and S2 normal heart sound present RATE: regular rate RHYTHM: regular rhythm HEART SOUNDS: S1 normal heart sound present and S2 normal heart sound present GI: COMMON NORMALS: Normal to inspection, nondistended, normoactive bowel sounds present and non-tender Extremity: COMMON NORMALS: no pedal edema Neuro: COMMON NORMALS: patient oriented x3 Psych: COMMON NORMALS: mental status grossly normal Skin: NARRATIVE SKIN EXAM: Evidence of muscle loss, moderate protein anjelica malnutrition, bilateral temporal muscle wasting, bilateral fat pad under bilateral clavicles, ribs exposed, muscle wasting of bilateral arms, thighs Urinary Catheter Management: Figueroa: Cath Placed During This Visit: yes Reason for Continuing Indwelling Catheter: Accurate Measurement of Urinary Output in Critically Ill Patients Urinary Catheter Date of Insertion: 11/19/23 Urinary Catheter Time of Insertion: 23:00 Data 11/22/23 03:27 11/22/23 03:27 Micro: Microbiology 11/19/23 02:34 Gram Stain - Final Sputum - Expectorated Sputum Sputum Culture - Final A&P Assessment and plan (1) CHF (congestive heart failure): (2) Hearing loss: (3) End stage kidney disease: (4) COPD (chronic obstructive pulmonary disease): (5) A-fib: (6) Acute hypoxic respiratory failure: (7) NSTEMI (non-ST elevated myocardial infarction): (8) Physical deconditioning: (9) Protein calorie malnutrition: Plan Anasarca Acute CHF exacerbation, systolic, BNP over 70,000 Hypotension Ischemic cardiomyopathy ? Acute hypoxic respiratory failure ? NSTEMI A-fib ? History of esophageal issues, requiring esophageal dilatation I do believe his hypotension is related to poor EF related to cardiomyopathy, no active chest pain, patient was discharged with a LifeVest on previous admission On top of that patient is on lisinopril and metoprolol Hold medications Midodrine should be used judiciously in low EF CHF patient's Currently patient is showing slow ventricular response with A-fib not on anticoagulating agent takes aspirin and Plavix, Has received inpatient dialysis for fluid overload ? Cardiac echo -CONCLUSIONS Severely reduced LV systolic function. LVEF estimated at 20 - 25%. Dilated cardiomyopathy. Moderate mitral and tricuspid regurgitation. Moderately elevated right heart and pulmonary pressures. Dilated IVC. ? Continue BiPAP as needed for shortness of breath -On Precedex for agitation, anxiety ? Continue aspiration precautions, dysphagia level 4 diet, speech therapy eval, order modified barium swallow ? Acute on chronic anemia, monitor Acute on chronic thrombocytopenia monitor Full code Lives with his son and [id number] Physically deconditioned, protein calorie malnutrition consult dietary Guarded prognosis Please rediscuss goals of care with the patient once family is around in the morning I do anticipate patient going back to the hospital with hypotension Intrarenal disease continue Arin, Monday, nephro consulted Renal diet Plan for today, moved to cardiac stepdown unit, can use nasal cannula during the day, BiPAP as needed during the day, scheduled during the night, transitioned off Precedex, will receive dialysis tomorrow, PT OT, up out of bed, dietary eval Attestations 2 Medical Necessity Statement*: Patient requires hospitalization for fluid overload, CHF exacerbation, respiratory failure Diagnoses CHF (congestive heart failure) I50.9 Hearing loss H91.90 End stage kidney disease N18.6 COPD (chronic obstructive pulmonary disease) J44.9 A-fib I48.91 Acute hypoxic respiratory failure J96.01 NSTEMI (non-ST elevated myocardial infarction) I21.4 Physical deconditioning R53.81 Protein calorie malnutrition E46
[2023-11-22] MEDS: atorvastatin 40 mg Tablet 80 MG PO (20:38)
[2023-11-23] VITALS (28 sets, daily range): BP systolic 96–122; BP diastolic 42–89; PULSE 80–105; RESP 12–27; TEMP 35.4–36.8; O2SAT 88–100
--- NOTE | 2023-11-23 02:49 | PC.NURSE ---
Neuro Checks: Contacted Dr. Cristobal concerning Q2H neuro checks, pt is A&Ox4, new order to change neuro checks to Qshift.
[2023-11-23 05:30] LABS: C.Diff PCR (Lab) POSITIVE (Negative)
[2023-11-23 06:00] LABS: Basophils % 0.7 %; Eosinophils # 0.1 10^3/uL (0.0-0.8); Eosinophils % 2.2 %; Hematocrit 34.2 % (37-53); Lymphocytes # 0.3 10^3/uL (0.8-4.8); Lymphocytes % 6.3 %; Mean Corpuscular HGB Conc 30.7 g/dL (30-55); Mean Corpuscular Hemoglobin 33.4 pg (27-33); Mean Corpuscular Volume 108.9 fl (82-101); Monocytes # 0.3 10^3/uL (0.2-0.9); Neutrophils # 3.79 10^3/uL (1.8-7.7); Neutrophils % 82.5 %; Nucleated Red Blood Cells % 0.4 %; Platelet Count 117 10^3/cmm (157-399); Red Blood Count 3.14 10^6/uL (3.85-5.65); Red Cell Distribution Width 18.6 % (12.1-15.1); White Blood Count 4.59 10^3/uL (3.29-11.43)
[2023-11-23] MEDS: vancomycin 125 mg Capsule PO ×4 (06:10→21:16)
[2023-11-23 06:12] LABS: Clostridioides Difficile Toxin NEGATIVE (Negative)
[2023-11-23 06:18] LABS: Alanine Aminotransferase 13 U/L (0-41); Albumin Level 3.3 g/dL (3.5-5.2); Alkaline Phosphatase 127 U/L (40-130); Anion Gap 15.4 (5-19); Aspartate Amino Transferase 19 U/L (0-40); Blood Urea Nitrogen 34 mg/dL (8-23); Calcium 8.5 mg/dL (8.5-10.5); Carbon Dioxide 27 mmol/L (22-29); Chloride 99 mmol/L (98-107); Globulin 2.7 g/dL (1.3-4.6); Glucose 124 mg/dL (65-115); Magnesium 2.1 mg/dL (1.7-2.3); Osmolality Calculated 293 mOsm/kg (285-295); Potassium 4.4 mmol/L (3.5-5.1); Sodium 137 mmol/L (136-145); Total Bilirubin 0.5 mg/dL (0.15-1.2)
[2023-11-23 07:25] LABS: NT Pro B Type Natriuretic Pept > 70000 pg/mL (0-450)
[2023-11-23] MEDS: pantoprazole 40 mg SDV IVP (08:30)
[2023-11-23] MEDS: midodrine 5 mg TABLET 10 MG PO ×3 (08:30→21:16)
[2023-11-23] MEDS: aspirin 81 mg EC Tablet PO (08:30)
[2023-11-23] MEDS: cefTRIAXone 1,000 mg SDV 1000 MG IVP (08:30)
[2023-11-23] MEDS: clopidogrel 75 mg Tablet PO (08:31)
[2023-11-23] MEDS: water for injection-sterile 10 ML 100 ML (09:28)
[2023-11-23] MEDS: heparin 5,000 unit/mL INJ 1 mL 5000 UNIT SUBCUT ×2 (12:27→23:52)
[2023-11-23] MEDS: heparin, porcine 1,000 unit/mL INJ 10 mL 1000 UNIT IV (13:20)
--- NOTE | 2023-11-23 16:16 | P.PN_ITS ---
Subjective 2 Subjective: Patient was seen this morning, denies any fevers, no chills, continues to complain of fatigue, malaise, found to have C. difficile overnight, placed on p.o. vancomycin Vitals/I&O/Wt Last Vital Signs Temp 98.1 F 11/23/23 13:41 Pulse 84 11/23/23 14:22 Resp 15 11/23/23 14:00 BP 111/75 11/23/23 14:00 Pulse Ox 99 11/23/23 14:22 O2 Del Method BiPAP 11/23/23 14:00 O2 Flow Rate 4 11/23/23 13:00 FiO2 40 11/23/23 14:22 11/23/23 11/23/23 11/23/23 06:59 14:59 22:59 Intake Total 0 / 460 730 / 730 Output Total 100 / 175 Balance -100 / 285 730 / 730 Weight last 48 hrs Weight 79.333 kg Weight 80.83 kg Weight 80.83 kg Physical Exam 2 Const: COMMON NORMALS: no acute distress and patient oriented x3 Resp: COMMON NORMALS: normal respiratory effort, No retractions and No use of accessory muscles AUSCULTATION: crackles and wheezes Cardio: COMMON NORMALS: regular rate, regular rhythm, S1 normal heart sound present and S2 normal heart sound present RATE: regular rate RHYTHM: r egular rhythm HEART SOUNDS: S1 normal heart sound present and S2 normal heart sound present GI: COMMON NORMALS: Normal to inspection, nondistended, normoactive bowel sounds present and non-tender Extremity: COMMON NORMALS: no pedal edema Neuro: COMMON NORMALS: patient oriented x3 Psych: COMMON NORMALS: mental status grossly normal Urinary Catheter Management: Figueroa: Cath Placed During This Visit: yes Reason for Continuing Indwelling Catheter: Accurate Measurement of Urinary Output in Critically Ill Patients Urinary Catheter Date of Insertion: 11/19/23 Urinary Catheter Time of Insertion: 23:00 Data 11/23/23 05:39 11/23/23 05:39 A&P Assessment and plan (1) CHF (congestive heart failure): (2) Hearing loss: (3) End stage kidney disease: (4) COPD (chronic obstructive pulmonary disease): (5) A-fib: (6) Acute hypoxic respiratory failure: (7) NSTEMI (non-ST elevated myocardial infarction): (8) Physical deconditioning: (9) Protein calorie malnutrition: Plan Anasarca Acute CHF exacerbation, systolic, BNP over 70,000 Hypotension Ischemic cardiomyopathy ? Acute hypoxic respiratory failure ? NSTEMI A-fib ? History of esophageal issues, requiring esophageal dilatation I do believe his hypotension is related to poor EF related to cardiomyopathy, no active chest pain, patient was discharged with a LifeVest on previous admission On top of that patient is on lisinopril and metoprolol Hold medications Midodrine should be used judiciously in low EF CHF patient's Currently patient is showing slow ventricular response with A-fib not on anticoagulating agent takes aspirin and Plavix, Has received inpatient dialysis for fluid overload ? Cardiac echo -CONCLUSIONS Severely reduced LV systolic function. LVEF estimated at 20 - 25%. Dilated cardiomyopathy. Moderate mitral and tricuspid regurgitation. Moderately elevated right heart and pulmonary pressures. Dilated IVC. -Requiring inpatient dialysis ? Continue BiPAP as needed for shortness of breath -On Precedex for agitation, anxiety ? Continue aspiration precautions, dysphagia level 5 diet, speech therapy eval, ? Acute on chronic anemia, monitor Acute on chronic thrombocytopenia monitor Full code Lives with his son and [id number] Physically deconditioned, protein calorie malnutrition consult dietary Guarded prognosis Please rediscuss goals of care with the patient once family is around in the morning I do anticipate patient going back to the hospital with hypotension Intrarenal disease continue Renvela, Monday, nephro consulted Renal diet Plan for today, continues to have evidence of fluid overload, intermittent requiring BiPAP, continue BiPAP therapy, inpatient dialysis, Attestations 2 Medical Necessity Statement*: Patient requires hospitalization for acute CHF exacerbation, fluid overload, end-stage renal disease requiring dialysis Diagnoses CHF (congestive heart failure) I50.9 Hearing loss H91.90 End stage kidney disease N18.6 COPD (chronic obstructive pulmonary disease) J44.9 A-fib I48.91 Acute hypoxic respiratory failure J96.01 NSTEMI (non-ST elevated myocardial infarction) I21.4 Physical deconditioning R53.81 Protein calorie malnutrition E46
--- NOTE | 2023-11-23 16:25 | PC.NURSE ---
Pt had some dysrhythmia during the last half hour of dialysis. Both were less than 7 beat run of VT. He self converted. Asymptomatic.
--- NOTE | 2023-11-23 16:43 | P.CONIM_ITS ---
Providers/Reason For Consult 2 Consulting Physician/Specialty*: Chris Ordonez MD/ Cardiology Reason for Consult*: Congestive heart failure Requesting Physician: Dr Garcia Attending Physician: Sergio Garcia MD Primary Care Provider: Miguelito Persaud MD History of Present Illness History of Present Illness Gama William is a 83 year old male with PMH of ischemic cardiomyopathy, EF of 20%, afib not on anticoagulation, history of CABG,ESRD, who was sent from outside hospital as was hypotensive and short of breath. Patient is currently on bipap. No chest pain. Has been receiving hemodialysis. Repeat echo shows ef of 20-25%. On last admission, he had a stress test showing large areas of prior infarcts. EKG shows atrial fibrillation with interventricular conduction delay.Troponins were elevated but did not trend up and at his baseline. Review of Systems 2 Const: Denies: fever(s) Eyes: Denies: change in vision ENMT: Denies: throat pain Card: Reports: swelling of feet/ankles; Denies: chest pain Resp: Reports: dyspnea Medications/Allergies Home Medications Medication Instructions Recorded Confirmed Last Taken Type albuterol sulfate 90 mcg/actuation 90 puff inhalation DIRECTED PRN 09/19/23 11/19/23 Unknown History aerosol inhaler (Ventolin HFA) Shortness Of Breath Or Wheezing aspirin 81 mg tablet 81 mg PO DAILY 09/19/23 11/19/23 1 Day Ago History ~09/18/23 atorvastatin 80 mg tablet 80 mg PO BEDTIME 09/19/23 11/19/23 2 Days Ago History ~09/17/23 dexlansoprazole 60 mg 60 mg PO DAILY 09/19/23 11/19/23 1 Day Ago History capsule,biphase delayed release ~09/18/23 levothyroxine 50 mcg tablet 50 mcg PO QAM 09/19/23 11/19/23 1 Day Ago History ~09/18/23 lisinopril 5 mg tablet 5 mg PO BEDTIME 09/19/23 11/19/23 2 Days Ago History ~09/17/23 metoprolol succinate 50 mg 50 mg PO BEDTIME 09/19/23 11/19/23 2 Days Ago History tablet,extended release 24 hr ~09/17/23 uyawbjle-mgtm-uvxbp acid 400 200 tab PO DAILY 09/19/23 11/19/23 1 Day Ago History mcg-lycopene 600 mcg-ginkgo 120 mg ~09/18/23 tablet nitroglycerin 0.4 mg sublingual 0.4 mg sublingual Q5M PRN Chest 09/19/23 11/19/23 Unknown History tablet Pain vit B,C-folic ac 800 mcg-zinc 12.5 800 tab PO DIRECTED 09/19/23 11/19/23 Unknown History mg-selen-D3 2,000 unit-vit E tablet (RenaPlex-D) clopidogrel 75 mg tablet 75 mg PO DAILY #30 tabs 09/25/23 11/19/23 Unknown Rx bumetanide 1 mg tablet 0.5 mg PO QAM 11/19/23 11/20/23 Unknown History Allergies Allergy/AdvReac Type Severity Reaction Status Date / Time morphine Allergy ADR-Halluci Verified 10/28/23 11:24 nating Current Medications Generic Name Dose Route Start Last Admin Trade Name Freq PRN Reason Stop Dose Admin Aspirin 81 mg 11/19/23 09:00 11/23/23 08:30 Aspirin 81 Mg Ec Tablet PO 81 mg DAILY KALYN Administration Atorvastatin Calcium 80 mg 11/19/23 21:00 11/22/23 20:38 Atorvastatin 40 Mg Tablet PO 80 mg BEDTIME KALYN Administration Ceftriaxone Sodium 1,000 mg 11/19/23 09:30 11/23/23 08:30 Ceftriaxone 1,000 Mg Sdv IVP 1,000 mg Q24H KALYN Administration Protocol Clopidogrel Bisulfate 75 mg 11/19/23 09:00 11/23/23 08:31 Clopidogrel 75 Mg Tablet PO 75 mg DAILY KALYN Administration Heparin Sodium (Porcine) 5,000 unit 11/18/23 23:00 11/23/23 12:27 Heparin 5,000 Unit/Ml Inj 1 Ml SUBCUT 5,000 unit Q12H KALYN Administration Albumin Human 12.5 gm in 50 mls @ 60 mls/hr 11/19/23 07:57 11/21/23 23:26 Albumin IV Infused PRN PRN Infusion Hypotension and/or symptomatic Midodrine 10 mg 11/19/23 09:00 11/23/23 14:43 Midodrine 5 Mg Tablet PO 10 mg TID KALYN Administration Pantoprazole Sodium 40 mg 11/19/23 09:00 11/23/23 08:30 Pantoprazole 40 Mg Sdv IVP 40 mg DAILY KALYN Administration Vancomycin HCl 125 mg 11/23/23 07:00 11/23/23 12:27 Vancomycin 125 Mg Capsule PO 125 mg QID KALYN Administration PFSH Acute 2 PFSH: Medical History End stage kidney disease A-fib SCC (squamous cell carcinoma), ear Hypothyroid HTN (hypertension) CAD (coronary artery disease) COPD (chronic obstructive pulmonary disease) Hyperlipemia Diabetes mellitus Transitional cell bladder cancer GERD (gastroesophageal reflux disease) Chronic low back pain Iron deficiency anemia Adenocarcinoma of prostate Hearing loss CHF (congestive heart failure) Surgical History Hx of CABG X2 History of angioplasty History of appendectomy Hx laparoscopic cholecystectomy Family History Father Colon cancer Brother Colon cancer Social History Smoking and tobacco/nicotine status: former use of tobacco/nicotine Vitals/I&O/Wt Last Vital Signs Temp 95.7 F L 11/23/23 16:37 Pulse 86 11/23/23 16:37 Resp 26 H 11/23/23 16:37 BP 104/73 11/23/23 16:37 Pulse Ox 99 11/23/23 14:22 O2 Del Method BiPAP 11/23/23 14:00 O2 Flow Rate 4 11/23/23 13:00 FiO2 40 11/23/23 14:22 11/23/23 11/23/23 11/23/23 06:59 14:59 22:59 Intake Total 0 / 460 730 / 730 500 / 1230 Output Total 100 / 175 3500 / 3500 Balance -100 / 285 730 / 730 -3000 / -2270 Weight last 48 hrs Weight 169 lb 15.622 oz Weight 174 lb 14.4 oz Weight 178 lb 3.2 oz Weight 178 lb 3.2 oz Physical Exam 2 Const: COMMON NORMALS: no acute distress and patient oriented x3 Neck/C-Spine: COMMON NORMALS: no JVD Resp: OTHER: Diminished air entry bilaterally Cardio: COMMON NORMALS: no JVD OTHER: Irregularly irregular Extremity: OTHER: 1+ edema Neuro: COMMON NORMALS: patient oriented x3 Urinary Catheter Management: Figueroa: Cath Placed During This Visit: yes Reason for Continuing Indwelling Catheter: Accurate Measurement of Urinary Output in Critically Ill Patients Urinary Catheter Date of Insertion: 11/19/23 Urinary Catheter Time of Insertion: 23:00 Data 11/24/23 04:57 11/24/23 04:57 A&P Assessment and plan (1) A-fib: (2) CHF (congestive heart failure): (3) End stage kidney disease: (4) COPD (chronic obstructive pulmonary disease): Plan Patient has chronic, ischemic cardiomyopathy with prior infarcts. No benefit of coronary angiogram as no troponin uptrend/chest pain. EF is same as before. Will need fluid removal with dialysis. Overall prognosis is limited. Goals of care discussion/hospice discussion with patient and family will be appropriate. Continue dual antiplatelet therapy. If blood pressure improves, can put on metoprolol. Thank you for involving us with care of this patient. Please call with questions. Consult Attestations 2 Medical Necessity Statement: Care expected to cross 2 midnights. Coding Level of Care Code Acute Code for g Fwd Diagnoses A-fib I48.91 CHF (congestive heart failure) I50.9 End stage kidney disease N18.6 COPD (chronic obstructive pulmonary disease) J44.9
--- NOTE | 2023-11-23 17:19 | PC.NURSE ---
Report called to CSU, Report given to Andrade
--- NOTE | 2023-11-23 17:58 | P.PN_ITS ---
Subjective 2 Subjective: HD today Medications: Reviewed: Yes Vitals/I&O/Wt Last Vital Signs Temp 95.7 F L 11/23/23 16:37 Pulse 86 11/23/23 16:37 Resp 26 H 11/23/23 16:37 BP 104/73 11/23/23 16:37 Pulse Ox 100 11/23/23 16:00 O2 Del Method BiPAP 11/23/23 16:00 O2 Flow Rate 4 11/23/23 13:00 FiO2 40 11/23/23 16:00 11/23/23 11/23/23 11/23/23 06:59 14:59 22:59 Intake Total 0 / 460 730 / 730 500 / 1230 Output Total 100 / 175 3500 / 3500 Balance -100 / 285 730 / 730 -3000 / -2270 Weight last 48 hrs Weight 77.1 kg Weight 79.333 kg Weight 80.83 kg Weight 80.83 kg Physical Exam 2 Narrative: Elderly male, ill-appearing on BiPAP in bed. Vital signs noted. on precedex HEENT normocephalic/atraumatic. Neck is supple JVP. Lungs decreased crackles bilaterally with dull bases. Heart irregular regular with controlled rate. Positive systolic murmur. Abdomen is soft positive bowel sounds extremities bilateral edema. Dialysis access is a left anterior chest wall permacath. Neuro - lethargic, responds to painful stimuli Patient was seen using A/V equipment as a telehealth visit. Urinary Catheter Management: Figueroa: Cath Placed During This Visit: yes Reason for Continuing Indwelling Catheter: Accurate Measurement of Urinary Output in Critically Ill Patients Urinary Catheter Date of Insertion: 11/19/23 Urinary Catheter Time of Insertion: 23:00 Data 11/23/23 05:39 11/23/23 05:39 A&P Assessment and plan (1) End stage kidney disease: The patient is an 83-year-old gentleman with severe heart failure reduced EF of 15 to 20% and valvular heart disease patient also has anemia and end-stage renal disease. Patient is persistently hypotensive. Patient was at dialysis and was unable to have dialysis due to hypotension. 1. ESRD - s/p HD monday , next hD today 3. HF REF- - echo- Severely reduced LV systolic function. LVEF estimated at 20 - 25%.Dilated cardiomyopathy.Moderate mitral and tricuspid regurgitation.Moderately elevated right heart and pulmonary pressures. Dilated IVC. 4. Q PNA on ceftriaxone 5.Anemia- Epogen. prognosis is poor, agree with goals of care conversation and consider comfort care The patient was seen and examined using A/V equipment this was a telehealth visit. Plan See above. Attestations 2 Medical Necessity Statement*: per fred Coding Level of Care Code Acute Code for Chg Fwd Diagnoses End stage kidney disease N18.6
--- NOTE | 2023-11-23 17:59 | PC.NURSE ---
Pt transferred to CSU via W/C. He continues to sit u in W/C for his meal. Bathing supplies transferred with pt. No personal ( cell phone, clothes, etc.) in room to transfer. Erika, met us, at bedside. Christiano William, son, notified via telephone of transfer. He stated he would call the rest of the family.
--- NOTE | 2023-11-23 18:11 | PC.NURSE ---
Patient arrived from ICU via wheelchair. Pt is awake alert and oriented. Sitting up eating dinner. VS all within normal limits.
[2023-11-23] MEDS: atorvastatin 40 mg Tablet 80 MG PO (21:16)
[2023-11-24] VITALS (14 sets, daily range): BP systolic 102–121; BP diastolic 70–82; PULSE 80–113; RESP 15–28; TEMP 35.5–36.9; O2SAT 94–100
[2023-11-24 05:18] LABS: Basophils # 0.1 10^3/uL (0.0-0.1); Basophils % 0.9 %; Eosinophils # 0.1 10^3/uL (0.0-0.8); Eosinophils % 2.5 %; Hematocrit 32.9 % (37-53); Lymphocytes # 0.5 10^3/uL (0.8-4.8); Lymphocytes % 9.1 %; Mean Corpuscular Hemoglobin 34.3 pg (27-33); Mean Corpuscular Volume 110.8 fl (82-101); Monocytes # 0.4 10^3/uL (0.2-0.9); Neutrophils % 79.4 %; Nucleated Red Blood Cells % 0.4 %; Platelet Count 132 10^3/cmm (157-399); Red Blood Count 2.97 10^6/uL (3.85-5.65); Red Cell Distribution Width 18.8 % (12.1-15.1); White Blood Count 5.29 10^3/uL (3.29-11.43)
[2023-11-24 06:06] LABS: Anion Gap 17.2 (5-19); Blood Urea Nitrogen 26 mg/dL (8-23); Calcium 8.6 mg/dL (8.5-10.5); Carbon Dioxide 27 mmol/L (22-29); Chloride 99 mmol/L (98-107); Creatinine Clr Calc Pharmacy 19.9949; Glucose 120 mg/dL (65-115); Osmolality Calculated 294 mOsm/kg (285-295); Potassium 4.2 mmol/L (3.5-5.1); Sodium 139 mmol/L (136-145)
[2023-11-24 06:07] LABS: Alanine Aminotransferase 13 U/L (0-41); Albumin Level 3.4 g/dL (3.5-5.2); Alkaline Phosphatase 129 U/L (40-130); Aspartate Amino Transferase 18 U/L (0-40); Globulin 2.9 g/dL (1.3-4.6); Total Bilirubin 0.5 mg/dL (0.15-1.2); Total Protein 6.3 g/dL (6.6-8.7)
[2023-11-24 06:31] LABS: NT Pro B Type Natriuretic Pept > 70000 pg/mL (0-450)
[2023-11-24] MEDS: pantoprazole 40 mg SDV IVP (08:07)
[2023-11-24] MEDS: cefTRIAXone 1,000 mg SDV 1000 MG IVP (08:07)
[2023-11-24] MEDS: vancomycin 125 mg Capsule PO ×4 (08:08→20:17)
[2023-11-24] MEDS: clopidogrel 75 mg Tablet PO (08:08)
[2023-11-24] MEDS: midodrine 5 mg TABLET 10 MG PO ×3 (08:08→20:17)
[2023-11-24] MEDS: aspirin 81 mg EC Tablet PO (08:08)
--- NOTE | 2023-11-24 10:01 | PC.SOCIAL ---
IMM Update pg 2 of IMM updated and reviewed w/ patient. Copy provided and copy dated, initialed and placed in chart.
[2023-11-24] MEDS: heparin 5,000 unit/mL INJ 1 mL 5000 UNIT SUBCUT ×2 (11:04→23:04)
--- NOTE | 2023-11-24 15:49 | P.PN_ITS ---
Subjective 2 Subjective: Patient was seen this morning, he denies any fevers, no chills, no cough is sitting up in a chair his major complaint is being on a thickened liquid diet, he tells me that he does not want any thickener, he understands morbidity and mortality associate with aspiration, aspiration pneumonia, but he wants to be taken off of thickener, we agreed to decrease his thickening a bit, but he does have a significant risk of aspiration, and morbidity and mortality associated he voices understanding all questions answered, continues to complain of shortness of breath Vitals/I&O/Wt Last Vital Signs Temp 98.4 F 11/24/23 15:19 Pulse 104 H 11/24/23 15:44 Resp 20 H 11/24/23 15:44 BP 102/76 11/24/23 15:44 Pulse Ox 100 11/24/23 15:44 O2 Del Method Nasal Cannula 11/24/23 15:44 O2 Flow Rate 3 11/24/23 15:44 FiO2 40 11/24/23 07:45 11/24/23 11/24/23 11/24/23 06:59 14:59 22:59 Intake Total 120 / 120 Output Total 100 / 3700 Balance -100 / -2170 120 / 120 Weight last 48 hrs Weight 83.007 kg Weight 77.1 kg Weight 79.333 kg Physical Exam 2 Const: COMMON NORMALS: no acute distress and patient oriented x3 HENMT: COMMON NORMALS: normocephalic HEAD & SCALP: normocephalic Resp: COMMON NORMALS: normal respiratory effort, No retractions and No use of accessory muscles AUSCULTATION: crackles and wheezes Cardio: COMMON NORMALS: regular rate, regular rhythm, S1 normal heart sound present and S2 normal heart sound present RATE: regular rate RHYTHM: r egular rhythm HEART SOUNDS: S1 normal heart sound present and S2 normal heart sound present GI: COMMON NORMALS: Normal to inspection, nondistended, normoactive bowel sounds present and non-tender Extremity: COMMON NORMALS: no pedal edema Neuro: COMMON NORMALS: patient oriented x3 Psych: COMMON NORMALS: mental status grossly normal Urinary Catheter Management: Figueroa: Cath Placed During This Visit: yes Reason for Continuing Indwelling Catheter: Accurate Measurement of Urinary Output in Critically Ill Patients Urinary Catheter Date of Insertion: 11/19/23 Urinary Catheter Time of Insertion: 23:00 Data 11/24/23 04:57 11/24/23 04:57 A&P Assessment and plan (1) CHF (congestive heart failure): (2) Hearing loss: (3) End stage kidney disease: (4) COPD (chronic obstructive pulmonary disease): (5) A-fib: (6) Acute hypoxic respiratory failure: (7) NSTEMI (non-ST elevated myocardial infarction): (8) Physical deconditioning: (9) Protein calorie malnutrition: Plan Anasarca Acute CHF exacerbation, systolic, BNP over 70,000 Hypotension Ischemic cardiomyopathy ? Acute hypoxic respiratory failure ? NSTEMI A-fib ? History of esophageal issues, requiring esophageal dilatation I do believe his hypotension is related to poor EF related to cardiomyopathy, no active chest pain, patient was discharged with a LifeVest on previous admission On top of that patient is on lisinopril and metoprolol Hold medications Midodrine should be used judiciously in low EF CHF patient's Currently patient is showing slow ventricular response with A-fib not on anticoagulating agent takes aspirin and Plavix, Has received inpatient dialysis for fluid overload ? Cardiac echo -CONCLUSIONS Severely reduced LV systolic function. LVEF estimated at 20 - 25%. Dilated cardiomyopathy. Moderate mitral and tricuspid regurgitation. Moderately elevated right heart and pulmonary pressures. Dilated IVC. -Requiring inpatient dialysis ? Continue BiPAP as needed for shortness of breath -On Precedex for agitation, anxiety ? Continue aspiration precautions, dysphagia level 5 diet, speech therapy eval, ? Acute on chronic anemia, monitor Acute on chronic thrombocytopenia monitor Full code Lives with his son and [id number] Physically deconditioned, protein calorie malnutrition consult dietary Guarded prognosis Patient wants to continue medical intervention Intrarenal disease continue Renvela, Monday, nephro consulted Renal diet Plan for today, continue as needed BiPAP therapy, will receive dialysis today Attestations 2 Medical Necessity Statement*: Patient requires hospitalization for CHF, Diagnoses CHF (congestive heart failure) I50.9 Hearing loss H91.90 End stage kidney disease N18.6 COPD (chronic obstructive pulmonary disease) J44.9 A-fib I48.91 Acute hypoxic respiratory failure J96.01 NSTEMI (non-ST elevated myocardial infarction) I21.4 Physical deconditioning R53.81 Protein calorie malnutrition E46
[2023-11-24] MEDS: atorvastatin 40 mg Tablet 80 MG PO (20:16)
[2023-11-25] VITALS (14 sets, daily range): BP systolic 93–110; BP diastolic 60–76; PULSE 92–143; RESP 16–31; TEMP 35.9–36.8; O2SAT 92–100
[2023-11-25 04:02] LABS: Basophils % 0.9 %; Eosinophils # 0.1 10^3/uL (0.0-0.8); Eosinophils % 2.1 %; Hematocrit 31.6 % (37-53); Lymphocytes # 0.3 10^3/uL (0.8-4.8); Lymphocytes % 7.8 %; Mean Corpuscular HGB Conc 30.7 g/dL (30-55); Mean Corpuscular Hemoglobin 34.2 pg (27-33); Mean Corpuscular Volume 111.3 fl (82-101); Mean Platelet Volume 10.8 fL (7.4-10.4); Monocytes # 0.3 10^3/uL (0.2-0.9); Monocytes % 7.4 %; Neutrophils # 3.53 10^3/uL (1.8-7.7); Neutrophils % 81.1 %; Nucleated Red Blood Cells % 0 %; Platelet Count 97 10^3/cmm (157-399); Red Blood Count 2.84 10^6/uL (3.85-5.65); Red Cell Distribution Width 18.7 % (12.1-15.1); White Blood Count 4.35 10^3/uL (3.29-11.43)
[2023-11-25 04:31] LABS: Alanine Aminotransferase 15 U/L (0-41); Albumin Level 3.4 g/dL (3.5-5.2); Alkaline Phosphatase 124 U/L (40-130); Anion Gap 16.6 (5-19); Aspartate Amino Transferase 18 U/L (0-40); Blood Urea Nitrogen 34 mg/dL (8-23); Calcium 9.2 mg/dL (8.5-10.5); Carbon Dioxide 28 mmol/L (22-29); Chloride 102 mmol/L (98-107); Globulin 2.7 g/dL (1.3-4.6); Glucose 121 mg/dL (65-115); Magnesium 2.1 mg/dL (1.7-2.3); Osmolality Calculated 303 mOsm/kg (285-295); Potassium 4.6 mmol/L (3.5-5.1); Sodium 142 mmol/L (136-145); Total Bilirubin 0.5 mg/dL (0.15-1.2); Total Protein 6.1 g/dL (6.6-8.7)
[2023-11-25 04:57] LABS: NT Pro B Type Natriuretic Pept > 70000 pg/mL (0-450)
--- NOTE | 2023-11-25 08:38 | PC.NURSE ---
to dialysis via bed at 0840.
--- NOTE | 2023-11-25 09:22 | PC.HD ---
Heparin 1000 units loading dose administered via venous port of HD catheter ar 0849 per catering staff member's orders.
--- NOTE | 2023-11-25 10:48 | PC.NURSE ---
a.m. meds will be given late due to pt in dialysis
--- NOTE | 2023-11-25 12:22 | PC.NURSE ---
return from dialysis via bed at 1215.tolerated dialysis well.3 liters removed per dialysis nurse.
[2023-11-25] MEDS: midodrine 5 mg TABLET 10 MG PO ×3 (12:27→20:38)
[2023-11-25] MEDS: clopidogrel 75 mg Tablet PO (12:28)
[2023-11-25] MEDS: vancomycin 125 mg Capsule PO ×3 (12:28→20:38)
[2023-11-25] MEDS: aspirin 81 mg EC Tablet PO (12:28)
[2023-11-25] MEDS: pantoprazole 40 mg SDV IVP (12:30)
[2023-11-25] MEDS: heparin 5,000 unit/mL INJ 1 mL 5000 UNIT SUBCUT ×2 (12:31→23:11)
[2023-11-25] MEDS: cefTRIAXone 1,000 mg SDV 1000 MG IVP (12:31)
--- NOTE | 2023-11-25 14:19 | P.PN_ITS ---
Subjective 2 Subjective: Patient was seen this morning, daughter is at bedside, he is enjoying his lunch, she brought him some fried fish and onion rings from outside the hospital, he denies any choking episode, no coughing episodes, I had a detailed discussion with patient and his daughter about patient's goals of care, he has underlying cardiomyopathy EF of 20 to 30%, with end-stage renal disease with issues with hypotension, and acute fluid overload. It is a difficult situation, as he easily becomes fluid overloaded given his cardiomyopathy, which needs dialysis and dialysis will inherently cause hypotension, which typically results in him becoming recurrently hospitalized. Things that they can do at home to limit the amount of fluid intake, however his hypotension is becoming a recurrent issue, intermittently requiring Levophed, currently on midodrine, however long-term I was upfront and honest with patient and his daughter that he has a high risk of morbidity and modality high risk of recurrent hospitalizations. We discussed continuing medical interventions, versus hospice however daughter tells me that it is up to her father to make that decision however Gama has made the decision that he wants to continue all medical interventions, he [facility], he did get dialysis this morning Vitals/I&O/Wt Last Vital Signs Temp 97.3 F L 11/25/23 09:21 Pulse 143 H 11/25/23 13:34 Resp 27 H 11/25/23 13:34 BP 97/60 11/25/23 13:34 Pulse Ox 94 11/25/23 13:34 O2 Del Method Nasal Cannula 11/25/23 12:00 O2 Flow Rate 3 11/24/23 19:20 FiO2 40 11/25/23 08:27 11/24/23 11/25/23 11/25/23 22:59 06:59 14:59 Intake Total 0 / 120 Output Total 150 / 150 50 / 200 Balance -150 / -30 -50 / -80 Weight last 48 hrs Weight 79.832 kg Weight 83.007 kg Weight 77.1 kg Physical Exam 2 Const: COMMON NORMALS: no acute distress and patient oriented x3 Resp: COMMON NORMALS: normal respiratory effort, No retractions, No use of accessory muscles and clear to auscultation bilaterally AUSCULTATION: clear to auscultation bilaterally Cardio: COMMON NORMALS: regular rate, regular rhythm, S1 normal heart sound present and S2 normal heart sound present RATE: regular rate RHYTHM: r egular rhythm HEART SOUNDS: S1 normal heart sound present and S2 normal heart sound present GI: COMMON NORMALS: Normal to inspection, nondistended, normoactive bowel sounds present and non-tender Extremity: COMMON NORMALS: no pedal edema Neuro: COMMON NORMALS: patient oriented x3 Psych: COMMON NORMALS: mental status grossly normal Urinary Catheter Management: Figueroa: Cath Placed During This Visit: yes Reason for Continuing Indwelling Catheter: Accurate Measurement of Urinary Output in Critically Ill Patients Urinary Catheter Date of Insertion: 11/19/23 Urinary Catheter Time of Insertion: 23:00 Data 11/25/23 02:52 11/25/23 02:52 A&P Assessment and plan (1) CHF (congestive heart failure): (2) Hearing loss: (3) End stage kidney disease: (4) COPD (chronic obstructive pulmonary disease): (5) A-fib: (6) Acute hypoxic respiratory failure: (7) NSTEMI (non-ST elevated myocardial infarction): (8) Physical deconditioning: (9) Protein calorie malnutrition: Plan Anasarca Acute CHF exacerbation, systolic, BNP over 70,000 Hypotension Ischemic cardiomyopathy ? Acute hypoxic respiratory failure ? NSTEMI A-fib ? History of esophageal issues, requiring esophageal dilatation I do believe his hypotension is related to poor EF related to cardiomyopathy, no active chest pain, patient was discharged with a LifeVest on previous admission On top of that patient is on lisinopril and metoprolol Hold medications Midodrine should be used judiciously in low EF CHF patient's Currently patient is showing slow ventricular response with A-fib not on anticoagulating agent takes aspirin and Plavix, Has received inpatient dialysis for fluid overload ? Cardiac echo -CONCLUSIONS Severely reduced LV systolic function. LVEF estimated at 20 - 25%. Dilated cardiomyopathy. Moderate mitral and tricuspid regurgitation. Moderately elevated right heart and pulmonary pressures. Dilated IVC. -Requiring inpatient dialysis ? Continue BiPAP as needed for shortness of breath -On Precedex for agitation, anxiety ? Continue aspiration precautions, dysphagia level 5 diet, speech therapy eval, ? Acute on chronic anemia, monitor Acute on chronic thrombocytopenia monitor Full code Lives with his son and [id number] Physically deconditioned, protein calorie malnutrition consult dietary Guarded prognosis Patient wants to continue medical intervention Intrarenal disease continue Renvela, Monday, nephro consulted Renal diet Plan for today, continue as needed BiPAP therapy, status post dialysis today Attestations 2 Medical Necessity Statement*: Patient requires hospitalization for fluid overload, acute respiratory failure, end-stage renal disease deconditioning, protein calorie malnutrition Diagnoses CHF (congestive heart failure) I50.9 Hearing loss H91.90 End stage kidney disease N18.6 COPD (chronic obstructive pulmonary disease) J44.9 A-fib I48.91 Acute hypoxic respiratory failure J96.01 NSTEMI (non-ST elevated myocardial infarction) I21.4 Physical deconditioning R53.81 Protein calorie malnutrition E46
--- NOTE | 2023-11-25 17:59 | P.PN_ITS ---
Subjective 2 Subjective: getting HD Medications: Reviewed: Yes Vitals/I&O/Wt Last Vital Signs Temp 96.6 F L 11/25/23 16:40 Pulse 97 11/25/23 16:40 Resp 16 11/25/23 16:40 BP 107/69 11/25/23 16:40 Pulse Ox 100 11/25/23 16:00 O2 Del Method Nasal Cannula 11/25/23 16:00 O2 Flow Rate 3 11/24/23 19:20 FiO2 40 11/25/23 08:27 11/25/23 11/25/23 11/25/23 06:59 14:59 22:59 Intake Total 240 / 240 500 / 740 Output Total 50 / 200 3550 / 3550 Balance -50 / -80 240 / 240 -3050 / -2810 Weight last 48 hrs Weight 77.4 kg Weight 79.832 kg Weight 83.007 kg Physical Exam 2 Narrative: Elderly male, ill-appearing on BiPAP in bed. Vital signs noted. on precedex HEENT normocephalic/atraumatic. Neck is supple JVP. Lungs decreased crackles bilaterally with dull bases. Heart irregular regular with controlled rate. Positive systolic murmur. Abdomen is soft positive bowel sounds extremities bilateral edema. Dialysis access is a left anterior chest wall permacath. Neuro - lethargic, responds to painful stimuli Patient was seen using A/V equipment as a telehealth visit. Urinary Catheter Management: Figueroa: Cath Placed During This Visit: yes Reason for Continuing Indwelling Catheter: Accurate Measurement of Urinary Output in Critically Ill Patients Urinary Catheter Date of Insertion: 11/19/23 Urinary Catheter Time of Insertion: 23:00 Data 11/25/23 02:52 11/25/23 02:52 A&P Assessment and plan (1) End stage kidney disease: The patient is an 83-year-old gentleman with severe heart failure reduced EF of 15 to 20% and valvular heart disease patient also has anemia and end-stage renal disease. Patient is persistently hypotensive. Patient was at dialysis and was unable to have dialysis due to hypotension. 1. ESRD - HD today 3. HF REF- - echo- Severely reduced LV systolic function. LVEF estimated at 20 - 25%.Dilated cardiomyopathy.Moderate mitral and tricuspid regurgitation.Moderately elevated right heart and pulmonary pressures. Dilated IVC. 4. Q PNA on ceftriaxone 5.Anemia- Epogen. prognosis is poor, agree with goals of care conversation and consider comfort care The patient was seen and examined using A/V equipment this was a telehealth visit. Plan See above. Attestations 2 Medical Necessity Statement*: per medicne Coding Level of Care Code Acute Code for Chg Fwd Diagnoses End stage kidney disease N18.6
[2023-11-25] MEDS: atorvastatin 40 mg Tablet 80 MG PO (20:37)
[2023-11-26] VITALS (13 sets, daily range): BP systolic 88–126; BP diastolic 66–88; PULSE 88–117; RESP 19–31; TEMP 35.8–36.7; O2SAT 90–99
[2023-11-26 04:33] LABS: Basophils # 0.1 10^3/uL (0.0-0.1); Basophils % 1.2 %; Eosinophils # 0.1 10^3/uL (0.0-0.8); Eosinophils % 2.2 %; Hematocrit 30.5 % (37-53); Lymphocytes # 0.4 10^3/uL (0.8-4.8); Lymphocytes % 7.5 %; Mean Corpuscular HGB Conc 30.8 g/dL (30-55); Mean Corpuscular Hemoglobin 33.9 pg (27-33); Mean Corpuscular Volume 110.1 fl (82-101); Mean Platelet Volume 10.6 fL (7.4-10.4); Monocytes # 0.5 10^3/uL (0.2-0.9); Monocytes % 9.2 %; Neutrophils # 4.03 10^3/uL (1.8-7.7); Neutrophils % 79.1 %; Nucleated Red Blood Cells % 0 %; Platelet Count 92 10^3/cmm (157-399); Red Blood Count 2.77 10^6/uL (3.85-5.65); Red Cell Distribution Width 18.8 % (12.1-15.1); White Blood Count 5.09 10^3/uL (3.29-11.43)
[2023-11-26 04:50] LABS: Anion Gap 16.2 (5-19); Blood Urea Nitrogen 27 mg/dL (8-23); Calcium 8.9 mg/dL (8.5-10.5); Carbon Dioxide 26 mmol/L (22-29); Chloride 101 mmol/L (98-107); Creatinine Clr Calc Pharmacy 16.6788; Glucose 120 mg/dL (65-115); Osmolality Calculated 294 mOsm/kg (285-295); Potassium 4.2 mmol/L (3.5-5.1); Sodium 139 mmol/L (136-145)
--- NOTE | 2023-11-26 07:58 | P.PN_ITS ---
Subjective 2 Subjective: feels better today Medications: Reviewed: Yes Vitals/I&O/Wt Last Vital Signs Temp 97.1 F L 11/26/23 07:50 Pulse 90 11/26/23 07:50 Resp 24 H 11/26/23 07:50 BP 88/68 11/26/23 07:50 Pulse Ox 90 11/26/23 07:50 O2 Del Method Nasal Cannula 11/26/23 07:50 O2 Flow Rate 3 11/26/23 07:27 FiO2 40 11/26/23 04:48 11/25/23 11/26/23 11/26/23 22:59 06:59 14:59 Intake Total 500 / 740 Output Total 3550 / 3550 50 / 3600 Balance -3050 / -2810 -50 / -2860 Weight last 48 hrs Weight 76.657 kg Weight 77.4 kg Weight 79.832 kg Physical Exam 2 Narrative: Elderly male, ill-appearing on BiPAP in bed. Vital signs noted. on precedex HEENT normocephalic/atraumatic. Neck is supple JVP. Lungs decreased crackles bilaterally with dull bases. Heart irregular regular with controlled rate. Positive systolic murmur. Abdomen is soft positive bowel sounds extremities bilateral edema. Dialysis access is a left anterior chest wall permacath. Neuro - lethargic, responds to painful stimuli Patient was seen using A/V equipment as a telehealth visit. Urinary Catheter Management: Figueroa: Cath Placed During This Visit: yes Reason for Continuing Indwelling Catheter: Accurate Measurement of Urinary Output in Critically Ill Patients Urinary Catheter Date of Insertion: 11/19/23 Urinary Catheter Time of Insertion: 23:00 Data 11/26/23 04:27 11/26/23 04:27 A&P Assessment and plan (1) End stage kidney disease: The patient is an 83-year-old gentleman with severe heart failure reduced EF of 15 to 20% and valvular heart disease patient also has anemia and end-stage renal disease. Patient is persistently hypotensive. Patient was at dialysis and was unable to have dialysis due to hypotension. 1. ESRD - HD per TTS schedule 3. HF REF- - echo- Severely reduced LV systolic function. LVEF estimated at 20 - 25%.Dilated cardiomyopathy.Moderate mitral and tricuspid regurgitation.Moderately elevated right heart and pulmonary pressures. Dilated IVC. 4. Q PNA on ceftriaxone 5.Anemia- Epogen. prognosis is poor, agree with goals of care conversation and consider comfort care The patient was seen and examined using A/V equipment this was a telehealth visit. Plan See above. Attestations 2 Medical Necessity Statement*: per fred Coding Level of Care Code Acute Code for Chg Fwd Diagnoses End stage kidney disease N18.6
[2023-11-26] MEDS: pantoprazole 40 mg SDV IVP (08:46)
[2023-11-26] MEDS: clopidogrel 75 mg Tablet PO (08:47)
[2023-11-26] MEDS: vancomycin 125 mg Capsule PO ×4 (08:47→20:31)
[2023-11-26] MEDS: midodrine 5 mg TABLET 10 MG PO ×3 (08:47→20:32)
[2023-11-26] MEDS: aspirin 81 mg EC Tablet PO (08:47)
[2023-11-26] MEDS: cefTRIAXone 1,000 mg SDV 1000 MG IVP (08:48)
--- NOTE | 2023-11-26 12:34 | P.PN_ITS ---
Subjective 2 Subjective: Patient was seen this morning, he is still upset about being on a thickener, denies any fevers, chills, no cough Vitals/I&O/Wt Last Vital Signs Temp 97.6 F 11/26/23 11:42 Pulse 117 H 11/26/23 11:42 Resp 24 H 11/26/23 07:50 BP 116/69 11/26/23 11:42 Pulse Ox 96 11/26/23 11:42 O2 Del Method Nasal Cannula 11/26/23 11:42 O2 Flow Rate 3 11/26/23 07:27 FiO2 40 11/26/23 04:48 11/25/23 11/26/23 11/26/23 22:59 06:59 14:59 Intake Total 500 / 740 400 / 400 Output Total 3550 / 3550 50 / 3600 Balance -3050 / -2810 -50 / -2860 400 / 400 Weight last 48 hrs Weight 76.657 kg Weight 77.4 kg Weight 79.832 kg Physical Exam 2 Const: COMMON NORMALS: no acute distress and patient oriented x3 Resp: COMMON NORMALS: normal respiratory effort, No retractions, No use of accessory muscles and clear to auscultation bilaterally AUSCULTATION: clear to auscultation bilaterally Cardio: COMMON NORMALS: regular rate, regular rhythm, S1 normal heart sound present and S2 normal heart sound present RATE: regular rate RHYTHM: r egular rhythm HEART SOUNDS: S1 normal heart sound present and S2 normal heart sound present GI: COMMON NORMALS: Normal to inspection, nondistended, normoactive bowel sounds present and non-tender Neuro: COMMON NORMALS: patient oriented x3 Psych: COMMON NORMALS: mental status grossly normal Urinary Catheter Management: Figueroa: Cath Placed During This Visit: yes Reason for Continuing Indwelling Catheter: Accurate Measurement of Urinary Output in Critically Ill Patients Urinary Catheter Date of Insertion: 11/19/23 Urinary Catheter Time of Insertion: 23:00 Data 11/26/23 04:27 11/26/23 04:27 A&P Assessment and plan (1) CHF (congestive heart failure): (2) Hearing loss: (3) End stage kidney disease: (4) COPD (chronic obstructive pulmonary disease): (5) A-fib: (6) Acute hypoxic respiratory failure: (7) NSTEMI (non-ST elevated myocardial infarction): (8) Physical deconditioning: (9) Protein calorie malnutrition: Plan Anasarca Acute CHF exacerbation, systolic, BNP over 70,000 Hypotension Ischemic cardiomyopathy ? Acute hypoxic respiratory failure ? NSTEMI A-fib ? History of esophageal issues, requiring esophageal dilatation I do believe his hypotension is related to poor EF related to cardiomyopathy, no active chest pain, patient was discharged with a LifeVest on previous admission On top of that patient is on lisinopril and metoprolol Hold medications Midodrine should be used judiciously in low EF CHF patient's Currently patient is showing slow ventricular response with A-fib not on anticoagulating agent takes aspirin and Plavix, Has received inpatient dialysis for fluid overload ? Cardiac echo -CONCLUSIONS Severely reduced LV systolic function. LVEF estimated at 20 - 25%. Dilated cardiomyopathy. Moderate mitral and tricuspid regurgitation. Moderately elevated right heart and pulmonary pressures. Dilated IVC. -Requiring inpatient dialysis ? Continue BiPAP as needed for shortness of breath -On Precedex for agitation, anxiety ? Continue aspiration precautions, dysphagia level 5 diet, speech therapy eval, -Concerns for recurrent aspiration pneumonia, aspiration pneumonitis, was managed on Rocephin, continue dysphagia level 5 diet, aspiration precautions, will discontinue Rocephin ? Acute on chronic anemia, monitor Acute on chronic thrombocytopenia monitor Full code Lives with his son and [id number] Physically deconditioned, protein calorie malnutrition consult dietary Guarded prognosis Patient wants to continue medical intervention Intrarenal disease continue Renvela, Monday, nephro consulted Renal diet Plan for today, continue as needed BiPAP therapy, status post dialysis today Attestations 2 Medical Necessity Statement*: Patient requires hospitalization for respiratory failure, end-stage renal disease Diagnoses CHF (congestive heart failure) I50.9 Hearing loss H91.90 End stage kidney disease N18.6 COPD (chronic obstructive pulmonary disease) J44.9 A-fib I48.91 Acute hypoxic respiratory failure J96.01 NSTEMI (non-ST elevated myocardial infarction) I21.4 Physical deconditioning R53.81 Protein calorie malnutrition E46
[2023-11-26] MEDS: heparin 5,000 unit/mL INJ 1 mL 5000 UNIT SUBCUT ×2 (13:00→23:14)
--- NOTE | 2023-11-26 15:24 | ECG_ITS ---
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 Measurements Intervals [place] Rate: 95 P: 0 ID: 0 QRS: 13 QRSD: 138 T: 189 QT: 373 QTc: 469 Interpretive Statements ATRIAL FIBRILLATION LEFT BUNDLE BRANCH BLOCK [120+ ms QRS DURATION, 80+ ms Q/S IN V1/V2, 85+ ms R IN I/aVL/V5/V6] Compared to ECG 11/19/2023 05:27:31 Left bundle-branch block now present Intraventricular conduction delay no longer present Electronically Signed On 11-27-2023 9:21:40 CDT by Tamir Lees M.D. [id number]
[2023-11-26 16:13] LABS: Magnesium 2.1 mg/dL (1.7-2.3)
[2023-11-26 17:01] LABS: Troponin T (5th) Once 156 ng/L (0-15)
[2023-11-26 18:46] LABS: Troponin(5th) Baseline 158 ng/L (0-15)
--- NOTE | 2023-11-26 20:16 | ECG_ITS ---
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 Measurements Intervals [place] Rate: 95 P: 0 WI: 0 QRS: 24 QRSD: 141 T: 210 QT: 382 QTc: 482 Interpretive Statements ATRIAL FIBRILLATION LEFT BUNDLE BRANCH BLOCK [120+ ms QRS DURATION, 80+ ms Q/S IN V1/V2, 85+ ms R IN I/aVL/V5/V6] Compared to ECG 11/26/2023 15:47:39 No significant changes Electronically Signed On 11-27-2023 9:23:18 CDT by Tamir Lees M.D. [id number]
[2023-11-26] MEDS: atorvastatin 40 mg Tablet 80 MG PO (20:31)
[2023-11-26 20:54] LABS: Troponin 5 2HR Delta 4.2 ABS# (0-10)
[2023-11-26 21:06] LABS: Troponin 5 2HR 162.2 ng/L (0-15)
--- NOTE | 2023-11-26 23:52 | ECG_ITS ---
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 Measurements Intervals [place] Rate: 95 P: 0 PA: 0 QRS: 21 QRSD: 136 T: 203 QT: 382 QTc: 482 Interpretive Statements ATRIAL FIBRILLATION LEFT BUNDLE BRANCH BLOCK [120+ ms QRS DURATION, 80+ ms Q/S IN V1/V2, 85+ ms R IN I/aVL/V5/V6] Compared to ECG 11/26/2023 20:16:30 No significant changes Electronically Signed On 11-27-2023 9:25:07 CDT by Tamir Lees M.D. [id number]
[2023-11-27] VITALS (7 sets, daily range): BP systolic 109–115; BP diastolic 70–83; PULSE 82–103; RESP 20–30; TEMP 36.4–36.6; O2SAT 92–100
[2023-11-27 00:36] LABS: Troponin 5 6HR Delta 3.6 ng/L (0-12)
[2023-11-27 00:38] LABS: Troponin 5 6HR 161.6 ng/L (0-15)
[2023-11-27 03:41] LABS: Basophils % 0.9 %; Eosinophils # 0.1 10^3/uL (0.0-0.8); Eosinophils % 2.1 %; Hematocrit 32.1 % (37-53); Lymphocytes # 0.4 10^3/uL (0.8-4.8); Lymphocytes % 7.7 %; Mean Corpuscular HGB Conc 31.2 g/dL (30-55); Mean Corpuscular Hemoglobin 34.1 pg (27-33); Mean Corpuscular Volume 109.6 fl (82-101); Mean Platelet Volume 11.5 fL (7.4-10.4); Monocytes # 0.4 10^3/uL (0.2-0.9); Monocytes % 9.2 %; Neutrophils # 3.68 10^3/uL (1.8-7.7); Neutrophils % 78.6 %; Nucleated Red Blood Cells % 0 %; Platelet Count 88 10^3/cmm (157-399); Red Blood Count 2.93 10^6/uL (3.85-5.65); Red Cell Distribution Width 18.6 % (12.1-15.1); White Blood Count 4.68 10^3/uL (3.29-11.43)
[2023-11-27 03:59] LABS: Anion Gap 18.2 (5-19); Blood Urea Nitrogen 36 mg/dL (8-23); Calcium 9.1 mg/dL (8.5-10.5); Carbon Dioxide 25 mmol/L (22-29); Chloride 100 mmol/L (98-107); Creatinine Clr Calc Pharmacy 13.3431; Glucose 123 mg/dL (65-115); Osmolality Calculated 298 mOsm/kg (285-295); Potassium 4.2 mmol/L (3.5-5.1); Sodium 139 mmol/L (136-145)
--- NOTE | 2023-11-27 08:35 | P.PN_ITS ---
Subjective 2 Subjective: denies any complaints on 4L NC Medications: Reviewed: Yes Vitals/I&O/Wt Last Vital Signs Temp 97.9 F 11/27/23 07:30 Pulse 101 H 11/27/23 07:30 Resp 28 H 11/27/23 07:30 BP 115/83 11/27/23 07:30 Pulse Ox 92 11/27/23 07:30 O2 Del Method Nasal Cannula 11/27/23 07:30 O2 Flow Rate 5 11/26/23 23:12 FiO2 50 11/27/23 04:05 11/26/23 11/27/23 11/27/23 22:59 06:59 14:59 Output Total 50 / 50 25 / 75 Balance -50 / 830 -25 / 805 Weight last 48 hrs Weight 75.614 kg Weight 76.657 kg Weight 77.4 kg Physical Exam 2 Narrative: Elderly male, ill-appearing on BiPAP in bed. Vital signs noted. on precedex HEENT normocephalic/atraumatic. Neck is supple JVP. Lungs decreased crackles bilaterally with dull bases. Heart irregular regular with controlled rate. Positive systolic murmur. Abdomen is soft positive bowel sounds extremities bilateral edema. Dialysis access is a left anterior chest wall permacath. Neuro - lethargic, responds to painful stimuli Patient was seen using A/V equipment as a telehealth visit. Urinary Catheter Management: Figueroa: Cath Placed During This Visit: yes Reason for Continuing Indwelling Catheter: Accurate Measurement of Urinary Output in Critically Ill Patients Urinary Catheter Date of Insertion: 11/19/23 Urinary Catheter Time of Insertion: 23:00 Data 11/27/23 03:22 11/27/23 03:22 A&P Assessment and plan (1) End stage kidney disease: The patient is an 83-year-old gentleman with severe heart failure reduced EF of 15 to 20% and valvular heart disease patient also has anemia and end-stage renal disease. Patient is persistently hypotensive. Patient was at dialysis and was unable to have dialysis due to hypotension. 1. ESRD - HD per TTS schedule 3. HF REF- - echo- Severely reduced LV systolic function. LVEF estimated at 20 - 25%.Dilated cardiomyopathy.Moderate mitral and tricuspid regurgitation.Moderately elevated right heart and pulmonary pressures. Dilated IVC. 4. Q PNA on ceftriaxone 5.Anemia- Epogen. prognosis is poor, agree with goals of care conversation and consider comfort care The patient was seen and examined using A/V equipment this was a telehealth visit. Plan See above. Attestations 2 Medical Necessity Statement*: per medicine Coding Level of Care Code Acute Code for Chg Fwd Diagnoses End stage kidney disease N18.6
[2023-11-27] MEDS: midodrine 5 mg TABLET 10 MG PO (08:38)
[2023-11-27] MEDS: pantoprazole 40 mg SDV IVP (08:38)
[2023-11-27] MEDS: vancomycin 125 mg Capsule PO ×2 (08:38→13:23)
[2023-11-27] MEDS: clopidogrel 75 mg Tablet PO (08:38)
[2023-11-27] MEDS: aspirin 81 mg EC Tablet PO (08:38)
--- NOTE | 2023-11-27 09:06 | P.PN_ITS ---
Vitals/I&O/Wt Last Vital Signs Temp 97.9 F 11/27/23 07:30 Pulse 101 H 11/27/23 07:30 Resp 28 H 11/27/23 07:30 BP 115/83 11/27/23 07:30 Pulse Ox 92 11/27/23 07:30 O2 Del Method Nasal Cannula 11/27/23 07:30 O2 Flow Rate 5 11/26/23 23:12 FiO2 50 11/27/23 04:05 11/26/23 11/27/23 11/27/23 22:59 06:59 14:59 Output Total 50 / 50 25 / 75 Balance -50 / 830 -25 / 805 Weight last 48 hrs Weight 75.614 kg Weight 76.657 kg Weight 77.4 kg Physical Exam 2 Urinary Catheter Management: Figueroa: Cath Placed During This Visit: yes Reason for Continuing Indwelling Catheter: Accurate Measurement of Urinary Output in Critically Ill Patients Urinary Catheter Date of Insertion: 11/19/23 Urinary Catheter Time of Insertion: 23:00 Data 11/27/23 03:22 11/27/23 03:22 Coding Level of Care Code Acute Code for Chg Fwd
--- NOTE | 2023-11-27 09:18 | PC.SOCIAL ---
IMM Update Pg. 2 of IMM updated and reviewed with patient who verbalized understanding. Copy provided.
--- NOTE | 2023-11-27 10:29 | PC.OT ---
OT TREATMENT ATTEMPTED; PATIENT SLEEPING SOUNDLY ON BIPAP. WILL ATTEMPT AGAIN AT A LATER TIME.
--- NOTE | 2023-11-27 12:21 | PM.DCS ---
Discharge Providers Date of Admission: 11/18/23 22:03 Date of Discharge: November 27, 2023 Attending Provider at Admission: Rola Cristobal MD Attending Provider at Discharge: Sergio Garcia MD Primary Care Provider: Miguelito Persaud MD Diagnoses at Discharge Discharge Diagnosis (1) End stage kidney disease: Status: Acute Reason for Visit Reason for Visit: heart failure Hospital Course Hospital Course Gama William is a 83 year old male history of A-fib not a good candidate for anticoagulation secondary to high blood score,end-stage renal disease Monday, cardiomyopathy EF 25%, was discharged on LifeVest, presented from [facility] for evaluation and management of hypotension. Patient was at dialysis today when he became hypotensive despite midodrine his blood pressure remained low and he was transferred to [facility] ER. Patient did not endorse chest pain however endorsing shortness of orthopnea and PND, 2600 mL was removed during dialysis today, patient not complaining active chest pain during my evaluation no active fever, blood pressure 96/62 on admission at the time of evaluation 107/62 mmHg, patient is very hard of hearing, has lower extremity edema. He takes Bumex, metoprolol and lisinopril. Lives with his son and [id number] Records reviewed, patient EKG is consistent with chronic left bundle branch block has A-fib with rate controlled Patient had a prolonged hospitalization for anasarca, hypotension, with ischemic cardiomyopathy with acute hypoxic respiratory failure with NSTEMI,. Patient required prolonged hospitalization inpatient dialysis, issues with hypotension requiring midodrine, issues with respiratory failure requiring intermittent BiPAP. Patient will be discharged with outpatient dialysis center, midodrine therapy, strict fluid restrictions at 1 L a day with close follow-up with cardiology as outpatient In terms of patient's prognosis, overall prognosis is poor -I had a detailed discussion throughout his hospitalization with patient, his family members, his daughter, in addition cardiology has also spoke with the patient -Patient has ischemic cardiomyopathy, EF of 20 to 25%, -The issue is he is at with his ischemic cardiomyopathy, he has hypotension and easily becomes fluid overloaded -So when he goes to dialysis he is short of breath, they do that they are best to take fluid off of him but he then subsequently becomes hypotensive and he sent to the emergency room for evaluation -This is resulted in multiple hospital admissions -I have had a detailed discussion with him, that he has a high risk of morbidity and mortality, high risk of recurrent hospitalizations without any significant progress of his underlying condition ? What likely will have been is he will again become fluid overloaded, require dialysis, they will be able to take enough off of him to help with the shortness of breath because he becomes hypotensive and he will be sent back to the hospital resulting in recurrent hospitalization -Unfortunately given his age he is not a candidate for heart transplant, given his age and his risk factors he is not a candidate for an LVAD -So there is not a lot of options are available for him unfortunately -Due to his persistent hypotension, requiring midodrine he is not also a good candidate for Entresto -Ultimately his overall condition is poor, he is deconditioned, severe protein calorie malnutrition, end-stage renal disease, required hospitalization for respiratory failure, cardiomyopathy -I had a detailed discussion with him and his family about considering hospice, however patient does not want to proceed with hospice -He wants to continue medical therapy, continues to want dialysis -I have done the best I can during his hospitalization, efforts were made to try to place him to a care home facility which were unsuccessful -Thus I will discharge him home on aspirin, statin, Plavix -He is requiring midodrine 5 mg 3 times daily due to low blood pressures -He also is developing episodes of nonsustained V. tach, I am discharging him on low-dose of metoprolol -He needs to be compliant with his LifeVest -He needs to restrict his fluid intake to 1 L a day -I had a detailed discussion with him that he has a high risk of recurrent hospitalization, morbidity mortality, he voiced understanding, all questions answered, will be discharged home to the care of his family In terms of patient's diet, aspiration risk. Patient has had esophageal dilatations in the past. Patient was evaluated by speech therapy, has moderate aspiration risk, manage on dysphagia level 5 diet, moderately thickened liquid. Despite this he continues to have a weak cough, poor throat clearing, episodes of coughing with eating. Throughout his hospitalization, patient would continue to ask for a regular cardiac diet. I had a detailed discussion with patient that I think that one of the reasons why he has these recurrent episodes of shortness of breath is likely aspiration pneumonia aspiration pneumonitis. He needs to adhere to dysphagia level diet with moderately thickened liquid. As he has a high risk of aspiration pneumonia aspiration pneumonitis, respiratory failure, bradycardia and mortality associated. It is important to adhere to the diet, dysphagia instructions, aspiration precautions. However patient tells me that he does not like the food, and he does not want to live like this . I discussed with patient that certainly this is a difficult situation however, as he does not want to go home on hospice, he wants to continue medical intervention, in order for him to overall succeed in his wishes of doing well on medical therapy he needs to follow all of the medical instructions that we provide to him, including strict aspiration precautions, dysphagia level 5 diet, moderately thickened liquid. I have had extensive discussions with him, however he has declined, he tells me he wants to eat what he wants, he does not like thickener, and he does not like the meals that involve dysphagia level 5 diet. I discussed the morbidity and mortality associate dwith recurrent aspiration, aspiration pneumonitis, choking, coughing, morbidity and mortality associated, recurrent hospitalizations, intubation, septic shock, he voiced understanding, all questions answered he tells me he is going to eat what he wants, and he will not adhere to dysphagia level 5 diet, moderately thickened liquids Physical Exam Const: COMMON NORMALS: no acute distress and patient oriented x3 Resp: COMMON NORMALS: normal respiratory effort, No retractions, No use of accessory muscles and clear to auscultation bilaterally AUSCULTATION: clear to auscultation bilaterally Cardio: COMMON NORMALS: regular rate, regular rhythm, S1 normal heart sound present and S2 normal heart sound present RATE: regular rate RHYTHM: regular rhythm HEART SOUNDS: S1 normal heart sound present and S2 normal heart sound present GI: COMMON NORMALS: Normal to inspection, nondistended, normoactive bowel sounds present and non-tender Extremity: COMMON NORMALS: no pedal edema Neuro: COMMON NORMALS: patient oriented x3 Psych: COMMON NORMALS: mental status grossly normal Urinary Catheter Management: Figueroa: Cath Placed During This Visit: yes Reason for Continuing Indwelling Catheter: Accurate Measurement of Urinary Output in Critically Ill Patients Urinary Catheter Date of Insertion: 11/19/23 Urinary Catheter Time of Insertion: 23:00 Discharge Data Studies Completed and Pending Completed Studies During Hospitalization Category Date Time Status Modified barium swallow [FL barium swallow modifd [id number] Exams 11/20/23 09:16 Completed ] Routine XR chest 1V portable [id number] Routine Exams 11/19/23 09:27 Completed CV. echo complete* [id number] Routine Ultrasound 11/19/23 08:17 Completed Pending at discharge Category Date Time Status Basic Metabolic Panel AM LABS Lab 11/28/23 04:00 Ordered Complete Blood Count w/Auto AM LABS Lab 11/28/23 04:00 Ordered Radiology Impressions Chest X-Ray 11/19/23 09:27 IMPRESSION: Congestive heart failure with pulmonary edema and pleural effusions. Modified Barium Swallow 11/20/23 09:16 IMPRESSION: 1. No aspiration. 2. Moderate laryngeal penetration with the thinner liquids. Chin tuck did not improve aspiration. Please see speech therapist report also for recommendations. Laboratory Results WBC 4.68 10^3/uL (3.29-11.43) 11/27/23 03:22 RBC 2.93 10^6/uL (3.85-5.65) L 11/27/23 03:22 Hgb 10.00 g/dL (11.27-16.99) L 11/27/23 03:22 Hct 32.1 % (37-53) L 11/27/23 03:22 MCV 109.6 fl (82-101) H 11/27/23 03:22 MCH 34.1 pg (27-33) H 11/27/23 03:22 MCHC 31.2 g/dL (30-55) 11/27/23 03:22 RDW 18.6 % (12.1-15.1) H 11/27/23 03:22 Plt Count 88 10^3/cmm (157-399) L 11/27/23 03:22 MPV 11.5 fL (7.4-10.4) H 11/27/23 03:22 Neut % (Auto) 78.6 % 11/27/23 03:22 Lymph % (Auto) 7.7 % 11/27/23 03:22 [place] % (Auto) 9.2 % 11/27/23 03:22 Eos % (Auto) 2.1 % 11/27/23 03:22 Baso % (Auto) 0.9 % 11/27/23 03:22 Neut # (Auto) 3.68 10^3/uL (1.8-7.7) 11/27/23 03:22 Lymph # (Auto) 0.4 10^3/uL (0.8-4.8) L 11/27/23 03:22 [place] # (Auto) 0.4 10^3/uL (0.2-0.9) 11/27/23 03:22 Eos # (Auto) 0.1 10^3/uL (0.0-0.8) 11/27/23 03:22 Baso # (Auto) 0.0 10^3/uL (0.0-0.1) 11/27/23 03:22 Nucleated RBC % (auto) 0 % 11/27/23 03:22 Nucleated RBCs # 0.0 /100WBC 11/27/23 03:22 Peripher Smr Path Cons Sent for review 11/20/23 07:18 D-Dimer 2.68 ug/mLFEU (0-0.59) H 11/18/23 00:06 Specimen Type Arterial 11/19/23 09:43 Sample Site Brachial, left 11/19/23 09:43 ABG pH 7.40 (7.35-7.45) 11/19/23 09:43 ABG pCO2 45.4 mmHg (35-45) H 11/19/23 09:43 ABG pO2 140.0 mmHg (80.0-100.0) H 11/19/23 09:43 ABG PO2/FiO2 Ratio 350 11/19/23 09:43 ABG HCO3 28.3 mmol/L (22-26) H 11/19/23 09:43 ABG Base Excess 3.1 mmol/L (-2.0-2.0) H 11/19/23 09:43 Cl Test Pos 11/19/23 09:43 Hematocrit 29.3 % (42-52) L 11/19/23 09:43 O2 Delivery Device Bipap 11/19/23 09:43 FiO2 40.0 % 11/19/23 09:43 Printer Operator ID Cak 11/19/23 09:43 Sodium 139 mmol/L (136-145) 11/27/23 03:22 Potassium 4.2 mmol/L (3.5-5.1) 11/27/23 03:22 Chloride 100 mmol/L (98-107) 11/27/23 03:22 Carbon Dioxide 25 mmol/L (22-29) 11/27/23 03:22 Anion Gap 18.2 (5-19) 11/27/23 03:22 BUN 36 mg/dL (8-23) H 11/27/23 03:22 Creatinine 4.5 mg/dL (0.7-1.2) H 11/27/23 03:22 GFR Calculation Not Reportable 11/27/23 03:22 Glucose 123 mg/dL (65-115) H 11/27/23 03:22 Calculated Osmolality 298 mOsm/kg (285-295) H 11/27/23 03:22 Lactic Acid 1.0 mmol/L (0.5-2.2) 11/18/23 00:06 Calcium 9.1 mg/dL (8.5-10.5) 11/27/23 03:22 Phosphorus 3.1 mg/dL (2.5-4.5) 11/22/23 03:27 Magnesium 2.1 mg/dL (1.7-2.3) 11/26/23 15:39 Iron 56 ug/dL (59-158) L 11/20/23 07:18 Ferritin 1121 ng/mL (30-400) H 11/20/23 07:18 Total Bilirubin 0.5 mg/dL (0.15-1.2) 11/25/23 02:52 AST 18 U/L (0-40) 11/25/23 02:52 ALT 15 U/L (0-41) 11/25/23 02:52 Alkaline Phosphatase 124 U/L (40-130) 11/25/23 02:52 Troponin T 5th Gen ng/L 156 ng/L (0-15) H* 11/26/23 15:39 Troponin T Baseline 158 ng/L (0-15) H* 11/26/23 18:21 Troponin T 120 Minute 162.2 ng/L (0-15) H 11/26/23 20:30 Delta Troponin T 4.2 ABS# (0-10) 11/26/23 20:30 Troponin T Hi Sens 6Hr 161.6 ng/L (0-15) H 11/27/23 00:10 Troponin T Hi Sens 6Hr Delta 3.6 ng/L (0-12) 11/27/23 00:10 C-Reactive Protein 35.7 mg/L (0.0-4.9) H 11/19/23 06:44 NT-Pro-B Natriuret Pep > 02630 pg/mL (0-450) H 11/25/23 02:52 Total Protein 6.1 g/dL (6.6-8.7) L 11/25/23 02:52 Albumin 3.4 g/dL (3.5-5.2) L 11/25/23 02:52 Globulin 2.7 g/dL (1.3-4.6) 11/25/23 02:52 Vitamin B12 940 pg/mL (232-1245) 11/20/23 07:18 25-OH Vitamin D Total 41 ng/mL (30-100) 11/20/23 07:18 Folate 17.2 ng/mL (4.5-32.2) 11/20/23 07:18 Procalcitonin 0.27 ng/mL (0-0.5) 11/19/23 06:44 PTH Intact 85.6 pg/mL (15-65) H 11/20/23 07:18 Calcium (PTH Intact) 8.3 mg/dL (8.5-10.5) L 11/20/23 07:18 C. difficile (PCR) Positive (Negative) H 11/23/23 04:37 C.difficile Tox Confrm Negative (Negative) 11/23/23 04:37 Hep Bs Antigen Non-reactive (Nonreactive) 11/19/23 02:12 Hep Bs Antibody < 3.5 (11.5-1000) L 11/19/23 02:12 Hepatitis C Antibody Non-reactive (Nonreactive) 11/19/23 02:12 Vitals Last Vital Signs Temp 97.9 F 11/27/23 07:30 Pulse 103 H 11/27/23 09:30 Resp 28 H 11/27/23 07:30 BP 115/83 11/27/23 07:30 Pulse Ox 93 11/27/23 09:30 O2 Del Method Nasal Cannula 11/27/23 07:30 O2 Flow Rate 5 11/26/23 23:12 FiO2 50 11/27/23 09:30 Discharge Plan Discharge Patient Disposition: Home Condition: Stable Prescriptions: New midodrine 5 mg Tablet 5 mg PO TID 30 Days Qty: 90 0RF vancomycin 125 mg Capsule 125 mg PO QID 10 Days Qty: 40 0RF metoprolol succinate 25 mg tablet extended release 24 hr 12.5 mg PO BID 30 Days Qty: 30 0RF Continued atorvastatin 80 mg tablet 80 mg PO BEDTIME levothyroxine 50 mcg tablet 50 mcg PO QAM nitroglycerin 0.4 mg Tablet, Sublingual 0.4 mg SUBLINGUAL Q5M PRN (Reason: Chest Pain) Rx Instructions: do not exceed 3 doses per episode aspirin 81 mg Tablet 81 mg PO DAILY albuterol sulfate [Ventolin HFA] 90 mcg/actuation HFA aerosol inhaler 90 puff INHALATION DIRECTED PRN (Reason: Shortness Of Breath Or Wheezing) dexlansoprazole 60 mg capsule,biphase delayed releas 60 mg PO DAILY [id number] 400-600-120 mcg-mcg-mg Tablet 200 tab PO DAILY RenaPlex-D 800 mcg-12.5 mg -2,000 unit Tablet 800 tab PO DIRECTED clopidogrel 75 mg Tablet 75 mg PO DAILY Qty: 30 0RF Discontinued metoprolol succinate 50 mg tablet extended release 24 hr 50 mg PO BEDTIME lisinopril 5 mg tablet 5 mg PO BEDTIME bumetanide 1 mg tablet 0.5 mg PO QAM Discharge Orders: Discharge Order (Routine); Ordered 11/27/23 Ordered By: Sergio Garcia Referrals: Miguelito Persaud MD [Primary Care Provider] - Discharge Diet: As Directed Discharge Activity: Resume usual activity Patient Instructions: Heart Failure (DC), Dialysis Diet (DC), Hemodialysis (DC), CHF Stoplight, Opioid Safety, Post Heart Attack Stoplight Activity Restrictions/Additional Instructions: - Please follow-up with cardiology as outpatient ? If you have any chest pain or shortness of go to the emergency room Discharge Attestations Time Spent in Discharge Care*: greater than 30 min Quality Metrics Clinical Quality Measures [ No reported AMI, CVA or VTE this stay] Coding Level of Care Code 83992 Total time (in minutes) for Discharge: 45 Diagnoses End stage kidney disease N18.6
--- NOTE | 2023-11-27 13:07 | PC.NURSE ---
Patient has his dialysis at [facility], He will have dialysis 11/27 at 1030.
== END 2023-11-27 15:03 | disposition home health service (06) | DRG 280 ==
LOC: MS 2A 22:06 → ICU 22:18 → CSU 11-23 17:51
PROVIDERS: Internal Medicine; Internal Medicine Nephrology; Admitting Provider Internal Medicine; PCP Family Medicine; Visit Provider Family Medicine
DX: I25.5 Ischemic cardiomyopathy (principal); E43 Unspecified severe protein-calorie malnutrition; I21.4 Non-ST elevation (NSTEMI) myocardial infarction; I50.23 Acute on chronic systolic (congestive) heart failure; N18.6 End stage renal disease; J96.01 Acute respiratory failure with hypoxia; J69.0 Pneumonitis due to inhalation of food and vomit; I48.20 Chronic atrial fibrillation, unspecified; I47.29 Other ventricular tachycardia; A04.72 Enterocolitis due to Clostridium difficile, not specified as recurrent; I95.9 Hypotension, unspecified; Z99.2 Dependence on renal dialysis; I44.7 Left bundle-branch block, unspecified; J44.9 Chronic obstructive pulmonary disease, unspecified; I34.0 Nonrheumatic mitral (valve) insufficiency; I07.1 Rheumatic tricuspid insufficiency; D63.1 Anemia in chronic kidney disease; D50.9 Iron deficiency anemia, unspecified; D69.6 Thrombocytopenia, unspecified; R13.10 Dysphagia, unspecified; R53.81 Other malaise; E03.9 Hypothyroidism, unspecified; I25.10 Atherosclerotic heart disease of native coronary artery without angina pectoris; K21.9 Gastro-esophageal reflux disease without esophagitis; Z95.1 Presence of aortocoronary bypass graft; H91.90 Unspecified hearing loss, unspecified ear; Z79.02 Long term (current) use of antithrombotics/antiplatelets; Z79.82 Long term (current) use of aspirin; E78.5 Hyperlipidemia, unspecified; E11.22 Type 2 diabetes mellitus with diabetic chronic kidney disease; Z87.891 Personal history of nicotine dependence; F41.9 Anxiety disorder, unspecified; R45.1 Restlessness and agitation
CPT/HCPCS: 36415; 36600; 51702; 71045; 74230; 80048; 80053; 80503; 82306; 82310; 82607; 82728; 82746; 82803; 83540; 83605; 83735; 83880; 83970; 84100; 84145; 84484; 85025; 85378; 86140; 86706; 86803; 87070; 87205; 87324; 87340; 87493; 90935; 92526; 92610; 92611; 93005; 93306; 94660; 96372; 96376; 97110; 97116; 97162; 97167; 97530; 97535; C9113; J0696; J1644; J3490; P9047; Q3014; Q4081